=== PATIENT | female | born 1950 | race Caucasian/White ===

== ENCOUNTER 2017-08-23 09:12 | Emergency (ER) | payer BC, OTHER ==
[2017-08-23 10:10] LABS: Absolute Lymphocytes (CBC) 1.8 K/uL (0.7-4.9); Absolute Monocytes 0.9 K/uL (0.1-1.3); Absolute Neutrophil 5.3 K/uL (1.8-8.0); Eosinophils % 3.2 % (0-4.4); Hematocrit 42.6 % (36.0-45.0); Lymphocytes % 21.2 % (15.3-44.8); MCH 29.1 pg (27.0-35.0); MCV 87.5 fL (80-100); MPV 9.4 fL (7.6-11.3); Monocytes % 10.9 % (3.3-12.3); RBC Red Blood Cell Count 4.87 M/uL (3.86-4.86)
[2017-08-23 10:12] LABS: Protime INR 1.02
[2017-08-23 10:21] LABS: Potassium 3.6 mEq/L (3.6-5.0)
[2017-08-23 10:27] LABS: Albumin 3.9 g/dL (3.2-5.5); Bilirubin Direct 0.1 mg/dL (0-0.2); Bilirubin Total 0.6 mg/dL (0.3-1.2); Magnesium 1.7 mg/dL (1.8-2.5); Protein, Total 7.6 g/dL (6.0-8.3)
[2017-08-23 10:30] LABS: CKMB Creatine Kinase MB 1.2 ng/ml (0.3-4.0)
--- NOTE | 2017-08-23 10:32 | RAD REPORT ---
EXAM DESCRIPTION: RAD - Chest Single View - 08/23/2017 10:06 am CLINICAL HISTORY: Shortness of breath, back pain COMPARISON: May 2012 TECHNIQUE: AP portable chest image was obtained 1003 hours . FINDINGS: Lung volumes are very low compared to the prior study. This accentuates the mildly promine nt baseline pattern. In this setting, minimal or early interstitial edema or infiltrative process cou ld be masked. No consolidation or mass. Significant failure or volume overload are not suspected. Trachea is midline. Heart and vasculature are normal. No measurable pleural effusion and no pneumotho rax. No gross bony abnormality seen. No acute aortic findings suspected. IMPRESSION: No acute cardiopulmonary process. Due to the shallow inspiration, early interstitial edema or infiltrate could be masked.
[2017-08-23] MEDS ORDERED: MAGNESIUM OXIDE 400 MG TAB ONE (11:11)
[2017-08-23 11:12] LABS: Urine Blood NEGATIVE (NEG); Urine Glucose NEGATIVE (NEG); Urine Protein NEGATIVE (NEG); Urine Specific Gravity 1.015 (1.005-1.030); Urine pH 7.5 (5.0-7.0)
--- NOTE | 2017-08-23 11:12 | ER ---
Nurse's Notes [facility] Name: Ila Mariee Age: 67 yrs Sex: Female : 1950 Arrival Date: 08/23/2017 Time: 09:16 Bed 19 Private MD: Lida Glover Diagnosis: Strain of muscle and tendon of back wall of thorax Presentation: 08/23 09:40 Presenting complaint: Patient states: She was changing a tire yesterday on her travel aj1 trailer and dragging the valerie across the concrete. Later that night she started to have mid and lower back pain that is worse with movement and deep breathing. Patient states that she is concerned because she knows that back pain can be a sign of a heart attack so she came to the emergency room for evaluation. Denies chest pain, palpitations, incontinence. Reports shortness of breath. Transition of care: patient was not received from another setting of care. Onset of symptoms was August 22, 2017 at 20:00. Risk Assessment: Do you want to hurt yourself or someone else? Patient reports no desire to harm self or others. Initial Sepsis Screen: Does the patient meet any 2 criteria? No. Patient's initial sepsis screen is negative. Does the patient have a suspected source of infection? No. Patient's initial sepsis screen is negative. Care prior to arrival: None. 09:40 Method Of Arrival: Ambulatory aj 09:40 Acuity: IGNACIO 3 aj1 Triage Assessment: 09:50 General: Appears in no apparent distress. uncomfortable, Behavior is calm, cooperative, aj1 appropriate for age. Pain: Complains of pain in low back area and mid back area. Musculoskeletal: Range of motion: intact in all extremities. Historical: - Allergies: 09:50 Prednisone; aj1 09:50 tramadol; aj1 09:50 Zofran; aj1 09:50 Bactrim; aj1 09:50 Codeine; aj1 - Home Meds: 09:50 amlodipine 5 mg tab 1 tab once daily [Active]; citalopram 20 mg tab 1 tab once daily aj1 [Active]; losartan-hydrochlorothiazide 100-12.5 mg Oral tab 1 tab once daily for Hypertension [Active]; losartan-hydrochlorothiazide 100-12.5 mg oral tab 1 tab once daily [Active]; simvastatin 20 mg Oral tab 1 tab once daily [Active]; oxybutynin chloride 5 mg Oral tab 10 mg 3 times per day [Active]; Vitamin D Oral 22604 unit WEEKLY [Active]; omeprazole 20 mg Oral cpDR 1 cap once daily for Gastroesophageal reflux [Active]; - PMHx: 09:50 Anxiety; Depression; GERD; High Cholesterol; Hypertension; urinary problems; aj1 - PSHx: 09:50 wrist surgery; knee surgery; shoulder surgery; hand surgery; aj1 - Immunization history:: Flu vaccine is up to date. - Social history:: Smoking status: Patient/guardian denies using tobacco. - Ebola Screening: : Patient denies travel to an Ebola-affected area in the 21 days before illness onset. Screenin:51 Abuse screen: Denies threats or abuse. Denies injuries from another. Nutritional aj1 screening: No deficits noted. Tuberculosis screening: No symptoms or risk factors identified. 11:35 Fall Risk None identified. aj1 Assessment: 09:51 General: Appears in no apparent distress. uncomfortable, Behavior is calm, cooperative, aj1 appropriate for age. Pain: Complains of pain in mid back area and low back area Pain does not radiate. Pain currently is 10 out of 10 on a pain scale. Quality of pain is described as stabbing, Pain began 1 day ago. Is continuous, Alleviated by medications, Aggravated by repositioning, deep breathing Noted to be resistant to movement. Neuro: Level of Consciousness is awake, alert, obeys commands, Oriented to person, place, time, situation, Moves all extremities. Full function Gait is steady, Speech is normal, Facial symmetry appears normal, Intact. Cardiovascular: Denies chest pain, palpitations, Heart tones S1 S2 present Patient's skin is warm and dry. Rhythm is regular. Respiratory: Reports shortness of breath Airway is patent Respiratory effort is even, unlabored, Respiratory pattern is regular, symmetrical, Breath sounds are clear bilaterally. GI: No signs and/or symptoms were reported involving the gastrointestinal system. : No signs and/or symptoms were reported regarding the genitourinary system. EENT: No signs and/or symptoms were reported regarding the EENT system. Derm: No signs and/or symptoms reported regarding the dermatologic system. Skin is pink, warm \T\ dry. normal. Musculoskeletal: Range of motion: intact in all extremities, Reports back pain. 10:50 Reassessment: Patient appears in no apparent distress at this time. No changes from aj1 previously documented assessment. Patient and/or family updated on plan of care and expected duration. Pain level reassessed. Patient is alert, oriented x 3, equal unlabored respirations, skin warm/dry/pink. Vital Signs: 09:50 BP 155 / 82; Pulse 60; Resp 18; Temp 97.6(O); Pulse Ox 100% on R/A; Weight 71.21 kg; aj1 Height 5 ft. 1 in. (154.94 cm); Pain 10/10; 10:50 BP 144 / 75; Pulse 62; Resp 18; Pulse Ox 99% ; aj1 11:35 BP 155 / 81; Pulse 59; Resp 16; Pulse Ox 98% on R/A; Pain 4/10; ss 09:50 Body Mass Index 29.66 (71.21 kg, 154.94 cm) aj1 ED Course: 09:16 Patient arrived in ED. as 09:16 Lida Glover MD is Private Physician. as 09:23 Fletcher [facility]arsia [facility]. pm1 09:28 Flo Mcdermott MD is Attending Physician. pm1 09:40 Patrizia Mills, BETTY is Primary Nurse. aj1 09:43 Triage completed. aj1 09:50 Arm band placed on. aj1 09:50 Inserted saline lock: 22 gauge in right antecubital area, using aseptic technique. jp3 Blood collected. 09:50 Initial lab(s) drawn, by nv, sent to lab. jp3 09:51 Patient has correct armband on for positive identification. Bed in low position. Call aj light in reach. Side rails up X 1. clinical research monitor on. Pulse ox on. NIBP on. 09:51 No provider procedures requiring assistance completed. aj1 10:06 XRAY Chest (1 view) In Process Unspecified. EDMS 10:06 EKG done, by process controls technician. reviewed by Fletcher Garsia NP. sm3 11:34 IV discontinued, intact, bleeding controlled, No redness/swelling at site. Pressure ss dressing applied. Administered Medications: 11:13 Drug: Magnesium 400 mg Route: PO; aj1 11:36 Follow up: Response: No adverse reaction aj1 Outcome: 11:12 Discharge ordered by . pm1 11:34 Discharged to home ambulatory, with family. ss 11:34 Condition: improved 11:34 Discharge instructions given to patient, family, Instructed on discharge instructions, follow up and referral plans. Demonstrated understanding of instructions, follow-up care. 11:36 Patient left the ED. Signatures: Dispatcher [employer] EDPatrizia Cardona RN RN aj1 Pau Willingham Shelby, RN RN ss Fletcher Garsia, ADDI SATELLITE INSTALLER pm1 Letty Rowe sm3 Fredy Jj 3
--- NOTE | 2017-08-23 11:12 | EDPHYS ---
Physician Documentation [facility] Name: Ila Mariee Age: 67 yrs Sex: Female : 1950 Arrival Date: 08/23/2017 Time: 09:16 Bed 19 Private MD: Lida Glover ED Physician Flo Mcdermott HPI: 08/23 10:30 This 67 yrs old Female presents to ER via Ambulatory with complaints of Back pm1 Pain. 10:30 The patient presents with pain that is acute. pm1 10:30 The symptoms are located in the right subscapular area. Onset: The symptoms/episode pm1 began/occurred yesterday. The pain does not radiate. Associated signs and symptoms: Pertinent negatives: abdominal pain, chest pain, dysuria, fever, nausea, numbness, tingling, vomiting. The problem was sustained when lifting heavy object. Modifying factors: the patient symptoms are aggravated by Deep breathing and movement of right arm. Severity of symptoms: in the emergency department the symptoms are actually worse, shortness of breath is not present in the emergency department. The patient has not experienced similar symptoms in the past. Patient was changing a tire on her trailer. She was dragging the 2 ton valerie across gravel and started noticing some right sided back pain that is worse with moving her back and moving her right arm. No vertebral tenderness or pain. No chest pain. Patient cane to the ER because her told her that AL's may present as back pain. Patient with onset of constant back pain since yesterday. Historical: - Allergies: 09:50 Prednisone; aj1 09:50 tramadol; aj1 09:50 Zofran; aj1 09:50 Bactrim; aj1 09:50 Codeine; aj1 - Home Meds: 09:50 amlodipine 5 mg tab 1 tab once daily [Active]; citalopram 20 mg tab 1 tab once daily aj1 [Active]; losartan-hydrochlorothiazide 100-12.5 mg Oral tab 1 tab once daily for Hypertension [Active]; losartan-hydrochlorothiazide 100-12.5 mg oral tab 1 tab once daily [Active]; simvastatin 20 mg Oral tab 1 tab once daily [Active]; oxybutynin chloride 5 mg Oral tab 10 mg 3 times per day [Active]; Vitamin D Oral 05090 unit WEEKLY [Active]; omeprazole 20 mg Oral cpDR 1 cap once daily for Gastroesophageal reflux [Active]; - PMHx: 09:50 Anxiety; Depression; GERD; High Cholesterol; Hypertension; urinary problems; aj1 - PSHx: 09:50 wrist surgery; knee surgery; shoulder surgery; hand surgery; aj1 - Immunization history:: Flu vaccine is up to date. - Social history:: Smoking status: Patient/guardian denies using tobacco. - Ebola Screening: : Patient denies travel to an Ebola-affected area in the 21 days before illness onset. ROS: 10:30 Constitutional: Negative for fever, chills, and weight loss, Eyes: Negative for injury, pm1 pain, redness, and discharge, ENT: Negative for injury, pain, and discharge, Neck: Negative for injury, pain, and swelling, Cardiovascular: Negative for chest pain, palpitations, and edema, Respiratory: Negative for shortness of breath, cough, wheezing, and pleuritic chest pain, Abdomen/GI: Negative for abdominal pain, nausea, vomiting, diarrhea, and constipation. 10:30 : Negative for injury, bleeding, discharge, and swelling, MS/Extremity: Negative for injury and deformity, Skin: Negative for injury, rash, and discoloration, Neuro: Negative for headache, weakness, numbness, tingling, and seizure. 10:30 Back: Positive for of the right subscapular area, Negative for decreased range of motion. Exam: 10:30 Constitutional: This is a well developed, well nourished patient who is awake, alert, pm1 and in no acute distress. Head/Face: Normocephalic, atraumatic. Eyes: Pupils equal round and reactive to light, extra-ocular motions intact. Lids and lashes normal. Conjunctiva and sclera are non-icteric and not injected. Cornea within normal limits. Periorbital areas with no swelling, redness, or edema. ENT: Nares patent. No nasal discharge, no septal abnormalities noted. Tympanic membranes are normal and external auditory canals are clear. Oropharynx with no redness, swelling, or masses, exudates, or evidence of obstruction, uvula midline. Mucous membranes moist. Neck: Trachea midline, no thyromegaly or masses palpated, and no cervical lymphadenopathy. Supple, full range of motion without nuchal rigidity, or vertebral point tenderness. No Meningismus. Chest/axilla: Normal chest wall appearance and motion. Nontender with no deformity. No lesions are appreciated. Cardiovascular: Regular rate and rhythm with a normal S1 and S2. No gallops, murmurs, or rubs. Normal PMI, no JVD. No pulse deficits. Respiratory: Lungs have equal breath sounds bilaterally, clear to auscultation and percussion. No rales, rhonchi or wheezes noted. No increased work of breathing, no retractions or nasal flaring. Abdomen/GI: Soft, non-tender, with normal bowel sounds. No distension or tympany. No guarding or rebound. No evidence of tenderness throughout. 10:30 Skin: Warm, dry with normal turgor. Normal color with no rashes, no lesions, and no evidence of cellulitis. MS/ Extremity: Pulses equal, no cyanosis. Neurovascular intact. Full, normal range of motion. 10:30 Back: pain, Pain reproduced with movement and rotation of right and left arm, normal spinal alignment noted, muscle spasm, is appreciated in the right subscapular area. 10:30 Neuro: Orientation: is normal, Motor: moves all fours, strength is normal, strength is 5/5 in all extremities, Sensation: is normal, no obvious gross deficits, Gait: is steady, at a normal pace, without difficulty. Vital Signs: 09:50 BP 155 / 82; Pulse 60; Resp 18; Temp 97.6(O); Pulse Ox 100% on R/A; Weight 71.21 kg; aj1 Height 5 ft. 1 in. (154.94 cm); Pain 10/10; 10:50 BP 144 / 75; Pulse 62; Resp 18; Pulse Ox 99% ; aj1 11:35 BP 155 / 81; Pulse 59; Resp 16; Pulse Ox 98% on R/A; Pain 4/10; ss 09:50 Body Mass Index 29.66 (71.21 kg, 154.94 cm) [facility] MDM: 09:29 Patient medically screened. pm1 11:10 ED course: Patient offered pain medications multiple times during ER visit. Patient pm1 refused. She just wants to take ibuprofen or tylenol OTC as needed. 11:10 Data reviewed: vital signs. Data interpreted: Pulse oximetry: on room air is 100 %. pm1 Interpretation: normal. Counseling: I had a detailed discussion with the patient and/or guardian regarding: the historical points, exam findings, and any diagnostic results supporting the discharge/admit diagnosis, lab results, radiology results, the need for outpatient follow up, to return to the emergency department if symptoms worsen or persist or if there are any questions or concerns that arise at home. 08/23 09:37 Order name: Basic Metabolic Panel; Complete Time: 10:41 pm08/23 11:01 Interpretation: Within normal limits. pm08/23 09:37 Order name: BNP; Complete Time: 10:42 pm08/23 09:37 Order name: CBC with Diff; Complete Time: 10:41 pm08/23 09:37 Order name: Ckmb; Complete Time: 10:42 pm08/23 09:37 Order name: CPK; Complete Time: 10:42 pm08/23 09:37 Order name: LFT's; Complete Time: 10:42 pm08/23 09:37 Order name: Magnesium; Complete Time: 10:42 pm08/23 09:37 Order name: PT-INR; Complete Time: 10:42 pm08/23 09:37 Order name: Ptt, Activated; Complete Time: 10:42 pm08/23 09:37 Order name: Troponin (emerg Dept Use Only); Complete Time: 10:42 pm08/23 09:37 Order name: XRAY Chest (1 view); Complete Time: 10:42 pm08/23 09:37 Order name: EKG; Complete Time: 09:38 pm08/23 10:58 Order name: Urine Dipstick--Ancillary (enter results); Complete Time: 11:13 ag 08/23 09:37 Order name: Cardiac monitoring; Complete Time: 11:06 pm08/23 09:37 Order name: EKG - Nurse/Tech; Complete Time: 10:22 pm08/23 09:37 Order name: IV Saline Lock; Complete Time: 10:22 pm08/23 09:37 Order name: Labs collected and sent; Complete Time: 10:22 pm08/23 09:37 Order name: O2 Per Protocol; Complete Time: 11:04 pm08/23 09:37 Order name: O2 Sat Monitoring; Complete Time: 11:04 pm1 06/11 09:37 Order name: Urine Dipstick-Ancillary (obtain specimen); Complete Time: 11:04 pm1 Administered Medications: 11:13 Drug: Magnesium 400 mg Route: PO; aj1 11:36 Follow up: Response: No adverse reaction aj1 Disposition: 08/24 10:48 Co-signature as Attending Physician, Flo Mcdermott MD I agree with the assessment and preston plan of care. Disposition: 08/23/17 11:12 Discharged to Home. Impression: Strain of muscle and tendon of back wall of thorax. - Condition is Stable. - Discharge Instructions: Muscle Strain. - Work release form, Medication Reconciliation Form, Thank You Letter form. - Follow up: Emergency Department; When: As needed; Reason: Worsening of condition. Follow up: Private Physician; When: 2 - 3 days; Reason: Recheck today's complaints, Continuance of care, Re-evaluation by your physician. - Problem is new. - Symptoms have improved. Signatures: Dispatcher [employer] EDPR Patrizia Mills RN RN aj1 Flo Mcdermott MD MD cha Smirch, Shelby, RN RN ss Marinas, Patrick, DESIGN SALES CONSULTANT DESIGN SALES CONSULTANT pm1 Corrections: (The following items were deleted from the chart) 08/23 11:36 11:12 08/23/2017 11:12 Discharged to Home. Impression: Strain of muscle and tendon of ss back wall of thorax. Condition is Stable. Forms are Medication Reconciliation Form, Thank You Letter, Antibiotic Education, Prescription Opioid Use. Follow up: Emergency Department; When: As needed; Reason: Worsening of condition. Follow up: Private Physician; When: 2 - 3 days; Reason: Recheck today's complaints, Continuance of care, Re-evaluation by your physician. Problem is new. Symptoms have improved. pm1
--- NOTE | 2017-08-23 16:11 | EKG ---
Test Date: 2017-08-23 Test Time: 09:57:51 Heel Splitter: [place] MEASUREMENT RESULTS: Intervals: Rate: 55 MI: 146 QRSD: 96 QT: 476 QTc: 455 Pharr: P: 47 MI: 146 QRS: 5 T: 11 INTERPRETIVE STATEMENTS: Sinus bradycardia Possible Inferior infarct, age undetermined Abnormal ECG Compared to ECG 04/17/2009 16:02:29 Myocardial infarct finding now present Sinus rhythm no longer present Electronically Signed On 08-23-17 16:11:07 CDT by Andrez Munoz
== END 2017-08-23 11:36 | disposition home or self-care (01) ==
LOC: ER 09:12
DX: S29.012A Strain of muscle and tendon of back wall of thorax, initial encounter (principal); X50.0XXA Overexertion from strenuous movement or load, initial encounter; Y93.89 Activity, other specified; Y92.9 Unspecified place or not applicable; Z88.1 Allergy status to other antibiotic agents; Z88.5 Allergy status to narcotic agent; Z88.6 Allergy status to analgesic agent; Z88.8 Allergy status to other drugs, medicaments and biological substances; I10 Essential (primary) hypertension; E78.00 Pure hypercholesterolemia, unspecified; F41.9 Anxiety disorder, unspecified; F32.9 Major depressive disorder, single episode, unspecified
CPT/HCPCS: 36415; 71045; 80048; 80076; 81003; 82550; 82553; 83735; 83880; 84484; 85025; 85610; 85730; 93005; 99284

== ENCOUNTER 2018-06-16 08:56 | Emergency (ER) | payer BC, OTHER ==
--- OUTSIDE RECORDS SUMMARY | 2018-06-16 08:58 | XMS REPORT ---
:1950 Author Organization [employer] Care Team Providers Name Role Phone Lida Glover Provider Role Unavailable Allergies No Known Allergies Problems Problem Type Condition Code Onset Dates Condition Status Problem Depression with anxiety F41.8 Active Problem Gastroesophageal reflux disease, K21.9 Active esophagitis presence not specified Problem Hypercholesterolemia E78.00 Active Problem Shortness of breath R06.02 Active Problem Vitamin D deficiency E55.9 Active Problem Hot flashes R23.2 Active Problem Cardiac murmur R01.1 Active Problem Bruises easily R23.8 Active Problem Seasonal allergies J30.2 Active Problem Sinus problem J34.9 Active Problem Allergic rhinitis, unspecified J30.9 Active seasonality, unspecified trigger Problem Hypertension, unspecified type I10 Active Problem Insomnia, unspecified type G47.00 Active Medications No Known Medications Results No Known Results Summary Purpose [employer]Clinical[employer] Submission
--- OUTSIDE RECORDS SUMMARY | 2018-06-16 08:58 | XMS REPORT ---
:1950 Author Organization [employer] Care Team Providers Name Role Phone Lida Glover Provider Role Unavailable Allergies, Adverse Reactions, Alerts Substance Reaction Event Type tramadol Info Not Available Drug Allergy Zofran Info Not Available Drug Allergy PredniSONE Info Not Available Drug Allergy Bactrim Info Not Available Drug Allergy Problems Problem Type Condition Code Onset Dates Condition Status Problem Depression with anxiety F41.8 Active Problem Gastroesophageal reflux disease, K21.9 Active esophagitis presence not specified Problem Hypercholesterolemia E78.00 Active Problem Shortness of breath R06.02 Active Assessment Insomnia, unspecified type G47.00 Active Problem Vitamin D deficiency E55.9 Active Assessment Depression with anxiety F41.8 Active Problem Hot flashes R23.2 Active Problem Cardiac murmur R01.1 Active Problem Bruises easily R23.8 Active Problem Seasonal allergies J30.2 Active Problem Sinus problem J34.9 Active Assessment Gastroesophageal reflux disease, K21.9 Active esophagitis presence not specified Assessment Hypercholesterolemia E78.00 Active Assessment Allergic rhinitis, unspecified J30.9 Active seasonality, unspecified trigger Assessment Vitamin D deficiency E55.9 Active Problem Allergic rhinitis, unspecified J30.9 Active seasonality, unspecified trigger Assessment Hot flashes R23.2 Active Problem Hypertension, unspecified type I10 Active Assessment Hypertension, unspecified type I10 Active Problem Insomnia, unspecified type G47.00 Active Medications Medication Code Code Instructions Start End Status Dosage System Date Date Famotidine ND 19702955220 20 MG Orally Active 1 tablet Once a day at bedtime Pravastatin ND 86200404080 40 MG Orally Active 1 tablet Sodium Once a day Amlodipine ND 01843853101 5 MG Orally Active 1 tablet Besylate Once a day Hyzaar [facility] 91919971033 100-12.5 MG Active 1 tablet Orally Once a day CoQ10 ND 84640829977 100 MG Orally Active 1 capsule Once a day with a meal Amitriptyline HCl ND 78379937490 50 MG Orally Active 1 tablet Once a day at as needed bedtime for sleep Promethazine HCl [facility] 97951838954 25 MG Orally Active 1 tablet every 12 hrs as needed BusPIRone HCl ND 35907795991 7.5 MG Orally Active 1 tablet Twice a day as needed Aspir-Low ND 90452839928 81 MG Orally Active 1 tablet Once a day Vitamin D3 [facility] 47711428676 50,000 PO once Active one tab a week Amoxicillin-Pot ND 20529890563 500-125 MG Active not Clavulanate Orally wice a defined day x10 days Citalopram [facility] 29586746276 20 mg Orally Active 1 tablet Hydrobromide Once a day Aspirin ND 69965232474 81 MG Orally Active 1 tablet QOD Vitamin E ND 90894508633 400 UNIT Orally Active 1 capsule Once a day Cetirizine HCl [facility] 66612423128 10 MG Orally Active 1 tablet Once a day Cranberry [facility] 14204255520 500 MG Orally Active not defined Pepcid [facility] 24296130082 20 MG Orally Active 1 tablet Once a day at bedtime Ditropan XL [facility] 15737957802 5 MG Orally Active 2 tablets Three times a day Oxybutynin [facility] 00190340039 10 Orally Once Active 1 tablet Chloride ER a day Myrbetriq [facility] 20470512440 25 MG Orally Active 1 tablet Once a day Simvastatin [facility] 58734167390 20 mg Orally Active 1 tablet Once a day in the evening ProAir HFA [facility] 75027398062 108 (90 Base) Active 2 puffs as MCG/ACT needed Inhalation every 6 hrs Omeprazole [facility] 64643413485 20 Orally Once Active 1 capsule daily Caltrate 600+D [facility] 91593771977 600-800 MG-UNIT Active 1 tablet Orally Once a with a day meal Results No Known Results Summary Purpose eClinicalWorks Submission
--- OUTSIDE RECORDS SUMMARY | 2018-06-16 08:59 | XMS REPORT ---
:1950 Author Organization [employer] Care Team Providers Name Role Phone Lida Glover Provider Role Unavailable Allergies No Known Allergies Problems Problem Type Condition Code Onset Dates Condition Status Problem Depression with anxiety F41.8 Active Problem Gastroesophageal reflux disease, K21.9 Active esophagitis presence not specified Problem Hypercholesterolemia E78.00 Active Problem Allergic rhinitis, unspecified J30.9 Active seasonality, unspecified trigger Problem Hypertension, unspecified type I10 Active Problem Insomnia, unspecified type G47.00 Active Problem Shortness of breath R06.02 Active Problem Vitamin D deficiency E55.9 Active Problem Hot flashes R23.2 Active Problem Cardiac murmur R01.1 Active Problem Bruises easily R23.8 Active Problem Seasonal allergies J30.2 Active Problem Sinus problem J34.9 Active Medications No Known Medications Results No Known Results Summary Purpose eClinicalWorks Submission
--- OUTSIDE RECORDS SUMMARY | 2018-06-16 08:59 | XMS REPORT ---
[...] Active Problem Sinus problem J34.9 Active Assessment Vitamin D deficiency E55.9 Active Assessment Gastroesophageal reflux disease, K21.9 Active esophagitis presence not specified Assessment Depression with anxiety F41.8 Active Assessment Hot flashes R23.2 Active Problem Allergic rhinitis, unspecified J30.9 Active seasonality, unspecified trigger Assessment Hypercholesterolemia E78.00 Active Problem Hypertension, unspecified type I10 Active Assessment Hypertension, unspecified type I10 Active Problem Insomnia, unspecified type G47.00 Active Medications Medication Code Code Instructions Start End Status Dosage System Date Date Omeprazole [facility] 35743215248 20 Orally Once Active 1 capsule daily Amitriptyline [facility] 41078861585 50 MG Orally Active 1 tablet HCl Once a day at as needed bedtime for sleep Vitamin D3 [facility] 70944802434 50,000 PO once Active one tab a week Simvastatin [facility] 26649782986 20 mg Orally Active 1 tablet Once a day in the evening Citalopram [facility] 61147637431 20 mg Orally Inactive 1 tablet Hydrobromide Once a day Pravastatin ND 56638318575 40 MG Orally Active 1 tablet Sodium Once a day Aspir-Low [facility] 80081057966 81 MG Orally Active 1 tablet Once a day CoQ10 [facility] 66760753950 100 MG Orally Active 1 capsule Once a day with a meal Ditropan XL [facility] 75458159428 5 MG Orally Active 2 tablets Three times a day BusPIRone HCl ND 45272056692 7.5 MG Orally Active 1 tablet Twice a day as needed Vitamin E ND 52153544462 400 UNIT Orally Active 1 capsule Once a day BusPIRone HCl ND 81166353408 7.5 MG Orally May Active 1 tablet Twice a day as 2018 needed for anxiety Amoxicillin-Pot ND 51728437661 500-125 MG Active not Clavulanate Orally wice a defined day x10 days Famotidine ND 47646619303 20 MG Orally Active 1 tablet Once a day at bedtime Cranberry ND 59736529711 500 MG Orally Active not defined Cetirizine HCl ND 87845761180 10 MG Orally Active 1 tablet Once a day ProAir HFA [facility] 84247806987 108 (90 Base) Active 2 puffs MCG/ACT as needed Inhalation every 6 hrs Hyzaar [facility] 43140318701 100-12.5 MG Active 1 tablet Orally Once a day Amlodipine ND 43337657780 5 MG Orally Active 1 tablet Besylate Once a day Caltrate 600+D [facility] 30401887870 600-800 MG-UNIT Active 1 tablet Orally Once a with a day meal Aspirin ND 37493842380 81 MG Orally Active 1 tablet QOD Pepcid ND 24580869785 20 MG Orally Active 1 tablet Once a day at bedtime Trintellix [facility] 67401888974 10 MG Orally May Active 1 tablet Once a day for 2018 depression/anxi ety Oxybutynin [facility] 88149910031 10 Orally Once Active 1 tablet Chloride ER a day Myrbetriq ND 87140082419 25 MG Orally Active 1 tablet Once a day Promethazine HCl ND 06200686170 25 MG Orally Active 1 tablet every 12 hrs as needed Results No Known Results Summary Purpose eClinicalWorks Submission
[2018-06-16] MEDS ORDERED: PROMETHAZINE 25 MG/ML VIAL ONE (09:41)
[2018-06-16] MEDS ORDERED: LIDOCAINE VISCOUS 2% SOLN 15 ML UDC ONE (09:41)
[2018-06-16] MEDS ORDERED: MAGNE/ALUM HYDROXD 30 ML UCUP ONE ×2 (09:41→10:30)
[2018-06-16] MEDS ORDERED: NA CHLORIDE 0.9% 500 ML ONE (09:41)
[2018-06-16 09:44] LABS: Absolute Lymphocytes (CBC) 0.3 K/uL (0.7-4.9); Absolute Neutrophil 15.6 K/uL (1.8-8.0); Basophils % 0.1 % (0-1.3); Eosinophils % 0.2 % (0-4.4); Hematocrit 42.4 % (36.0-45.0); Lymphocytes % 1.8 % (15.3-44.8); MPV 9.1 fL (7.6-11.3); Monocytes % 5.6 % (3.3-12.3); RBC Red Blood Cell Count 4.88 M/uL (3.86-4.86)
[2018-06-16] MEDS ORDERED: DEXAMETHASONE 10 MG/ML VIAL ONE (09:46)
[2018-06-16] MEDS ORDERED: MEPERIDINE HCL 50 MG/ML AMP ONE (09:46)
--- NOTE | 2018-06-16 09:51 | RAD REPORT ---
EXAM DESCRIPTION: US - Abdomen Exam Limited - 06/16/2018 9:46 am CLINICAL HISTORY: Abdominal pain COMPARISON: None. FINDINGS: No gallstones, sludge or other abnormalities within the gallbladder lumen. There is no wal l thickening or pericholecystic fluid. No common duct stone or biliary tree dilatation identified. IMPRESSION: Normal gallbladder and biliary tree ultrasound.
[2018-06-16 09:57] LABS: ALT/SGPT 34 U/L (12-78); AST/SGOT 37 U/L (15-37); Albumin 3.4 g/dL (3.4-5.0); Alkaline Phosphatase 81 U/L (45-117); BUN Blood Urea Nitrogen 18 mg/dL (7-18); Bicarbonate 25 mmol/L (21-32); Bilirubin Direct 0.2 mg/dL (0-0.2); Bilirubin Total 0.7 mg/dL (0.2-1.0); Glucose Level 124 mg/dL (74-106); Lipase 54 U/L (73-393); Potassium 3.7 mmol/L (3.5-5.1); Protein, Total 7.4 g/dL (6.4-8.2); Sodium Level 142 mmol/L (136-145); Troponin (Emerg Dept Use Only) < 0.02 ng/mL (0.0-0.045)
--- NOTE | 2018-06-16 10:45 | RAD REPORT ---
EXAM DESCRIPTION: RAD - Chest Single View - 06/16/2018 10:35 am CLINICAL HISTORY: CHEST PAIN Chest pain. COMPARISON: Chest Single View dated 08/23/2017; CHEST PA AND LAT 2 VIEW dated 05/31/2012; CHEST PA AND LAT 2 VIEW dated 10/02/2009; ABDOMEN ACUTE SERIES dated 04/17/2009 FINDINGS: Portable technique limits examination quality. The lungs are grossly clear. The heart is normal in size. No displaced fractures. IMPRESSION: No acute intrathoracic process suspected.
[2018-06-16 10:57] LABS: Blood Morphology Comment NOT SEEN (NOT SEEN); Platelet Estimate ADEQ
--- NOTE | 2018-06-16 12:37 | RAD REPORT ---
EXAM DESCRIPTION: CTAbdomen Pelvis W Contrast - 06/16/2018 12:24 pm CLINICAL HISTORY: Abdominal pain. Abd pain;Nausea / vomiting COMPARISON: No comparisons TECHNIQUE: Biphasic CT imaging of the abdomen and pelvis was performed with 100 ml non-ionic IV cont rast. All CT scans are performed using dose optimization technique as appropriate and may include automated exposure control or mA/KV adjustment according to patient size. FINDINGS: The lung bases are clear. The liver, spleen, pancreas, adrenal glands and kidneys are within normal limits. No bowel obstruction, free air, free fluid or abscess. Moderate retained stool in the colon. The appe ndix is not identified as a discrete structure, however, no secondary findings of appendicitis are id entified. No evidence of significant lymphadenopathy. Mild lower lumbar degenerative changes. IMPRESSION: No acute intra-abdominal or pelvic finding. Moderate fecal retention in the colon.
--- NOTE | 2018-06-16 13:09 | ER ---
Nurse's Notes [facility] Name: Ila Mariee Age: 68 yrs Sex: Female : 1950 Arrival Date: 06/16/2018 Time: 09:00 Bed 8 Private MD: Lida Glover Diagnosis: Gastritis, unspecified;Constipation, unspecified;Dehydration Presentation: 06/16 09:11 Presenting complaint: Patient states: woke up in the middle of night, feeling very iw shaky, chills, started dry heaving, also c/o chest tightness, epigastric pain radiating to lower abdomen, denies vomiting or diarrhea, also c/o arms and legs tingling, hx of anxiety and GERD. Transition of care: patient was not received from another setting of care. Onset of symptoms was June 16, 2018. Risk Assessment: Do you want to hurt yourself or someone else? Patient reports no desire to harm self or others. Initial Sepsis Screen: Does the patient meet any 2 criteria? No. Patient's initial sepsis screen is negative. Does the patient have a suspected source of infection? No. Patient's initial sepsis screen is negative. Care prior to arrival: None. 09:11 Method Of Arrival: Wheelchair iw 09:11 Acuity: IGNACIO 3 iw Triage Assessment: 12:30 GI: Reports nausea. iw 13:00 General: Appears in no apparent distress. Behavior is calm. iw Historical: - Allergies: 09:33 Bactrim; iw 09:33 Codeine; iw 09:33 Prednisone; iw 09:33 tramadol; iw 09:33 Zofran; iw - Home Meds: 09:33 amlodipine 5 mg tab 1 tab once daily [Active]; losartan-hydrochlorothiazide 100-12.5 mg iw Oral tab 1 tab once daily [Active]; buspirone 7.5 mg Oral tab 2 times per day [Active]; Trintellix 10 mg oral tab 1 tab once daily [Active]; Myrbetriq 25 mg oral Tb24 1 tab once daily [Active]; omeprazole 20 mg Oral cpDR 1 cap once daily for Gastroesophageal reflux [Active]; - PMHx: 09:33 Anxiety; Depression; GERD; High Cholesterol; Hypertension; urinary problems; Anemia; iw - PSHx: 09:33 wrist surgery; Knee surgery; shoulder surgery; hand surgery; iw - Immunization history:: Adult Immunizations up to date. - Ebola Screening: : Patient negative for fever greater than or equal to 101.5 degrees Fahrenheit, and additional compatible Ebola Virus Disease symptoms Patient denies exposure to infectious person Patient denies travel to an Ebola-affected area in the 21 days before illness onset No symptoms or risks identified at this time. - Family history:: not pertinent. - Social history:: Smoking status: Patient/guardian denies using tobacco. - Hospitalizations: : No recent hospitalization is reported. Screenin:22 Abuse screen: Denies threats or abuse. Denies injuries from another. Nutritional iw screening: No deficits noted. Tuberculosis screening: No symptoms or risk factors identified. Fall Risk IV access (20 points). Assessment: 10:22 Reassessment: Patient appears in no apparent distress at this time. Patient and/or iw family updated on plan of care and expected duration. Pain level reassessed. pt medicated for nausea and pain, appears more relaxed, pt encouraged to drink oral contrast. 11:35 Reassessment: Patient appears in no apparent distress at this time. Patient and/or iw family updated on plan of care and expected duration. Pain level reassessed. Patient is alert, oriented x 3, equal unlabored respirations, skin warm/dry/pink. pt has had no more episodes of dry heaving, pt resting comfortably in bed, family at bedside, VSS. Pain: Denies pain. GI: Abdomen is non-distended. 12:40 Reassessment: Patient appears in no apparent distress at this time. Patient and/or iw family updated on plan of care and expected duration. Pain level reassessed. Patient is alert, oriented x 3, equal unlabored respirations, skin warm/dry/pink. Patient states feeling better. Patient states symptoms have improved. Vital Signs: 09:33 BP 148 / 65; Pulse 84; Resp 16; Temp 99.5(TE); Pulse Ox 97% ; iw 11:05 BP 145 / 72; Pulse 96; Resp 14 S; Pulse Ox 95% on R/A; Pain 0/10; iw 12:03 BP 144 / 74; Pulse 96; Resp 16; Pulse Ox 96% on R/A; iw ED Course: 09:00 Patient arrived in ED. mr 09:00 Lida Glover MD is Private Physician. mr 09:01 Theo Ken MD is Attending Physician. rn 09:10 Dinorah Grove RN is Primary Nurse. iw 09:13 Triage completed. iw 09:17 EKG done, by janitorial tech. reviewed by Theo Ken MD. dt2 09:34 Arm band placed on. iw 09:36 Initial lab(s) drawn, by me, sent to lab. Inserted saline lock: 22 gauge in right iw antecubital area, using aseptic technique. Blood collected. 09:46 US Abdomen Limited In Process Unspecified. EDMS 10:36 XRAY Chest (1 view) In Process Unspecified. EDMS 10:36 Patient has correct armband on for positive identification. iw 12:24 CT Abd/Pelvis - W/Contrast In Process Unspecified. EDMS 13:27 No provider procedures requiring assistance completed. IV discontinued, intact, iw bleeding controlled, No redness/swelling at site. Pressure dressing applied. Administered Medications: 09:16 CANCELLED (Duplicate Order): Zofran 4 mg IVP once; over 2 minutes rn 10:15 Drug: Phenergan 12.5 mg Route: IVP; Site: right antecubital; iw 10:25 Drug: NS 0.9% 500 ml Route: IV; Rate: bolus; Site: right antecubital; iw 10:25 Drug: GI Cocktail without - (Maalox Suspension 30 ml, Lidocaine Liquid 2 % 15 iw ml) Route: PO; Outcome: 13:08 Discharge ordered by MD. rn 13:27 Discharged to home ambulatory, via wheelchair, with family. iw 13:27 Condition: good 13:27 Discharge instructions given to patient, family, Instructed on discharge instructions, follow up and referral plans. medication usage, Demonstrated understanding of instructions, follow-up care, medications, Prescriptions given X 1. 13:28 Patient left the ED. pc1 Signatures: Dispatcher [employer] [facility] Melanie Blood mr Dinorah Grove, RN RN iw Theo Ken MD MD rn Teague, Danielle dt2 Fletcher Myrick pc1 Corrections: (The following items were deleted from the chart) 11:36 11:05 BP 145 / 72; Pulse 96bpm; Resp 14bpm; Spontaneous; Pulse Ox 95% RA; iw iw
--- NOTE | 2018-06-16 13:09 | EDPHYS ---
Physician Documentation [facility] Name: Ila Mariee Age: 68 yrs Sex: Female : 1950 Arrival Date: 06/16/2018 Time: 09:00 Bed 8 Private MD: Lida Glover ED Physician Theo Ken HPI: 06/16 09:52 This 68 yrs old Female presents to ER via Wheelchair with complaints of rn Vomiting, Fever, Chest Tightness, Headache. 09:52 The patient presents to the emergency department with nausea, vomiting, abdominal pain. rn Onset: The symptoms/episode began/occurred at 02:00. Possible causes: unknown. The symptoms are aggravated by nothing. The symptoms are alleviated by nothing. Severity of symptoms: At their worst the symptoms were mild in the emergency department the symptoms are unchanged. The patient has not experienced similar symptoms in the past. Reports around 0200 began with upper abd pain, nausea/vomiting, radiates to lower abdomen and up to chest, + chills, no cough, + hx of GERD, constant pain since this morning. Works in [employer] and states "Everybody is getting sick like this". . Historical: - Allergies: 09:33 Bactrim; iw 09:33 Codeine; iw 09:33 Prednisone; iw 09:33 tramadol; iw 09:33 Zofran; iw - Home Meds: 09:33 amlodipine 5 mg tab 1 tab once daily [Active]; losartan-hydrochlorothiazide 100-12.5 mg iw Oral tab 1 tab once daily [Active]; buspirone 7.5 mg Oral tab 2 times per day [Active]; Trintellix 10 mg oral tab 1 tab once daily [Active]; Myrbetriq 25 mg oral Tb24 1 tab once daily [Active]; omeprazole 20 mg Oral cpDR 1 cap once daily for Gastroesophageal reflux [Active]; - PMHx: 09:33 Anxiety; Depression; GERD; High Cholesterol; Hypertension; urinary problems; Anemia; iw - PSHx: 09:33 wrist surgery; Knee surgery; shoulder surgery; hand surgery; iw - Immunization history:: Adult Immunizations up to date. - Ebola Screening: : Patient negative for fever greater than or equal to 101.5 degrees Fahrenheit, and additional compatible Ebola Virus Disease symptoms Patient denies exposure to infectious person Patient denies travel to an Ebola-affected area in the 21 days before illness onset No symptoms or risks identified at this time. - Family history:: not pertinent. - Social history:: Smoking status: Patient/guardian denies using tobacco. - Hospitalizations: : No recent hospitalization is reported. ROS: 09:54 Constitutional: + chills Eyes: Negative for injury, pain, redness, and discharge, Neck: rn Negative for injury, pain, and swelling, Cardiovascular: Negative for palpitations, and edema Respiratory: Negative for shortness of breath, cough, wheezing, and pleuritic chest pain, Abdomen/GI: + abdominal pain/nausea/vomiting, negative for diarrhea MS/Extremity: Negative for injury and deformity, Skin: Negative for injury, rash, and discoloration, Neuro: + headache and generalized weakness Exam: 09:54 Constitutional: This is a well developed, well nourished patient who is awake, alert, rn appears anxious and uncomfortable Head/Face: Normocephalic, atraumatic. Eyes: Pupils equal round and reactive to light, extra-ocular motions intact. Lids and lashes normal. Conjunctiva and sclera are non-icteric and not injected. Cornea within normal limits. Periorbital areas with no swelling, redness, or edema. ENT: MMM Chest/axilla: Normal chest wall appearance and motion. Nontender with no deformity. No lesions are appreciated. Cardiovascular: Regular rate and rhythm, No pulse deficits. Respiratory: Lungs have equal breath sounds bilaterally, clear to auscultation, No increased work of breathing, no retractions or nasal flaring. Abdomen/GI: + epigastric tenderness, no rebound, no masses Back: No spinal tenderness. No costovertebral tenderness. Full range of motion. Skin: Warm, dry, no evidence of cellulitis. MS/ Extremity: Pulses equal, no cyanosis. Neurovascular intact. Full, normal range of motion. Equal circumference. Neuro: Awake and alert, GCS 15, oriented to person, place, time, and situation. Cranial nerves II-XII grossly intact. Motor strength 4/5 in all extremities. Sensory grossly intact. Slow to get into bed but able to ambulate on her own strength. Vital Signs: 09:33 BP 148 / 65; Pulse 84; Resp 16; Temp 99.5(TE); Pulse Ox 97% ; iw 11:05 BP 145 / 72; Pulse 96; Resp 14 S; Pulse Ox 95% on R/A; Pain 0/10; iw 12:03 BP 144 / 74; Pulse 96; Resp 16; Pulse Ox 96% on R/A; iw MDM: 09:01 Patient medically screened. rn 13:06 Differential diagnosis: Nonspecific abd pain, gastritis, cholecystitis, pancreatitis, rn appendicitis, viral gastroenteritis, gastroenteritis. Data reviewed: vital signs, nurses notes, lab test result(s), radiologic studies, CT scan, ultrasound, and as a result, I will discharge patient. Counseling: I had a detailed discussion with the patient and/or guardian regarding: the historical points, exam findings, and any diagnostic results supporting the discharge/admit diagnosis, lab results, radiology results, the need for outpatient follow up, to return to the emergency department if symptoms worsen or persist or if there are any questions or concerns that arise at home. Response to treatment: the patient's symptoms have markedly improved after treatment, and as a result, I will discharge patient. Special discussion: Based on the patient's Hx, exam, and Dx evaluation, there is no indication for emergent surgery or inpatient Tx. It is understood by the patient/guardian that if the Sx's persist or worsen they need to return immediately for re-evaluation. I discussed with the patient/guardian in detail that at this point there is no indication for admission to the hospital. It is understood, however, that if the symptoms persist or worsen the patient needs to return immediately for re-evaluation. Based on the history and exam findings, there is no indication for further emergent testing or inpatient evaluation. I discussed with the patient/guardian the need to see the social service worker for further evaluation of the symptoms. ED course: Pt improved, sleeping comfortably, most likely combination of gastritis and constipation with fecal retention, no acute findings on CT abdomen or u/s. . 06/16 09:13 Order name: Flu; Complete Time: 10:06/16 09:13 Order name: Basic Metabolic Panel; Complete Time: :06/16 09:13 Order name: CBC with Diff; Complete Time: 10:58 rn 06/16 09:13 Order name: Hepatic Function; Complete Time: 10:06/16 09:13 Order name: Lipase; Complete Time: :06/16 09:13 Order name: Troponin (emerg Dept Use Only); Complete Time: 10:23 rn 06/16 09:13 Order name: US Abdomen Limited; Complete Time: 09:54 rn 06/16 09:13 Order name: CT Abd/Pelvis - W/Contrast; Complete Time: 12:50 rn 06/16 09:13 Order name: XRAY Chest (1 view); Complete Time: 10:49 rn 06/16 10:57 Order name: Manual Differential; Complete Time: 10:58 EDMS 06/16 09:02 Order name: EKG - Nurse/Tech; Complete Time: 09:11 hj 06/16 09:13 Order name: IV Saline Lock; Complete Time: 09:34 rn 06/16 09:13 Order name: Labs collected and sent; Complete Time: 09:34 rn 06/16 09:13 Order name: EKG; Complete Time: 09:13 rn 06/16 09:13 Order name: EKG - Nurse/Tech; Complete Time: 09:34 rn Administered Medications: 09:16 CANCELLED (Duplicate Order): Zofran 4 mg IVP once; over 2 minutes rn 10:15 Drug: Phenergan 12.5 mg Route: IVP; Site: right antecubital; iw 10:25 Drug: NS 0.9% 500 ml Route: IV; Rate: bolus; Site: right antecubital; iw 10:25 Drug: GI Cocktail without - (Maalox Suspension 30 ml, Lidocaine Liquid 2 % 15 iw ml) Route: PO; Disposition: 06/16/18 13:08 Discharged to Home. Impression: Gastritis, unspecified, Constipation, unspecified, Dehydration. - Condition is Stable. - Discharge Instructions: Constipation, Adult, Dehydration, Adult, Gastritis, Adult. - Prescriptions for promethazine 25 mg Oral Tablet - take 1 tablet by ORAL route every 6 hours As needed; 20 tablet. - Medication Reconciliation Form, Thank You Letter, Antibiotic Education, Prescription Opioid Use form. - Work release form (06/16/18 13:33). iw - Follow up: Private Physician; When: As needed; Reason: Recheck today's complaints, Re-evaluation by your physician. - Problem is new. - Symptoms have improved. Signatures: Dispatcher [employer] Dinorah Singh RN RN iw Nieto, Roman, MD MD rn Joaquin, Israel, RN RN hj Myrick, Fletcher pc1 Corrections: (The following items were deleted from the chart) 09:16 09:13 Zofran 4 mg IVP once; over 2 minutes ordered. rn rn 13:28 13:08 06/16/2018 13:08 Discharged to Home. Impression: Gastritis, unspecified; pc1 Constipation, unspecified; Dehydration. Condition is Stable. Forms are Medication Reconciliation Form, Thank You Letter, Antibiotic Education, Prescription Opioid Use. Follow up: Private Physician; When: As needed; Reason: Recheck today's complaints, Re-evaluation by your physician. Problem is new. Symptoms have improved. rn
== END 2018-06-16 13:28 | disposition home or self-care (01) ==
LOC: ER 08:56
DX: E86.0 Dehydration (principal); K29.70 Gastritis, unspecified, without bleeding; K59.00 Constipation, unspecified; I10 Essential (primary) hypertension; F32.9 Major depressive disorder, single episode, unspecified; F41.9 Anxiety disorder, unspecified; E78.00 Pure hypercholesterolemia, unspecified; Z88.1 Allergy status to other antibiotic agents; Z88.5 Allergy status to narcotic agent; Z88.8 Allergy status to other drugs, medicaments and biological substances
CPT/HCPCS: 36415; 71045; 74177; 76705; 80048; 80076; 83690; 84484; 85025; 87804; 93005; 96374; 99284; J1100; J2175; J2550; Q9967

== ENCOUNTER 2018-09-22 15:07 | Emergency (ER) | payer BC, OTHER ==
--- OUTSIDE RECORDS SUMMARY | 2018-09-22 15:12 | XMS REPORT ---
[...] End Status Dosage System Date Date Omeprazole [facility] 84352931089 20 Orally Once Active 1 capsule daily Amitriptyline [facility] 16448652297 50 MG Orally Active 1 tablet HCl Once a day at as needed bedtime for sleep Vitamin D3 [facility] 91950606678 50,000 PO once Active one tab a week Simvastatin [facility] 65590322821 20 mg Orally Active 1 tablet Once a day in the evening Citalopram [facility] 89825264885 20 mg Orally Inactive 1 tablet Hydrobromide Once a day Pravastatin ND 01361598594 40 MG Orally Active 1 tablet Sodium Once a day Aspir-Low [facility] 93686060497 81 MG Orally Active 1 tablet Once a day CoQ10 [facility] 25914491389 100 MG Orally Active 1 capsule Once a day with a meal Ditropan XL [facility] 92325329386 5 MG Orally Active 2 tablets Three times a day BusPIRone HCl ND 56908403112 7.5 MG Orally Active 1 tablet Twice a day as needed Vitamin E ND 59276864282 400 UNIT Orally Active 1 capsule Once a day BusPIRone HCl ND 81780737234 7.5 MG Orally May Active 1 tablet Twice a day as 2018 needed for anxiety Amoxicillin-Pot ND 73707106014 500-125 MG Active not Clavulanate Orally wice a defined day x10 days Famotidine ND 01093746716 20 MG Orally Active 1 tablet Once a day at bedtime Cranberry ND 47699935870 500 MG Orally Active not defined Cetirizine HCl ND 50890338824 10 MG Orally Active 1 tablet Once a day ProAir HFA [facility] 07193605122 108 (90 Base) Active 2 puffs MCG/ACT as needed Inhalation every 6 hrs Hyzaar [facility] 76651211151 100-12.5 MG Active 1 tablet Orally Once a day Amlodipine ND 93364567600 5 MG Orally Active 1 tablet Besylate Once a day Caltrate 600+D [facility] 89525933050 600-800 MG-UNIT Active 1 tablet Orally Once a with a day meal Aspirin ND 54298340103 81 MG Orally Active 1 tablet QOD Pepcid ND 44198214501 20 MG Orally Active 1 tablet Once a day at bedtime Trintellix [facility] 99357723477 10 MG Orally May Active 1 tablet Once a day for 2018 depression/anxi ety Oxybutynin [facility] 38736266338 10 Orally Once Active 1 tablet Chloride ER a day Myrbetriq ND 16238781391 25 MG Orally Active 1 tablet Once a day Promethazine HCl ND 64382853384 25 MG Orally Active 1 tablet every 12 hrs as needed Results No Known Results Summary Purpose eClinicalWorks Submission
--- OUTSIDE RECORDS SUMMARY | 2018-09-22 15:12 | XMS REPORT ---
[...] Problem Shortness of breath R06.02 Active Assessment Depression with anxiety F41.8 Active Problem Vitamin D deficiency E55.9 Active Problem Hot flashes R23.2 Active Problem Cardiac murmur R01.1 Active Problem Bruises easily R23.8 Active Problem Seasonal allergies J30.2 Active Problem Sinus problem J34.9 Active Assessment Vitamin D deficiency E55.9 Active Assessment Gastroesophageal reflux disease, K21.9 Active esophagitis presence not specified Assessment Insomnia, unspecified type G47.00 Active Assessment Hot flashes R23.2 Active Problem Allergic rhinitis, unspecified J30.9 Active seasonality, unspecified trigger Assessment Hypercholesterolemia E78.00 Active Problem Hypertension, unspecified type I10 Active Assessment Hypertension, unspecified type I10 Active Problem Insomnia, unspecified type G47.00 Active Medications Medication Code Code Instructions Start End Status Dosage System Date Date Cranberry [facility] 45013324761 500 MG Orally Active not defined Cetirizine HCl [facility] 14907334343 10 MG Orally Active 1 tablet Once a day Amitriptyline HCl [facility] 01065273516 50 MG Orally Active 1 tablet Once a day at as needed bedtime for sleep Omeprazole [facility] 66191249516 20 Orally Once Active 1 capsule daily Pravastatin ND 01274480927 40 MG Orally Active 1 tablet Sodium Once a day Aspir-Low ND 83909333794 81 MG Orally Active 1 tablet Once a day Amlodipine ND 37261555611 5 MG Orally Active 1 tablet Besylate Once a day CoQ10 [facility] 32497568109 100 MG Orally Active 1 capsule Once a day with a meal Trintellix [facility] 14604909072 10 MG Orally May Active 1 tablet Once a day for 2018 depression/anxi ety Caltrate 600+D [facility] 82012320153 600-800 MG-UNIT Active 1 tablet Orally Once a with a day meal Vitamin E [facility] 03531384923 400 UNIT Orally Active 1 capsule Once a day Amoxicillin-Pot [facility] 68611797168 500-125 MG Active not Clavulanate Orally wice a defined day x10 days Ditropan XL [facility] 35429574804 5 MG Orally Active 2 tablets Three times a day Vitamin D3 [facility] 57299071947 50,000 PO once Active one tab a week BusPIRone HCl [facility] 34316974097 7.5 MG Orally Active 1 tablet Twice a day as needed BusPIRone HCl [facility] 24054554896 7.5 MG Orally May Active 1 tablet Twice a day as 2018 needed for anxiety Pepcid [facility] 66988380402 20 MG Orally Active 1 tablet Once a day at bedtime Simvastatin [facility] 37473096300 20 mg Orally Active 1 tablet Once a day in the evening Hyzaar [facility] 75651809493 100-12.5 MG Active 1 tablet Orally Once a day Promethazine HCl [facility] 84687548503 25 MG Orally Active 1 tablet every 12 hrs as needed Oxybutynin [facility] 82400916850 10 Orally Once Active 1 tablet Chloride ER a day Famotidine [facility] 49169949454 20 MG Orally Active 1 tablet Once a day at bedtime Aspirin [facility] 43800693622 81 MG Orally Active 1 tablet QOD Myrbetriq [facility] 24340026909 25 MG Orally Active 1 tablet Once a day ProAir HFA [facility] 77581393894 108 (90 Base) Active 2 puffs as MCG/ACT needed Inhalation every 6 hrs Results No Known Results Summary Purpose eClinicalWorks Submission
--- OUTSIDE RECORDS SUMMARY | 2018-09-22 15:12 | XMS REPORT ---
[...] Status Dosage System Date Date Famotidine ND 82058050994 20 MG Orally Active 1 tablet Once a day at bedtime Pravastatin ND 77949026462 40 MG Orally Active 1 tablet Sodium Once a day Amlodipine ND 09540578000 5 MG Orally Active 1 tablet Besylate Once a day Hyzaar [facility] 18291039487 100-12.5 MG Active 1 tablet Orally Once a day CoQ10 ND 29895769029 100 MG Orally Active 1 capsule Once a day with a meal Amitriptyline HCl ND 11595909977 50 MG Orally Active 1 tablet Once a day at as needed bedtime for sleep Promethazine HCl [facility] 90902024269 25 MG Orally Active 1 tablet every 12 hrs as needed BusPIRone HCl ND 21392911780 7.5 MG Orally Active 1 tablet Twice a day as needed Aspir-Low ND 99442970753 81 MG Orally Active 1 tablet Once a day Vitamin D3 [facility] 53488926187 50,000 PO once Active one tab a week Amoxicillin-Pot ND 09299317321 500-125 MG Active not Clavulanate Orally wice a defined day x10 days Citalopram [facility] 51543788160 20 mg Orally Active 1 tablet Hydrobromide Once a day Aspirin ND 76777710655 81 MG Orally Active 1 tablet QOD Vitamin E ND 19820149510 400 UNIT Orally Active 1 capsule Once a day Cetirizine HCl [facility] 72987915596 10 MG Orally Active 1 tablet Once a day Cranberry [facility] 18157849015 500 MG Orally Active not defined Pepcid [facility] 42340799157 20 MG Orally Active 1 tablet Once a day at bedtime Ditropan XL [facility] 76478756314 5 MG Orally Active 2 tablets Three times a day Oxybutynin [facility] 96972933505 10 Orally Once Active 1 tablet Chloride ER a day Myrbetriq [facility] 13642978828 25 MG Orally Active 1 tablet Once a day Simvastatin [facility] 66357146355 20 mg Orally Active 1 tablet Once a day in the evening ProAir HFA [facility] 51581718747 108 (90 Base) Active 2 puffs as MCG/ACT needed Inhalation every 6 hrs Omeprazole [facility] 63258647362 20 Orally Once Active 1 capsule daily Caltrate 600+D [facility] 16525621115 600-800 MG-UNIT Active 1 tablet Orally Once a with a day meal Results No Known Results Summary Purpose eClinicalWorks Submission
[2018-09-22 16:56] LABS: Absolute Lymphocytes (CBC) 0.9 K/uL (0.7-4.9); Basophils % 0.7 % (0-1.3); Eosinophils % 3.1 % (0-4.4); Hematocrit 41.1 % (36.0-45.0); Lymphocytes % 9.3 % (15.3-44.8); MPV 9.4 fL (7.6-11.3); Monocytes % 9.3 % (3.3-12.3); RBC Red Blood Cell Count 4.73 M/uL (3.86-4.86)
[2018-09-22 17:14] LABS: Magnesium 2.5 mg/dL (1.8-2.4); Potassium 3.7 mmol/L (3.5-5.1)
[2018-09-22 18:00] LABS: Urine Blood NEGATIVE (NEG); Urine Glucose NEGATIVE (NEG); Urine Protein NEGATIVE (NEG)
[2018-09-22 18:08] LABS: Urine Bacteria <20 /HPF (<20); Urine Culture Reflex Order NOT NEEDED; Urine RBC <5 /HPF (NONE SEEN)
[2018-09-22] MEDS ORDERED: NA CHLORIDE 0.9% 500 ML ONE (18:47)
--- NOTE | 2018-09-22 19:06 | ER ---
Nurse's Notes [facility] Name: Ila Mariee Age: 68 yrs Sex: Female : 1950 Arrival Date: 09/22/2018 Time: 15:10 Bed 17 Private MD: Lida Glover Diagnosis: Weakness;Chronic fatigue, unspecified Presentation: 09/22 16:03 Presenting complaint: Patient states: Nausea, dizziness, and generalized weakness since Wednesday, reports that she is currently taking unknown antibiotic for UTI. Transition of care: patient was not received from another setting of care. Onset of symptoms was September 22, 2018. Risk Assessment: Do you want to hurt yourself or someone else? Patient reports no desire to harm self or others. Care prior to arrival: None. 16:03 Method Of Arrival: Ambulatory 16:03 Acuity: IGNACIO 3 ph 19:15 Initial Sepsis Screen: Does the patient meet any 2 criteria? No. Patient's initial cc3 sepsis screen is negative. Does the patient have a suspected source of infection? No. Patient's initial sepsis screen is negative. Triage Assessment: 18:57 General: Appears in no apparent distress. comfortable, Behavior is calm, cooperative. ae4 Pain: Denies pain. EENT: wears glasses.. Neuro: Level of Consciousness is awake, alert, obeys commands, Oriented to person, place, time, situation, Appropriate for age. Neuro: Reports dizziness, weakness. Cardiovascular: Heart tones S1 S2 present Patient's skin is warm and dry. Respiratory: Airway is patent Respiratory effort is even, unlabored, Respiratory pattern is regular, symmetrical, Breath sounds are clear bilaterally. GI: Reports nausea. : No signs and/or symptoms were reported regarding the genitourinary system. Derm: Skin is pale. Musculoskeletal: Reports Generalized weakness and fatigue. Historical: - Allergies: 16:07 Bactrim; ph 16:07 Codeine; ph 16:07 Prednisone; ph 16:07 tramadol; ph 16:07 Zofran; ph - PMHx: 16:07 Anemia; Anxiety; Depression; GERD; High Cholesterol; Hypertension; urinary problems; ph - PSHx: 16:07 wrist surgery; Knee surgery; shoulder surgery; hand surgery; ph - Immunization history:: Adult Immunizations up to date. - Social history:: Smoking status: Patient/guardian denies using tobacco. - Ebola Screening: : Patient denies travel to an Ebola-affected area in the 21 days before illness onset No symptoms or risks identified at this time. Screenin:56 Abuse screen: Denies threats or abuse. Nutritional screening: No deficits noted. ae4 Tuberculosis screening: No symptoms or risk factors identified. Fall Risk No fall in past 12 months (0 pts). No secondary diagnosis (0 pts). IV access (20 points). Ambulatory Aid- None/Bed Rest/Nurse Assist (0 pts). Gait- Normal/Bed Rest/Wheelchair (0 pts) Mental Status- Oriented to own ability (0 pts). Assessment: 18:00 Reassessment: Patient appears in no apparent distress at this time. Patient states ae4 feeling better. Reassessment: Patient states pain is decreased. 19:10 Reassessment: Patient appears in no apparent distress at this time. Patient and/or cc3 family updated on plan of care and expected duration. Pain level reassessed. Patient is alert, oriented x 3, equal unlabored respirations, skin warm/dry/pink. Received this female patient from morning shift BETTY Alberto as a case of fatigability, with IV cannula gauge 24 at the right ACV saline locked. Patient denies pain at this time. Patient states feeling better. General: Appears in no apparent distress. comfortable, Behavior is calm, cooperative, appropriate for age. Pain: Denies pain. Neuro: Level of Consciousness is awake, alert, obeys commands, Oriented to person, place, time, situation, Appropriate for age. Cardiovascular: Denies chest pain, Capillary refill < 3 seconds Patient's skin is warm and dry. Respiratory: Airway is patent Respiratory effort is even, unlabored, Respiratory pattern is regular, symmetrical. GI: Abdomen is round non-distended. : No signs and/or symptoms were reported regarding the genitourinary system. EENT: No signs and/or symptoms were reported regarding the EENT system. Derm: Skin is intact, is healthy with good turgor, Skin is pink, warm \T\ dry. normal. Musculoskeletal: Circulation, motion, and sensation intact. Range of motion: intact in all extremities. 19:25 Reassessment: Patient appears in no apparent distress at this time. Patient and/or cc3 family updated on plan of care and expected duration. Pain level reassessed. Patient is alert, oriented x 3, equal unlabored respirations, skin warm/dry/pink. CATALOGUE ILLUSTRATOR Gricel discharged the patient home, no prescription given. IV cannula removed and patient left ER vitally stable and ambulatory with her . No valuables left in the patient's room. Patient denies pain at this time. Patient states feeling better. Patient states symptoms have improved. Vital Signs: 16:07 BP 132 / 69; Pulse 89; Resp 18; Temp 98.5; Pulse Ox 98% on R/A; Weight 75.75 kg; Height ph 5 ft. 1 in. (154.94 cm); 16:49 BP 119 / 72; Pulse 80; Pulse Ox 99% on R/A; jp3 16:51 BP 130 / 83; Pulse 76; Pulse Ox 100% on R/A; jp3 16:53 BP 138 / 77; Pulse 84; Pulse Ox 100% on R/A; jp3 16:58 BP 138 / 77; Pulse 78; Resp 16; Temp 98.0(O); Pulse Ox 100% on R/A; mh5 18:10 BP 134 / 70; Pulse 78; Resp 18; Pulse Ox 99% on R/A; ae4 19:20 BP 142 / 63; Pulse 72; Resp 18 S; Temp 98.4(O); Pulse Ox 100% on R/A; cc3 16:07 Body Mass Index 31.55 (75.75 kg, 154.94 cm) ph 16:49 Pt states they feel ok jp3 16:51 pat states they feel ok jp3 16:53 pt states they feel ok jp3 ED Course: 15:10 Patient arrived in ED. dp 15:11 Lida Glover MD is Private Physician. dp 16:06 Triage completed. ph 16:07 Arm band placed on Patient placed in waiting room, Patient notified of wait time. ph 16:09 Suzan Wells [facility]C [facility]. kb 16:09 Pradeep Breaux MD is Attending Physician. kb 16:30 Bed in low position. Call light in reach. Side rails up X 1. Side rails up X2. jp3 16:30 Pulse ox on. NIBP on. jp3 16:40 Initial lab(s) drawn, by me, sent to lab. Inserted saline lock: 24 gauge in right jp3 antecubital area, using aseptic technique. Blood collected. Patient maintains SpO2 saturation greater than 95% on room air. 17:11 Diet: Patient given water. Tolerated well. jp3 17:16 Juan J Lang, RN is Primary Nurse. ae4 17:53 Urine collected: clean catch specimen, clear, ej colored. jp3 17:53 Urine Microscopic Only Sent. jp3 19:25 No provider procedures requiring assistance completed. IV discontinued, intact, cc3 bleeding controlled, No redness/swelling at site. Pressure dressing applied. Administered Medications: 18:30 Drug: NS 0.9% 500 ml Route: IV; Rate: bolus; Site: right antecubital; ae4 19:00 Follow up: Response: No adverse reaction; IV Status: Completed infusion; IV Intake: cc3 500ml Intake: 19:00 IV: 500ml; Total: 500ml. cc3 Outcome: 19:05 Discharge ordered by . kb 19:25 Discharged to home ambulatory, with family. cc3 19:25 Condition: stable 19:25 Discharge instructions given to patient, family, Instructed on discharge instructions, follow up and referral plans. Demonstrated understanding of instructions, follow-up care. 19:26 Patient left the ED. cc3 Signatures: Suzan Wells, JARAD ORTA-Tonja Andrews, RN RN Juliette Marte Jacob jp3 aKtie Parkinson cc3 Anival Minaya Andrea, RN RN ae4
--- NOTE | 2018-09-22 19:06 | EDPHYS ---
Physician Documentation [facility] Name: Ila Mariee Age: 68 yrs Sex: Female : 1950 Arrival Date: 09/22/2018 Time: 15:10 Bed 17 Private MD: Lida Glover ED Physician Pradeep Breaux HPI: 09/22 19:01 This 68 yrs old Female presents to ER via Ambulatory with complaints of kb General Weakness, Nausea, Dizziness. 19:01 The patient presents with generalized weakness. Onset: The symptoms/episode kb began/occurred last week. Context: occurred at work. Modifying factors: The symptoms are alleviated by nothing, the symptoms are aggravated by nothing. Associated signs and symptoms: Pertinent positives: fatigue. Severity of symptoms: At their worst the symptoms were moderate in the emergency department the symptoms are unchanged. Patient's baseline: Neuro: alert and fully oriented, Motor: no deficits, Ambulation: walks without assistance, Speech: normal. The patient has experienced similar episodes in the past. The patient has not recently seen a physician. Pt reports she had suprapubic pain and dysuria last Wednesday. Called Dr Cisse and he called in macrobid for a UTI based on symptoms. Reports she has had increased weakness and fatigue since then and today her legs felt like jello while working. 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 Historical: - Allergies: 16:07 Bactrim; ph 16:07 Codeine; ph 16:07 Prednisone; ph 16:07 tramadol; ph 16:07 Zofran; ph - PMHx: 16:07 Anemia; Anxiety; Depression; GERD; High Cholesterol; Hypertension; urinary problems; ph - PSHx: 16:07 wrist surgery; Knee surgery; shoulder surgery; hand surgery; ph - Immunization history:: Adult Immunizations up to date. - Social history:: Smoking status: Patient/guardian denies using tobacco. - Ebola Screening: : Patient denies travel to an Ebola-affected area in the 21 days before illness onset No symptoms or risks identified at this time. ROS: 19:00 Constitutional: Negative for fever, chills, and weight loss, ENT: Negative for injury, kb pain, and discharge, Neck: Negative for injury, pain, and swelling, Cardiovascular: Negative for chest pain, palpitations, and edema, Respiratory: Negative for shortness of breath, cough, wheezing, and pleuritic chest pain, Abdomen/GI: Negative for abdominal pain, nausea, vomiting, diarrhea, and constipation, Back: Negative for injury and pain, : Negative for injury, bleeding, discharge, and swelling, MS/Extremity: Negative for injury and deformity, Skin: Negative for injury, rash, and discoloration. 19:00 Neuro: Positive for weakness, fatigue. Exam: 19:00 Constitutional: This is a well developed, well nourished patient who is awake, alert, kb and in no acute distress. Head/Face: Normocephalic, atraumatic. ENT: Nares patent. No nasal discharge, no septal abnormalities noted. Tympanic membranes are normal and external auditory canals are clear. Oropharynx with no redness, swelling, or masses, exudates, or evidence of obstruction, uvula midline. Mucous membranes moist. Neck: Trachea midline, no thyromegaly or masses palpated, and no cervical lymphadenopathy. Supple, full range of motion without nuchal rigidity, or vertebral point tenderness. No Meningismus. Chest/axilla: Normal chest wall appearance and motion. Nontender with no deformity. No lesions are appreciated. Cardiovascular: Regular rate and rhythm with a normal S1 and S2. No gallops, murmurs, or rubs. Normal PMI, no JVD. No pulse deficits. Respiratory: Lungs have equal breath sounds bilaterally, clear to auscultation and percussion. No rales, rhonchi or wheezes noted. No increased work of breathing, no retractions or nasal flaring. Abdomen/GI: Soft, non-tender, with normal bowel sounds. No distension or tympany. No guarding or rebound. No evidence of tenderness throughout. Back: No spinal tenderness. No costovertebral tenderness. Full range of motion. Skin: Warm, dry with normal turgor. Normal color with no rashes, no lesions, and no evidence of cellulitis. MS/ Extremity: Pulses equal, no cyanosis. Neurovascular intact. Full, normal range of motion. Neuro: Awake and alert, GCS 15, oriented to person, place, time, and situation. Cranial nerves II-XII grossly intact. Motor strength 5/5 in all extremities. Sensory grossly intact. Cerebellar exam normal. Normal gait. Vital Signs: 16:07 BP 132 / 69; Pulse 89; Resp 18; Temp 98.5; Pulse Ox 98% on R/A; Weight 75.75 kg; Height ph 5 ft. 1 in. (154.94 cm); 16:49 BP 119 / 72; Pulse 80; Pulse Ox 99% on R/A; jp3 16:51 BP 130 / 83; Pulse 76; Pulse Ox 100% on R/A; jp3 16:53 BP 138 / 77; Pulse 84; Pulse Ox 100% on R/A; jp3 16:58 BP 138 / 77; Pulse 78; Resp 16; Temp 98.0(O); Pulse Ox 100% on R/A; mh5 18:10 BP 134 / 70; Pulse 78; Resp 18; Pulse Ox 99% on R/A; ae4 19:20 BP 142 / 63; Pulse 72; Resp 18 S; Temp 98.4(O); Pulse Ox 100% on R/A; cc3 16:07 Body Mass Index 31.55 (75.75 kg, 154.94 cm) ph 16:49 Pt states they feel ok jp3 16:51 pat states they feel ok jp3 16:53 pt states they feel ok jp3 MDM: 16:09 Patient medically screened. kb 18:59 Data reviewed: vital signs, nurses notes. Data interpreted: Pulse oximetry: on room air kb is 99 %. Interpretation: normal. Counseling: I had a detailed discussion with the patient and/or guardian regarding: the historical points, exam findings, and any diagnostic results supporting the discharge/admit diagnosis, lab results, the need for outpatient follow up, a family practitioner, to return to the emergency department if symptoms worsen or persist or if there are any questions or concerns that arise at home. 19:04 ED course: After initial labs discussed with pt, she reported that the weakness and kb fatigue are chronic, but have been getting worse. Reports she has discussed these symptoms with her PCP and Dr Cisse, but they can never find a cause. 09/22 16:22 Order name: CBC with Diff; Complete Time: 17:03 kb 09/22 16:22 Order name: Basic Metabolic Panel; Complete Time: 17:22 kb 09/22 16:22 Order name: Magnesium; Complete Time: 17:22 kb 09/22 17:49 Order name: Urine Microscopic Only; Complete Time: 18:26 iw 09/22 17:58 Order name: Urine Dipstick--Ancillary (enter results); Complete Time: 18:01 ag 09/22 18:33 Order name: TSH; Complete Time: 18:59 aj 09/22 16:22 Order name: Urine Dipstick-Ancillary (obtain specimen); Complete Time: 17:49 kb 09/22 16:22 Order name: Orthostatics; Complete Time: 17:00 kb 09/22 16:22 Order name: IV Start; Complete Time: 17:00 kb Administered Medications: 18:30 Drug: NS 0.9% 500 ml Route: IV; Rate: bolus; Site: right antecubital; ae4 19:00 Follow up: Response: No adverse reaction; IV Status: Completed infusion; IV Intake: cc3 500ml Disposition: 09/23 07:51 Co-signature as Attending Physician, Pradeep Breaux MD I agree with the assessment and kdr plan of care. Disposition: 09/22/18 19:05 Discharged to Home. Impression: Weakness, Chronic fatigue, unspecified. - Condition is Stable. - Discharge Instructions: Fatigue, Weakness, [id number]. - Work release form, Medication Reconciliation Form, Thank You Letter, Antibiotic Education, Prescription Opioid Use form. - Follow up: Private Physician; When: 2 - 3 days; Reason: Recheck today's complaints, Continuance of care, Re-evaluation by your physician. Follow up: Emergency Department; When: As needed; Reason: Worsening of condition. Signatures: Dispatcher [employer] EDAL Suzan Wells, GRAVITY PROSPECTOR-C GRAVITY PROSPECTOR-CkPradeep Leonard MD MD [facility] Tonja Siu RN RN Katie Parkinson cc3 Juan J Lang, RN RN ae4 Corrections: (The following items were deleted from the chart) 09/22 19:26 19:05 09/22/2018 19:05 Discharged to Home. Impression: Weakness; Chronic fatigue, cc3 unspecified. Condition is Stable. Forms are Medication Reconciliation Form, Thank You Letter, Antibiotic Education, Prescription Opioid Use. Follow up: Private Physician; When: 2 - 3 days; Reason: Recheck today's complaints, Continuance of care, Re-evaluation by your physician. Follow up: Emergency Department; When: As needed; Reason: Worsening of condition. kb
== END 2018-09-22 19:26 | disposition home or self-care (01) ==
LOC: ER 15:07
DX: R53.82 Chronic fatigue, unspecified (principal); I10 Essential (primary) hypertension; Z88.1 Allergy status to other antibiotic agents; Z88.5 Allergy status to narcotic agent; Z88.8 Allergy status to other drugs, medicaments and biological substances
CPT/HCPCS: 36415; 80048; 81003; 81015; 83735; 84443; 85025; 99284

== ENCOUNTER 2022-08-26 09:38 | Emergency (ER) | payer OTHER ==
--- OUTSIDE RECORDS SUMMARY | 2022-08-26 09:46 | XMS REPORT | Continuity of Care Document ---
:1950 Author Organization [facility] t Address [address] [facility] [address] [place] [address] Care Team Providers Name Role Phone Salvador Scott Primary Care Physician Deb Penn Attending Clinician Unavailable Silva Barnett Attending Clinician Unavailable Lida Glover Attending Clinician Unavailable KIET PUCKETT Attending Clinician Unavailable Kiet Puckett MD Attending Clinician Doctor Unassigned, [place] Attending Clinician Unavailable CECILIA TOLEDO Attending Clinician Unavailable [place] Attending Clinician Unavailable KIET PUCKETT Admitting Clinician Unavailable [place] Admitting Clinician Unavailable Payers Payer Name Policy Type Policy Number Effective Date Expiration Date S ource [facility] HealthSelect 1 [id number] Common TRS/ERS MCR [facility] [id number] 2016 00:00:00 Blue Cross Blue 6 [id number] 2016 Common [employer] of [place] 00:00:00 [facility] Problems Condition Condition Condition Status Onset Resolution Last Treating Co mments Source Name Details Category Date Date Treatment Clinician Date Hyperglyce Hyperglyce Disease Active 2020-03 U rohith shasha due to shasha due to it y of type 2 type 2 00:00: [place] diabetes diabetes 00 Medica l mellitus mellitus Branch Postmenopa Postmenopa Disease Active 2020-03 U rohith [facility] state 2- it y of 00:00: [place] 00 Medical Branch Disorder Bumps on Problem Commo n of skin skin Spirit AND/OR - [facility] subcutaneo [facility] [id number] Insomnia, Problem Com mon unspecifie Spirit d type [facility] [id number] Gastroesop Problem Co mmon hageal [facility] reflux - [facility], [facility] Medica l not Center specified [id number] Depression Problem Co mmon with [facility] anxiety [facility] Seasonal Seasonal Problem Commo n allergy allergies [facility] [id number] Hyperchole Problem Com mon sterolemia [facility] [id number] Hot Problem Common flashes [facility] Hypertensi Hypertensi Problem C ommon on on [facility] Bladder Bladder Problem Common incontinen incontinen Sp prachi ce [facility] [id number] Encounter Problem Com mon for [facility] wellness [facility] examinatio St n in [facility] Heart Cardiac Problem Common murmur murmur [facility] Incontinen Incontinen Problem C ommon ce ce in [facility] female [facility] Vitamin D Vitamin D Problem Com mon deficiency deficiency Sp prachi - [facility] Prediabete Prediabete Problem C ommon s s [facility] [id number] Asymptomat Problem Co mmon ic [facility] menopausal [facility] [id number] Type 2 Problem Common diabetes [facility] mellitus [facility] with [facility] long-term current use of insulin Allergies, Adverse Reactions, Alerts Allergy Allergy Status Severity Reaction(s) Onset Inactive Treating Comm ents Source Name Type Date Date Clinician Predniso Drug Active Unknown - 2020-03 Melissa rs ne Allergy See comments 0-25 ity of 00:00: [place] 00 Medical Branch Ondanset Drug Active Unknown - 2020-03 Melissa rs ericka Allergy See comments 0-25 ity of 00:00: [place] 00 [facility] Branch CODEINE DRUG Active Unknown-Cmnt 2020-03 Uni vers INGREDI 0-25 ity of 00:00: [place] 00 Medical Branch PREDNISO DRUG Active Unknown-Cmnt 2020-03 Un chance NE INGREDI 0-25 ity of 00:00: [place] 00 Medical Branch SULFAMET DRUG Active Hives 2020-03 Univers HOXAZOLE 0-25 ity of -TRIMETH 00:00: [place] OPRIM 00 Medical Branch TRAMADOL DRUG Active Unknown-Cmnt 2020-03 Un chance INGREDI 0-25 ity of 00:00: [place] 00 Medical Branch ONDANSET DRUG Active Unknown-Cmnt 2020-03 Un chance ERICKA INGREDI 0-25 ity of 00:00: [address] Branch 30 Drug Active Unknown Common allergy [facility] 7309 Drug Active Unknown Common allergy [facility] tramadol tramadol Active Unknown Commo n [facility] sulfamet sulfamet Active rash/hives; C ommon hoxazole hoxazole itching Spiri t / / - [facility] trimetho trimetho [facility] Codeine Codeine Active extreme Common drowsiness [facility] Social History Social Habit Start Date Stop Date Quantity Comments Source History of Passive smoker [place] of tobacco use [facility] Sex Assigned At Common Sp prachi - [facility] Alcohol intake 2022-04-22 2022-04-22 [facility] of 00:00:00 00:00:00 non-drinker [facility] (finding) [place] Exposure to 2022-03-16 2022-03-26 Not sure [facility] SARS-CoV-2 00:00:00 11:22:00 [facility] (event) [place] Tobacco use and 2022-03-20 2022-03-20 Smokeless tobacco Un iversity of exposure 00:00:00 00:00:00 non-user [facility] Smoking Status Start Date Stop Date Source Never smoked tobacco [facility] Former smoker 2021-03-14 00:00:00 2021-03-14 00:00:00 [facility] Medications Ordered Filled Start Stop Current Ordering Indication Dosage Frequency Signature Comments Components Source Medication Medication Date Date Medication? Clinician (SIG) Name Name Ca-D3-mag-z Yes 1 tablet Un chance inc-endoscopy rn-man 03-20 with a ity of g-boron 08:26: meal [place] (CALTRATE 25 Medical 600-D PLUS Branch MINERALS) 600 mg calcium- 800 unit-40 mg Chew multivitami Yes Univer s n/iron/foli 03-20 ity of c acid 08:26: [place] ([facility] 25 Medical COMPLETE Branch ORAL) coQ10, Yes 1 capsule Univer s ubiquinol, 03-20 with a ity of 100 mg Cap 08:26: meal [place] [address] Medical Branch OXYBUTYNIN Yes 1 tablet Uni vers CHLORIDE 03-20 ity of ORAL 08:26: [address] Branch azelastine Yes U 2 SPRAYS U nivers 137 mcg 03-20 IEN BID. ity of (0.1 %) 08:26: [place] nasal spray 25 ANTIHISTAM Me dical INE NASAL Branch SPRAY cetirizine Yes 1 tablet Uni vers 10 mg 03-20 ity of tablet 08:26: [place] [address] Medical Branch fluticasone Yes Univer s propionate 03-20 ity of 50 08:26: [place] mcg/actuati 25 Medical on nasal Branch spray montelukast Yes 1 tablet Un chance 10 mg 03-20 ity of tablet 08:26: [address] Ca-D3-mag-z Yes 1 tablet Un chance inc-endoscopy rn-man 03-20 with a ity of g-boron 08:26: meal [place] (CALTRATE 25 Medical 600-D PLUS Branch MINERALS) 600 mg calcium- 800 unit-40 mg Chew multivitami Yes Univer s n/iron/foli 03-20 ity of c acid 08:26: [place] ([facility] 25 Medical COMPLETE Branch ORAL) coQ10, Yes 1 capsule Univer s ubiquinol, 03-20 with a ity of 100 mg Cap 08:26: meal [place] [address] Medical Branch OXYBUTYNIN Yes 1 tablet Uni vers CHLORIDE 03-20 ity of ORAL 08:26: [address] Branch azelastine Yes U 2 SPRAYS U nivers 137 mcg 1-06 IEN BID. ity of (0.1 %) 08:26: [place] nasal spray 25 ANTIHISTAM Me dical INE NASAL Branch SPRAY cetirizine Yes 1 tablet Uni vers 10 mg - ity of tablet 08:26: [place] 25 Medical Branch fluticasone Yes Univer s propionate - ity of 50 08:26: [place] mcg/actuati 25 Medical on nasal Branch spray montelukast Yes 1 tablet Un chance 10 mg - ity of tablet 08:26: [place] 25 Medical Branch Ca-D3-mag-z Yes 1 tablet Un chance inc-endoscopy rn-man 03-20 with a ity of g-boron 08:26: meal [place] (CALTRATE 25 Medical 600-D PLUS Branch MINERALS) 600 mg calcium- 800 unit-40 mg Chew multivitami Yes Univer s n/iron/foli 03-20 ity of c acid 08:26: [place] ([facility] 25 Medical COMPLETE Branch ORAL) coQ10, Yes 1 capsule Univer s ubiquinol, 03-20 with a ity of 100 mg Cap 08:26: meal [place] 25 Medical Branch OXYBUTYNIN Yes 1 tablet Uni vers CHLORIDE 03-20 ity of ORAL 08:26: [place] 25 Medical Branch azelastine Yes U 2 SPRAYS U nivers 137 mcg 03-20 IEN BID. ity of (0.1 %) 08:26: [place] nasal spray 25 ANTIHISTAM Me dical INE NASAL Branch SPRAY cetirizine Yes 1 tablet Uni vers 10 mg - ity of tablet 08:26: [place] 25 Medical Branch fluticasone Yes Univer s propionate 03-20 ity of 50 08:26: [place] mcg/actuati 25 Medical on nasal Branch spray montelukast Yes 1 tablet Un chance 10 mg - ity of tablet 08:26: [place] 25 Medical Branch Ca-D3-mag-z Yes 1 tablet Un chance inc-endoscopy rn-man 03-20 with a ity of g-boron 08:26: meal [place] (CALTRATE 25 Medical 600-D PLUS Branch MINERALS) 600 mg calcium- 800 unit-40 mg Chew multivitami Yes Univer s n/iron/foli 03-20 ity of c acid 08:26: [place] ([facility] 25 Medical COMPLETE Branch ORAL) coQ10, Yes 1 capsule Univer s ubiquinol, 03-20 with a ity of 100 mg Cap 08:26: meal [place] [address] Medical Branch OXYBUTYNIN Yes 1 tablet Uni vers CHLORIDE 03-20 ity of ORAL 08:26: [place] [address] Medical Branch azelastine Yes U 2 SPRAYS U nivers 137 mcg 03-20 IEN BID. ity of (0.1 %) 08:26: [place] nasal spray 25 ANTIHISTAM Me dical INE NASAL Branch SPRAY cetirizine Yes 1 tablet Uni vers 10 mg 03-20 ity of tablet 08:26: [place] [address] Medical Branch fluticasone Yes Univer s propionate 03-20 ity of 50 08:26: [facility]/actuati 25 Medical on nasal Branch spray montelukast Yes 1 tablet Un chance 10 mg 03-20 ity of tablet 08:26: [address] Branch Myrbetriq Myrbetriq 2021- No 1{table QD Myrbetriq 50 MG 50 MG 10-20 t} 50 MG 00:00: 00:00 00 :00 VESIcare 5 VESIcare 5 202- No 1{table QD VESIcare 5 MG MG 6-20 12-16 t} MG 00:00: 00:00 00 :00 VESIcare 5 VESIcare 5 202- No 1{table QD VESIcare 5 MG MG 6-20 12-16 t} MG 00:00: 00:00 00 :00 VESIcare 5 VESIcare 5 202- No 1{table QD VESIcare 5 MG MG 6-20 12-16 t} MG 00:00: 00:00 00 :00 VESIcare 5 VESIcare 5 2022- No 1{table QD VESIcare 5 MG MG 6-20 12-16 t} MG 00:00: 00:00 00 :00 VESIcare 5 VESIcare 5 2- No 1{table QD VESIcare 5 MG MG 6-20 12-16 t} MG 00:00: 00:00 00 :00 mirabegron 2022- No 1 tablet Un chance (MYRBETRIQ) 5-19 05-19 ity of 25 mg 16:28: 00:00 [place] tablet 42 :00 [facility] mirabegron Yes 1 tablet Uni vers (MYRBETRIQ) 5-19 by mouth ity of 25 mg 00:00: daily [place] tablet 00 [facility] mirabegron Yes 1 tablet Uni vers (MYRBETRIQ) 5-19 by mouth ity of 25 mg 00:00: daily [place] tablet 00 [facility] mirabegron Yes 1 tablet Uni vers (MYRBETRIQ) 5-19 by mouth ity of 25 mg 00:00: daily [place] tablet 00 [facility] mirabegron Yes 1 tablet Uni vers (MYRBETRIQ) 5-19 by mouth ity of 25 mg 00:00: daily [place] tablet 00 [facility] mirabegron Yes 1 tablet Uni vers (MYRBETRIQ) 5-19 by mouth ity of 25 mg 00:00: daily [place] tablet 00 [facility] Myrbetriq Myrbetriq 2021- No 1{table QD Myrbetriq 50 MG 50 MG 07-23 t} 50 MG 00:00: 00:00 00 :00 Myrbetriq Myrbetriq 2021-0 2022- No 1{table QD Myrbetriq 50 MG 50 MG 07-23 t} 50 MG 00:00: 00:00 00 :00 Myrbetriq Myrbetriq 2- No 1{table QD Myrbetriq 50 MG 50 MG 07-23 t} 50 MG 00:00: 00:00 00 :00 Myrbetriq Myrbetriq 2021- 2022- No 1{table QD Myrbetriq 50 MG 50 MG 07-23 t} 50 MG 00:00: 00:00 00 :00 Myrbetriq Myrbetriq 2021- 2022- No 1{table QD Myrbetriq 50 MG 50 MG 07-23 t} 50 MG 00:00: 00:00 00 :00 Myrbetriq Myrbetriq 2021-0 2022- No 1{table QD Myrbetriq 50 MG 50 MG 06-25 t} 50 MG 00:00: 00:00 00 :00 Myrbetriq Myrbetriq 2021-0 2022- No 1{table QD Myrbetriq 50 MG 50 MG 06-25 t} 50 MG 00:00: 00:00 00 :00 Myrbetriq Myrbetriq 2021-0 2022- No 1{table QD Myrbetriq 50 MG 50 MG 06-25 t} 50 MG 00:00: 00:00 00 :00 Myrbetriq Myrbetriq 2021-0 2- No 1{table QD Myrbetriq 50 MG 50 MG 06-25 t} 50 MG 00:00: 00:00 00 :00 Solifenacin Solifenacin 2021-0 2022- No 1{table QD Solifenaci Succinate 5 Succinate 5 06-23-10 t} n MG MG 00:00: 00:00 Succinate 00 :00 5 MG Solifenacin Solifenacin 2021-0 2- No 1{table QD Solifenaci Succinate 5 Succinate 5 06-23-10 t} n MG MG 00:00: 00:00 Succinate 00 :00 5 MG Solifenacin Solifenacin 2021-0 2022- No 1{table QD Solifenaci Succinate 5 Succinate 5 -01 18-10 t} n MG MG 00:00: 00:00 Succinate 00 :00 5 MG Solifenacin Solifenacin 2021-0 2022- No 1{table QD Solifenaci Succinate 5 Succinate 5 -01 18-10 t} n MG MG 00:00: 00:00 Succinate 00 :00 5 MG Solifenacin Solifenacin 2021-0 2- No 1{table QD Solifenaci Succinate 5 Succinate 5 4- 06-10 t} n MG MG 00:00: 00:00 Succinate 00 :00 5 MG Promethazin Promethazin 2021-0 2022- No 1{table BID Promethazi e HCl 12.5 e HCl 12.5 06-05 t_as_ne ne HCl MG MG 00:00: 00:00 eded} 12.5 MG 00 :00 Promethazin Promethazin 2021-0 2- No 1{table BID Promethazi e HCl 12.5 e HCl 12.5 06-05 t_as_ne ne HCl MG MG 00:00: 00:00 eded} 12.5 MG 00 :00 Oseltamivir Oseltamivir 2021-0 No 1{capsu BID Oseltamivi Phosphate Phosphate 3-18 le} r 75 MG 75 MG 00:00: Phosphate 00 75 MG Oseltamivir Oseltamivir 2-0 No 1{capsu BID Oseltamivi Phosphate Phosphate 3-18 le} r 75 MG 75 MG 00:00: Phosphate 00 75 MG Oseltamivir Oseltamivir 2022-0 No 1{capsu BID Oseltamivi Phosphate Phosphate 3-18 le} r 75 MG 75 MG 00:00: Phosphate 00 75 MG Oseltamivir Oseltamivir 2-0 No 1{capsu BID Oseltamivi Phosphate Phosphate 3-18 le} r 75 MG 75 MG 00:00: Phosphate 00 75 MG Oseltamivir Oseltamivir 2022-0 No 1{capsu BID Oseltamivi Phosphate Phosphate 3-18 le} r 75 MG 75 MG 00:00: Phosphate 00 75 MG Oseltamivir Oseltamivir 2022-0 No 1{capsu BID Oseltamivi Phosphate Phosphate 3-18 le} r 75 MG 75 MG 00:00: Phosphate 00 75 MG Oseltamivir Oseltamivir 2022-0 No 1{capsu BID Oseltamivi Phosphate Phosphate 3-18 le} r 75 MG 75 MG 00:00: Phosphate 00 75 MG Oseltamivir Oseltamivir 2022-0 No 1{capsu BID Oseltamivi Phosphate Phosphate 3-18 le} r 75 MG 75 MG 00:00: Phosphate 00 75 MG Oseltamivir Oseltamivir 2022-0 No 1{capsu BID Oseltamivi Phosphate Phosphate 3-18 le} r 75 MG 75 MG 00:00: Phosphate 00 75 MG Oseltamivir Oseltamivir 2022-0 No 1{capsu BID Oseltamivi Phosphate Phosphate 3-18 le} r 75 MG 75 MG 00:00: Phosphate 00 75 MG Oseltamivir Oseltamivir 2021-0 No 1{capsu BID Oseltamivi Phosphate Phosphate 3-18 le} r 75 MG 75 MG 00:00: Phosphate 00 75 MG Oseltamivir Oseltamivir 2021-0 No 1{capsu BID Oseltamivi Phosphate Phosphate 3-18 le} r 75 MG 75 MG 00:00: Phosphate 00 75 MG Oseltamivir Oseltamivir 2021-0 No 1{capsu BID Oseltamivi Phosphate Phosphate 3-18 le} r 75 MG 75 MG 00:00: Phosphate 00 75 MG Oseltamivir Oseltamivir 2021-0 No 1{capsu BID Oseltamivi Phosphate Phosphate 3-18 le} r 75 MG 75 MG 00:00: Phosphate 00 75 MG Oseltamivir Oseltamivir 2021-0 No 1{capsu BID Oseltamivi Phosphate Phosphate 3-18 le} r 75 MG 75 MG 00:00: Phosphate 00 75 MG Benzonatate Benzonatate 0 2021- No 1{capsu Benzonatat 200 MG 200 MG 3-18 - le_as_n e 200 MG 00:00: 00:00 eeded} 00 :00 Benzonatate Benzonatate 0 2021- No 1{capsu Benzonatat 200 MG 200 MG 3-18 06-13 le_as_n e 200 MG 00:00: 00:00 eeded} 00 :00 Benzonatate Benzonatate 2021-0 2- No 1{capsu Benzonatat 200 MG 200 MG 3-18 06-13 le_as_n e 200 MG 00:00: 00:00 eeded} 00 :00 Benzonatate Benzonatate 0 2022- No 1{capsu Benzonatat 200 MG 200 MG 3-18 06-13 le_as_n e 200 MG 00:00: 00:00 eeded} 00 :00 coQ10, 2020-03 Yes 1 capsule Univer s ubiquinol, 2-31 with a ity of 100 mg Cap 09:00: meal [address] [place] 2020-03 Yes Univers 500 mg Cap 2-31 ity of 09:00: [address] OXYBUTYNIN 2020-03 Yes 1 tablet Uni vers CHLORIDE 2-31 ity of ORAL 09:00: [address] aspirin 81 2020-03 Yes 1 tablet Uni vers mg EC 2-31 ity of tablet 09:00: [address] azelastine 2020-03 Yes U 2 SPRAYS U nivers 137 mcg 2-31 IEN BID. ity of (0.1 %) 09:00: [place] nasal spray 14 ANTIHISTAM Me dical INE NASAL Branch SPRAY cetirizine 2020-03 Yes 1 tablet Uni vers 10 mg 2-31 ity of tablet 09:00: [address] fluticasone 2020-03 Yes Univer s propionate 2-31 ity of 50 09:00: [place] mcg/actuati 14 Medical on nasal Branch spray montelukast 2020-03 Yes 1 tablet Un chance (SINGULAIR) 2-31 ity of 10 mg 09:00: [address] calcium 2020-03 Yes Take by Univers carbonate/v 2-31 mouth. ity of itamin D3 09:00: [place] (VITAMIN 14 Medical D-3 ORAL) [place] 2020-03 Yes Univers 500 mg Cap 2-31 ity of 09:00: [address] aspirin 81 2020-03 Yes 1 tablet Uni vers mg EC 2-31 ity of tablet 09:00: [address] calcium 2020-03 Yes Take by Univers carbonate/v 2-31 mouth. ity of itamin D3 09:00: [place] (VITAMIN 14 Medical D-3 ORAL) [place] 2020-03 Yes Univers 500 mg Cap 2-31 ity of 09:00: [address] aspirin 81 2020-03 Yes 1 tablet Uni vers mg EC 2-31 ity of tablet 09:00: [address] calcium 2020-03 Yes Take by Univers carbonate/v 2-31 mouth. ity of itamin D3 09:00: [place] (VITAMIN 14 Medical D-3 ORAL) [place] 2020-03 Yes Univers 500 mg Cap 2-31 ity of 09:00: [address] aspirin 81 2020-03 Yes 1 tablet Uni vers mg EC 2-31 ity of tablet 09:00: [address] calcium 2020-03 Yes Take by Univers carbonate/v 2-31 mouth. ity of itamin D3 09:00: [place] (VITAMIN 14 Medical D-3 ORAL) Branch [place] 2020-03 Yes Univers 500 mg Cap 2-31 ity of 09:00: [place] [address] Medical Branch aspirin 81 2020-03 Yes 1 tablet Uni vers mg EC 2-31 ity of tablet 09:00: [place] 14 Medical Branch calcium 2020-03 Yes Take by Univers carbonate/v 2-31 mouth. ity of itamin D3 09:00: [place] (VITAMIN 14 Medical D-3 ORAL) Branch Ca-D3-mag-z 2020-03 Yes 1 tablet Un chance inc-endoscopy rn-man 2-31 with a ity of g-boron 09:00: meal [place] (CALTRATE 14 Medical 600-D PLUS Branch MINERALS) 600 mg calcium- 800 unit-40 mg Chew multivitami 2020-03 Yes Univer s n/iron/foli 2-31 ity of c acid 09:00: [place] ([facility] 14 Medical COMPLETE Branch ORAL) simvastatin 2020-03 Yes 1 tablet Un chance 20 mg 2-31 in the ity of tablet 08:34: evening [place] [address] Medical Branch cyanocobala 2020-03 Yes 1 tablet Un chance min, 2-31 ity of vitamin 08:34: [place] B-, 57 Medical (VITAMIN Branch B-12 ORAL) losartan-hy 2020-03 Yes 1{tbl} Take 1 Un chance drochloroth 2-31 tablet by ity of iazide 08:34: mouth [place] 100-12.5 mg 57 daily. Medica l per tablet Branch metformin 2020-03 Yes TAKE 1 Univer s ER 500 mg 2-31 TABLET BY ity o f 24 hr 08:34: MOUTH [place] tablet 57 EVERY DAY Medical WITH THE Branch EVENING MEAL traZODone 2020-03 Yes 1/2 tablet Un chance 50 mg 2-31 as needed ity of tablet 08:34: for sleep [place] [address] Medical Branch vortioxetin 2020-03 Yes 1 tablet Un chance e 2-31 ity of (TRINTELLIX 08:34: [place] ) 10 mg [facility] Medical Branch simvastatin 2020-03 Yes 1 tablet Un chance 20 mg 2-31 in the ity of tablet 08:34: evening [place] [address] Medical Branch cyanocobala 2020-03 Yes 1 tablet Un chance min, 2-31 ity of vitamin 08:34: [place] B-12, 57 Medical (VITAMIN Branch B-12 ORAL) losartan-hy 2020-03 Yes 1{tbl} Take 1 Un chance drochloroth 2-31 tablet by ity of iazide 08:34: mouth [place] 100-12.5 mg 57 daily. Medica l per tablet Branch metformin 2020-03 Yes TAKE 1 Univer s ER 500 mg 2-31 TABLET BY ity o f 24 hr 08:34: MOUTH [place] tablet 57 EVERY DAY Medical WITH THE Branch EVENING MEAL traZODone 2020-03 Yes 1/2 tablet Un chance 50 mg 2-31 as needed ity of tablet 08:34: for sleep [place] [address] Medical Branch vortioxetin 2020-03 Yes 1 tablet Un chance e 2-31 ity of (TRINTELLIX 08:34: [place] ) 10 mg Tab 57 Medical Branch simvastatin 2020-03 Yes 1 tablet Un chance 20 mg 2-31 in the ity of tablet 08:34: evening [place] [address] Medical Branch cyanocobala 2020-03 Yes 1 tablet Un chance min, 2-31 ity of vitamin 08:34: B- 57 Medical (VITAMIN Branch B-12 ORAL) losartan-hy 2020-03 Yes 1{tbl} Take 1 Un chance drochloroth 2-31 tablet by ity of iazide 08:34: mouth [place] 100-12.5 mg 57 daily. Medica l per tablet Branch metformin 2020-03 Yes TAKE 1 Univer s ER 500 mg 2-31 TABLET BY ity o f 24 hr 08:34: MOUTH [place] tablet 57 EVERY DAY Medical WITH THE Branch EVENING MEAL traZODone 2020-03 Yes 1/2 tablet Un chance 50 mg 2-31 as needed ity of tablet 08:34: for sleep [place] [address] Medical Branch vortioxetin 2020-03 Yes 1 tablet Un chance e 2-31 ity of (TRINTELLIX 08:34: [place] ) 10 mg Tab 57 Medical Branch simvastatin 2020-03 Yes 1 tablet Un chance 20 mg 2-31 in the ity of tablet 08:34: evening [place] [address] Medical Branch cyanocobala 2020-03 Yes 1 tablet Un chance min, 2-31 ity of vitamin 08:34: B-12, 57 Medical (VITAMIN Branch B-12 ORAL) losartan-hy 2020-03 Yes 1{tbl} Take 1 Un chance drochloroth 2-31 tablet by ity of iazide 08:34: mouth [place] 100-12.5 mg 57 daily. Medica l per tablet Branch metformin 2020-03 Yes TAKE 1 Univer s ER 500 mg 2-31 TABLET BY ity o f 24 hr 08:34: MOUTH [place] tablet 57 EVERY DAY Medical WITH THE Branch EVENING MEAL traZODone 2020-03 Yes 1/2 tablet Un chance 50 mg 2-31 as needed ity of tablet 08:34: for sleep [place] [address] Medical Branch vortioxetin 2020-03 Yes 1 tablet Un chance e 2-31 ity of (TRINTELLIX 08:34: [place] ) 10 mg Tab 57 Medical Branch simvastatin 2020-03 Yes 1 tablet Un chance 20 mg 2-31 in the ity of tablet 08:34: evening [address] cyanocobala 2020-03 Yes 1 tablet Un chance min, 2-31 ity of vitamin 08:34: [place] B-12, 57 Medical (VITAMIN Branch B-12 ORAL) losartan-hy 2020-03 Yes 1{tbl} Take 1 Un chance drochloroth 2-31 tablet by ity of iazide 08:34: mouth [place] 100-12.5 mg 57 daily. Medica l per tablet Branch metformin 2020-03 Yes TAKE 1 Univer s ER 500 mg 2-31 TABLET BY ity o f 24 hr 08:34: MOUTH [place] tablet 57 EVERY DAY Medical WITH THE Branch EVENING MEAL traZODone 2020-03 Yes 1/2 tablet Un chance 50 mg 2-31 as needed ity of tablet 08:34: for sleep [address] Branch vortioxetin 2020-03 Yes 1 tablet Un chance e 2-31 ity of (TRINTELLIX 08:34: [place] ) 10 mg Tab 57 Medical Branch omeprazole 2020-03 Yes Univers 20 mg 1-12 ity of capsule 00:00: [place] 00 [facility] Branch omeprazole 2020-03 Yes Univers 20 mg 1-12 ity of capsule 00:00: [place] 00 [facility] Branch omeprazole 2020-03 Yes Univers 20 mg 1-12 ity of capsule 00:00: [place] [facility] Branch omeprazole 2020-03 Yes Univers 20 mg 1-12 ity of capsule 00:00: Medical Branch omeprazole 2020-03 Yes Univers 20 mg 1-12 ity of capsule 00:00: Medical Branch amLODIPine 2020-03 Yes Univers 5 mg tablet 1-03 ity of 00:00: Medical Branch amLODIPine 2020-03 Yes Univers 5 mg tablet 1-03 ity of 00:00: Medical Branch amLODIPine 2020-03 Yes Univers 5 mg tablet 1-03 ity of 00:00: Medical Branch amLODIPine 2020-03 Yes Univers 5 mg tablet 1-03 ity of 00:00: Medical Branch amLODIPine 2020-03 Yes Univers 5 mg tablet 1-03 ity of 00:00: Medical Branch busPIRone 2020-03 Yes 7.5mg Take 7.5 Uni vers 7.5 mg 0-17 mg by ity of tablet 00:00: mouth 2 [place] (two) Medical times Branch daily as needed. busPIRone 2020-03 Yes 7.5mg Take 7.5 Uni vers 7.5 mg 0-17 mg by ity of tablet 00:00: mouth 2 (two) Medical times Branch daily as needed. busPIRone 2020-03 Yes 7.5mg Take 7.5 Uni vers 7.5 mg 0-17 mg by ity of tablet 00:00: mouth 2 () Medical times Branch daily as needed. busPIRone 2020-03 Yes 7.5mg Take 7.5 Uni vers 7.5 mg 0-17 mg by ity of tablet 00:00: mouth 2 [place] (two) Medical times Branch daily as needed. busPIRone 2020-03 Yes 7.5mg Take 7.5 Uni vers 7.5 mg 0-17 mg by ity of tablet 00:00: mouth 2 (two) Medical times Branch daily as needed. solifenacin 2020-03 Yes 5mg Take 5 mg U nivers 5 mg tablet 0-03 by mouth ity of 00:00: daily. [facility] Branch solifenacin 2020-03 Yes 5mg Take 5 mg U nivers 5 mg tablet 0-03 by mouth ity of 00:00: daily. [facility] Branch solifenacin 2020-03 Yes 5mg Take 5 mg U nivers 5 mg tablet 0-03 by mouth ity of 00:00: daily. [address] solifenacin 2020-03 Yes 5mg Take 5 mg U nivers 5 mg tablet 0-03 by mouth ity of 00:00: daily. [address] solifenacin 2020-03 Yes 5mg Take 5 mg U nivers 5 mg tablet 0-03 by mouth ity of 00:00: daily. [address] Myrbetriq Myrbetriq 2020-0 2022- No 1{table QD Myrbetriq 50 MG 50 MG 12-10 t} 50 MG 00:00: 00:00 00 :00 Myrbetriq Myrbetriq 2020-0 2022- No 1{table QD Myrbetriq 50 MG 50 MG 12-10 t} 50 MG 00:00: 00:00 00 :00 Myrbetriq Myrbetriq 2020-0 2022- No 1{table QD Myrbetriq 50 MG 50 MG 12-10 t} 50 MG 00:00: 00:00 00 :00 Myrbetriq Myrbetriq 1-0 2022- No 1{table QD Myrbetriq 50 MG 50 MG 12-10 t} 50 MG 00:00: 00:00 00 :00 Myrbetriq Myrbetriq 2020-0 2022- No 1{table QD Myrbetriq 50 MG 50 MG 12-10 t} 50 MG 00:00: 00:00 00 :00 Myrbetriq Myrbetriq 2020-0 2022- No 1{table QD Myrbetriq 50 MG 50 MG 12-10 t} 50 MG 00:00: 00:00 00 :00 Myrbetriq Myrbetriq 2020-0 2022- No 1{table QD Myrbetriq 50 MG 50 MG 12-10 t} 50 MG 00:00: 00:00 00 :00 Trazodone Trazodone 2019-0 Yes Connie 1-2 Co mmon HCl HCl 6-23 [place] tablets as [facility] 00:00: needed for - [facility] 00 sleep [facility] ProAir HFA ProAir HFA 2019-0 Yes Connie 2 puffs as Common 2-04 [place] needed Spirit 00:00: - [facility] 00 [facility] ProAir HFA ProAir HFA 2020-0 No 2{puffs ProAir HFA 108 (90 108 (90 2-04 _as_nee 108 (90 Base) Base) 00:00: ded} Base) MCG/ACT MCG/ACT 00 MCG/ACT ProAir HFA ProAir HFA 2020-0 No 2{puffs ProAir HFA 108 (90 108 (90 2-04 _as_nee 108 (90 Base) Base) 00:00: ded} Base) MCG/ACT MCG/ACT 00 MCG/ACT ProAir HFA ProAir HFA 2020-0 No 2{puffs ProAir HFA 108 (90 108 (90 2-04 _as_nee 108 (90 Base) Base) 00:00: ded} Base) MCG/ACT MCG/ACT 00 MCG/ACT ProAir HFA ProAir HFA 2020-0 No 2{puffs ProAir HFA 108 (90 108 (90 2-04 _as_nee 108 (90 Base) Base) 00:00: ded} Base) MCG/ACT MCG/ACT 00 MCG/ACT ProAir HFA ProAir HFA 2020-0 No 2{puffs ProAir HFA 108 (90 108 (90 2-04 _as_nee 108 (90 Base) Base) 00:00: ded} Base) MCG/ACT MCG/ACT 00 MCG/ACT ProAir HFA ProAir HFA 2020-0 No 2{puffs ProAir HFA 108 (90 108 (90 2-04 _as_nee 108 (90 Base) Base) 00:00: ded} Base) MCG/ACT MCG/ACT 00 MCG/ACT ProAir HFA ProAir HFA 2020-0 No 2{puffs ProAir HFA 108 (90 108 (90 2-04 _as_nee 108 (90 Base) Base) 00:00: ded} Base) MCG/ACT MCG/ACT 00 MCG/ACT ProAir HFA ProAir HFA 2020-0 No 2{puffs ProAir HFA 108 (90 108 (90 2-04 _as_nee 108 (90 Base) Base) 00:00: ded} Base) MCG/ACT MCG/ACT 00 MCG/ACT ProAir HFA ProAir HFA 2020-0 No 2{puffs ProAir HFA 108 (90 108 (90 2-04 _as_nee 108 (90 Base) Base) 00:00: ded} Base) MCG/ACT MCG/ACT 00 MCG/ACT ProAir HFA ProAir HFA 2020-0 No 2{puffs ProAir HFA 108 (90 108 (90 2-04 _as_nee 108 (90 Base) Base) 00:00: ded} Base) MCG/ACT MCG/ACT 00 MCG/ACT ProAir HFA ProAir HFA 2020-0 No 2{puffs ProAir HFA 108 (90 108 (90 2-04 _as_nee 108 (90 Base) Base) 00:00: ded} Base) MCG/ACT MCG/ACT 00 MCG/ACT ProAir HFA ProAir HFA 2020-0 No 2{puffs ProAir HFA 108 (90 108 (90 2-04 _as_nee 108 (90 Base) Base) 00:00: ded} Base) MCG/ACT MCG/ACT 00 MCG/ACT ProAir HFA ProAir HFA 2020-0 No 2{puffs ProAir HFA 108 (90 108 (90 2-04 _as_nee 108 (90 Base) Base) 00:00: ded} Base) MCG/ACT MCG/ACT 00 MCG/ACT ProAir HFA ProAir HFA 2020-0 No 2{puffs ProAir HFA 108 (90 108 (90 2-04 _as_nee 108 (90 Base) Base) 00:00: ded} Base) MCG/ACT MCG/ACT 00 MCG/ACT ProAir HFA ProAir HFA 2020-0 No 2{puffs ProAir HFA 108 (90 108 (90 2-04 _as_nee 108 (90 Base) Base) 00:00: ded} Base) MCG/ACT MCG/ACT 00 MCG/ACT ProAir HFA ProAir HFA 2020-0 No 2{puffs ProAir HFA 108 (90 108 (90 2-04 _as_nee 108 (90 Base) Base) 00:00: ded} Base) MCG/ACT MCG/ACT 00 MCG/ACT ProAir HFA ProAir HFA 2020-0 No 2{puffs ProAir HFA 108 (90 108 (90 2-04 _as_nee 108 (90 Base) Base) 00:00: ded} Base) MCG/ACT MCG/ACT 00 MCG/ACT ProAir HFA ProAir HFA 0 No 2{puffs ProAir HFA 108 (90 108 (90 2-04 _as_nee 108 (90 Base) Base) 00:00: ded} Base) MCG/ACT MCG/ACT 00 MCG/ACT ProAir HFA ProAir HFA 2020-0 No 2{puffs ProAir HFA 108 (90 108 (90 2-04 _as_nee 108 (90 Base) Base) 00:00: ded} Base) MCG/ACT MCG/ACT 00 MCG/ACT Omeprazole Omeprazole Yes Connie 1 capsule Common [facility] Amlodipine Amlodipine Yes Connie 1 tablet Common Besylate Besylate [facility] Trintellix Trintellix Yes Connie 1 tablet Common [facility] Aspirin Aspirin Yes Connie 1 tablet Comm on [facility] Myrbetriq Myrbetriq Yes Connie 1 tablet Common [facility] Hyzaar Hyzaar Yes Connie 1 tablet Common [facility] BusPIRone BusPIRone Yes Connie 1 tablet Common HCl HCl [facility] Cranberry Cranberry Yes Connie not Comm [facility] CoQ10 CoQ10 Yes Connie 1 capsule Common [place] with a [facility] meal [facility] Fluticasone Fluticasone Yes Connie not Common Propionate Propionate [facility] Azelastine Azelastine Yes Connie U 2 SPRAYS Common HCl HCl [place] IEN BID. Spirit THIS IS AN - CHI ANTIHISTAM [facility] Oxybutynin Oxybutynin Yes Connie 1 tablet Common Chloride ER Chloride ER [facility] Simvastatin Simvastatin Yes Connie 1 tablet Common [place] in the [facility] evening [facility] Caltrate Caltrate Yes Connie 1 tablet Co mmon 600+D 600+D [place] with a Spirit meal [facility] Cetirizine Cetirizine Yes Connie 1 tablet Common HCl HCl [facility] Solifenacin Solifenacin No 1{table QD Solifenaci Succinate 5 Succinate 5 t} n MG MG Succinate 5 MG amLODIPine amLODIPine No 1{table QD amLODIPine Besylate 5 Besylate 5 t} Besylate 5 MG MG MG metFORMIN metFORMIN No metFORMIN HCl ER 500 HCl ER 500 HCl ER 500 MG MG MG Fluticasone Fluticasone No Fluticason Propionate Propionate e 50 MCG/ACT 50 MCG/ACT Propionate 50 MCG/ACT traZODone traZODone No traZODone HCl 50 MG HCl 50 MG HCl 50 MG Centrum Centrum No Centrum Cetirizine Cetirizine No 1{table QD Cetirizine HCl 10 MG HCl 10 MG t} HCl 10 MG Singulair Singulair No 1{table QD Singulair 10 MG 10 MG t} 10 MG Vitamin Vitamin No 1{table QD Vitamin B-12 ER B-12 ER t} B-12 ER 1000 MCG 1000 MCG 1000 MCG busPIRone busPIRone No 1{table busPIRone HCl 7.5 MG HCl 7.5 MG t} HCl 7.5 MG Omeprazole Omeprazole No 1{capsu QD Omeprazole 20 20 le} 20 Myrbetriq Myrbetriq No 1{table QD Myrbetriq 25 MG 25 MG t} 25 MG Caltrate Caltrate No 1{table QD Caltrate 600+D 600+D t_with_ 600+D 600-800 600-800 a_meal} 600-800 MG-UNIT MG-UNIT MG-UNIT CoQ10 100 CoQ10 100 No 1{capsu QD CoQ10 100 MG MG le_with MG _a_meal } Azelastine Azelastine No Azelastine HCl 0.1 % HCl 0.1 % HCl 0.1 % Omeprazole Omeprazole No 1{capsu QD Omeprazole 20 20 le} 20 Cranberry Cranberry No Cranberry 500 MG 500 MG 500 MG Solifenacin Solifenacin No 1{table QD Solifenaci Succinate 5 Succinate 5 t} n MG MG Succinate 5 MG CoQ10 100 CoQ10 100 No 1{capsu QD CoQ10 100 MG MG le_with MG _a_meal } Trintellix Trintellix No 1{table Trintellix 10 MG 10 MG t} 10 MG Oxybutynin Oxybutynin No 1{table QD Oxybutynin Chloride ER Chloride ER t} Chloride 10 10 ER 10 Aspirin 81 Aspirin 81 No 1{table Aspirin 81 MG MG t} MG Simvastatin Simvastatin No 1{table QD Simvastati 20 mg 20 mg t_in_th n 20 mg e_eveni ng} Singulair Singulair No 1{table QD Singulair 10 MG 10 MG t} 10 MG Myrbetriq Myrbetriq No 1{table QD Myrbetriq 25 MG 25 MG t} 25 MG Centrum Centrum No Centrum Trintellix Trintellix No 1{table Trintellix 10 MG 10 MG t} 10 MG busPIRone busPIRone No busPIRone HCl 7.5 MG HCl 7.5 MG HCl 7.5 MG traZODone traZODone No traZODone HCl 50 MG HCl 50 MG HCl 50 MG Cetirizine Cetirizine No 1{table QD Cetirizine HCl 10 MG HCl 10 MG t} HCl 10 MG busPIRone busPIRone No 1{table busPIRone HCl 7.5 MG HCl 7.5 MG t} HCl 7.5 MG Losartan Losartan No 1{table QD Losartan Potassium-H Potassium-H t} Potassium- CTZ CTZ HCTZ 100-12.5 MG 100-12.5 MG 100-12.5 MG metFORMIN metFORMIN No metFORMIN HCl ER 500 HCl ER 500 HCl ER 500 MG MG MG Simvastatin Simvastatin No 1{table QD Simvastati 20 mg 20 mg t_in_th n 20 mg e_eveni ng} Vitamin Vitamin No 1{table QD Vitamin B-12 ER B-12 ER t} B-12 ER 1000 MCG 1000 MCG 1000 MCG amLODIPine amLODIPine No 1{table QD amLODIPine Besylate 5 Besylate 5 t} Besylate 5 MG MG MG Caltrate Caltrate No 1{table QD Caltrate 600+D 600+D t_with_ 600+D 600-800 600-800 a_meal} 600-800 MG-UNIT MG-UNIT MG-UNIT Azelastine Azelastine No Azelastine HCl 0.1 % HCl 0.1 % HCl 0.1 % Fluticasone Fluticasone No Fluticason Propionate Propionate e 50 MCG/ACT 50 MCG/ACT Propionate 50 MCG/ACT Omeprazole Omeprazole No 1{capsu QD Omeprazole 20 20 le} 20 Cranberry Cranberry No Cranberry 500 MG 500 MG 500 MG Solifenacin Solifenacin No 1{table QD Solifenaci Succinate 5 Succinate 5 t} n MG MG Succinate 5 MG CoQ10 100 CoQ10 100 No 1{capsu QD CoQ10 100 MG MG le_with MG _a_meal } Trintellix Trintellix No 1{table Trintellix 10 MG 10 MG t} 10 MG Oxybutynin Oxybutynin No 1{table QD Oxybutynin Chloride ER Chloride ER t} Chloride 10 10 ER 10 Aspirin 81 Aspirin 81 No 1{table Aspirin 81 MG MG t} MG Simvastatin Simvastatin No 1{table QD Simvastati 20 mg 20 mg t_in_th n 20 mg e_eveni ng} Singulair Singulair No 1{table QD Singulair 10 MG 10 MG t} 10 MG amLODIPine amLODIPine No amLODIPine Besylate 5 Besylate 5 Besylate 5 MG MG MG Losartan Losartan No 1{table QD Losartan Potassium-H Potassium-H t} Potassium- CTZ CTZ HCTZ 100-12.5 MG 100-12.5 MG 100-12.5 MG Trintellix Trintellix No 1{table Trintellix 10 MG 10 MG t} 10 MG busPIRone busPIRone No busPIRone HCl 7.5 MG HCl 7.5 MG HCl 7.5 MG Simvastatin Simvastatin No 1{table QD Simvastati 20 mg 20 mg t_in_th n 20 mg e_eveni ng} Cetirizine Cetirizine No 1{table QD Cetirizine HCl 10 MG HCl 10 MG t} HCl 10 MG busPIRone busPIRone No 1{table busPIRone HCl 7.5 MG HCl 7.5 MG t} HCl 7.5 MG traZODone traZODone No traZODone HCl 50 MG HCl 50 MG HCl 50 MG metFORMIN metFORMIN No metFORMIN HCl ER 500 HCl ER 500 HCl ER 500 MG MG MG Myrbetriq Myrbetriq No 1{table QD Myrbetriq 25 MG 25 MG t} 25 MG Centrum Centrum No Centrum Caltrate Caltrate No 1{table QD Caltrate 600+D 600+D t_with_ 600+D 600-800 600-800 a_meal} 600-800 MG-UNIT MG-UNIT MG-UNIT Vitamin Vitamin No 1{table QD Vitamin B-12 ER B-12 ER t} B-12 ER 1000 MCG 1000 MCG 1000 MCG Azelastine Azelastine No Azelastine HCl 0.1 % HCl 0.1 % HCl 0.1 % Fluticasone Fluticasone No Fluticason Propionate Propionate e 50 MCG/ACT 50 MCG/ACT Propionate 50 MCG/ACT Oxybutynin Oxybutynin No 1{table QD Oxybutynin Chloride ER Chloride ER t} Chloride 10 10 ER 10 Omeprazole Omeprazole No 1{capsu QD Omeprazole 20 20 le} 20 Aspirin 81 Aspirin 81 No 1{table Aspirin 81 MG MG t} MG busPIRone busPIRone No busPIRone HCl 7.5 MG HCl 7.5 MG HCl 7.5 MG busPIRone busPIRone No 1{table busPIRone HCl 7.5 MG HCl 7.5 MG t} HCl 7.5 MG Simvastatin Simvastatin No 1{table QD Simvastati 20 mg 20 mg t_in_th n 20 mg e_eveni ng} Trintellix Trintellix No 1{table Trintellix 10 MG 10 MG t} 10 MG Cetirizine Cetirizine No 1{table QD Cetirizine HCl 10 MG HCl 10 MG t} HCl 10 MG Myrbetriq Myrbetriq No 1{table QD Myrbetriq 25 MG 25 MG t} 25 MG traZODone traZODone No traZODone HCl 50 MG HCl 50 MG HCl 50 MG CoQ10 100 CoQ10 100 No 1{capsu QD CoQ10 100 MG MG le_with MG _a_meal } Trintellix Trintellix No 1{table QD Trintellix 10 MG 10 MG t} 10 MG metFORMIN metFORMIN No metFORMIN HCl ER 500 HCl ER 500 HCl ER 500 MG MG MG Losartan Losartan No Losartan Potassium-H Potassium-H Potassium- CTZ CTZ HCTZ 100-12.5 MG 100-12.5 MG 100-12.5 MG Cranberry Cranberry No Cranberry 500 MG 500 MG 500 MG amLODIPine amLODIPine No amLODIPine Besylate 5 Besylate 5 Besylate 5 MG MG MG Solifenacin Solifenacin No 1{table QD Solifenaci Succinate 5 Succinate 5 t} n MG MG Succinate 5 MG Singulair Singulair No 1{table QD Singulair 10 MG 10 MG t} 10 MG Centrum Centrum No Centrum Caltrate Caltrate No 1{table QD Caltrate 600+D 600+D t_with_ 600+D 600-800 600-800 a_meal} 600-800 MG-UNIT MG-UNIT MG-UNIT Vitamin Vitamin No 1{table QD Vitamin B-12 ER B-12 ER t} B-12 ER 1000 MCG 1000 MCG 1000 MCG Azelastine Azelastine No Azelastine HCl 0.1 % HCl 0.1 % HCl 0.1 % Fluticasone Fluticasone No Fluticason Propionate Propionate e 50 MCG/ACT 50 MCG/ACT Propionate 50 MCG/ACT CoQ10 100 CoQ10 100 No 1{capsu QD CoQ10 100 MG MG le_with MG _a_meal } metFORMIN metFORMIN No metFORMIN HCl ER 500 HCl ER 500 HCl ER 500 MG MG MG Azelastine Azelastine No Azelastine HCl 0.1 % HCl 0.1 % HCl 0.1 % Trintellix Trintellix No 1{table Trintellix 10 MG 10 MG t} 10 MG Aspirin 81 Aspirin 81 No 1{table Aspirin 81 MG MG t} MG busPIRone busPIRone No busPIRone HCl 7.5 MG HCl 7.5 MG HCl 7.5 MG Cranberry Cranberry No Cranberry 500 MG 500 MG 500 MG Oxybutynin Oxybutynin No 1{table QD Oxybutynin Chloride ER Chloride ER t} Chloride 10 10 ER 10 busPIRone busPIRone No 1{table busPIRone HCl 7.5 MG HCl 7.5 MG t} HCl 7.5 MG Simvastatin Simvastatin No 1{table QD Simvastati 20 mg 20 mg t_in_th n 20 mg e_eveni ng} Solifenacin Solifenacin No 1{table QD Solifenaci Succinate 5 Succinate 5 t} n MG MG Succinate 5 MG Fluticasone Fluticasone No Fluticason Propionate Propionate e 50 MCG/ACT 50 MCG/ACT Propionate 50 MCG/ACT Cetirizine Cetirizine No 1{table QD Cetirizine HCl 10 MG HCl 10 MG t} HCl 10 MG Losartan Losartan No Losartan Potassium-H Potassium-H Potassium- CTZ CTZ HCTZ 100-12.5 MG 100-12.5 MG 100-12.5 MG traZODone traZODone No traZODone HCl 50 MG HCl 50 MG HCl 50 MG amLODIPine amLODIPine No amLODIPine Besylate 5 Besylate 5 Besylate 5 MG MG MG Trintellix Trintellix No 1{table QD Trintellix 10 MG 10 MG t} 10 MG Omeprazole Omeprazole No 1{capsu QD Omeprazole 20 20 le} 20 Singulair Singulair No 1{table QD Singulair 10 MG 10 MG t} 10 MG Centrum Centrum No Centrum Myrbetriq Myrbetriq No 1{table QD Myrbetriq 25 MG 25 MG t} 25 MG Vitamin Vitamin No 1{table QD Vitamin B-12 ER B-12 ER t} B-12 ER 1000 MCG 1000 MCG 1000 MCG Caltrate Caltrate No 1{table QD Caltrate 600+D 600+D t_with_ 600+D 600-800 600-800 a_meal} 600-800 MG-UNIT MG-UNIT MG-UNIT CoQ10 100 CoQ10 100 No 1{capsu QD CoQ10 100 MG MG le_with MG _a_meal } metFORMIN metFORMIN No metFORMIN HCl ER 500 HCl ER 500 HCl ER 500 MG MG MG Azelastine Azelastine No Azelastine HCl 0.1 % HCl 0.1 % HCl 0.1 % Trintellix Trintellix No 1{table Trintellix 10 MG 10 MG t} 10 MG Aspirin 81 Aspirin 81 No 1{table Aspirin 81 MG MG t} MG busPIRone busPIRone No busPIRone HCl 7.5 MG HCl 7.5 MG HCl 7.5 MG Cranberry Cranberry No Cranberry 500 MG 500 MG 500 MG Oxybutynin Oxybutynin No 1{table QD Oxybutynin Chloride ER Chloride ER t} Chloride 10 10 ER 10 busPIRone busPIRone No 1{table busPIRone HCl 7.5 MG HCl 7.5 MG t} HCl 7.5 MG Simvastatin Simvastatin No 1{table QD Simvastati 20 mg 20 mg t_in_th n 20 mg e_eveni ng} Solifenacin Solifenacin No 1{table QD Solifenaci Succinate 5 Succinate 5 t} n MG MG Succinate 5 MG Fluticasone Fluticasone No Fluticason Propionate Propionate e 50 MCG/ACT 50 MCG/ACT Propionate 50 MCG/ACT Cetirizine Cetirizine No 1{table QD Cetirizine HCl 10 MG HCl 10 MG t} HCl 10 MG Losartan Losartan No Losartan Potassium-H Potassium-H Potassium- CTZ CTZ HCTZ 100-12.5 MG 100-12.5 MG 100-12.5 MG traZODone traZODone No traZODone HCl 50 MG HCl 50 MG HCl 50 MG amLODIPine amLODIPine No amLODIPine Besylate 5 Besylate 5 Besylate 5 MG MG MG Trintellix Trintellix No 1{table QD Trintellix 10 MG 10 MG t} 10 MG Omeprazole Omeprazole No 1{capsu QD Omeprazole 20 20 le} 20 Singulair Singulair No 1{table QD Singulair 10 MG 10 MG t} 10 MG Centrum Centrum No Centrum Myrbetriq Myrbetriq No 1{table QD Myrbetriq 25 MG 25 MG t} 25 MG Vitamin Vitamin No 1{table QD Vitamin B-12 ER B-12 ER t} B-12 ER 1000 MCG 1000 MCG 1000 MCG Caltrate Caltrate No 1{table QD Caltrate 600+D 600+D t_with_ 600+D 600-800 600-800 a_meal} 600-800 MG-UNIT MG-UNIT MG-UNIT Simvastatin Simvastatin No 1{table QD Simvastati 20 mg 20 mg t_in_th n 20 mg e_eveni ng} Caltrate Caltrate No 1{table QD Caltrate 600+D 600+D t_with_ 600+D 600-800 600-800 a_meal} 600-800 MG-UNIT MG-UNIT MG-UNIT Omeprazole Omeprazole No 1{capsu QD Omeprazole 20 20 le} 20 Azelastine Azelastine No Azelastine HCl 0.1 % HCl 0.1 % HCl 0.1 % traZODone traZODone No traZODone HCl 50 MG HCl 50 MG HCl 50 MG Fluticasone Fluticasone No Fluticason Propionate Propionate e 50 MCG/ACT 50 MCG/ACT Propionate 50 MCG/ACT busPIRone busPIRone No 1{table busPIRone HCl 7.5 MG HCl 7.5 MG t} HCl 7.5 MG Losartan Losartan No Losartan Potassium-H Potassium-H Potassium- CTZ CTZ HCTZ 100-12.5 MG 100-12.5 MG 100-12.5 MG Oxybutynin Oxybutynin No 1{table QD Oxybutynin Chloride ER Chloride ER t} Chloride 10 10 ER 10 amLODIPine amLODIPine No amLODIPine Besylate 5 Besylate 5 Besylate 5 MG MG MG metFORMIN metFORMIN No metFORMIN HCl ER 500 HCl ER 500 HCl ER 500 MG MG MG Centrum Centrum No Centrum Cetirizine Cetirizine No 1{table QD Cetirizine HCl 10 MG HCl 10 MG t} HCl 10 MG Cranberry Cranberry No Cranberry 500 MG 500 MG 500 MG Singulair Singulair No 1{table QD Singulair 10 MG 10 MG t} 10 MG Solifenacin Solifenacin No 1{table QD Solifenaci Succinate 5 Succinate 5 t} n MG MG Succinate 5 MG Aspirin 81 Aspirin 81 No 1{table Aspirin 81 MG MG t} MG Myrbetriq Myrbetriq No 1{table QD Myrbetriq 25 MG 25 MG t} 25 MG Trintellix Trintellix No 1{table Trintellix 10 MG 10 MG t} 10 MG Vitamin Vitamin No 1{table QD Vitamin B-12 ER B-12 ER t} B-12 ER 1000 MCG 1000 MCG 1000 MCG Trintellix Trintellix No 1{table QD Trintellix 10 MG 10 MG t} 10 MG busPIRone busPIRone No busPIRone HCl 7.5 MG HCl 7.5 MG HCl 7.5 MG CoQ10 100 CoQ10 100 No 1{capsu QD CoQ10 100 MG MG le_with MG _a_meal } Fluticasone Fluticasone No Fluticason Propionate Propionate e 50 MCG/ACT 50 MCG/ACT Propionate 50 MCG/ACT busPIRone busPIRone No 1{table busPIRone HCl 7.5 MG HCl 7.5 MG t} HCl 7.5 MG Simvastatin Simvastatin No 1{table QD Simvastati 20 mg 20 mg t_in_th n 20 mg e_eveni ng} Oxybutynin Oxybutynin No 1{table QD Oxybutynin Chloride ER Chloride ER t} Chloride 10 10 ER 10 amLODIPine amLODIPine No amLODIPine Besylate 5 Besylate 5 Besylate 5 MG MG MG Azelastine Azelastine No Azelastine HCl 0.1 % HCl 0.1 % HCl 0.1 % traZODone traZODone No traZODone HCl 50 MG HCl 50 MG HCl 50 MG Solifenacin Solifenacin No 1{table QD Solifenaci Succinate 5 Succinate 5 t} n MG MG Succinate 5 MG Losartan Losartan No Losartan Potassium-H Potassium-H Potassium- CTZ CTZ HCTZ 100-12.5 MG 100-12.5 MG 100-12.5 MG metFORMIN metFORMIN No metFORMIN HCl ER 500 HCl ER 500 HCl ER 500 MG MG MG Centrum Centrum No Centrum Trintellix Trintellix No 1{table Trintellix 10 MG 10 MG t} 10 MG Aspirin 81 Aspirin 81 No 1{table Aspirin 81 MG MG t} MG Singulair Singulair No 1{table QD Singulair 10 MG 10 MG t} 10 MG Cetirizine Cetirizine No 1{table QD Cetirizine HCl 10 MG HCl 10 MG t} HCl 10 MG Cranberry Cranberry No Cranberry 500 MG 500 MG 500 MG Omeprazole Omeprazole No 1{capsu QD Omeprazole 20 20 le} 20 Myrbetriq Myrbetriq No 1{table QD Myrbetriq 25 MG 25 MG t} 25 MG Caltrate Caltrate No 1{table QD Caltrate 600+D 600+D t_with_ 600+D 600-800 600-800 a_meal} 600-800 MG-UNIT MG-UNIT MG-UNIT Vitamin Vitamin No 1{table QD Vitamin B-12 ER B-12 ER t} B-12 ER 1000 MCG 1000 MCG 1000 MCG Trintellix Trintellix No 1{table QD Trintellix 10 MG 10 MG t} 10 MG busPIRone busPIRone No busPIRone HCl 7.5 MG HCl 7.5 MG HCl 7.5 MG CoQ10 100 CoQ10 100 No 1{capsu QD CoQ10 100 MG MG le_with MG _a_meal } Azelastine Azelastine No Azelastine HCl 0.1 % HCl 0.1 % HCl 0.1 % traZODone traZODone No traZODone HCl 50 MG HCl 50 MG HCl 50 MG Fluticasone Fluticasone No Fluticason Propionate Propionate e 50 MCG/ACT 50 MCG/ACT Propionate 50 MCG/ACT busPIRone busPIRone No 1{table busPIRone HCl 7.5 MG HCl 7.5 MG t} HCl 7.5 MG Solifenacin Solifenacin No 1{table QD Solifenaci Succinate 5 Succinate 5 t} n MG MG Succinate 5 MG Losartan Losartan No Losartan Potassium-H Potassium-H Potassium- CTZ CTZ HCTZ 100-12.5 MG 100-12.5 MG 100-12.5 MG Oxybutynin Oxybutynin No 1{table QD Oxybutynin Chloride ER Chloride ER t} Chloride 10 10 ER 10 amLODIPine amLODIPine No amLODIPine Besylate 5 Besylate 5 Besylate 5 MG MG MG Cranberry Cranberry No Cranberry 500 MG 500 MG 500 MG Cetirizine Cetirizine No 1{table QD Cetirizine HCl 10 MG HCl 10 MG t} HCl 10 MG metFORMIN metFORMIN No metFORMIN HCl ER 500 HCl ER 500 HCl ER 500 MG MG MG Myrbetriq Myrbetriq No 1{table QD Myrbetriq 25 MG 25 MG t} 25 MG Caltrate Caltrate No 1{table QD Caltrate 600+D 600+D t_with_ 600+D 600-800 600-800 a_meal} 600-800 MG-UNIT MG-UNIT MG-UNIT Omeprazole Omeprazole No 1{capsu QD Omeprazole 20 20 le} 20 Vitamin Vitamin No 1{table QD Vitamin B-12 ER B-12 ER t} B-12 ER 1000 MCG 1000 MCG 1000 MCG Trintellix Trintellix No 1{table Trintellix 10 MG 10 MG t} 10 MG Aspirin 81 Aspirin 81 No 1{table Aspirin 81 MG MG t} MG Simvastatin Simvastatin No 1{table QD Simvastati 20 mg 20 mg t_in_ n 20 mg e_eveni ng} Singulair Singulair No 1{table QD Singulair 10 MG 10 MG t} 10 MG Centrum Centrum No Centrum busPIRone busPIRone No busPIRone HCl 7.5 MG HCl 7.5 MG HCl 7.5 MG Trintellix Trintellix No 1{table QD Trintellix 10 MG 10 MG t} 10 MG CoQ10 100 CoQ10 100 No 1{capsu QD CoQ10 100 MG MG le_with MG _a_meal } Azelastine Azelastine No Azelastine HCl 0.1 % HCl 0.1 % HCl 0.1 % busPIRone busPIRone No 1{table busPIRone HCl 7.5 MG HCl 7.5 MG t} HCl 7.5 MG Fluticasone Fluticasone No Fluticason Propionate Propionate e 50 MCG/ACT 50 MCG/ACT Propionate 50 MCG/ACT Simvastatin Simvastatin No 1{table QD Simvastati 20 mg 20 mg t_in_th n 20 mg e_eveni ng} Solifenacin Solifenacin No 1{table QD Solifenaci Succinate 5 Succinate 5 t} n MG MG Succinate 5 MG amLODIPine amLODIPine No amLODIPine Besylate 5 Besylate 5 Besylate 5 MG MG MG Oxybutynin Oxybutynin No 1{table QD Oxybutynin Chloride ER Chloride ER t} Chloride 10 10 ER 10 traZODone traZODone No traZODone HCl 50 MG HCl 50 MG HCl 50 MG Cranberry Cranberry No Cranberry 500 MG 500 MG 500 MG Losartan Losartan No Losartan Potassium-H Potassium-H Potassium- CTZ CTZ HCTZ 100-12.5 MG 100-12.5 MG 100-12.5 MG Cetirizine Cetirizine No 1{table QD Cetirizine HCl 10 MG HCl 10 MG t} HCl 10 MG metFORMIN metFORMIN No metFORMIN HCl ER 500 HCl ER 500 HCl ER 500 MG MG MG Myrbetriq Myrbetriq No 1{table QD Myrbetriq 25 MG 25 MG t} 25 MG Caltrate Caltrate No 1{table QD Caltrate 600+D 600+D t_with_ 600+D 600-800 600-800 a_meal} 600-800 MG-UNIT MG-UNIT MG-UNIT Aspirin 81 Aspirin 81 No 1{table Aspirin 81 MG MG t} MG Vitamin Vitamin No 1{table QD Vitamin B-12 ER B-12 ER t} B-12 ER 1000 MCG 1000 MCG 1000 MCG Trintellix Trintellix No 1{table Trintellix 10 MG 10 MG t} 10 MG Omeprazole Omeprazole No 1{capsu QD Omeprazole 20 20 le} 20 Singulair Singulair No 1{table QD Singulair 10 MG 10 MG t} 10 MG Centrum Centrum No Centrum busPIRone busPIRone No busPIRone HCl 7.5 MG HCl 7.5 MG HCl 7.5 MG Trintellix Trintellix No 1{table QD Trintellix 10 MG 10 MG t} 10 MG CoQ10 100 CoQ10 100 No 1{capsu QD CoQ10 100 MG MG le_with MG _a_meal } busPIRone busPIRone No 1{table busPIRone HCl 7.5 MG HCl 7.5 MG t} HCl 7.5 MG Simvastatin Simvastatin No 1{table QD Simvastati 20 mg 20 mg t_in_ n 20 mg e_eveni ng} Omeprazole Omeprazole No 1{capsu QD Omeprazole 20 20 le} 20 Azelastine Azelastine No Azelastine HCl 0.1 % HCl 0.1 % HCl 0.1 % metFORMIN metFORMIN No QD metFORMIN HCl ER 500 HCl ER 500 HCl ER 500 MG MG MG amLODIPine amLODIPine No amLODIPine Besylate 5 Besylate 5 Besylate 5 MG MG MG Trintellix Trintellix No 1{table Trintellix 10 MG 10 MG t} 10 MG Vitamin Vitamin No 1{table QD Vitamin B-12 ER B-12 ER t} B-12 ER 1000 MCG 1000 MCG 1000 MCG Losartan Losartan No 1{table QD Losartan Potassium-H Potassium-H t} Potassium- CTZ CTZ HCTZ 100-12.5 MG 100-12.5 MG 100-12.5 MG Fluticasone Fluticasone No Fluticason Propionate Propionate e 50 MCG/ACT 50 MCG/ACT Propionate 50 MCG/ACT Caltrate Caltrate No 1{table QD Caltrate 600+D 600+D t_with_ 600+D 600-800 600-800 a_meal} 600-800 MG-UNIT MG-UNIT MG-UNIT Oxybutynin Oxybutynin No 1{table QD Oxybutynin Chloride ER Chloride ER t} Chloride 10 10 ER 10 Singulair Singulair No 1{table QD Singulair 10 MG 10 MG t} 10 MG Cetirizine Cetirizine No 1{table QD Cetirizine HCl 10 MG HCl 10 MG t} HCl 10 MG amLODIPine amLODIPine No 1{table QD amLODIPine Besylate 5 Besylate 5 t} Besylate 5 MG MG MG Solifenacin Solifenacin No 1{table QD Solifenaci Succinate 5 Succinate 5 t} n MG MG Succinate 5 MG Trintellix Trintellix No 1{table Trintellix 10 MG 10 MG t} 10 MG Losartan Losartan No Losartan Potassium-H Potassium-H Potassium- CTZ CTZ HCTZ 100-12.5 MG 100-12.5 MG 100-12.5 MG traZODone traZODone No traZODone HCl 50 MG HCl 50 MG HCl 50 MG Centrum Centrum No Centrum Aspirin 81 Aspirin 81 No 1{table Aspirin 81 MG MG t} MG busPIRone busPIRone No busPIRone HCl 7.5 MG HCl 7.5 MG HCl 7.5 MG Cranberry Cranberry No Cranberry 500 MG 500 MG 500 MG CoQ10 100 CoQ10 100 No 1{capsu QD CoQ10 100 MG MG le_with MG _a_meal } Myrbetriq Myrbetriq No 1{table QD Myrbetriq 25 MG 25 MG t} 25 MG Omeprazole Omeprazole No Omeprazole 20 MG 20 MG 20 MG traZODone traZODone No 1{table traZODone HCl 50 MG HCl 50 MG t_at_be HCl 50 MG dtime} Simvastatin Simvastatin No 1{table QD Simvastati 20 MG 20 MG t_in_th n 20 MG e_eveni ng} Omeprazole Omeprazole No 1{capsu QD Omeprazole 20 20 le} 20 Simvastatin Simvastatin No 1{table QD Simvastati 20 mg 20 mg t_in_th n 20 mg e_eveni ng} busPIRone busPIRone No busPIRone HCl 7.5 MG HCl 7.5 MG HCl 7.5 MG Azelastine Azelastine No Azelastine HCl 0.1 % HCl 0.1 % HCl 0.1 % metFORMIN metFORMIN No QD metFORMIN HCl ER 500 HCl ER 500 HCl ER 500 MG MG MG Trintellix Trintellix No 1{table Trintellix 10 MG 10 MG t} 10 MG busPIRone busPIRone No 1{table busPIRone HCl 7.5 MG HCl 7.5 MG t} HCl 7.5 MG Vitamin Vitamin No 1{table QD Vitamin B-12 ER B-12 ER t} B-12 ER 1000 MCG 1000 MCG 1000 MCG Losartan Losartan No 1{table QD Losartan Potassium-H Potassium-H t} Potassium- CTZ CTZ HCTZ 100-12.5 MG 100-12.5 MG 100-12.5 MG Fluticasone Fluticasone No Fluticason Propionate Propionate e 50 MCG/ACT 50 MCG/ACT Propionate 50 MCG/ACT Caltrate Caltrate No 1{table QD Caltrate 600+D 600+D t_with_ 600+D 600-800 600-800 a_meal} 600-800 MG-UNIT MG-UNIT MG-UNIT Singulair Singulair No 1{table QD Singulair 10 MG 10 MG t} 10 MG Cranberry Cranberry No Cranberry 500 MG 500 MG 500 MG CoQ10 100 CoQ10 100 No 1{capsu QD CoQ10 100 MG MG le_with MG _a_meal } Trintellix Trintellix No 1{table Trintellix 10 MG 10 MG t} 10 MG Aspirin 81 Aspirin 81 No 1{table Aspirin 81 MG MG t} MG Oxybutynin Oxybutynin No 1{table QD Oxybutynin Chloride ER Chloride ER t} Chloride 10 10 ER 10 Losartan Losartan No Losartan Potassium-H Potassium-H Potassium- CTZ CTZ HCTZ 100-12.5 MG 100-12.5 MG 100-12.5 MG traZODone traZODone No traZODone HCl 50 MG HCl 50 MG HCl 50 MG Centrum Centrum No Centrum Cetirizine Cetirizine No 1{table QD Cetirizine HCl 10 MG HCl 10 MG t} HCl 10 MG Solifenacin Solifenacin No 1{table QD Solifenaci Succinate 5 Succinate 5 t} n MG MG Succinate 5 MG Omeprazole Omeprazole No Omeprazole 20 MG 20 MG 20 MG Myrbetriq Myrbetriq No 1{table QD Myrbetriq 25 MG 25 MG t} 25 MG amLODIPine amLODIPine No amLODIPine Besylate 5 Besylate 5 Besylate 5 MG MG MG traZODone traZODone No 1{table traZODone HCl 50 MG HCl 50 MG t_at_be HCl 50 MG dtime} Simvastatin Simvastatin No 1{table QD Simvastati 20 MG 20 MG t_in_th n 20 MG e_eveni ng} Omeprazole Omeprazole No 1{capsu QD Omeprazole 20 20 le} 20 Simvastatin Simvastatin No 1{table QD Simvastati 20 mg 20 mg t_in_th n 20 mg e_eveni ng} busPIRone busPIRone No busPIRone HCl 7.5 MG HCl 7.5 MG HCl 7.5 MG Azelastine Azelastine No Azelastine HCl 0.1 % HCl 0.1 % HCl 0.1 % metFORMIN metFORMIN No QD metFORMIN HCl ER 500 HCl ER 500 HCl ER 500 MG MG MG Trintellix Trintellix No 1{table Trintellix 10 MG 10 MG t} 10 MG busPIRone busPIRone No 1{table busPIRone HCl 7.5 MG HCl 7.5 MG t} HCl 7.5 MG Vitamin Vitamin No 1{table QD Vitamin B-12 ER B-12 ER t} B-12 ER 1000 MCG 1000 MCG 1000 MCG Losartan Losartan No 1{table QD Losartan Potassium-H Potassium-H t} Potassium- CTZ CTZ HCTZ 100-12.5 MG 100-12.5 MG 100-12.5 MG Fluticasone Fluticasone No Fluticason Propionate Propionate e 50 MCG/ACT 50 MCG/ACT Propionate 50 MCG/ACT Caltrate Caltrate No 1{table QD Caltrate 600+D 600+D t_with_ 600+D 600-800 600-800 a_meal} 600-800 MG-UNIT MG-UNIT MG-UNIT Singulair Singulair No 1{table QD Singulair 10 MG 10 MG t} 10 MG Cranberry Cranberry No Cranberry 500 MG 500 MG 500 MG CoQ10 100 CoQ10 100 No 1{capsu QD CoQ10 100 MG MG le_with MG _a_meal } Trintellix Trintellix No 1{table Trintellix 10 MG 10 MG t} 10 MG Aspirin 81 Aspirin 81 No 1{table Aspirin 81 MG MG t} MG Oxybutynin Oxybutynin No 1{table QD Oxybutynin Chloride ER Chloride ER t} Chloride 10 10 ER 10 Losartan Losartan No Losartan Potassium-H Potassium-H Potassium- CTZ CTZ HCTZ 100-12.5 MG 100-12.5 MG 100-12.5 MG traZODone traZODone No traZODone HCl 50 MG HCl 50 MG HCl 50 MG Centrum Centrum No Centrum Cetirizine Cetirizine No 1{table QD Cetirizine HCl 10 MG HCl 10 MG t} HCl 10 MG Solifenacin Solifenacin No 1{table QD Solifenaci Succinate 5 Succinate 5 t} n MG MG Succinate 5 MG Omeprazole Omeprazole No Omeprazole 20 MG 20 MG 20 MG Myrbetriq Myrbetriq No 1{table QD Myrbetriq 25 MG 25 MG t} 25 MG amLODIPine amLODIPine No amLODIPine Besylate 5 Besylate 5 Besylate 5 MG MG MG traZODone traZODone No 1{table traZODone HCl 50 MG HCl 50 MG t_at_be HCl 50 MG dtime} Simvastatin Simvastatin No 1{table QD Simvastati 20 MG 20 MG t_in_th n 20 MG e_eveni ng} busPIRone busPIRone No busPIRone HCl 7.5 MG HCl 7.5 MG HCl 7.5 MG Simvastatin Simvastatin No 1{table QD Simvastati 20 mg 20 mg t_in_th n 20 mg e_eveni ng} Trintellix Trintellix No 1{table QD Trintellix 10 MG 10 MG t} 10 MG Azelastine Azelastine No Azelastine HCl 0.1 % HCl 0.1 % HCl 0.1 % busPIRone busPIRone No 1{table busPIRone HCl 7.5 MG HCl 7.5 MG t} HCl 7.5 MG Omeprazole Omeprazole No 1{capsu QD Omeprazole 20 20 le} 20 Vitamin Vitamin No 1{table QD Vitamin B-12 ER B-12 ER t} B-12 ER 1000 MCG 1000 MCG 1000 MCG Centrum Centrum No Centrum Caltrate Caltrate No 1{table QD Caltrate 600+D 600+D t_with_ 600+D 600-800 600-800 a_meal} 600-800 MG-UNIT MG-UNIT MG-UNIT metFORMIN metFORMIN No QD metFORMIN HCl ER 500 HCl ER 500 HCl ER 500 MG MG MG Cranberry Cranberry No Cranberry 500 MG 500 MG 500 MG Solifenacin Solifenacin No 1{table QD Solifenaci Succinate 5 Succinate 5 t} n MG MG Succinate 5 MG Omeprazole Omeprazole No Omeprazole 20 MG 20 MG 20 MG Oxybutynin Oxybutynin No 1{table QD Oxybutynin Chloride ER Chloride ER t} Chloride 10 10 ER 10 Singulair Singulair No 1{table QD Singulair 10 MG 10 MG t} 10 MG Fluticasone Fluticasone No Fluticason Propionate Propionate e 50 MCG/ACT 50 MCG/ACT Propionate 50 MCG/ACT traZODone traZODone No traZODone HCl 50 MG HCl 50 MG HCl 50 MG CoQ10 100 CoQ10 100 No 1{capsu QD CoQ10 100 MG MG le_with MG _a_meal } Cetirizine Cetirizine No 1{table QD Cetirizine HCl 10 MG HCl 10 MG t} HCl 10 MG Aspirin 81 Aspirin 81 No 1{table Aspirin 81 MG MG t} MG amLODIPine amLODIPine No amLODIPine Besylate 5 Besylate 5 Besylate 5 MG MG MG Myrbetriq Myrbetriq No 1{table QD Myrbetriq 25 MG 25 MG t} 25 MG Losartan Losartan No Losartan Potassium-H Potassium-H Potassium- CTZ CTZ HCTZ 100-12.5 MG 100-12.5 MG 100-12.5 MG traZODone traZODone No 1{table traZODone HCl 50 MG HCl 50 MG t_at_be HCl 50 MG dtime} Simvastatin Simvastatin No 1{table QD Simvastati 20 MG 20 MG t_in_th n 20 MG e_eveni ng} Trintellix Trintellix No 1{table QD Trintellix 10 MG 10 MG t} 10 MG Vitamin Vitamin No 1{table QD Vitamin B-12 ER B-12 ER t} B-12 ER 1000 MCG 1000 MCG 1000 MCG Cetirizine Cetirizine No 1{table QD Cetirizine HCl 10 MG HCl 10 MG t} HCl 10 MG Simvastatin Simvastatin No 1{table QD Simvastati 20 mg 20 mg t_in_th n 20 mg e_eveni ng} busPIRone busPIRone No 1{table busPIRone HCl 7.5 MG HCl 7.5 MG t} HCl 7.5 MG Caltrate Caltrate No 1{table QD Caltrate 600+D 600+D t_with_ 600+D 600-800 600-800 a_meal} 600-800 MG-UNIT MG-UNIT MG-UNIT busPIRone busPIRone No busPIRone HCl 7.5 MG HCl 7.5 MG HCl 7.5 MG metFORMIN metFORMIN No QD metFORMIN HCl ER 500 HCl ER 500 HCl ER 500 MG MG MG Centrum Centrum No Centrum Solifenacin Solifenacin No 1{table QD Solifenaci Succinate 5 Succinate 5 t} n MG MG Succinate 5 MG Aspirin 81 Aspirin 81 No 1{table Aspirin 81 MG MG t} MG Omeprazole Omeprazole No 1{capsu QD Omeprazole 20 MG 20 MG le} 20 MG Singulair Singulair No 1{table QD Singulair 10 MG 10 MG t} 10 MG CoQ10 100 CoQ10 100 No 1{capsu QD CoQ10 100 MG MG le_with MG _a_meal } Cranberry Cranberry No Cranberry 500 MG 500 MG 500 MG Fluticasone Fluticasone No Fluticason Propionate Propionate e 50 MCG/ACT 50 MCG/ACT Propionate 50 MCG/ACT Azelastine Azelastine No Azelastine HCl 0.1 % HCl 0.1 % HCl 0.1 % Omeprazole Omeprazole No Omeprazole 20 MG 20 MG 20 MG Oxybutynin Oxybutynin No 1{table QD Oxybutynin Chloride ER Chloride ER t} Chloride 10 10 ER 10 traZODone traZODone No traZODone HCl 50 MG HCl 50 MG HCl 50 MG Losartan Losartan No Losartan Potassium-H Potassium-H Potassium- CTZ CTZ HCTZ 100-12.5 MG 100-12.5 MG 100-12.5 MG amLODIPine amLODIPine No amLODIPine Besylate 5 Besylate 5 Besylate 5 MG MG MG Myrbetriq Myrbetriq No 1{table QD Myrbetriq 25 MG 25 MG t} 25 MG Simvastatin Simvastatin No 1{table QD Simvastati 20 MG 20 MG t_in_th n 20 MG e_eveni ng} Trintellix Trintellix No 1{table QD Trintellix 10 MG 10 MG t} 10 MG Vitamin Vitamin No 1{table QD Vitamin B-12 ER B-12 ER t} B-12 ER 1000 MCG 1000 MCG 1000 MCG Cetirizine Cetirizine No 1{table QD Cetirizine HCl 10 MG HCl 10 MG t} HCl 10 MG Simvastatin Simvastatin No 1{table QD Simvastati 20 mg 20 mg t_in_th n 20 mg e_eveni ng} busPIRone busPIRone No 1{table busPIRone HCl 7.5 MG HCl 7.5 MG t} HCl 7.5 MG Caltrate Caltrate No 1{table QD Caltrate 600+D 600+D t_with_ 600+D 600-800 600-800 a_meal} 600-800 MG-UNIT MG-UNIT MG-UNIT busPIRone busPIRone No busPIRone HCl 7.5 MG HCl 7.5 MG HCl 7.5 MG metFORMIN metFORMIN No QD metFORMIN HCl ER 500 HCl ER 500 HCl ER 500 MG MG MG Centrum Centrum No Centrum Solifenacin Solifenacin No 1{table QD Solifenaci Succinate 5 Succinate 5 t} n MG MG Succinate 5 MG Aspirin 81 Aspirin 81 No 1{table Aspirin 81 MG MG t} MG traZODone traZODone No traZODone HCl 50 MG HCl 50 MG HCl 50 MG Singulair Singulair No 1{table QD Singulair 10 MG 10 MG t} 10 MG CoQ10 100 CoQ10 100 No 1{capsu QD CoQ10 100 MG MG le_with MG _a_meal } Cranberry Cranberry No Cranberry 500 MG 500 MG 500 MG Fluticasone Fluticasone No Fluticason Propionate Propionate e 50 MCG/ACT 50 MCG/ACT Propionate 50 MCG/ACT Azelastine Azelastine No Azelastine HCl 0.1 % HCl 0.1 % HCl 0.1 % Oxybutynin Oxybutynin No 1{table QD Oxybutynin Chloride ER Chloride ER t} Chloride 10 10 ER 10 amLODIPine amLODIPine No amLODIPine Besylate 5 Besylate 5 Besylate 5 MG MG MG Myrbetriq Myrbetriq No 1{table QD Myrbetriq 25 MG 25 MG t} 25 MG Losartan Losartan No Losartan Potassium-H Potassium-H Potassium- CTZ CTZ HCTZ 100-12.5 MG 100-12.5 MG 100-12.5 MG Omeprazole Omeprazole No Omeprazole 20 MG 20 MG 20 MG Simvastatin Simvastatin No 1{table QD Simvastati 20 MG 20 MG t_in_th n 20 MG e_eveni ng} Oxybutynin Oxybutynin No 1{table QD Oxybutynin Chloride ER Chloride ER t} Chloride 10 10 ER 10 busPIRone busPIRone No 1{table busPIRone HCl 7.5 MG HCl 7.5 MG t} HCl 7.5 MG Vitamin Vitamin No 1{table QD Vitamin B-12 ER B-12 ER t} B-12 ER 1000 MCG 1000 MCG 1000 MCG Trintellix Trintellix No 1{table QD Trintellix 10 MG 10 MG t} 10 MG Omeprazole Omeprazole No Omeprazole 20 MG 20 MG 20 MG Losartan Losartan No Losartan Potassium-H Potassium-H Potassium- CTZ CTZ HCTZ 100-12.5 MG 100-12.5 MG 100-12.5 MG Fluticasone Fluticasone No Fluticason Propionate Propionate e 50 MCG/ACT 50 MCG/ACT Propionate 50 MCG/ACT Centrum Centrum No Centrum Simvastatin Simvastatin No 1{table QD Simvastati 20 mg 20 mg t_in_th n 20 mg e_eveni ng} Caltrate Caltrate No 1{table QD Caltrate 600+D 600+D t_with_ 600+D 600-800 600-800 a_meal} 600-800 MG-UNIT MG-UNIT MG-UNIT Azelastine Azelastine No Azelastine HCl 0.1 % HCl 0.1 % HCl 0.1 % Cetirizine Cetirizine No 1{table QD Cetirizine HCl 10 MG HCl 10 MG t} HCl 10 MG Simvastatin Simvastatin No 1{table QD Simvastati 20 MG 20 MG t_in_th n 20 MG e_eveni ng} CoQ10 100 CoQ10 100 No 1{capsu QD CoQ10 100 MG MG le_with MG _a_meal } Cranberry Cranberry No Cranberry 500 MG 500 MG 500 MG Aspirin 81 Aspirin 81 No 1{table Aspirin 81 MG MG t} MG busPIRone busPIRone No busPIRone HCl 7.5 MG HCl 7.5 MG HCl 7.5 MG Singulair Singulair No 1{table QD Singulair 10 MG 10 MG t} 10 MG metFORMIN metFORMIN No QD metFORMIN HCl ER 500 HCl ER 500 HCl ER 500 MG MG MG amLODIPine amLODIPine No amLODIPine Besylate 5 Besylate 5 Besylate 5 MG MG MG traZODone traZODone No traZODone HCl 50 MG HCl 50 MG HCl 50 MG Aspirin 81 Aspirin 81 No 1{table Aspirin 81 MG MG t} MG busPIRone busPIRone No 1{table busPIRone HCl 7.5 MG HCl 7.5 MG t} HCl 7.5 MG Caltrate Caltrate No 1{table QD Caltrate 600+D 600+D t_with_ 600+D 600-800 600-800 a_meal} 600-800 MG-UNIT MG-UNIT MG-UNIT Cranberry Cranberry No Cranberry 500 MG 500 MG 500 MG Oxybutynin Oxybutynin No 1{table QD Oxybutynin Chloride ER Chloride ER t} Chloride 10 10 ER 10 Vitamin Vitamin No 1{table QD Vitamin B-12 ER B-12 ER t} B-12 ER 1000 MCG 1000 MCG 1000 MCG Trintellix Trintellix No 1{table QD Trintellix 10 MG 10 MG t} 10 MG Centrum Centrum No Centrum Omeprazole Omeprazole No Omeprazole 20 MG 20 MG 20 MG Simvastatin Simvastatin No 1{table QD Simvastati 20 mg 20 mg t_in_th n 20 mg e_eveni ng} Losartan Losartan No Losartan Potassium-H Potassium-H Potassium- CTZ CTZ HCTZ 100-12.5 MG 100-12.5 MG 100-12.5 MG CoQ10 100 CoQ10 100 No 1{capsu QD CoQ10 100 MG MG le_with MG _a_meal } Cetirizine Cetirizine No 1{table QD Cetirizine HCl 10 MG HCl 10 MG t} HCl 10 MG Fluticasone Fluticasone No Fluticason Propionate Propionate e 50 MCG/ACT 50 MCG/ACT Propionate 50 MCG/ACT Azelastine Azelastine No Azelastine HCl 0.1 % HCl 0.1 % HCl 0.1 % Simvastatin Simvastatin No 1{table QD Simvastati 20 MG 20 MG t_in_th n 20 MG e_eveni ng} busPIRone busPIRone No busPIRone HCl 7.5 MG HCl 7.5 MG HCl 7.5 MG Singulair Singulair No 1{table QD Singulair 10 MG 10 MG t} 10 MG metFORMIN metFORMIN No QD metFORMIN HCl ER 500 HCl ER 500 HCl ER 500 MG MG MG amLODIPine amLODIPine No amLODIPine Besylate 5 Besylate 5 Besylate 5 MG MG MG traZODone traZODone No traZODone HCl 50 MG HCl 50 MG HCl 50 MG Cranberry Cranberry No Cranberry 500 MG 500 MG 500 MG Trintellix Trintellix No 1{table QD Trintellix 10 MG 10 MG t} 10 MG busPIRone busPIRone No 1{table busPIRone HCl 7.5 MG HCl 7.5 MG t} HCl 7.5 MG Vitamin Vitamin No 1{table QD Vitamin B-12 ER B-12 ER t} B-12 ER 1000 MCG 1000 MCG 1000 MCG Cetirizine Cetirizine No 1{table QD Cetirizine HCl 10 MG HCl 10 MG t} HCl 10 MG amLODIPine amLODIPine No amLODIPine Besylate 5 Besylate 5 Besylate 5 MG MG MG busPIRone busPIRone No busPIRone HCl 7.5 MG HCl 7.5 MG HCl 7.5 MG traZODone traZODone No traZODone HCl 50 MG HCl 50 MG HCl 50 MG Centrum Centrum No Centrum Singulair Singulair No 1{table QD Singulair 10 MG 10 MG t} 10 MG Oxybutynin Oxybutynin No 1{table QD Oxybutynin Chloride ER Chloride ER t} Chloride 10 10 ER 10 Caltrate Caltrate No 1{table QD Caltrate 600+D 600+D t_with_ 600+D 600-800 600-800 a_meal} 600-800 MG-UNIT MG-UNIT MG-UNIT CoQ10 100 CoQ10 100 No 1{capsu QD CoQ10 100 MG MG le_with MG _a_meal } Losartan Losartan No Losartan Potassium-H Potassium-H Potassium- CTZ CTZ HCTZ 100-12.5 MG 100-12.5 MG 100-12.5 MG Aspirin 81 Aspirin 81 No 1{table Aspirin 81 MG MG t} MG Fluticasone Fluticasone No Fluticason Propionate Propionate e 50 MCG/ACT 50 MCG/ACT Propionate 50 MCG/ACT Simvastatin Simvastatin No Simvastati 20 MG 20 MG n 20 MG Omeprazole Omeprazole No Omeprazole 20 MG 20 MG 20 MG metFORMIN metFORMIN No QD metFORMIN HCl ER 500 HCl ER 500 HCl ER 500 MG MG MG Azelastine Azelastine No Azelastine HCl 0.1 % HCl 0.1 % HCl 0.1 % Aspirin 81 Aspirin 81 No 1{table Aspirin 81 MG MG t} MG Simvastatin Simvastatin No 1{table QD Simvastati 20 mg 20 mg t_in_th n 20 mg e_eveni ng} Oxybutynin Oxybutynin No 1{table QD Oxybutynin Chloride ER Chloride ER t} Chloride 10 10 ER 10 Cranberry Cranberry No Cranberry 500 MG 500 MG 500 MG Losartan Losartan No 1{table QD Losartan Potassium-H Potassium-H t} Potassium- CTZ CTZ HCTZ 100-12.5 MG 100-12.5 MG 100-12.5 MG Trintellix Trintellix No 1{table Trintellix 10 MG 10 MG t} 10 MG Solifenacin Solifenacin 2022- No 1{table QD Solifenaci Succinate Succinate 07-16 t} n 10 MG 10 MG 00:00 Succinate :00 10 MG Solifenacin Solifenacin 3- No 1{table QD Solifenaci Succinate Succinate 07-16 t} n 10 MG 10 MG 00:00 Succinate :00 10 MG Solifenacin Solifenacin 3- No 1{table QD Solifenaci Succinate Succinate 07-16 t} n 10 MG 10 MG 00:00 Succinate :00 10 MG Immunizations Ordered Filled Immunization Date Status Comments [facility] e Immunization Name Name SARS-COV-2 COVID-19 2021-01-24 Completed [facility] 0.25ML 00:00:00 [facility] eliud BOOSTER VACCINE Branch SARS-COV-2 COVID-19 2021-01-24 Completed [facility] 0.25ML 00:00:00 [facility] eliud BOOSTER VACCINE Branch SARS-COV-2 COVID-19 2021-01-24 Completed [facility] MODERNA 0.25ML 00:00:00 [facility] eliud BOOSTER VACCINE Branch SARS-COV-2 COVID-19 2021-01-24 Completed [facility] MODERNA 0.25ML 00:00:00 [facility] eliud BOOSTER VACCINE Branch SARS-COV-2 COVID-19 2021-01-24 Completed [facility]ER[facility] 0.25ML 00:00:00 [facility] eliud BOOSTER VACCINE Branch FLUZONE HIGH DOSE FLUZONE HIGH DOSE 2021-01-06 Completed [facility] - OVER 65 OVER 65 08:34:00 [facility] FLUZONE HIGH DOSE FLUZONE HIGH DOSE 2021-01-06 Completed [facility] - OVER 65 OVER 65 08:34:00 [facility] FLUZONE HIGH DOSE FLUZONE HIGH DOSE 2021-01-06 Completed [facility] - OVER 65 OVER 65 08:34:00 [facility] FLUZONE HIGH DOSE FLUZONE HIGH DOSE 2021-01-06 Completed [facility] - OVER 65 OVER 65 08:34:00 [facility] FLUZONE HIGH DOSE FLUZONE HIGH DOSE 2021-01-06 Completed [facility] - OVER 65 OVER 65 08:34:00 [facility] FLUZONE HIGH DOSE FLUZONE HIGH DOSE 2021-01-06 Completed [facility] - OVER 65 OVER 65 08:34:00 [facility] FLUZONE HIGH DOSE FLUZONE HIGH DOSE 2021-01-06 Completed [facility] - OVER 65 OVER 65 08:34:00 [facility] FLUZONE HIGH DOSE FLUZONE HIGH DOSE 2021-01-06 Completed [facility] - OVER 65 OVER 65 08:34:00 [facility] FLUZONE HIGH DOSE FLUZONE HIGH DOSE 2021-01-06 Completed [facility] - OVER 65 OVER 65 08:34:00 [facility] FLUZONE HIGH DOSE FLUZONE HIGH DOSE 2021-01-06 Completed [facility] - OVER 65 OVER 65 08:34:00 [facility] FLUZONE HIGH DOSE FLUZONE HIGH DOSE 2021-01-06 Completed [facility] - OVER 65 OVER 65 08:34:00 [facility] FLUZONE HIGH DOSE FLUZONE HIGH DOSE 2021-01-06 Completed [facility] - OVER 65 OVER 65 08:34:00 [facility] FLUZONE HIGH DOSE FLUZONE HIGH DOSE 2021-01-06 Completed [facility] - OVER 65 OVER 65 08:34:00 [facility] FLUZONE HIGH DOSE FLUZONE HIGH DOSE 2021-01-06 Completed [facility] - OVER 65 OVER 65 08:34:00 [facility] FLUZONE HIGH DOSE FLUZONE HIGH DOSE 2021-01-06 Completed [facility] - OVER 65 OVER 65 08:34:00 [facility] FLUZONE HIGH DOSE FLUZONE HIGH DOSE 2021-01-06 Completed [facility] - OVER 65 OVER 65 08:34:00 [facility] FLUZONE HIGH DOSE FLUZONE HIGH DOSE 2021-01-06 Completed [facility] - OVER 65 OVER 65 08:34:00 [facility] FLUZONE HIGH DOSE FLUZONE HIGH DOSE 2021-01-06 Completed [facility] - OVER 65 OVER 65 08:34:00 [facility] Influenza High Dose 2021-01-06 Completed [facility] 00:00:00 [facility] Influenza High Dose 2021-01-06 Completed [facility] of 00:00:00 [facility] Influenza High Dose 2021-01-06 Completed [facility] of 00:00:00 [facility] Influenza High Dose 2021-01-06 Completed [facility] 00:00:00 [facility] Influenza High Dose 2021-01-06 Completed [facility] 00:00:00 [facility] Moderna COVID-19 Moderna COVID-19 2020-04-25 Completed [facility] Vacc[facility] Vaccine 08:34:00 [facility] Moderna COVID-19 Moderna COVID-19 2020-04-25 Completed [facility] - Vaccine Vaccine 08:34:00 [facility] Moderna COVID-19 Moderna COVID-19 2020-04-25 Completed [facility] - Vaccine Vaccine 08:34:00 [facility] Moderna COVID-19 Moderna COVID-19 2020-04-25 Completed [facility] - Vaccine Vaccine 08:34:00 [facility] Moderna COVID-19 Moderna COVID-19 2020-04-25 Completed [facility] - Vaccine Vaccine 08:34:00 [facility] Moderna COVID-19 Moderna COVID-19 2020-04-25 Completed [facility] Vaccine Vaccine 08:34:00 [facility] Moderna COVID-19 Moderna COVID-19 2020-04-25 Completed [facility] - Vaccine Vaccine 08:34:00 [facility] Moderna COVID-19 Moderna COVID-19 2020-04-25 Completed [facility] Vaccine Vaccine 08:34:00 [facility] Moderna COVID-19 Moderna COVID-19 2020-04-25 Completed [facility] - Vaccine Vaccine 08:34:00 [facility] Moderna COVID-19 Moderna COVID-19 2020-04-25 Completed [facility] - Vaccine Vaccine 08:34:00 [facility] Moderna COVID-19 Moderna COVID-19 2020-04-25 Completed [facility] - Vaccine Vaccine 08:34:00 [facility] Moderna COVID-19 Moderna COVID-19 2020-04-25 Completed [facility] - Vaccine Vaccine 08:34:00 [facility] Moderna COVID-19 Moderna COVID-19 2020-04-25 Completed [facility] - Vaccine Vaccine 08:34:00 [facility] Moderna COVID-19 Moderna COVID-19 2020-04-25 Completed [facility] - Vaccine Vaccine 08:34:00 [facility] Moderna COVID-19 Moderna COVID-19 2020-04-25 Completed [facility] - Vaccine Vaccine 08:34:00 [facility] Moderna COVID-19 Moderna COVID-19 2020-04-25 Completed [facility] - Vaccine Vaccine 08:34:00 [facility] Moderna COVID-19 Moderna COVID-19 2020-04-25 Completed [facility] - Vaccine Vaccine 08:34:00 [facility] Moderna COVID-19 Moderna COVID-19 2020-04-25 Completed [facility] Vaccine Vaccine 08:34:00 [facility] SARS-COV-2 COVID-19 2020-04-25 Completed [facility] VACCINE 00:00:00 [facility] SARS-COV-2 COVID-19 2020-04-25 Completed [facility] of MODERNA 12+ YRS 00:00:00 [facility] VACCINE Branch SARS-COV-2 COVID-19 2020-04-25 Completed [facility] MODER[facility] 12+ YRS 00:00:00 [facility] SARS-COV-2 COVID-19 2020-04-25 Completed [facility] of MODERNA 12+ YRS 00:00:00 [facility] VACC[facility] SARS-COV-2 COVID-19 2020-04-25 Completed [facility] of MODERNA 12+ YRS 00:00:00 [facility] VACCINE Branch Moderna COVID-19 Moderna COVID-19 2020-03-26 Completed [facility] - Vaccine Vaccine 08:33:00 [facility] Moderna COVID-19 Moderna COVID-19 2020-03-26 Completed [facility] - Vaccine Vaccine 08:33:00 [facility] Moderna COVID-19 Moderna COVID-19 2020-03-26 Completed [facility] - Vaccine Vaccine 08:33:00 [facility] Moderna COVID-19 Moderna COVID-19 2020-03-26 Completed [facility] - Vaccine Vaccine 08:33:00 [facility] Moderna COVID-19 Moderna COVID-19 2020-03-26 Completed [facility] - Vaccine Vaccine 08:33:00 [facility] Moderna COVID-19 Moderna COVID-19 2020-03-26 Completed [facility] - Vaccine Vaccine 08:33:00 [facility] Moderna COVID-19 Moderna COVID-19 2020-03-26 Completed [facility] - Vaccine Vaccine 08:33:00 [facility] Moderna COVID-19 Moderna COVID-19 2020-03-26 Completed [facility] - Vaccine Vaccine 08:33:00 [facility] Moderna COVID-19 Moderna COVID-19 2020-03-26 Completed [facility] - Vaccine Vaccine 08:33:00 [facility] Moderna COVID-19 Moderna COVID-19 2020-03-26 Completed [facility] - Vaccine Vaccine 08:33:00 [facility] Moderna COVID-19 Moderna COVID-19 2020-03-26 Completed [facility] - Vaccine Vaccine 08:33:00 [facility] Moderna COVID-19 Moderna COVID-19 2020-03-26 Completed [facility] - Vaccine Vaccine 08:33:00 [facility] Moderna COVID-19 Moderna COVID-19 2020-03-26 Completed [facility] - Vaccine Vaccine 08:33:00 [facility] Moderna COVID-19 Moderna COVID-19 2020-03-26 Completed [facility] - Vaccine Vaccine 08:33:00 [facility] Moderna COVID-19 Moderna COVID-19 2020-03-26 Completed [facility] Vaccine Vaccine 08:33:00 [facility] Moderna COVID-19 Moderna COVID-19 2020-03-26 Completed [facility] - Vaccine Vaccine 08:33:00 [facility] Moderna COVID-19 Moderna COVID-19 2020-03-26 Completed [facility] - Vaccine Vaccine 08:33:00 [facility] Moderna COVID-19 Moderna COVID-19 2020-03-26 Completed [facility] - Vaccine Vaccine 08:33:00 [facility] SARS-COV-2 COVID-19 2020-03-26 Completed Unive rsity of MODERNA VACCINE 00:00:00 [facility] ical Branch SARS-COV-2 COVID-19 2020-03-26 Completed Unive rsity of MODERNA 12+ YRS 00:00:00 [facility] ical VACCINE Branch SARS-COV-2 COVID-19 2020-03-26 Completed Unive rsity of MODERNA 12+ YRS 00:00:00 [facility] ical VACCINE Branch SARS-COV-2 COVID-19 2020-03-26 Completed Unive rsity of MODERNA 12+ YRS 00:00:00 [facility] ical VACCINE Branch SARS-COV-2 COVID-19 2020-03-26 Completed Unive rsity of MODERNA 12+ YRS 00:00:00 [facility] ical VACCINE Branch Shingrix Shingrix 2020 Completed [facility] - 09:37:00 [facility] Shingrix Shingrix 2020 Completed [facility] - 09:37:00 [facility] Shingrix Shingrix 2020 Completed [facility] - 09:37:00 [facility] Shingrix Shingrix 2020 Completed [facility] - 09:37:00 [facility] Shingrix Shingrix 2020 Completed [facility] - 09:37:00 [facility] Shingrix Shingrix 2020 Completed [facility] - 09:37:00 [facility] Shingrix Shingrix 2020 Completed [facility] - 09:37:00 [facility] Shingrix Shingrix 2020 Completed [facility] - 09:37:00 [facility] Shingrix Shingrix 2020 Completed [facility] - 09:37:00 [facility] Shingrix Shingrix 2020 Completed [facility] - 09:37:00 [facility] Shingrix Shingrix 2020 Completed [facility] - 09:37:00 [facility] Shingrix Shingrix 2020 Completed [facility] - 09:37:00 [facility] Shingrix Shingrix 2020 Completed [facility] - 09:37:00 [facility] Shingrix Shingrix 2020 Completed [facility] - 09:37:00 [facility] Shingrix Shingrix 2020 Completed [facility] - 09:37:00 [facility] Shingrix Shingrix 2020 Completed [facility] - 09:37:00 [facility] Shingrix Shingrix 2020 Completed [facility] - 09:37:00 [facility] Shingrix Shingrix 2020 Completed [facility] - 09:37:00 [facility] Shingrix Shingrix 2020 Completed [facility] - 09:37:00 [facility] Zoster Vaccine 2020 Completed University of Recombinant 00:00:00 [facility] Zoster Vaccine 2020 Completed University of Recombinant 00:00:00 [facility] Zoster Vaccine 2020 Completed University of Recombinant 00:00:00 [facility] Zoster Vaccine 2020 Completed University of Recombinant 00:00:00 [facility] Zoster Vaccine 2020 Completed University of Recombinant 00:00:00 [facility] FluAD FluAD 2019-12-14 Completed [facility] - 09:38:00 [facility] FluAD FluAD 2019-12-14 Completed [facility] - 09:38:00 [facility] FluAD FluAD 2019-12-14 Completed [facility] - 09:38:00 [facility] FluAD FluAD 2019-12-14 Completed [facility] - 09:38:00 [facility] FluAD FluAD 2019-12-14 Completed [facility] - 09:38:00 [facility] FluAD FluAD 2019-12-14 Completed [facility] - 09:38:00 [facility] FluAD FluAD 2019-12-14 Completed [facility] - 09:38:00 [facility] FluAD FluAD 2019-12-14 Completed [facility] - 09:38:00 [facility] FluAD FluAD 2019-12-14 Completed [facility] - 09:38:00 [facility] FluAD FluAD 2019-12-14 Completed [facility] - 09:38:00 [facility] FluAD FluAD 2019-12-14 Completed [facility] - 09:38:00 [facility] FluAD FluAD 2019-12-14 Completed [facility] - 09:38:00 [facility] FluAD FluAD 2019-12-14 Completed [facility] - 09:38:00 [facility] FluAD FluAD 2019-12-14 Completed [facility] - 09:38:00 [facility] FluAD FluAD 2019-12-14 Completed [facility] - 09:38:00 [facility] FluAD FluAD 2019-12-14 Completed [facility] - 09:38:00 [facility] FluAD FluAD 2019-12-14 Completed [facility] - 09:38:00 [facility] FluAD FluAD 2019-12-14 Completed [facility] - 09:38:00 [facility] FluAD FluAD 2019-12-14 Completed [facility] - 09:38:00 [facility] Shingrix Shingrix 2019-12-14 Completed [facility] - 09:36:00 [facility] Shingrix Shingrix 2019-12-14 Completed [facility] - 09:36:00 [facility] Shingrix Shingrix 2019-12-14 Completed [facility] - 09:36:00 [facility] Shingrix Shingrix 2019-12-14 Completed [facility] - 09:36:00 [facility] Shingrix Shingrix 2019-12-14 Completed [facility] - 09:36:00 [facility] Shingrix Shingrix 2019-12-14 Completed [facility] - 09:36:00 [facility] Shingrix Shingrix 2019-12-14 Completed [facility] - 09:36:00 [facility] Shingrix Shingrix 2019-12-14 Completed [facility] - 09:36:00 [facility] Shingrix Shingrix 2019-12-14 Completed [facility] - 09:36:00 [facility] Shingrix Shingrix 2019-12-14 Completed [facility] - 09:36:00 [facility] Shingrix Shingrix 2019-12-14 Completed [facility] - 09:36:00 [facility] Shingrix Shingrix 2019-12-14 Completed [facility] - 09:36:00 [facility] Shingrix Shingrix 2019-12-14 Completed [facility] - 09:36:00 [facility] Shingrix Shingrix 2019-12-14 Completed [facility] - 09:36:00 [facility] Shingrix Shingrix 2019-12-14 Completed [facility] - 09:36:00 [facility] Shingrix Shingrix 2019-12-14 Completed [facility] - 09:36:00 [facility] Shingrix Shingrix 2019-12-14 Completed [facility] - 09:36:00 [facility] Shingrix Shingrix 2019-12-14 Completed [facility] - 09:36:00 [facility] Shingrix Shingrix 2019-12-14 Completed [facility] - 09:36:00 [facility] Influenza Virus 2019-12-14 Completed Universit y of Vaccine,quad 00:00:00 [facility] 65+ Zoster Vaccine 2019-12-14 Completed [facility] Recombinant 00:00:00 [facility] Influenza Virus 2019-12-14 Completed Universit y of Vaccine,quad 00:00:00 [place] [facility] 65+ Zoster Vaccine 2019-12-14 Completed [facility] Recombinant 00:00:00 [facility] Influenza, 2019-12-14 Completed University of Trivalent, 00:00:00 [facility] Adjuvanted [place] Influenza Virus 2019-12-14 Completed Universit y of Vaccine,quad 00:00:00 [place] [facility] 65+ Zoster Vaccine 2019-12-14 Completed [facility] Recombinant 00:00:00 [facility] Influenza, 2019-12-14 Completed University of Trivalent, 00:00:00 [facility] Adjuvanted [place] Influenza Virus 2019-12-14 Completed Universit y of Vaccine,quad 00:00:00 [place] [facility] 65+ Zoster Vaccine 2019-12-14 Completed [facility] Recombinant 00:00:00 [facility] Influenza, 2019-12-14 Completed University of Trivalent, 00:00:00 [facility] Adjuvanted [place] Influenza Virus 2019-12-14 Completed Universit y of Vaccine,quad 00:00:00 [place] [facility] 65+ Zoster Vaccine 2019-12-14 Completed [facility] Recombinant 00:00:00 [facility] Influenza, 2019-12-14 Completed University of Trivalent, 00:00:00 [facility] Influenza High Dose 2019-02-10 Completed Unive rsity of 00:00:00 [facility] Influenza High Dose 2019-02-10 Completed Unive rsity of 00:00:00 [facility] Influenza High Dose 2019-02-10 Completed Unive rsity of 00:00:00 [facility] Influenza High Dose 2019-02-10 Completed Unive rsity of 00:00:00 [facility] Influenza High Dose 2019-02-10 Completed Unive rsity of 00:00:00 [facility] Vital Signs Vital Name Observation Time Observation Value Comments Source Systolic blood 2022-03-20 14:26:00 145 mm[Hg] Univer sity of pressure [facility] Diastolic blood 2022-03-20 14:26:00 72 mm[Hg] Unive rsity of pressure [facility] Heart rate 2022-03-20 14:25:00 64 /min [facility] Body temperature 2022-03-20 14:25:00 36.67 [place] [facility] Body height 2022-03-20 14:25:00 154.9 cm [facility] Body weight 2022-03-20 14:25:00 70.897 kg [facility] BMI 2022-03-20 14:25:00 29.53 kg/m2 [facility] height 2021-12-31 17:00:00 62.00 [in_i] Common [facility] weight 2021-12-31 17:00:00 156 [lb_av] [facility] temperature 2021-12-31 17:00:00 97.3 [degF] [facility] bmi 2021-12-31 17:00:00 28.53 kg/m2 [facility] oximetry 2021-12-31 17:00:00 98 % [facility] respiratory rate 2021-12-31 17:00:00 16 /min Comm on [facility] blood pressure 2021-12-31 17:00:00 147 mm[Hg] Common [facility] systolic [facility] blood pressure 2021-12-31 17:00:00 76 mm[Hg] Common [facility] diastolic [facility] height 2021-07-07 08:00:00 62.00 [in_i] Common [facility] weight 2021-07-07 08:00:00 155.2 [lb_av] [facility] temperature 2021-07-07 08:00:00 97.8 [degF] [facility] bmi 2021-07-07 08:00:00 28.38 kg/m2 [facility] oximetry 2021-07-07 08:00:00 96 % [facility] respiratory rate 2021-07-07 08:00:00 16 /min Comm on [facility] blood pressure 2021-07-07 08:00:00 134 mm[Hg] Common [facility] - systolic [facility] blood pressure 2021-07-07 08:00:00 71 mm[Hg] Common [facility] - diastolic [facility] height 2021-05-30 08:40:00 62.00 [in_i] Common [facility] weight 2021-05-30 08:40:00 150.6 [lb_av] Common [facility] bmi 2021-05-30 08:40:00 27.54 kg/m2 Common [facility] height 2021-01-06 08:00:00 62.00 [in_i] Common [facility] weight 2021-01-06 08:00:00 150.6 [lb_av] [facility] temperature 2021-01-06 08:00:00 96.8 [degF] [facility] bmi 2021-01-06 08:00:00 27.54 kg/m2 [facility] oximetry 2021-01-06 08:00:00 99 % [facility] respiratory rate 2021-01-06 08:00:00 18 /min Comm on [facility] blood pressure 2021-01-06 08:00:00 122 mm[Hg] Common [facility] - systolic [facility] blood pressure 2021-01-06 08:00:00 82 mm[Hg] Common [facility] - diastolic [facility] height 2020-12-10 08:00:00 62.00 [in_i] Common [facility] weight 2020-12-10 08:00:00 151.8 [lb_av] [facility] temperature 2020-12-10 08:00:00 98.7 [degF] [facility] bmi 2020-12-10 08:00:00 27.76 kg/m2 [facility] oximetry 2020-12-10 08:00:00 97 % [facility] - [facility] blood pressure 2020-12-10 08:00:00 177 mm[Hg] [facility] - systolic [facility] blood pressure 2020-12-10 08:00:00 76 mm[Hg] Common [facility] - diastolic [facility] Procedures Procedure Date / Time Performed Performing Clinician [facility] e CONSENT/REFUSAL FOR 2022-04-22 16:00:04 Doctor Unassigned, No [facility] DIAGNOSIS AND Name Medical Branch TREATMENT ASSIGNMENT OF BENEFITS 2022-04-22 15:59:41 Doctor Unassigned, No [facility] Name Medical Branch Encounters Start End Encounter Admission Attending Care Care Encounter Source Date/Time Date/Time Type Type Clinicians Facility Department ID 2022-04-22 Outpatient [facility], STLMLC STLMLC [id number] Common 14:05:01 Avnee 88580 [facility] 2021-12-22 Outpatient [facility], STLMLC STLC [id number] Common 08:49:00 Avnee 69938 [facility] 2021-12-02 Outpatient [facility], STLMLC STLMLC [id number] Common 14:04:01 Avnee 26268 [facility] 2021-08-19 Outpatient [facility], STLMLC STLMLC [id number] Common 14:39:00 Avnee 86602 [facility] 2021-04-09 Outpatient [facility], STLMLC STLMLC [id number] Common 14:12:38 Avnee 38897 [facility] 2021-04-09 Outpatient [facility], STLMLC STLMLC [id number] Common 14:09:29 Avnee 18745 [facility] 2021-04-09 Outpatient [facility], STLMLC STLMLC [id number] Common 14:02:41 Avnee 32767 [facility] 2021-04-09 Outpatient [facility], STLMLC STLMLC [id number] Common 13:14:46 Avnee 44891 [facility] 2021-04-09 Outpatient [facility], STLMLC STLMLC [id number] Common 13:03:45 Avnee 64183 [facility] 2021-04-09 Outpatient STLMLC STLMLC [id number] Common 13:02:59 32661 [facility] 2021-04-09 Outpatient [facility], STLMLC STLMLC [id number] Common 13:02:38 Avnee 31831 [facility] 2021-04-09 Outpatient STLMLC STLMLC [id number] Common 13:01:02 59088 [facility] 2021-04-09 Outpatient STLMLC STLMLC [id number] Common 12:56:56 [id number] [facility] 2021-04-09 Outpatient Ericka, STLMLC STLMLC [id number] Common 12:38:17 Silva 55519 [facility] 2021-04-09 Outpatient Ericka, STLMLC STLMLC [id number] Common 12:37:12 Silva 94535 [facility] 2021-04-09 Outpatient Ericka, STLMLC STLMLC [id number] Common 12:14:39 Silva 86393 [facility] 2021-04-09 Outpatient Millender, STLMLC STLMLC [id number] 12:14:07 Lida 10214 [facility] 2021-04-09 Outpatient Millender, STLMLC STLMLC [id number] Common 11:54:55 Lida 75556 [facility] 2021-04-09 Outpatient Millender, STLMLC STLMLC [id number] Common 11:53:17 Lida 94845 [facility] 2021-04-09 Outpatient Millender, STLMLC STLMLC [id number] 11:46:21 Lida 47688 [facility] 2021-04-09 Outpatient Millender, STLMLC STLMLC [id number] 11:40:17 Lida 45238 [facility] 2021-04-09 Outpatient Millender, STLMLC [facility] [id number] Common 11:28:05 Lida 41004 [facility] 2021-04-[address] [facility] [id number] Common 11:05:19 Lida 39202 [facility] 2022-04-27 2022-04-27 [facility] [id number] Univers 00:00:00 00:00:00 Jim HEADLEY [id number] i ty of [id number] [place] [phone] Id dical [facility] [address] [facility] [address] 2022-04-22 2022-04-22 [facility] Kiet Puckett [facility] [id number] Univers 09:59:18 23:59:00 Encounter Jim HEADLEY [id number] ity of [place] [id number] [facility] [id number] [facility] [address] 2022-04-22 2022-04-22 Outpatient R [facility] [id number] Univers 09:59:18 23:59:00 ity of [facility] 2022-04-22 2022-04-22 (TEL) [facility] [id number] Co mmon 00:00:00 00:00:00 [facility] 2022-03-20 2022-03-20 Outpatient R LAVERN KIET [facility] [id number] Univers 08:00:00 08:48:28 ity of [facility] 2022-03-20 2022-03-20 Office Lavern [facility] [id number] [id number] Univers 08:00:00 08:48:28 Visit Jim WATT [id number] it y of [facility] [id number] [facility] [phone] [facility] [address] Branch 2022-03-20 2022-03-20 Outpatient R [facility]ERN [facility] [id number] Univers 08:00:00 08:00:00 ity of [facility] 2022-02-17 2022-02-17 (TEL) STLMLC STLMLC [id number] Co mmon 00:00:00 00:00:00 [facility] 2021-12-31 2021-12-31 OFFICE STLMLC STLMLC [id number] Co mmon 00:00:00 00:00:00 VISIT Spirit ESTAB PT - CHI LEVEL 4 [facility] 2021-10-20 2021-10-20 (TEL) STLMLC STLMLC [id number] Co mmon 00:00:00 00:00:00 [facility] 2021-09-17 2021-09-17 (TEL) STLMLC STLMLC [id number] Co mmon 00:00:00 00:00:00 [facility] 2021-09-01 2021-09-01 (TEL) STLMLC STLMLC [id number] Co mmon 00:00:00 00:00:00 [facility] 2021-07-29 2021-07-29 Telephone Kiet Puckett [facility] [id number] Univers 00:00:00 00:00:00 Cam KAYODE [id number] i ty [facility] [id number] Emily WEBB [id number] [address] 2021-07-29 2021-07-29 (TEL) STLMLC STLMLC [id number] Co mmon 00:00:00 00:00:00 [facility] 2021-07-23 2021-07-23 (TEL) STLMLC STLMLC [id number] Co mmon 00:00:00 00:00:00 [facility] 2021-07-07 2021-07-07 OFFICE STLMLC STLMLC [id number] Co mmon 00:00:00 00:00:00 [facility]IT [facility] ESTAB PT - CHI LEVEL 4 [facility] 2021-06-25 2021-06-25 (TEL) STLMLC STLMLC [id number] Co mmon 00:00:00 00:00:00 [facility] 2021-06-23 2021-06-23 (TEL) STLMLC STLMLC [id number] Co mmon 00:00:00 00:00:00 [facility] 2021-06-11 2021-06-11 (TEL) STLMLC STLMLC [id number] Co mmon 00:00:00 00:00:00 [facility] 2021-06-05 2021-06-05 (TEL) STLMLC STLMLC [id number] Co mmon 00:00:00 00:00:00 [facility] 2021-05-30 2021-05-30 OL DIG E/M STLMLC STLMLC [id number] Common 00:00:00 00:00:00 [facility] 11-20 Spir it [facility] 2021-05-29 2021-05-29 (TEL) STLMLC STLMLC [id number] Co mmon 00:00:00 00:00:00 [facility] 2021-05-21 2021-05-21 (TEL) STLMLC STLMLC [id number] Co mmon 00:00:00 00:00:00 [facility] 2021-04-16 2021-04-16 Meherrin Kiet Puckett MAHUNG [id number] [id number] Univers 00:00:00 00:00:00 Cam KAYODE [id number] i ty [facility] [id number] [facility] [id number] Id dical [place] [address] Branch [facility] 2021-04-09 2021-04-09 Outpatient R KIET PUCKETT MAHUNG [facility] [id number] Univers 08:37:23 23:59:00 ity [facility] 2021-04-09 2021-04-09 [facility] Kiet Puckett [facility] [id number] Univers 08:37:23 23:59:00 Encounter Jim HEADLEY [id number] ity [facility] [id number] [id number] [place] [address] Branch 2021-03-14 2021-03-14 Outpatient R KIET PUCKETT [facility] [id number] Univers 08:30:00 09:27:56 ity of [facility] 2021-03-14 2021-03-14 Office Kiet Puckett [facility] [id number] [id number] Univers 08:30:00 09:27:56 Visit Jim WATT [id number] it y of [place] [id number] [facility] [phone] [place] [address] Branch 2021-03-14 2021-03-14 Outpatient R KIET PUCKETT [facility] [id number] Univers 08:30:00 08:30:00 ity of [facility] 2021-03-14 2021-03-14 Orders Doctor CRISTHIAN [id number] [id number] Univers 00:00:00 00:00:00 Only Unassigned, ASHOK [id number] ity of [place] [facility] [id number] [facility] [id number] [place] [address] Branch 2021-01-24 2021-01-24 Outpatient Juana TOLEDO [facility] [id number] Univers 13:20:00 12:47:14 CECILIA ity of [facility] 2021-01-16 2021-01-16 (TEL) STLMLC STLMLC [id number] Co mmon 00:00:00 00:00:00 [facility] 2021-01-06 2021-01-06 OFFICE STLMLC STLMLC [id number] Co mmon 00:00:00 00:00:00 VISIT Spirit ESTAB PT - CHI LEVEL 4 [facility] 2020-12-10 2020-12-10 OFFICE STLMLC STLMLC [id number] Co mmon 00:00:00 00:00:00 VISIT EST Spir it PT LEVEL 3 - CHI [facility] 2020-09-24 2020-09-24 Outpatient STLMLC STLMLC [id number] Common 00:00:00 00:00:00 [facility] 2020-08-28 2020-08-28 Outpatient STLMLC STLMLC [id number] Common 00:00:00 00:00:00 [facility] 2020-08-05 2020-08-05 Outpatient STLMLC STLMLC [id number] Common 00:00:00 00:00:00 [facility] 2020-07-24 2020-07-24 Outpatient STLMLC STLMLC [id number] Common 00:00:00 00:00:00 [facility] 2020-07-22 2020-07-22 Outpatient STLMLC STLMLC [id number] Common 00:00:00 00:00:00 [facility] 2020-05-29 2020-05-29 Outpatient STLMLC STLMLC [id number] Common 00:00:00 00:00:00 [facility] 2020-05-22 2020-05-22 Outpatient STLMLC STLMLC [id number] Common 00:00:00 00:00:00 [facility] 2020-04-22 2020-04-22 Outpatient Raju_P MMG MMG [id number] [place] 12:56:00 12:56:00 [facility] 2020-03-13 2020-03-13 Outpatient STLMLC STLMLC [id number] Common 00:00:00 00:00:00 [facility] 2020-03-04 2020-03-04 Outpatient STLMLC STLMLC [id number] Common 00:00:00 00:00:00 [facility] 2020-03-01 2020-03-01 Outpatient STLMLC STLMLC [id number] Common 00:00:00 00:00:00 [facility] 2019-12-27 2019-12-27 Outpatient STLMLC STLMLC [id number] Common 00:00:00 00:00:00 [facility] 2019-11-06 2019-11-06 [facility] [id number] Common 13:00:00 13:00:00 [facility] 2019-11-06 2019-11-06 Outpatient [facility] [id number] Common 11:43:00 11:43:00 [facility] 2019-09-05 2019-09-05 Out[facility] [id number] Common 16:20:00 16:20:[address] [facility] 2019-08-25 2019-08-25 Outpatient [facility] [id number] Common 09:23:00 09:23:[address] [facility] 2019-06-06 2019-06-06 Outpatient [facility] [id number] Common 10:17:00 10:17:[address] [facility] 2019-06-05 2019-06-05 Outpatient [facility] [id number] Common 09:40:00 09:40:[address] [facility] 2019-06-05 2019-06-05 Outpatient [facility] [id number] Common 08:20:00 08:20:[address] [facility] 2019-04-18 2019-04-18 Outpatient [facility] [id number] Common 13:45:00 13:45:[address] [facility] 2019-03-01 2019-03-01 Outpatient [facility] [id number] Common 20:16:00 20:16:[address] [facility] 2019-03-01 2019-03-01 Outpatient [facility] [id number] Common 08:15:00 08:15:[address] [facility] 2019-02-23 2019-02-23 Outpatient [facility] [id number] Common 15:54:00 15:54:[address] [facility] 2018-09-18 2018-09-18 Outpatient [facility] [id number] Common 17:23:00 17:23:[address] [facility] 2018-09-13 2018-09-13 Outpatient [facility] [id number] Common 08:20:00 08:20:[address] [facility] 2018-05-20 2018-05-20 Outpatient [facility] [id number] Common 10:30:00 10:30:[address] [facility] 2018-05-06 2018-05-06 Outpatient [facility] [id number] Common 09:12:00 09:12:[address] [facility] 2017-12-22 2017-12-22 [facility] [id number] Common 11:06:00 11:06:[address] [facility] 2017-12-06 2017-12-06 [facility] [id number] Common 09:50:00 09:50:[address] [facility] 2017-12-02 2017-12-02 [facility] [id number] Common 08:30:00 08:30:[address] [facility] Results This patient has no known results.
[2022-08-26] MEDS ORDERED: PROMETHAZINE INJ 25 MG/ML AMP ONE (10:27)
[2022-08-26] MEDS ORDERED: NA CHLORIDE 0.9% 500 ML ONE (10:28)
--- NOTE | 2022-08-26 10:36 | RAD REPORT ---
EXAM DESCRIPTION: [place] Single View08/26/2022 10:14 am CLINICAL HISTORY: Vomiting/malaise COMPARISON: none FINDINGS: The lungs appear clear of acute infiltrate. The heart is normal size IMPRESSION: No acute abnormalities displayed
[2022-08-26 10:41] LABS: Absolute Lymphocytes (CBC) 0.9 K/uL (0.7-4.9); Hematocrit 42.4 % (36.0-45.0); Lymphocytes % 17.5 % (15.3-44.8); MCV 87.4 fL (80-100); MPV 8.6 fL (7.6-11.3); RBC Red Blood Cell Count 4.85 M/uL (3.86-4.86)
[2022-08-26 10:43] LABS: SARS-CoV-2 Antigen Rapid Res Negative (Negative)
[2022-08-26 11:00] LABS: ALT/SGPT 31 U/L (13-56); AST/SGOT 28 U/L (15-37); Albumin 3.1 g/dL (3.4-5.0); Alkaline Phosphatase 72 U/L (45-117); BUN Blood Urea Nitrogen 17 mg/dL (7-18); Bicarbonate 26 mEq/L (21-32); Bilirubin Direct < 0.1 mg/dL (0-0.2); Bilirubin Indirect, Calculated ND mg/dL (0.2-0.8); Bilirubin Total 0.3 mg/dL (0.2-1.0); Glomerular Filtration Rate 67 ml/min (=/>90); Glucose Level 104 mg/dL (74-106); Potassium 3.6 mEq/L (3.5-5.1); Protein, Total 7.1 g/dL (6.4-8.2); Sodium Level 137 mEq/L (136-145); Troponin High Sensitivity 4.9 pg/mL (<58.9)
[2022-08-26 11:01] LABS: Magnesium 1.9 mg/dL (1.6-2.4)
[2022-08-26 11:28] LABS: Specific Gravity 1.015 (1.005-1.030); Urine Bacteria None Seen /HPF (<20); Urine Bilirubin NEGATIVE (Negative); Urine Blood Negative (Negative); Urine Clarity Clear (Clear); Urine Color Light-Yellow (Yellow); Urine Glucose NEGATIVE (Negative); Urine Mucus Slight /HPF (None Seen); Urine Protein NEGATIVE (Negative); Urine RBC <5 /HPF (None Seen); Urine Urobilinogen Normal (Normal)
--- NOTE | 2022-08-26 11:39 | RAD REPORT ---
EXAM DESCRIPTION: CT - Abdomen Pelvis W Contrast - 08/26/2022 11:18 am CLINICAL HISTORY: Abdominal pain COMPARISON: 2019 TECHNIQUE: Computed axial tomography of the abdomen pelvis was obtained. 100 cc Isovue-300 was admin istered intravenously. Oral contrast was not requested which limits evaluation of bowel and appendix All CT scans are performed using dose optimization technique as appropriate and may include automated exposure control or mA/KV adjustment according to patient size. FINDINGS: The liver, spleen, pancreas, adrenal and kidneys appear unremarkable. There is no evidence of diverticulitis. No adnexal mass. Moderate amount stool within the colon. Small to moderate umbilical hernia IMPRESSION: Moderate amount of stool within the colon
--- NOTE | 2022-08-26 11:50 | ER ---
Nurse's Notes [facility] Name: Ila Mariee Age: 72 yrs Sex: Female : 1950 Arrival Date: 08/26/2022 Time: 09:38 Bed 20 Private MD: Diagnosis: Constipation, abdominal pain, nausea Presentation: 08/26 09:50 Chief complaint: Patient states: N/V, generalized malaise, weakness since Wednesday. ll1 Coronavirus screen: Vaccine status: Patient reports receiving the 2nd dose of the covid vaccine. Client denies travel out of the [place] in the last 14 days. fatigue, nausea, vomiting. Client presents with at least one sign or symptom that may indicate coronavirus-19. Standard/surgical mask placed on the client. Ebola Screen: Patient denies travel to an Ebola-affected area in the 21 days before illness onset. Initial Sepsis Screen: Does the patient meet any 2 criteria? No. Patient's initial sepsis screen is negative. Does the patient have a suspected source of infection? No. Patient's initial sepsis screen is negative. Risk Assessment: Do you want to hurt yourself or someone else? Patient reports no desire to harm self or others. Onset of symptoms was August 24, 2022. 09:50 Method Of Arrival: Ambulatory ll1 09:50 Acuity: IGNACIO 3 ll1 Triage Assessment: 09:53 General: Appears uncomfortable, Behavior is calm, cooperative, appropriate for age. ll1 Pain: Complains of pain in abdomen Quality of pain is described as aching. Neuro: No deficits noted. Cardiovascular: No deficits noted. GI: Reports lower abdominal pain, upper abdominal pain, nausea, vomiting. Historical: - Allergies: 09:50 Bactrim; ll1 09:50 Prednisone; ll1 09:50 Zofran; ll1 09:50 tramadol; ll1 09:50 Codeine; ll1 09:50 Sulfa (Sulfonamide Antibiotics); ll1 - PMHx: 09:50 Anxiety; High Cholesterol; GERD; Hypertension; urinary problems; Anemia; Depression; ll1 - PSHx: 09:50 wrist SX; ll1 - Immunization history:: Client reports receiving the 2nd dose of the Covid vaccine. - Social history:: Smoking status: Patient denies any tobacco usage or history of. Screenin:55 [facility] ED Fall Risk Assessment (Adult) Score/Fall Risk Level 0 - 2 = Low Risk. Abuse eh3 screen: Denies threats or abuse. Denies injuries from another. Nutritional screening: No deficits noted. Tuberculosis screening: No symptoms or risk factors identified. Assessment: 09:55 General: Appears in no apparent distress. uncomfortable, Behavior is calm, cooperative, eh3 appropriate for age. Pain: Complains of pain in abdomen. Neuro: Level of Consciousness is awake, alert, obeys commands, Oriented to person, place, time, situation. Neuro: Reports weakness. Cardiovascular: Capillary refill < 3 seconds Patient's skin is warm and dry. Respiratory: Airway is patent Respiratory effort is even, unlabored, Respiratory pattern is regular, symmetrical. GI: Abdomen is round non-distended, Reports nausea, vomiting. : No signs and/or symptoms were reported regarding the genitourinary system. Derm: Skin is pink, warm \T\ dry. Musculoskeletal: Circulation, motion, and sensation intact. 10:45 Reassessment: Patient appears in no apparent distress at this time. Patient and/or eh3 family updated on plan of care and expected duration. Pain level reassessed. Patient is alert, oriented x 3, equal unlabored respirations, skin warm/dry/pink. 11:45 Reassessment: Patient appears in no apparent distress at this time. Patient and/or eh3 family updated on plan of care and expected duration. Pain level reassessed. Patient is alert, oriented x 3, equal unlabored respirations, skin warm/dry/pink. Vital Signs: 09:50 BP 153 / 104; Pulse 66; Resp 17; Temp 98.1; Pulse Ox 100% on R/A; Weight 70.31 kg; Pain ll1 6/10; 10:45 BP 143 / 74; Pulse 63; Resp 18; Pulse Ox 96% on R/A; eh3 11:45 BP 140 / 67; Pulse 71; Resp 19; Pulse Ox 100% on R/A; eh3 09:50 Pain Scale: Adult ll1 ED Course: 09:40 Patient arrived in ED. im 09:41 Tima Scott MD is Attending Physician. sp3 09:46 Marie Siu RN is Primary Nurse. eh3 09:49 Arm band placed on Patient placed in an exam room, on a stretcher. ll1 09:52 Triage completed. ll1 09:55 Patient has correct armband on for positive identification. Bed in low position. Call eh3 light in reach. Side rails up X2. Client placed on continuous cardiac and pulse oximetry monitoring. NIBP monitoring applied. Door closed. Noise minimized. Warm blanket given. 10:16 XRAY Chest (1 view) In Process Unspecified. EDMS 10:30 Inserted saline lock: 20 gauge in right wrist, using aseptic technique. Blood eh3 collected. Completed by [facility] staff. 11:20 CT Abd/Pelvis - IV Contrast Only In Process Unspecified. EDMS 12:15 No provider procedures requiring assistance completed. IV discontinued, intact, eh3 bleeding controlled, No redness/swelling at site. Pressure dressing applied. Administered Medications: 10:36 Drug: NS 0.9% IV 500 ml Route: IV; Rate: bolus; Site: right wrist; eh3 11:15 Follow up: IV Status: Completed infusion; IV Intake: 500ml eh3 10:39 Drug: Promethazine IVP 12.5 mg Route: IVP; Site: right wrist; eh3 12:02 Follow up: Response: No adverse reaction; Nausea is decreased eh3 Medication: 12:16 VIS not applicable for this client. eh3 Intake: 11:15 IV: 500ml; Total: 500ml. eh3 Outcome: 11:49 Discharge ordered by . sp3 12:15 Discharged to home ambulatory, with family. eh3 12:15 Condition: stable 12:15 Discharge instructions given to patient, family, Instructed on discharge instructions, follow up and referral plans. medication usage, Demonstrated understanding of instructions, follow-up care, medications, Prescriptions given X 1. 12:16 Patient left the ED. eh3 Signatures: Dispatcher [employer] EDMS Cielo High RN RN ll1 Tima Scott MD MD sp3 Marie Siu RN RN eh3 Nataliya Cheek Corrections: (The following items were deleted from the chart) 12:18 12:15 Discharge instructions given to patient, family, Instructed on discharge eh3 instructions, follow up and referral plans. medication usage, Demonstrated understanding of instructions, follow-up care, medications, Prescriptions given X 5 eh3
--- NOTE | 2022-08-26 11:50 | EDPHYS ---
Physician Documentation [facility] Name: Ila Mariee Age: 72 yrs Sex: Female : 1950 Arrival Date: 08/26/2022 Time: 09:38 Bed 20 Private MD: ED Physician Tima Scott HPI: 08/26 09:57 This 72 yrs old Female presents to ER via Ambulatory with complaints of Nausea, General sp3 Weakness. 09:57 72-year-old female with history of hyperlipidemia, hypertension, GERD presents to the 3 ED with chief complaint 3 days of nausea, generalized weakness, and diffuse abdominal pain. She denies any constipation or diarrhea. Also endorses subjective fever without any objective measurement. She also reports upper respiratory symptoms mild in nature. Review of systems otherwise negative for headache, neck pain, chest pain, shortness of breath, back pain, urinary symptoms including dysuria and frequency, rash, known sick contacts, travel history, or any other signs or symptoms on ROS at this time.. Historical: - Allergies: 09:50 Bactrim; ll1 09:50 Prednisone; ll1 09:50 Zofran; ll1 09:50 tramadol; ll1 09:50 Codeine; ll1 09:50 Sulfa (Sulfonamide Antibiotics); ll1 - PMHx: 09:50 Anxiety; High Cholesterol; GERD; Hypertension; urinary problems; Anemia; Depression; ll1 - PSHx: 09:50 wrist SX; ll1 - Immunization history:: Client reports receiving the 2nd dose of the Covid vaccine. - Social history:: Smoking status: Patient denies any tobacco usage or history of. ROS: 09:59 Eyes: Negative for injury, pain, redness, and discharge, ENT: Negative for injury, sp3 pain, and discharge, Neck: Negative for injury, pain, and swelling, Cardiovascular: Negative for chest pain, palpitations, and edema, Respiratory: Negative for shortness of breath, cough, wheezing, and pleuritic chest pain, Back: Negative for injury and pain, MS/Extremity: Negative for injury and deformity, Skin: Negative for injury, rash, and discoloration, Neuro: Negative for headache, weakness, numbness, tingling, and seizure, Psych: Negative for depression, anxiety, suicide ideation, homicidal ideation, and hallucinations, Allergy/Immunology: Negative for hives, rash, and allergies, Endocrine: Negative for neck swelling, polydipsia, polyuria, polyphagia, and marked weight changes, Hematologic/Lymphatic: Negative for swollen nodes, abnormal bleeding, and unusual bruising. 09:59 All other systems are negative. Exam: 09:59 Constitutional: This is a well developed, well nourished patient who is awake, alert, sp3 and in no acute distress. Head/Face: Normocephalic, atraumatic. Eyes: Pupils equal round and reactive to light, extra-ocular motions intact. Lids and lashes normal. Conjunctiva and sclera are non-icteric and not injected. Cornea within normal limits. Periorbital areas with no swelling, redness, or edema. ENT: Nares patent. No nasal discharge, no septal abnormalities noted. External auditory canals are clear. Oropharynx with no redness, swelling, or masses, exudates, or evidence of obstruction, uvula midline. Mucous membranes moist. Neck: Trachea midline, no thyromegaly or masses palpated, and no cervical lymphadenopathy. Supple, full range of motion without nuchal rigidity, or vertebral point tenderness. No Meningismus. Chest/axilla: Normal chest wall appearance and motion. Nontender with no deformity. No lesions are appreciated. Cardiovascular: Regular rate and rhythm with a normal S1 and S2. No gallops, murmurs, or rubs. Normal PMI, no JVD. No pulse deficits. Respiratory: Lungs have equal breath sounds bilaterally, clear to auscultation and percussion. No rales, rhonchi or wheezes noted. No increased work of breathing, no retractions or nasal flaring. Back: No spinal tenderness. No costovertebral tenderness. Full range of motion. Skin: Warm, dry with normal turgor. Normal color with no rashes, no lesions, and no evidence of cellulitis. MS/ Extremity: Pulses equal, no cyanosis. Neurovascular intact. Full, normal range of motion. Neuro: Awake and alert, GCS 15, oriented to person, place, time, and situation. Cranial nerves II-XII grossly intact. Motor strength 5/5 in all extremities. Sensory grossly intact. Cerebellar exam normal. Normal gait. Psych: Awake, alert, with orientation to person, place and time. Behavior, mood, and affect are within normal limits. 09:59 Abdomen/GI: Mild diffuse pain to palpation without peritoneal signs including rebound or guarding.. 10:06 ECG was reviewed by the Attending Physician. EKG demonstrates normal sinus rhythm at 64 sp3 bpm with normal intervals, normal QRS, normal axis, nonspecific diffuse ST/T changes without evidence of acute ischemia. Vital Signs: 09:50 BP 153 / 104; Pulse 66; Resp 17; Temp 98.1; Pulse Ox 100% on R/A; Weight 70.31 kg; Pain ll1 6/10; 10:45 BP 143 / 74; Pulse 63; Resp 18; Pulse Ox 96% on R/A; eh3 11:45 BP 140 / 67; Pulse 71; Resp 19; Pulse Ox 100% on R/A; eh3 09:50 Pain Scale: Adult ll1 MDM: 09:44 Patient medically screened. sp3 10:00 Data reviewed: vital signs, nurses notes, lab test result(s), EKG, radiologic studies. sp3 ED course: 72-year-old female with PMH above now presents with generalized weakness and diffuse abdominal pain. Differential diagnosis includes viral syndrome, biliary pathology including cholelithiasis and cholecystitis, pancreatitis, colitis, functional abdominal pain, UTI, ACS, dehydration, among others. Will obtain laboratory values, EKG, chest x-ray, flu and COVID swabs, and CT scan of the abdomen pelvis with IV contrast. We will treat with Phenergan and IV fluids. Disposition TBD patient course with possible discharge if work-up is negative.. 11:48 ED course: All work-up is negative including swabs, laboratory values, CT abdomen and sp3 pelvis, chest x-ray, EKG. We will safely discharge patient home with instructions for constipation and generalized abdominal pain. Patient instructed to take a laxative to assist and follow-up with her PCP. I do not believe patient is having any cardiac event, sepsis, significant surgical or intra-abdominal pathology, or any other critical findings at this time.. 08/26 09:51 Order name: Basic Metabolic Panel; Complete Time: 11:47 sp3 08/26 09:51 Order name: CBC with Diff; Complete Time: 11:47 sp3 08/26 09:51 Order name: LFT's; Complete Time: 11:47 sp3 08/26 09:51 Order name: Magnesium; Complete Time: 11:47 sp3 08/26 09:51 Order name: Troponin HS; Complete Time: 11:47 08/26 09:51 Order name: UAM; Complete Time: 11:47 08/26 09:56 Order name: Lipase; Complete Time: 11:47 08/26 09:58 Order name: Flu; Complete Time: 11:47 08/26 09:58 Order name: SARS RAPID; Complete Time: 11:47 08/26 09:51 Order name: XRAY Chest (1 view); Complete Time: 11:47 08/26 09:56 Order name: CT Abd/Pelvis - IV Contrast Only; Complete Time: 11:47 08/26 09:51 Order name: EKG; Complete Time: 09:52 08/26 09:51 Order name: Cardiac monitoring; Complete Time: 09:52 08/26 09:51 Order name: EKG - Nurse/Tech; Complete Time: 10:00 08/26 09:51 Order name: IV Saline Lock; Complete Time: 10:13 08/26 09:51 Order name: Labs collected and sent; Complete Time: 10:13 08/26 09:51 Order name: O2 Per Protocol; Complete Time: 09:52 08/26 09:51 Order name: O2 Sat Monitoring; Complete Time: 09:52 sp3 Administered Medications: 10:36 Drug: NS 0.9% IV 500 ml Route: IV; Rate: bolus; Site: right wrist; eh3 11:15 Follow up: IV Status: Completed infusion; IV Intake: 500ml 3 10:39 Drug: Promethazine IVP 12.5 mg Route: IVP; Site: right wrist; eh3 12:02 Follow up: Response: No adverse reaction; Nausea is decreased eh3 Disposition Summary: 08/26/22 11:49 Discharge Ordered Location: Home sp3 Condition: Stable sp3 Diagnosis - Constipation, abdominal pain, nausea sp3 Followup: sp3 - With: Private Physician - When: Upon discharge from the Emergency Department - Reason: Continuance of care Discharge Instructions: - Discharge Summary Sheet sp3 - Abdominal Pain, Adult sp3 - Constipation, Adult sp3 Forms: - Medication Reconciliation Form sp3 - Thank You Letter sp3 - Antibiotic Education sp3 - Prescription Opioid Use sp3 Prescriptions: - ondansetron 8 mg Oral tablet,disintegrating - take 0.5 tablet by ORAL route every 12 hours As needed nausea; 10 tablet; 3 Refills: 0, Product Selection Permitted Signatures: Dispatcher [employer] EDMS Cielo High, RN RN ll1 Tima Scott MD MD sp3 Marie Siu RN RN eh3 Corrections: (The following items were deleted from the chart) 09:59 09:57 72-year-old female with history of hyperlipidemia, hypertension, GERD presents to sp3 the ED with chief complaint 3 days of nausea, generalized weakness, and diffuse abdominal pain. She denies any constipation or diarrhea. Also endorses subjective fever without any objective measurement. She also reports upper respiratory symptoms mild in nature.. 3
[2022-08-26 12:39] VITALS: TEMP 98.1; O2SAT 100
[2022-08-26 12:41] VITALS: BP 140/67
--- NOTE | 2022-08-27 07:22 | EKG ---
Test Date: 2022-08-26 Test Time: 10:02:26 [employer] Supplier: PATRICIO MEASUREMENT RESULTS: Intervals: Rate: 64 MT: 142 QRSD: 90 QT: 416 QTc: 429 [place]: P: 43 MT: 142 QRS: 2 T: 40 INTERPRETIVE STATEMENTS: Normal sinus rhythm Nonspecific ST abnormality Abnormal ECG Compared to ECG 06/16/2018 09:12:36 No significant changes Electronically Signed On 08-27-22 07:20:00 CDT by Ha Hood
== END 2022-08-26 12:16 | disposition home or self-care (01) ==
LOC: ER 09:38
DX: K59.00 Constipation, unspecified (principal); R11.0 Nausea; I10 Essential (primary) hypertension; Z20.822 Contact with and (suspected) exposure to COVID-19; Z88.1 Allergy status to other antibiotic agents; Z88.2 Allergy status to sulfonamides; Z88.5 Allergy status to narcotic agent; Z88.8 Allergy status to other drugs, medicaments and biological substances
CPT/HCPCS: 85025; 81001; 80048; 36415; 83735; 80076; 84484; 83690; 87804 ×2; 74177; 71045; 87811; Q9967; J2550; J7040; 93005; 96361; 96374; 99284

== ENCOUNTER 2023-10-30 15:14 | Emergency (ER) | payer OTHER ==
[2023-10-30] MEDS ORDERED: FENTANYL CITR 100 MCG/2 ML ONE (16:17)
[2023-10-30] MEDS ORDERED: PANTOPRAZOLE 40 MG INJ ONE (16:17)
[2023-10-30] MEDS ORDERED: NA CHLORIDE 0.9% 2,000 ML ONE (16:17)
[2023-10-30] MEDS ORDERED: PROMETHAZINE INJ 25 MG/ML AMP ONE (16:17)
[2023-10-30 16:39] LABS: Absolute Basophils 0.1 K/uL (0-0.5); Absolute Lymphocytes (CBC) 2.3 K/uL (0.7-4.9); Absolute Monocytes 1.4 K/uL (0.1-1.3); Absolute Neutrophil 8.7 K/uL (1.8-8.0); Basophils % 0.7 % (0-1.3); Eosinophils % 0.2 % (0-4.4); Hematocrit 42.6 % (36.0-45.0); Hemoglobin 14.4 g/dL (12.0-15.0); Lymphocytes % 18.4 % (15.3-44.8); MCH 29.1 pg (27.0-35.0); MCHC 33.7 g/dL (32.0-36.0); MCV 86.3 fL (80-100); MPV 8.1 fL (7.6-11.3); Monocytes % 11.2 % (3.3-12.3); Neutrophils % 69.5 % (41.7-73.7); Nucleated Red Blood Cells % 0.1 % (0-0); Platelets 404 thou/uL (152-406); RBC Red Blood Cell Count 4.93 M/uL (3.86-4.86); Red Cell Distribution Width 13.2 % (12.1-15.2)
[2023-10-30 16:46] LABS: Protime INR 1.17
--- NOTE | 2023-10-30 16:58 | RAD REPORT ---
EXAM DESCRIPTION: RAD - Chest Single View - 10/30/2023 4:42 pm CLINICAL HISTORY: ABDOMINAL DISTENTION COMPARISON: Chest Single View dated 08/26/2022; Chest Pa And Lat (2 Views) dated 01/02/2022; Chest Si ngle View dated 06/16/2018; Chest Single View dated 08/23/2017 FINDINGS: Lines: None. Lungs: No evidence of edema or pneumonia. Pleural: No significant pleural effusions or pneumothorax. Cardiac: The heart size is within normal limits. Mediastinum: Within normal limits. Bones: No acute fractures. Other: None IMPRESSION: No acute cardiopulmonary disease.
[2023-10-30 17:01] LABS: Albumin 3.8 g/dL (3.4-5.0); Anion Gap 11.9 mEq/L (5.0-15.0); Bilirubin Direct 0.2 mg/dL (0-0.2); Bilirubin Indirect, Calculated 0.5 mg/dL (0.2-0.8); Bilirubin Total 0.7 mg/dL (0.2-1.0); Potassium 2.9 mEq/L (3.5-5.1); Protein, Total 7.8 g/dL (6.4-8.2); Troponin High Sensitivity 9.2 pg/mL (<58.9)
--- NOTE | 2023-10-30 17:43 | RAD REPORT ---
EXAM DESCRIPTION: CT - Chest For Pe Angio - 10/30/2023 5:24 pm CLINICAL HISTORY: Abdominal distention;Chest pain COMPARISON: No comparisons TECHNIQUE: Dynamically enhanced axial 3 mm thick images of the chest were obtained during administra tion of <100> mL Isovue 370 IV contrast. Coronal and oblique reconstruction images were generated and reviewed. Exam utilizes a protocol for optimal evaluation of pulmonary arterial tree. Maximum intensity projections 3D imaging was utilized All CT scans are performed using dose optimization technique as appropriate and may include automated exposure control or mA/KV adjustment according to patient size. FINDINGS: Chest Wall: No suspicious thyroid nodules or pathologic lymphadenopathy. Lungs: No acute abnormality. Pleura: No significant effusions or pneumothorax. Mediastinum/emeterio: No pathologic lymphadenopathy. Pulmonary arteries/Aorta: No filling defect identified. No aortic aneurysm. Heart: No significant pericardial effusion. Normal heart size. Upper abdomen: No acute abnormality. Bones: No acute abnormality. IMPRESSION: Negative for pulmonary embolism. No acute findings in the chest.
--- NOTE | 2023-10-30 17:51 | RAD REPORT ---
EXAM DESCRIPTION: CTAbdomen Pelvis W Contrast - 10/30/2023 5:24 pm CLINICAL HISTORY: ABD PAIN COMPARISON: Abdomen Pelvis W Contrast dated 08/26/2022; Abdomen Pelvis W Contrast dated 06/16/2018 TECHNIQUE: CT of the abdomen and pelvis was performed. All CT scans are performed using dose optimization technique as appropriate and may include automated exposure control or mA/KV adjustment according to patient size. FINDINGS: Lower chest: No acute abnormality. Liver: No acute abnormality or suspicious lesions. Biliary: No biliary ductal dilatation. Stomach: No significant focal abnormality. Duodenum: No significant focal abnormality. Pancreas: No significant abnormality. Spleen: No significant abnormality. Adrenal: No suspicious lesions. Kidney/ureter: No hydronephrosis. No renal calculi. Retroperitoneum: No retroperitoneal adenopathy. Vascular: No aneurysm. Mild atherosclerosis . Bowel: Diverticulosis without evidence of acute diverticulitis.. Peritoneum: No ascites or free air. Small fat containing umbilical hernia . Bladder: Grossly unremarkable. Reproductive: No adnexal masses. Bones: No acute fracture. Mild diffuse disc height loss. Multilevel degenerative changes are present in the spine. Other: n/a IMPRESSION: No acute intra-abdominal or pelvic finding.
--- NOTE | 2023-10-30 18:46 | EDPHYS ---
Physician Documentation [facility] Name: Ila Mariee Age: 73 yrs Sex: Female : 1950 Arrival Date: 10/30/2023 Time: 15:14 Bed 8 Private MD: ED Physician Flo Mcdermott HPI: 10/29 18:35 This 73 yrs old Female presents to ER via Wheelchair with complaints of preston Dizziness, General Weakness, colonoscopy and endoscopy done 10/29/23, Abdominal Burn. 18:35 The patient presents with dizziness. preston Historical: - Allergies: 15:33 Bactrim; ld1 15:33 Codeine; ld1 15:33 Prednisone; ld1 15:33 Sulfa (Sulfonamide Antibiotics); ld1 15:33 tramadol; ld1 15:33 Zofran; ld1 - PMHx: 15:33 Anemia; High Cholesterol; urinary problems; Hypertension; Depression; Anxiety; GERD; ld1 - PSHx: 15:33 wrist SX; ld1 - Immunization history:: Adult Immunizations up to date. - Infectious Disease History:: Denies. - Social history:: Smoking status: Patient denies any tobacco usage or history of. ROS: 18:37 Constitutional: Negative for fever, chills, and weight loss, Eyes: Negative for injury, preston pain, redness, and discharge, ENT: Negative for injury, pain, and discharge, Neck: Negative for injury, pain, and swelling, Cardiovascular: Negative for chest pain, palpitations, and edema, Respiratory: Negative for shortness of breath, cough, wheezing, and pleuritic chest pain, Back: Negative for injury and pain, : Negative for injury, bleeding, discharge, and swelling, MS/Extremity: Negative for injury and deformity, Skin: Negative for injury, rash, and discoloration, Neuro: Negative for headache, weakness, numbness, tingling, and seizure, Psych: Negative for depression, anxiety, suicide ideation, homicidal ideation, and hallucinations, Allergy/Immunology: Negative for hives, rash, and allergies, Endocrine: Negative for neck swelling, polydipsia, polyuria, polyphagia, and marked weight changes, Hematologic/Lymphatic: Negative for swollen nodes, abnormal bleeding, and unusual bruising, 18:37 Abdomen/GI: Positive for abdominal pain, nausea and vomiting, Exam: 18:37 Constitutional: This is a well developed, well nourished patient who is awake, alert, preston and in no acute distress. Head/Face: Normocephalic, atraumatic. Eyes: Pupils equal round and reactive to light, extra-ocular motions intact. Lids and lashes normal. Conjunctiva and sclera are non-icteric and not injected. Cornea within normal limits. Periorbital areas with no swelling, redness, or edema. ENT: Nares patent. No nasal discharge, no septal abnormalities noted. Tympanic membranes are normal and external auditory canals are clear. Oropharynx with no redness, swelling, or masses, exudates, or evidence of obstruction, uvula midline. Mucous membranes moist. Neck: Trachea midline, no thyromegaly or masses palpated, and no cervical lymphadenopathy. Supple, full range of motion without nuchal rigidity, or vertebral point tenderness. No Meningismus. Chest/axilla: Normal chest wall appearance and motion. Nontender with no deformity. No lesions are appreciated. Cardiovascular: Regular rate and rhythm with a normal S1 and S2. No gallops, murmurs, or rubs. Normal PMI, no JVD. No pulse deficits. Respiratory: Lungs have equal breath sounds bilaterally, clear to auscultation and percussion. No rales, rhonchi or wheezes noted. No increased work of breathing, no retractions or nasal flaring. Abdomen/GI: Soft, non-tender, with normal bowel sounds. No distension or tympany. No guarding or rebound. No evidence of tenderness throughout. Back: No spinal tenderness. No costovertebral tenderness. Full range of motion. Female : Normal external genitalia. Skin: Warm, dry with normal turgor. Normal color with no rashes, no lesions, and no evidence of cellulitis. MS/ Extremity: Pulses equal, no cyanosis. Neurovascular intact. Full, normal range of motion. Neuro: Awake and alert, GCS 15, oriented to person, place, time, and situation. Cranial nerves II-XII grossly intact. Motor strength 5/5 in all extremities. Sensory grossly intact. Cerebellar exam normal. Normal gait. Psych: Awake, alert, with orientation to person, place and time. Behavior, mood, and affect are within normal limits. 18:37 ECG was reviewed by the Attending Physician. Vital Signs: 15:33 BP 161 / 78; Pulse 82; Resp 16 S; Temp 99.7(O); Pulse Ox 100% on R/A; Weight 66.22 kg aa5 (R); Height 5 ft. 1 in. (R); 16:36 BP 163 / 73; Pulse 73; Resp 18; Pulse Ox 100% on R/A; ld1 17:36 Pulse 84; Resp 18; Pulse Ox 99% on R/A; ld1 18:18 BP 170 / 71; Pulse 79; Resp 18; Pulse Ox 100% on R/A; ld1 18:36 BP 166 / 70; Pulse 73; Resp 18; Pulse Ox 100% on R/A; ld1 15:33 Body Mass Index 27.59 (66.22 kg, 154.94 cm) aa5 MDM: 15:20 Patient medically screened. preston 18:38 Differential diagnosis: cardiac arrhythmia, generalized weakness, GI bleed, preston hypovolemia, idiopathic dizziness, near-syncope, syncope, TIA, vertigo. Differential diagnosis: cholecystitis, viral gastroenteritis, gastroenteritis, bowel obstruction, Cholelithiasis, diverticulitis, gastritis, gastroesophageal reflux disease, GI Bleed, Mesenteric ischemia or infarction, myocardia ischemia or infarction, non-specific abd pain, pancreatitis, Peptic Ulcer Disease, urinary tract infection. Data reviewed: vital signs, nurses notes, lab test result(s), EKG, radiologic studies, CT scan, plain films. Consideration of Admission/Observation Escalation of care including admission/observation considered. I considered the following discharge prescriptions or medication management in the emergency department Medications were administered in the Emergency Department. See MAR. Independent interpretation of the following test(s) in the Emergency Department EKG: See my EKG interpretation above. Test considered but Not performed: MRI: no mrcp. Historians other than the Patient: Family Member: family well informed. Care significantly affected by the following chronic conditions: Hypertension, Obesity, gerd, high chlesterol. Counseling: I had a detailed discussion with the patient and/or guardian regarding the historical points, exam findings, and any diagnostic results supporting the discharge/admit diagnosis, lab results, radiology results, the need for outpatient follow up, for definitive care, a family practitioner, a motor pool driver. 10/29 16:09 Order name: Basic Metabolic Panel; Complete Time: 18:30 preston 10/29 16:09 Order name: CBC with Diff; Complete Time: 16:57 [facility] 10/29 16:09 Order name: LFT's; Complete Time: 18:30 [facility] 10/29 16:09 Order name: Magnesium; Complete Time: 18:30 [facility] 10/29 16:09 Order name: NT PRO-BNP; Complete Time: 18:30 [facility] 10/29 16:09 Order name: PT-INR; Complete Time: 16:57 [facility] 10/29 16:09 Order name: Troponin HS; Complete Time: 18:30 [facility] 10/29 16:09 Order name: Lipase; Complete Time: 18:30 [facility] 10/29 16:09 Order name: XRAY Chest (1 view); Complete Time: 18:30 [facility] 10/29 16:09 Order name: CT Chest For PE Angio; Complete Time: 18:30 [facility] 10/29 16:09 Order name: CT Abd/Pelvis - IV Contrast Only; Complete Time: 18:30 [facility] 10/29 16:09 Order name: Cardiac monitoring; Complete Time: 16:46 [facility] 10/29 16:09 Order name: EKG - Nurse/Tech; Complete Time: 16:46 [facility] 10/29 16:09 Order name: IV Saline Lock; Complete Time: 16:36 10/29 16:09 Order name: Labs collected and sent; Complete Time: 16:36 [facility] 10/29 16:09 Order name: O2 Per Protocol; Complete Time: 16:13 10/29 16:09 Order name: O2 Sat Monitoring; Complete Time: 16:13 [facility] 10/29 18:35 Order name: Vital Signs; Complete Time: 18:36 [facility] 10/29 18:35 Order name: PO challenge: juice; Complete Time: 18:49 [facility] EC:37 Rate is 67 beats/min. Rhythm is regular. QRS Harvey is Normal. RI interval is normal. QRS preston interval is normal. QT interval is prolonged at 475 msec. No Q waves. T waves are Normal. No ST changes noted. Clinical impression: NSR w/ Non-specific ST/T Changes and No evidence of ischemia. Interpreted by me. Reviewed by me. Administered Medications: 16:34 Drug: Pantoprazole IVP 40 mg IVP once Route: IVP; Site: right wrist; ld1 19:10 Follow up: Response: No adverse reaction ar6 16:34 Drug: Promethazine IVP 12.5 mg IVP once Route: IVP; Site: right wrist; ld1 19:10 Follow up: Response: No adverse reaction ar6 16:35 Drug: NS 0.9% IV 1000 ml IV at 1 bolus Per protocol; 1000 mL bolus Route: IV; Rate: 1 ld1 bolus; Site: right wrist; 19:10 Follow up: Response: No adverse reaction; IV Status: Completed infusion; IV Intake: ar6 1000ml 16:35 Drug: NS 0.9% IV 1000 ml IV at 1 bolus Per protocol; 1000 mL bolus Route: IV; Rate: 1 ld1 bolus; Site: right wrist; 19:10 Follow up: Response: No adverse reaction; IV Status: Completed infusion; IV Intake: ar6 1000ml 16:46 Not Given (Patient Refused): fentanyl (pf)25 mcg IVP once ld1 16:46 Not Given (Patient Refused): fentanyl (pf)25 mcg IVP once ld1 18:48 Drug: Potassium PO Effervescent Tablet 50 mEq PO once; dissolve in 4 ounces of water or ar6 juice Route: PO; 19:10 Follow up: Response: No adverse reaction ar6 Disposition Summary: 10/30/23 18:45 Discharge Ordered Notes: Location: Home pre[place] Problem: new preston Symptoms: have improved preston Condition: Stable preston Diagnosis - Epigastric abdominal tenderness - sp EGD/COLONOSCOPE preston - Dizziness and giddiness preston - Weakness preston - Hypokalemia preston Followup: preston - With: Private Physician - When: 2 - 3 days - Reason: Recheck today's complaints, Continuance of care, Re-evaluation by your physician Followup: preston - With: Jovanni Sears MD - When: 2 - 3 days - Reason: Recheck today's complaints, Re-evaluation by your physician Discharge Instructions: - Discharge Summary Sheet preston - Potassium Content of Foods preston - Dizziness preston - Weakness preston - Abdominal Pain, Adult, Hlaq-ae-Mnge preston - Abdominal Pain During , Nzoi-xx-Mlog preston - Weakness, Oest-pk-Hqlh preston - Hypokalemia preston - Dizziness, Vfud-hv-Gosl preston Forms: - Medication Reconciliation Form preston - Antibiotic Education preston - Prescription Opioid Use preston - Patient Portal Instructions preston - Leadership Thank You Letter pretson Prescriptions: - promethazine 25 mg Rectal suppository - insert 1 suppository RECTAL route every 6 hours FOR INTRACTABLE NAUSEA AND preston VOMITING; 15 suppository; Refills: 0, Product Selection Permitted - Protonix 40 mg Oral Tablet - take 1 tablet ORAL route once daily; 30 tablet; Refills: 0, Product Selection preston Permitted - Potassium Chloride 20 meq Oral Packet - take 1 packet ORAL route every 12 hours 1 packet in 6 (six) ounces of water or preston juice; Take after meal; 14 packet; Refills: 0, Product Selection Permitted - promethazine 25 mg Oral tablet - take 1 tablet ORAL route every 6 hours As needed; 15 tablet; Refills: 0, preston Product Selection Permitted - dicyclomine 10 mg/5 mL Oral solution - take 10 milliliters ORAL route 4 times per day; 160 milliliter; Refills: 0, preston Product Selection Permitted Signatures: Dispatcher [employer] EDMS Flo Mcdermott MD MD cha Sims, Lauren, RN RN ld1 Anni Arita RN RN ar6 Corrections: (The following items were deleted from the chart) 16:10 16:10 Chest Single View+RAD.RAD.BRZ ordered. EDMS EDMS 16:10 16:10 Chest For PE Angio+CT.RAD.BRZ ordered. EDMS EDMS 16:10 16:10 Abdomen Pelvis W Con+CT.RAD.BRZ ordered. EDMS EDMS
--- NOTE | 2023-10-30 18:46 | ER ---
Nurse's Notes [facility] Name: Ila Mariee Age: 73 yrs Sex: Female : 1950 Arrival Date: 10/30/2023 Time: 15:14 Bed 8 Private MD: Diagnosis: Epigastric abdominal tenderness-sp EGD/COLONOSCOPE;Dizziness and giddiness;Weakness;Hypokalemia Presentation: 10/29 15:33 Chief complaint: Patient states: Had endoscopy and colonoscopy yesterday by Dr. Sears, aa5 today has burning upper abd pain, nausea, and dizziness. Denies vomiting. 15:33 Acuity: IGNACIO 3 aa5 15:33 Method Of Arrival: Wheelchair aa5 15:33 Coronavirus screen: At this time, the client does not indicate any symptoms associated aa5 with coronavirus-19. Ebola Screen: Patient denies travel to an Ebola-affected area in the 21 days before illness onset. Initial Sepsis Screen: Does the patient meet any 2 criteria? No. Patient's initial sepsis screen is negative. Does the patient have a suspected source of infection? No. Patient's initial sepsis screen is negative. Risk Assessment: Do you want to hurt yourself or someone else? Patient reports no desire to harm self or others. Onset of symptoms was October 2023. Triage Assessment: 19:00 General: Appears in no apparent distress. Behavior is calm, cooperative, appropriate ar6 for age. 19:17 Injury Description: ar6 Historical: - Allergies: 15:33 Bactrim; ld1 15:33 Codeine; ld1 15:33 Prednisone; ld1 15:33 Sulfa (Sulfonamide Antibiotics); ld1 15:33 tramadol; ld1 15:33 Zofran; ld1 - PMHx: 15:33 Anemia; High Cholesterol; urinary problems; Hypertension; Depression; Anxiety; GERD; ld1 - PSHx: 15:33 wrist SX; ld1 - Immunization history:: Adult Immunizations up to date. - Infectious Disease History:: Denies. - Social history:: Smoking status: Patient denies any tobacco usage or history of. Screenin:36 [facility] ED Fall Risk Assessment (Adult) History of falling in the last 3 months, ld1 including since admission No falls in past 3 months (0 pts) Confusion or Disorientation No (0 pts) Intoxicated or Sedated No (0 pts) Impaired Gait No (0 pts) Mobility Assist Device Used No (0 pt) Altered Elimination No (0 pt) Score/Fall Risk Level 0 - 2 = Low Risk Oriented to surroundings, Maintained a safe environment, Educated pt \T\ family on fall prevention, incl call for assistance when getting out of bed, Assessed \T\ reinforced patient's understanding of fall precautions, Provided non-skid footwear, Hourly rounding (assess needs \T\ fall precautionary measures) done, Used ambulatory aids as needed (educated on \T\ assisted with), Used gait belt as appropriate. Abuse screen: Denies threats or abuse. Denies injuries from another. Abuse screen: Denies threats or abuse. Nutritional screening: No deficits noted. Tuberculosis screening: No symptoms or risk factors identified. Assessment: 16:36 General: Appears in no apparent distress. comfortable, Behavior is calm, cooperative, ld1 appropriate for age. Pain: Denies pain. Neuro: Level of Consciousness is awake, alert, obeys commands, Oriented to person, place, time, situation, Appropriate for age. Neuro: Reports dizziness. Cardiovascular: Capillary refill < 3 seconds Patient's skin is warm and dry. Respiratory: Airway is patent Respiratory effort is even, unlabored. GI: Abdomen is round non-distended. : No signs and/or symptoms were reported regarding the genitourinary system. EENT: No signs and/or symptoms were reported regarding the EENT system. Derm: No signs and/or symptoms reported regarding the dermatologic system. Musculoskeletal: No signs and/or symptoms reported regarding the musculoskeletal system. 16:45 Reassessment: Pt refused pain medication. Notified Charge nurse - witnessed waste of ld1 medication by Dinorah Grove RN. 16:46 Reassessment: witnessed waste of fentanyl 50 mcg with BETTY Orellana. iw Vital Signs: 15:33 BP 161 / 78; Pulse 82; Resp 16 S; Temp 99.7(O); Pulse Ox 100% on R/A; Weight 66.22 kg aa5 (R); Height 5 ft. 1 in. (R); 16:36 BP 163 / 73; Pulse 73; Resp 18; Pulse Ox 100% on R/A; ld1 17:36 Pulse 84; Resp 18; Pulse Ox 99% on R/A; ld1 18:18 BP 170 / 71; Pulse 79; Resp 18; Pulse Ox 100% on R/A; ld1 18:36 BP 166 / 70; Pulse 73; Resp 18; Pulse Ox 100% on R/A; ld1 15:33 Body Mass Index 27.59 (66.22 kg, 154.94 cm) [facility] ED Course: 15:17 Patient arrived in ED. im 15:20 Flo Mcdermott MD is Attending Physician. [facility] 15:33 Arm band placed on Patient placed in an exam room, on a stretcher. aa5 15:36 Triage completed. aa5 16:34 Reyna Barboza, BETTY is Primary Nurse. ld1 16:36 Patient has correct armband on for positive identification. Placed in gown. Bed in low ld1 position. Call light in reach. Side rails up X2. cardiac monitor on. Pulse ox on. NIBP on. Door closed. Noise minimized. Warm blanket given. 16:36 No provider procedures requiring assistance completed. Inserted saline lock: 22 gauge ld1 in right wrist, using aseptic technique. Blood collected. Flushed with 10 mL NS. 16:44 XRAY Chest (1 view) In Process Unspecified. EDMS 17:26 CT Chest For PE Angio In Process Unspecified. EDMS 17:26 CT Abd/Pelvis - IV Contrast Only In Process Unspecified. EDMS 18:43 Jovanni Sears MD is Referral Physician. [facility] 19:10 Provided Education on: medications and f/u care. ar6 19:10 IV discontinued, intact, bleeding controlled, No redness/swelling at site. Pressure ar6 dressing applied. Administered Medications: 16:34 Drug: Pantoprazole IVP 40 mg IVP once Route: IVP; Site: right wrist; ld1 19:10 Follow up: Response: No adverse reaction ar6 16:34 Drug: Promethazine IVP 12.5 mg IVP once Route: IVP; Site: right wrist; ld1 19:10 Follow up: Response: No adverse reaction ar6 16:35 Drug: NS 0.9% IV 1000 ml IV at 1 bolus Per protocol; 1000 mL bolus Route: IV; Rate: 1 ld1 bolus; Site: right wrist; 19:10 Follow up: Response: No adverse reaction; IV Status: Completed infusion; IV Intake: ar6 1000ml 16:35 Drug: NS 0.9% IV 1000 ml IV at 1 bolus Per protocol; 1000 mL bolus Route: IV; Rate: 1 ld1 bolus; Site: right wrist; 19:10 Follow up: Response: No adverse reaction; IV Status: Completed infusion; IV Intake: ar6 1000ml 16:46 Not Given (Patient Refused): fentanyl (pf)25 mcg IVP once ld1 16:46 Not Given (Patient Refused): fentanyl (pf)25 mcg IVP once ld1 18:48 Drug: Potassium PO Effervescent Tablet 50 mEq PO once; dissolve in 4 ounces of water or ar6 juice Route: PO; 19:10 Follow up: Response: No adverse reaction ar6 Medication: 16:36 VIS not applicable for this client. ld1 Intake: 19:10 IV: 1000ml; Total: 1000ml. ar6 19:10 IV: 1000ml; Total: 2000ml. ar6 Outcome: 18:45 Discharge ordered by . preston 19:10 Discharged to home via wheelchair, ar6 19:10 Condition: good 19:10 Discharge instructions given to patient, family, Instructed on discharge instructions, follow up and referral plans. medication usage, Demonstrated understanding of instructions, follow-up care, medications, Prescriptions given X x5 19:18 Patient left the ED. ar6 Signatures: Dispatcher [employer] EDFlo Sherman MD MD cha Williams, Irene, RN RN iw Calderon, Audri, RN RN aa5 Reyna Barboza RN RN ld1 Nataliya Cheek Amber, RN RN ar6
[2023-10-30] MEDS ORDERED: POTASSIUM 25 MEQ EFFERV TAB ONE (18:47)
[2023-10-30 19:26] VITALS: TEMP 99.7
[2023-10-30 19:30] VITALS: O2SAT 100
[2023-10-30 19:31] VITALS: BP 166/70
== END 2023-10-30 19:18 | disposition home or self-care (01) ==
LOC: ER 15:14
DX: R10.816 Epigastric abdominal tenderness (principal); Z98.890 Other specified postprocedural states; E87.6 Hypokalemia; R42 Dizziness and giddiness; R53.1 Weakness; R11.2 Nausea with vomiting, unspecified
CPT/HCPCS: 96361; 85025; 80048; 36415; 83735; 85610; 80076; 84484; 83690; 83880; 71275; 74177; 71045; 96375; 96374; 99285; Q9967; J2550; J2470; J3010; J7030; 93005

== ENCOUNTER 2024-05-31 10:09 | Emergency (ER) | payer OTHER ==
--- OUTSIDE RECORDS SUMMARY | 2024-05-31 10:15 | XMS REPORT | Continuity of Care Document ---
Author Name Unknown Address [address] [place] [address] [facility] Address [address] [place] [address] Care Team Providers Care Input Output Clerk Name Role Phone BRIDGET ACRL Primary Care Physician Unavailab Deb Alvarez Attending Clinician Unavailable Silva Barnett Attending Clinician Unavailable Lida Glover Attending Clinician Unavailable PUCKETT, KIET CAM Attending Clinician Unavailable PUCKETT, KIET CAM Attending Clinician Unavailable Doctor Unassigned, [place] Attending Clinician U CECILIA Wilson Attending Clinician Unavail able Raju_P Attending Clinician Unavailable PUCKETT, KIET CAM Admitting Clinician Unavailable Raju_P Admitting Clinician Unavailable Payers Payer Name Policy Type Policy Number Effective Date Expirati on Date Source [facility] [employer] TRS/ERS MCR PPO 1 [id number] [facility] SELECT DC PPO [id number] 2021 00:00:00 [facility] SELECT [id number] 00:00:00 [place] [address] [id number] 2016 00:00:00 [facility] Problems Condition Name Condition Details Condition Category Status Onset Date Resolution Date Last Treatment Date Treating Clinician Comments Source Hyperglyce shasha due to type 2 diabetes mellitus Hyperglyce shasha due to type 2 diabetes mellitus Disease Active 2020-03 00:00: 00 [facility] Postmenopa usal state Postmenopa usal state Disease Active 2020-03 00:00: 00 [facility] [id number] OAB (overactiv e bladder) Problem [facility] [id number] Urge incontinen ce Problem [facility] [id number] Primary osteoarthr itis of left knee Problem [facility] Disorder of skin AND/OR subcutaneo us tissue Bumps on skin Problem [facility] [id number] Insomnia, unspecifie d type Problem [facility] [id number] Gastroesop hageal reflux disease, esophagiti s presence not specified Problem [facility] [id number] Depression with anxiety Problem [facility] Seasonal allergy Seasonal allergies Problem [facility] [id number] Chronic fatigue Problem [facility] [id number] Hyperchole sterolemia Problem [facility] [id number] Hot flashes Problem [facility] Hypertensi on Hypertensi on Problem [facility] Bladder incontinen ce Bladder incontinen ce Problem [facility] [id number] Encounter for hepatitis C screening test for low risk patient Problem [facility] Heart murmur Cardiac murmur Problem [facility] Incontinen ce Incontinen ce in female Problem [facility] Vitamin D deficiency Vitamin D deficiency Problem [facility] Prediabete s Prediabete s Problem [facility] [id number] Asymptomat ic menopausal state Problem [facility] [id number] Type 2 diabetes mellitus with hyperglyce shasha, without long-term current use of insulin Problem [facility] Allergies, Adverse Reactions, Alerts Allergy Name Allergy Type Status Severity Reaction(s) Onset Date Inactive Date Treating Clinician Comments Source Predniso ne Drug Allergy Active Unknown - See comments 2020-03 0-25 00:00: 00 [facility] Sulfamet hoxazole -Trimeth oprim Drug Allergy Active Hives 2020-03 0-25 00:00: 00 [facility] Ondaet ericka Drug Allergy Active Unknown - See comments 2020-03 0- 00:00: 00 [facility] CODEINE DRUG INGREDI Active Unknown-Cmnt 2020-03 0-25 00:00: 00 [facility] PREDNISO NE DRUG INGREDI Active Unknown-Cmnt 2020-03 0-25 00:00: 00 [facility] SULFAMET HOXAZOLE -TRIMETH OPRIM DRUG Active Hives 2020-03 0-25 00:00: 00 [facility] TRAMADOL DRUG INGREDI Active Unknown-Cmnt 2020-03 0-25 00:00: 00 [facility] ERICKA DRUG INGREDI Active Unknown-Cmnt 2020-03 0-25 00:00: 00 [facility] 6572 Drug allergy Active rash/hives; itching [facility] 30 Drug allergy Active Unknown [facility] 7309 Drug allergy Active Unknown [facility] tramadol tramadol Active Unknown Commo n [facility] Codeine Codeine Active extreme drowsiness [facility] Social History Social Habit Start Date Stop Date Quantity Comments Source Sexual orientation [facility] History of tobacco use Passive smoker [facility] Sex Assigned At [facility] Alcohol intake 2023-07-09 00:00:00 2023-07-09 00:00:00 Lifetime non-drinker (finding) [facility] Exposure to SARS-CoV-2 (event) 2022-03-16 00:00:00 2022-03-26 11:22:00 Not sure [facility] Tobacco use and exposure 2022-03-20 00:00:00 2022-03-20 00:00:00 Smokeless tobacco non-user [facility] History of Social function 2021-03-14 00:00:00 2021-03-14 00:00:00 [facility] Smoking Status Start Date Stop Date Source Former Smoker 2023-08-31 00:00:00 2023-08-31 00:00:00 [facility] Never smoked tobacco [facility] Medications Ordered Medication Name Filled Medication Name Start Date Stop Date Current Medication? Ordering Clinician Indication Dosage Frequency Signature (SIG) Comments Components Source Meloxicam 7.5 MG Meloxicam 7.5 MG 2023-03 00:00: 00 No 1{table t} QD Meloxicam 7.5 MG BUPivacaine HCl BUPivacaine HCl 08-29 00:00: 00 No 4mL [facility] Kenalog (Triamcinol one) Kenalog (Triamcinol one) 08-29 00:00: 00 No 1mL [facility] Cranberry 500 mg Cap 07-08 13:04: 06 07-08 00:00 :00 No [facility] Ca-D3-mag-z inc-type copyist-man g-boron (CALTRATE 600-D PLUS MINERALS) 600 mg calcium- 800 unit-40 mg Chew 07-08 13:03: 38 07-08 00:00 :00 No 1 tablet with a meal [facility] phenazopyri dine 200 mg tablet 06-23 00:00: 00 Yes TAKE ONE (1) TABLET(S) BY MOUTH THREE TIMES A DAY AFTER MEALS. [facility] busPIRone 10 mg tablet 2-28 00:00: 00 07-08 00:00 :00 No 10mg Take 1 tablet by mouth 2 (two) times daily as needed. [facility] MYRBETRIQ 50 mg tablet 04-23 00:00: 00 Yes 50mg Take 1 tablet by mouth in the morning. [facility] Ca-D3-mag-z inc-type copyist-man g-boron (CALTRATE 600-D PLUS MINERALS) 600 mg calcium- 800 unit-40 mg Chew 03-20 08:26: 25 Yes 1 tablet with a meal [facility] mult[facility]/iron/foli c acid (CENTRUM COMPLETE ORAL) 03-20 08:26: 25 Yes [facility] coQ10, ubiquinol, 100 mg Cap 03-20 08:26: 25 Yes 1 capsule with a meal [facility] cetirizine 10 mg tablet 03-20 08:26: 25 Yes 1 tablet [facility] fluticasone propionate 50 mcg/actuati on nasal spray 03-20 08:26: 25 Yes [facility] montelukast 10 mg tablet 03-20 08:26: 25 Yes 1 tablet [facility] mirabegron (MYRBETRIQ) 25 mg tablet 07-31 16:28: 42 07-31 00:00 :00 No 1 tablet [facility] mirabegron (MYRBETRIQ) 25 mg tablet 07-31 00:00: 00 Yes 1 tablet by mouth daily [facility] Ca-D3-mag-z inc-type copyist-man g-boron (CALTRATE 600-D PLUS MINERALS) 600 mg calcium- 800 unit-40 mg Chew 2020-03 09:00: 14 Yes 1 tablet with a meal [facility] cholecalcif johnie, vitamin D3, (VITAMIN D3 ORAL) 2020-03 09:00: 14 Yes Take by mouth. [facility] Cranberry 500 mg Cap 2020-03 09:00: 14 Yes [facility] azelastine 137 mcg (0.1 %) nasal spray 2020-03 09:00: 14 Yes U 2 SPRAYS IEN BID. THIS IS AN ANTIHISTAM INE NASAL SPRAY [facility] cetirizine 10 mg tablet 2020-03 09:00: 14 Yes 1 tablet [facility] fluticasone propionate 50 mcg/actuati on nasal spray 2020-03 09:00: 14 Yes [facility] montelukast 10 mg tablet 2020-03 09:00: 14 07-08 00:00 :00 No 1 tablet [facility] coQ10, ubiquinol, 100 mg Cap 2020-03 09:00: 14 07-08 00:00 :00 No 1 capsule with a meal [facility] aspirin 81 mg EC tablet 2020-03 09:00: 14 07-08 00:00 :00 No 1 tablet [facility] cyanocobala min, vitamin B-12, (VITAMIN B-12 ORAL) 2020-03 08:34: 57 Yes 1 tablet [facility] losartan-hy drochloroth iazide 100-12.5 mg per tablet 2020-03 08:34: 57 Yes 1{tbl} Take 1 tablet by mouth in the morning. [facility] metformin ER 500 mg 24 hr tablet 2020-03 08:34: 57 Yes TAKE 1 TABLET BY MOUTH EVERY DAY WITH THE EVENING MEAL [facility] omeprazole 20 mg capsule 2020-03 00:00: 00 Yes [facility] amLODIPine 5 mg tablet 2020-03 00:00: 00 Yes [facility] busPIRone 7.5 mg tablet 2020-03 017 00:00: 00 Yes 7.5mg Take 7.5 mg by mouth 2 (two) times daily as needed. [facility] solifenacin 5 mg tablet 2020-03 00:00: 00 Yes 5mg Take 5 mg by mouth daily. [facility] Centrum Centrum No 1{capsu le} QD Centrum Azelastine HCl 0.1 % Azelastine HCl 0.1 % No Azelastine HCl 0.1 % Simvastatin 20 MG Simvastatin 20 MG No 1{table t_in_th e_eveni ng} QD Simvastati n 20 MG Solifenacin Succinate 10 MG Solifenacin Succinate 10 MG No 1{table t} QD Solifenaci n Succinate 10 MG Trintellix 10 MG Trintellix 10 MG No 1{table t} Trintellix 10 MG Myrbetriq 50 MG Myrbetriq 50 MG No 1{table t} QD Myrbetriq 50 MG traZODone HCl 50 MG traZODone HCl 50 MG No 1{table t_at_be dtime} traZODone HCl 50 MG busPIRone HCl 10 MG busPIRone HCl 10 MG No 1{table t} BID busPIRone HCl 10 MG Vitamin C 500 MG Vitamin C 500 MG No Vitamin C 500 MG Zinc 50 MG Zinc 50 MG No 1{ table t} QD Zinc 50 MG Magnesium Oxide 400 MG Magnesium Oxide 400 MG No 1{table t_as_ne eded} QD Magnesium Oxide 400 MG ZyrTEC Allergy 10 MG ZyrTEC Allergy 10 MG No 1{table t} QD ZyrTEC Allergy 10 MG Vitamin D3 [id number] UNIT/GM Vitamin D3 [id number] UNIT/GM No Vitamin D3 [id number] UNIT/GM Vitamin B-12 ER 1000 MCG Vitamin B-12 ER 1000 MCG No 1{table t} QD Vitamin B-12 ER 1000 MCG Immunizations Ordered Immunization Name Filled Immunization Name Date Status Comments Source SARS-COV-2 COVID-19 MODERNA 0.25ML BOOSTER VACCINE 2021-01-24 00:00:00 Completed [facility] SARS-COV-2 COVID-19 MODERNA 0.25ML BOOSTER VACCINE 2021-01-24 00:00:00 Completed [facility] SARS-COV-2 COVID-19 MODERNA 0.25ML BOOSTER VACCINE 2021-01-24 00:00:00 Completed [facility] SARS-COV-2 COVID-19 MODERNA 0.25ML BOOSTER VACCINE 2021-01-24 00:00:00 Completed [facility] FLUZONE HIGH DOSE OVER 65 FLUZONE HIGH DOSE OVER 65 2021-01-06 08:34:00 Completed [facility] FLUZONE HIGH DOSE OVER 65 FLUZONE HIGH DOSE OVER 65 2021-01-06 08:34:00 Completed [facility] FLUZONE HIGH DOSE OVER 65 FLUZONE HIGH DOSE OVER 65 2021-01-06 08:34:00 Completed [facility] FLUZONE HIGH DOSE OVER 65 FLUZONE HIGH DOSE OVER 65 2021-01-06 08:34:00 Completed [facility] FLUZONE HIGH DOSE OVER 65 FLUZONE HIGH DOSE OVER 65 2021-01-06 08:34:00 Completed [facility] FLUZONE HIGH DOSE OVER 65 FLUZONE HIGH DOSE OVER 65 2021-01-06 08:34:00 Completed [facility] FLUZONE HIGH DOSE OVER 65 FLUZONE HIGH DOSE OVER 65 2021-01-06 08:34:00 Completed [facility] FLUZONE HIGH DOSE OVER 65 FLUZONE HIGH DOSE OVER 65 2021-01-06 08:34:00 Completed [facility] FLUZONE HIGH DOSE OVER 65 FLUZONE HIGH DOSE OVER 65 2021-01-06 08:34:00 Completed [facility] Influenza High Dose 2021-01-06 00:00:00 Completed [facility] Influenza High Dose 2021-01-06 00:00:00 Completed [facility] Influenza High Dose 2021-01-06 00:00:00 Completed [facility] Influenza High Dose 2021-01-06 00:00:00 Completed [facility] Moderna COVID-19 Vaccine Moderna COVID-19 Vaccine 2020-04-25 08:34:00 Completed [facility] Moderna COVID-19 Vaccine Moderna COVID-19 Vaccine 2020-04-25 08:34:00 Completed [facility] Moderna COVID-19 Vaccine Moderna COVID-19 Vaccine 2020-04-25 08:34:00 Completed [facility] Moderna COVID-19 Vaccine Moderna COVID-19 Vaccine 2020-04-25 08:34:00 Completed [facility] Moderna COVID-19 Vaccine Moderna COVID-19 Vaccine 2020-04-25 08:34:00 Completed [facility] Moderna COVID-19 Vaccine Moderna COVID-19 Vaccine 2020-04-25 08:34:00 Completed [facility] Moderna COVID-19 Vaccine Moderna COVID-19 Vaccine 2020-04-25 08:34:00 Completed [facility] Moderna COVID-19 Vaccine Moderna COVID-19 Vaccine 2020-04-25 08:34:00 Completed [facility] Moderna COVID-19 Vaccine Moderna COVID-19 Vaccine 2020-04-25 08:34:00 Completed [facility] SARS-COV-2 COVID-19 MODERNA VACCINE 2020-04-25 00:00:00 Completed [facility] SARS-COV-2 COVID-19 MODERNA 12+ YRS VACCINE 2020-04-25 00:00:00 Completed [facility] SARS-COV-2 COVID-19 MODERNA 12+ YRS VACCINE 2020-04-25 00:00:00 Completed [facility] SARS-COV-2 COVID-19 MODERNA 12+ YRS VACCINE 2020-04-25 00:00:00 Completed [facility] Moderna COVID-19 Vaccine Moderna COVID-19 Vaccine 2020-03-26 08:33:00 Completed [facility] Moderna COVID-19 Vaccine Moderna COVID-19 Vaccine 2020-03-26 08:33:00 Completed [facility] Moderna COVID-19 Vaccine Moderna COVID-19 Vaccine 2020-03-26 08:33:00 Completed [facility] Moderna COVID-19 Vaccine Moderna COVID-19 Vaccine 2020-03-26 08:33:00 Completed [facility] Moderna COVID-19 Vaccine Moderna COVID-19 Vaccine 2020-03-26 08:33:00 Completed [facility] Moderna COVID-19 Vaccine Moderna COVID-19 Vaccine 2020-03-26 08:33:00 Completed [facility] Moderna COVID-19 Vaccine Moderna COVID-19 Vaccine 2020-03-26 08:33:00 Completed [facility] Moderna COVID-19 Vaccine Moderna COVID-19 Vaccine 2020-03-26 08:33:00 Completed [facility] Moderna COVID-19 Vaccine Moderna COVID-19 Vaccine 2020-03-26 08:33:00 Completed [facility] SARS-COV-2 COVID-19 MODERNA VACCINE 2020-03-26 00:00:00 Completed [facility] SARS-COV-2 COVID-19 MODERNA 12+ YRS VACCINE 2020-03-26 00:00:00 Completed [facility] SARS-COV-2 COVID-19 MODERNA 12+ YRS VACCINE 2020-03-26 00:00:00 Completed [facility] SARS-COV-2 COVID-19 MODERNA 12+ YRS VACCINE 2020-03-26 00:00:00 Completed [facility] Shingrix Shingrix 2020 09:37:00 Completed [facility] Shingrix Shingrix 2020 09:37:00 Completed [facility] Shingrix Shingrix 2020 09:37:00 Completed [facility] Shingrix Shingrix 2020 09:37:00 Completed [facility] Shingrix Shingrix 2020 09:37:00 Completed [facility] Shingrix Shingrix 2020 09:37:00 Completed [facility] Shingrix Shingrix 2020 09:37:00 Completed [facility] Shingrix Shingrix 2020 09:37:00 Completed [facility] Shingrix Shingrix 2020 09:37:00 Completed [facility] Zoster Vaccine Recombinant 2020 00:00:00 Completed [facility] Zoster Vaccine Recombinant 2020 00:00:00 Completed [facility] Zoster Vaccine Recombinant 2020 00:00:00 Completed [facility] Zoster Vaccine Recombinant 2020 00:00:00 Completed [facility] FluAD FluAD 2019-12-14 09:38:00 Completed [facility] FluAD FluAD 2019-12-14 09:38:00 Completed [facility] FluAD FluAD 2019-12-14 09:38:00 Completed [facility] FluAD FluAD 2019-12-14 09:38:00 Completed [facility] FluAD FluAD 2019-12-14 09:38:00 Completed [facility] FluAD FluAD 2019-12-14 09:38:00 Completed [facility] FluAD FluAD 2019-12-14 09:38:00 Completed [facility] FluAD FluAD 2019-12-14 09:38:00 Completed [facility] FluAD FluAD 2019-12-14 09:38:00 Completed [facility] Shingrix Shingrix 2019-12-14 09:36:00 Completed [facility] Shingrix Shingrix 2019-12-14 09:36:00 Completed [facility] Shingrix Shingrix 2019-12-14 09:36:00 Completed [facility] Shingrix Shingrix 2019-12-14 09:36:00 Completed [facility] Shingrix Shingrix 2019-12-14 09:36:00 Completed [facility] Shingrix Shingrix 2019-12-14 09:36:00 Completed [facility] Shingrix Shingrix 2019-12-14 09:36:00 Completed [facility] Shingrix Shingrix 2019-12-14 09:36:00 Completed [facility] Shingrix Shingrix 2019-12-14 09:36:00 Completed [facility] Influenza Virus Vaccine,quad Im,preserve Free 65+ 2019-12-14 00:00:00 Completed [facility] Zoster Vaccine Recombinant 2019-12-14 00:00:00 Completed [facility] Influenza Virus Vaccine,quad Im,preserve Free 65+ 2019-12-14 00:00:00 Completed [facility] Zoster Vaccine Recombinant 2019-12-14 00:00:00 Completed [facility] Influenza, Trivalent, Adjuvanted 2019-12-14 00:00:00 Completed [facility] Influenza Virus Vaccine,quad Im,preserve Free 65+ 2019-12-14 00:00:00 Completed [facility] Zoster Vaccine Recombinant 2019-12-14 00:00:00 Completed [facility] Influenza, Trivalent, Adjuvanted 2019-12-14 00:00:00 Completed [facility] Influenza Virus Vaccine,quad Im,preserve Free 65+ 2019-12-14 00:00:00 Completed [facility] Zoster Vaccine Recombinant 2019-12-14 00:00:00 Completed [facility] Influenza, Trivalent, Adjuvanted 2019-12-14 00:00:00 Completed [facility] Influenza High Dose 2019-02-10 00:00:00 Completed [facility] Influenza High Dose 2019-02-10 00:00:00 Completed [facility] Influenza High Dose 2019-02-10 00:00:00 Completed [facility] Influenza High Dose 2019-02-10 00:00:00 Completed [facility] SARS-COV-2 COVID-19 MODERNA 0.25ML BOOSTER VACCINE Unknown Completed [facility] Influenza Virus Vaccine,quad Im,preserve Free 65+ (FLUAD) Unknown Completed [facility] Influenza, Trivalent, Adjuvanted Unknown Completed [facility] Influenza High Dose Unknown Completed [facility] SARS-COV-2 COVID-19 MODERNA 12+ YRS VACCINE Unknown Completed [facility] Zoster Vaccine Recombinant Unknown Completed [facility] SARS-COV-2 COVID-19 MODERNA 0.25ML BOOSTER VACCINE Unknown Completed [facility] Influenza Virus Vaccine,quad Im,preserve Free 65+ (FLUAD) Unknown Completed [facility] Influenza High Dose Unknown Completed [facility] SARS-COV-2 COVID-19 MODERNA 12+ YRS VACCINE Unknown Completed [facility] Zoster Vaccine Recombinant Unknown Completed [facility] Influenza, Trivalent, Adjuvanted Unknown Completed [facility] Moderna COVID-19 Vaccine Moderna COVID-19 Vaccine Unknown Completed [facility] FluAD FluAD Unknown Completed [facility] Shingrix Shingrix Unknown Completed [facility] FLUZONE HIGH DOSE OVER 65 FLUZONE HIGH DOSE OVER 65 Unknown Completed [facility] Moderna COVID-19 Vaccine Moderna COVID-19 Vaccine Unknown Completed [facility] FluAD FluAD Unknown Completed [facility] Shingrix Shingrix Unknown Completed [facility] FLUZONE HIGH DOSE OVER 65 FLUZONE HIGH DOSE OVER 65 Unknown Completed [facility] Moderna COVID-19 Vaccine Moderna COVID-19 Vaccine Unknown Completed [facility] FluAD FluAD Unknown Completed [facility] Shingrix Shingrix Unknown Completed [facility] FLUZONE HIGH DOSE OVER 65 FLUZONE HIGH DOSE OVER 65 Unknown Completed [facility] Moderna COVID-19 Vaccine Moderna COVID-19 Vaccine Unknown Completed [facility] FluAD FluAD Unknown Completed [facility] Shingrix Shingrix Unknown Completed [facility] Shingrix Shingrix Unknown Completed [facility] FLUZONE HIGH DOSE OVER 65 FLUZONE HIGH DOSE OVER 65 Unknown Completed [facility] Moderna COVID-19 Vaccine Moderna COVID-19 Vaccine Unknown Completed [facility] FluAD FluAD Unknown Completed [facility] Shingrix Unknown Completed [facility] FLUZONE HIGH DOSE OVER 65 FLUZONE HIGH DOSE OVER 65 Unknown Completed [facility] Moderna COVID-19 Vaccine Moderna COVID-19 Vaccine Unknown Completed [facility] FluAD FluAD Unknown Completed [facility] Shingrix Unknown Completed [facility] FLUZONE HIGH DOSE OVER 65 FLUZONE HIGH DOSE OVER 65 Unknown Completed [facility] Moderna COVID-19 Vaccine Moderna COVID-19 Vaccine Unknown Completed [facility] FluAD FluAD Unknown Completed [facility] Shing[facility] Shingrix Unknown Completed [facility] FLUZONE HIGH DOSE OVER 65 FLUZONE HIGH DOSE OVER 65 Unknown Completed [facility] Moderna COVID-19 Vaccine Moderna COVID-19 Vaccine Unknown Completed [facility] FluAD FluAD Unknown Completed [facility] Shingrix Shingrix Unknown Completed [facility] FLUZONE HIGH DOSE OVER 65 FLUZONE HIGH DOSE OVER 65 Unknown Completed [facility] Moderna COVID-19 Vaccine Moderna COVID-19 Vaccine Unknown Completed [facility] FluAD FluAD Unknown Completed [facility] Shingrix Unknown Completed [facility] FLUZONE HIGH DOSE OVER 65 FLUZONE HIGH DOSE OVER 65 Unknown Completed [facility] Moderna COVID-19 Vaccine Moderna COVID-19 Vaccine Unknown Completed [facility] FluAD FluAD Unknown Completed [facility] Shingrix Unknown Completed [facility] FLUZONE HIGH DOSE OVER 65 FLUZONE HIGH DOSE OVER 65 Unknown Completed [facility] Moderna COVID-19 Vaccine Moderna COVID-19 Vaccine Unknown Completed [facility] FluAD FluAD Unknown Completed [facility] Sh[facility] Shingrix Unknown Completed [facility] FLUZONE HIGH DOSE OVER 65 FLUZONE HIGH DOSE OVER 65 Unknown Completed [facility] Moderna COVID-19 Vaccine Moderna COVID-19 Vaccine Unknown Completed [facility] FluAD FluAD Unknown Completed [facility] Shingrix Unknown Completed [facility] FLUZONE HIGH DOSE OVER 65 FLUZONE HIGH DOSE OVER 65 Unknown Completed [facility] Moderna COVID-19 Vaccine Moderna COVID-19 Vaccine Unknown Completed [facility] FluAD FluAD Unknown Completed [facility] Shingrix Unknown Completed [facility] FLUZONE HIGH DOSE OVER 65 FLUZONE HIGH DOSE OVER 65 Unknown Completed [facility] Moderna COVID-19 Vaccine Moderna COVID-19 Vaccine Unknown Completed [facility] FluAD FluAD Unknown Completed [facility] Shingrix Unknown Completed [facility] FLUZONE HIGH DOSE OVER 65 FLUZONE HIGH DOSE OVER 65 Unknown Completed [facility] Moderna COVID-19 Vaccine Moderna COVID-19 Vaccine Unknown Completed [facility] FluAD FluAD Unknown Completed [facility] Shingrix Unknown Completed [facility] FLUZONE HIGH DOSE OVER 65 FLUZONE HIGH DOSE OVER 65 Unknown Completed [facility] Moderna COVID-19 Vaccine Moderna COVID-19 Vaccine Unknown Completed [facility] FluAD FluAD Unknown Completed [facility] Sh[facility] Shingrix Unknown Completed [facility] FLUZONE HIGH DOSE OVER 65 FLUZONE HIGH DOSE OVER 65 Unknown Completed [facility] Moderna COVID-19 Vaccine Moderna COVID-19 Vaccine Unknown Completed [facility] FluAD FluAD Unknown Completed [facility] Sh[facility]rix Shingrix Unknown Completed [facility] FLUZONE HIGH DOSE OVER 65 FLUZONE HIGH DOSE OVER 65 Unknown Completed [facility] Moderna COVID-19 Vaccine Moderna COVID-19 Vaccine Unknown Completed [facility] FluAD FluAD Unknown Completed [facility] Shingrix Shingrix Unknown Completed [facility] FLUZONE HIGH DOSE OVER 65 FLUZONE HIGH DOSE OVER 65 Unknown Completed [facility] Vital Signs Vital Name Observation Time Observation Value Comments S breezy height 2024-02-24 14:15:00 62.00 [in_i] Com [facility] weight 2024-02-24 14:15:00 142 [lb_av] Comm on [facility] temperature 2024-02-24 14:15:00 98.0 [degF] Com [facility] bmi 2024-02-24 14:15:00 25.97 kg/m2 Comm on [facility] blood pressure systolic 2024-02-24 14:15:00 136 mm[Hg] [facility] blood pressure diastolic 2024-02-24 14:15:00 74 mm[Hg] [facility] height 2024-02-03 10:40:00 62.00 [in_i] Com [facility] weight 2024-02-03 10:40:00 142.0 [lb_av] Co mmon [facility] temperature 2024-02-03 10:40:00 97.3 [degF] Com [facility] bmi 2024-02-03 10:40:00 25.97 kg/m2 Comm on [facility] oximetry 2024-02-03 10:40:00 99 % Commo n [facility] respiratory rate 2024-02-03 10:40:00 18 /min [facility] blood pressure systolic 2024-02-03 10:40:00 138 mm[Hg] [facility] blood pressure diastolic 2024-02-03 10:40:00 67 mm[Hg] [facility] height 2024-02-03 10:40:00 62.00 [in_i] Com [facility] weight 2024-02-03 10:40:00 142.0 [lb_av] Co [facility] temperature 2024-02-03 10:40:00 97.3 [degF] Com [facility] bmi 2024-02-03 10:40:00 25.97 kg/m2 Comm on [facility] oximetry 2024-02-03 10:40:00 99 % Commo n [facility] respiratory rate 2024-02-03 10:40:00 18 /min [facility] blood pressure systolic 2024-02-03 10:40:00 138 mm[Hg] [facility] blood pressure diastolic 2024-02-03 10:40:00 67 mm[Hg] [facility] height 2024-01-25 10:00:00 62.00 [in_i] Com [facility] weight 2024-01-25 10:00:00 140.0 [lb_av] Co [facility] temperature 2024-01-25 10:00:00 98.1 [degF] Com [facility] bmi 2024-01-25 10:00:00 25.6 kg/m2 Commo n [facility] blood pressure systolic 2024-01-25 10:00:00 119 mm[Hg] [facility] blood pressure diastolic 2024-01-25 10:00:00 67 mm[Hg] [facility] height 2024-01-05 09:40:00 62.00 [in_i] Com [facility] weight 2024-01-05 09:40:00 142.4 [lb_av] Co [facility] temperature 2024-01-05 09:40:00 97.5 [degF] Com [facility] bmi 2024-01-05 09:40:00 26.04 kg/m2 Comm on [facility] oximetry 2024-01-05 09:40:00 98 % Commo n [facility] respiratory rate 2024-01-05 09:40:00 17 /min [facility] blood pressure systolic 2024-01-05 09:40:00 124 mm[Hg] [facility] blood pressure diastolic 2024-01-05 09:40:00 63 mm[Hg] [facility] height 2023-12-13 11:00:00 62.00 [in_i] Com [facility] weight 2023-12-13 11:00:00 142.8 [lb_av] Co [facility] temperature 2023-12-13 11:00:00 97.5 [degF] Com [facility] bmi 2023-12-13 11:00:00 26.12 kg/m2 Comm on [facility] oximetry 2023-12-13 11:00:00 97 % Commo n [facility] respiratory rate 2023-12-13 11:00:00 16 /min [facility] blood pressure systolic 2023-12-13 11:00:00 138 mm[Hg] [facility] blood pressure diastolic 2023-12-13 11:00:00 70 mm[Hg] [facility] height 2023-09-10 08:20:00 62.00 [in_i] Com [facility] weight 2023-09-10 08:20:00 146.6 [lb_av] Co [facility] temperature 2023-09-10 08:20:00 98.1 [degF] Com [facility] bmi 2023-09-10 08:20:00 26.81 kg/m2 Comm on [facility] oximetry 2023-09-10 08:20:00 98 % Commo n [facility] respiratory rate 2023-09-10 08:20:00 18 /min Common [facility] blood pressure systolic 2023-09-10 08:20:00 139 mm[Hg] [facility] blood pressure diastolic 2023-09-10 08:20:00 77 mm[Hg] [facility] height 2023-09-10 08:20:00 62.00 [in_i] Com [facility] weight 2023-09-10 08:20:00 146.6 [lb_av] Co [facility] temperature 2023-09-10 08:20:00 98.1 [degF] Com [facility] bmi 2023-09-10 08:20:00 26.81 kg/m2 Comm on [facility] oximetry 2023-09-10 08:20:00 98 % Commo n [facility] respiratory rate 2023-09-10 08:20:00 18 /min [facility] blood pressure systolic 2023-09-10 08:20:00 139 mm[Hg] [facility] blood pressure diastolic 2023-09-10 08:20:00 77 mm[Hg] [facility] height 2023-09-10 08:20:00 62.00 [in_i] Com [facility] weight 2023-09-10 08:20:00 146.6 [lb_av] Co [facility] temperature 2023-09-10 08:20:00 98.1 [degF] Com [facility] bmi 2023-09-10 08:20:00 26.81 kg/m2 Comm on [facility] oximetry 2023-09-10 08:20:00 98 % Commo n [facility] respiratory rate 2023-09-10 08:20:00 18 /min [facility] blood pressure systolic 2023-09-10 08:20:00 139 mm[Hg] [facility] blood pressure diastolic 2023-09-10 08:20:00 77 mm[Hg] [facility] height 2023-08-30 13:00:00 62.00 [in_i] Com [facility] weight 2023-08-30 13:00:00 146.6 [lb_av] Co on [facility] temperature 2023-08-30 13:00:00 98.2 [degF] Com [facility] bmi 2023-08-30 13:00:00 26.81 kg/m2 Comm on [facility] blood pressure systolic 2023-08-30 13:00:00 136 mm[Hg] [facility] blood pressure diastolic 2023-08-30 13:00:00 84 mm[Hg] [facility] height 2023-08-16 11:40:00 62.00 [in_i] Com [facility] weight 2023-08-16 11:40:00 146.4 [lb_av] Co [facility] temperature 2023-08-16 11:40:00 97.4 [degF] Com [facility] bmi 2023-08-16 11:40:00 26.77 kg/m2 Comm on [facility] oximetry 2023-08-16 11:40:00 97 % Commo n [facility] respiratory rate 2023-08-16 11:40:00 17 /min [facility] blood pressure systolic 2023-08-16 11:40:00 130 mm[Hg] [facility] blood pressure diastolic 2023-08-16 11:40:00 65 mm[Hg] [facility] Systolic blood pressure 2023-07-09 17:53:00 125 mm[Hg] [facility] Diastolic blood pressure 2023-07-09 17:53:00 73 mm[Hg] [facility] Heart rate 2023-07-09 17:53:00 64 /min [facility] Body temperature 2023-07-09 17:53:00 36.78 Olive [facility] Respiratory rate 2023-07-09 17:53:00 16 /min [facility] Body height 2023-07-09 17:53:00 157.5 cm [facility] Body weight 2023-07-09 17:53:00 67.903 kg [facility] BMI 2023-07-09 17:53:00 27.38 kg/m2 [facility] Oxygen saturation in Arterial blood by Pulse oximetry 2023-07-09 17:53:00 98 /min [facility] height 2023-05-12 09:40:00 62.00 [in_i] Com [facility] weight 2023-05-12 09:40:00 149.4 [lb_av] Co mmon [facility] temperature 2023-05-12 09:40:00 97.8 [degF] Com [facility] bmi 2023-05-12 09:40:00 27.32 kg/m2 Comm on [facility] oximetry 2023-05-12 09:40:00 99 % Commo n [facility] respiratory rate 2023-05-12 09:40:00 18 /min [facility] blood pressure systolic 2023-05-12 09:40:00 137 mm[Hg] [facility] blood pressure diastolic 2023-05-12 09:40:00 72 mm[Hg] [facility] height 2023-05-12 09:40:00 62.00 [in_i] Com [facility] weight 2023-05-12 09:40:00 149.4 [lb_av] Co mmon [facility] temperature 2023-05-12 09:40:00 97.8 [degF] Com [facility] bmi 2023-05-12 09:40:00 27.32 kg/m2 Comm on [facility] oximetry 2023-05-12 09:40:00 99 % Commo n [facility] respiratory rate 2023-05-12 09:40:00 18 /min [facility] blood pressure systolic 2023-05-12 09:40:00 137 mm[Hg] [facility] blood pressure diastolic 2023-05-12 09:40:00 72 mm[Hg] [facility] height 2023-02-02 08:40:00 62.00 [in_i] Com [facility] weight 2023-02-02 08:40:00 151.8 [lb_av] Co [facility] temperature 2023-02-02 08:40:00 97.2 [degF] Com [facility] bmi 2023-02-02 08:40:00 27.76 kg/m2 Comm on [facility] oximetry 2023-02-02 08:40:00 97 % Commo n [facility] respiratory rate 2023-02-02 08:40:00 17 /min [facility] blood pressure systolic 2023-02-02 08:40:00 130 mm[Hg] [facility] blood pressure diastolic 2023-02-02 08:40:00 80 mm[Hg] [facility] height 2023-01-11 13:00:00 62.00 [in_i] Com [facility] weight 2023-01-11 13:00:00 150.8 [lb_av] Co [facility] temperature 2023-01-11 13:00:00 98.2 [degF] Com [facility] bmi 2023-01-11 13:00:00 27.58 kg/m2 Comm on [facility] oximetry 2023-01-11 13:00:00 98 % Commo n [facility] respiratory rate 2023-01-11 13:00:00 18 /min [facility] blood pressure systolic 2023-01-11 13:00:00 136 mm[Hg] [facility] blood pressure diastolic 2023-01-11 13:00:00 78 mm[Hg] [facility] height 2022-09-04 14:00:00 62.00 [in_i] Com [facility] weight 2022-09-04 14:00:00 153.0 [lb_av] Co [facility] temperature 2022-09-04 14:00:00 97.4 [degF] Com [facility] bmi 2022-09-04 14:00:00 27.98 kg/m2 Comm on [facility] oximetry 2022-09-04 14:00:00 99 % Commo n [facility] respiratory rate 2022-09-04 14:00:00 17 /min [facility] blood pressure systolic 2022-09-04 14:00:00 125 mm[Hg] [facility] blood pressure diastolic 2022-09-04 14:00:00 65 mm[Hg] [facility] height 2022-07-14 15:00:00 62.00 [in_i] Com [facility] weight 2022-07-14 15:00:00 153.0 [lb_av] Co [facility] temperature 2022-07-14 15:00:00 97.9 [degF] Com [facility] bmi 2022-07-14 15:00:00 27.98 kg/m2 Comm on [facility] oximetry 2022-07-14 15:00:00 99 % Commo n [facility] respiratory rate 2022-07-14 15:00:00 17 /min [facility] blood pressure systolic 2022-07-14 15:00:00 139 mm[Hg] [facility] blood pressure diastolic 2022-07-14 15:00:00 63 mm[Hg] [facility] height 2022-05-04 09:20:00 62.00 [in_i] Com [facility] weight 2022-05-04 09:20:00 154.2 [lb_av] Co [facility] bmi 2022-05-04 09:20:00 28.2 kg/m2 Commo n [facility] oximetry 2022-05-04 09:20:00 98 % Commo n [facility] respiratory rate 2022-05-04 09:20:00 16 /min [facility] blood pressure systolic 2022-05-04 09:20:00 138 mm[Hg] [facility] blood pressure diastolic 2022-05-04 09:20:00 67 mm[Hg] [facility] height 2022-05-04 09:40:00 62.00 [in_i] Com [facility] weight 2022-05-04 09:40:00 154.2 [lb_av] Co [facility] temperature 2022-05-04 09:40:00 97.5 [degF] Com [facility] bmi 2022-05-04 09:40:00 28.2 kg/m2 Commo n [facility] oximetry 2022-05-04 09:40:00 98 % Commo n [facility] respiratory rate 2022-05-04 09:40:00 16 /min Common [facility] blood pressure systolic 2022-05-04 09:40:00 138 mm[Hg] [facility] blood pressure diastolic 2022-05-04 09:40:00 67 mm[Hg] [facility] Systolic blood pressure 2022-03-20 14:26:00 145 mm[Hg] [facility] Diastolic blood pressure 2022-03-20 14:26:00 72 mm[Hg] Nancy o [facility] Heart rate 2022-03-20 14:25:00 64 /min [facility] Body temperature 2022-03-20 14:25:00 36.67 Olive [facility] Body height 2022-03-20 14:25:00 154.9 cm [facility] Body weight 2022-03-20 14:25:00 70.897 kg [facility] BMI 2022-03-20 14:25:00 29.53 kg/m2 [facility] height 2021-12-31 17:00:00 62.00 [in_i] Com [facility] weight 2021-12-31 17:00:00 156 [lb_av] Comm on [facility] temperature 2021-12-31 17:00:00 97.3 [degF] Com [facility] bmi 2021-12-31 17:00:00 28.53 kg/m2 Comm on [facility] oximetry 2021-12-31 17:00:00 98 % Commo n [facility] respiratory rate 2021-12-31 17:00:00 16 /min [facility] blood pressure systolic 2021-12-31 17:00:00 147 mm[Hg] [facility] blood pressure diastolic 2021-12-31 17:00:00 76 mm[Hg] [facility] height 2021-07-07 08:00:00 62.00 [in_i] Com [facility] weight 2021-07-07 08:00:00 155.2 [lb_av] Co mmon [facility] temperature 2021-07-07 08:00:00 97.8 [degF] Com [facility] bmi 2021-07-07 08:00:00 28.38 kg/m2 Comm on [facility] oximetry 2021-07-07 08:00:00 96 % Commo n [facility] respiratory rate 2021-07-07 08:00:00 16 /min Common [facility] blood pressure systolic 2021-07-07 08:00:00 134 mm[Hg] Common [facility] blood pressure diastolic 2021-07-07 08:00:00 71 mm[Hg] [facility] height 2021-05-30 08:40:00 62.00 [in_i] Com [facility] weight 2021-05-30 08:40:00 150.6 [lb_av] Co [facility] bmi 2021-05-30 08:40:00 27.54 kg/m2 Comm on [facility] height 2021-01-06 08:00:00 62.00 [in_i] Com [facility] weight 2021-01-06 08:00:00 150.6 [lb_av] Co [facility] temperature 2021-01-06 08:00:00 96.8 [degF] Com [facility] bmi 2021-01-06 08:00:00 27.54 kg/m2 Comm on [facility] oximetry 2021-01-06 08:00:00 99 % Commo n [facility] respiratory rate 2021-01-06 08:00:00 18 /min [facility] blood pressure systolic 2021-01-06 08:00:00 122 mm[Hg] [facility] blood pressure diastolic 2021-01-06 08:00:00 82 mm[Hg] [facility] height 2020-12-10 08:00:00 62.00 [in_i] Com [facility] weight 2020-12-10 08:00:00 151.8 [lb_av] Co [facility] temperature 2020-12-10 08:00:00 98.7 [degF] Com [facility] bmi 2020-12-10 08:00:00 27.76 kg/m2 Comm on [facility] oximetry 2020-12-10 08:00:00 97 % Commo n [facility] blood pressure systolic 2020-12-10 08:00:00 177 mm[Hg] [facility] blood pressure diastolic 2020-12-10 08:00:00 76 mm[Hg] [facility] Procedures Procedure Date / Time Performed Performing Clinician Source BI SCREENING TOMOSYNTHESIS BILATERAL 2023-07-15 17:25:00 Kiet Puckett [facility] PVR 2023-04-21 00:00:00 [facility] CONSENT/REFUSAL FOR DIAGNOSIS AND TREATMENT 2022-04-22 16:00:04 Doctor Unassigned, [place] [facility] ASSIGNMENT OF BENEFITS 2022-04-22 15:59:41 Docto r Unassigned, [place] [facility] Encounters Start Date/Time End Date/Time Encounter Type Admission Type Attending [facility] Care Facility Care Department Encounter ID Source 2024-01-25 14:18:00 Outpatient Isamar Avterae [facility] [id number] [facility] 2024-01-21 11:51:00 Outpatient Isamar Avterae [facility] [id number] [facility] 2024-01-11 14:40:00 Outpatient Penn Avterae [facility] [id number] [facility] 2023-12-13 10:51:00 Outpatient Penn, Avnee [facility] [id number] [facility] 2023-08-30 16:10:00 Outpatient Penn Avnee [facility] [id number] [facility] 2023-08-24 10:06:00 Outpatient Penn Avnee [facility] [id number] [facility] 2022-09-02 08:48:00 Outpatient Penn, Avnee [facility] [id number] [facility] 2022-04-22 14:05:01 Outpatient Penn, Avnee [facility] [id number] [facility] 2021-12-22 08:49:00 Outpatient Penn, Avnee [facility] [id number] [facility] 2021-12-02 14:04:01 Outpatient Penn, Avnee [facility] [id number] [facility] 2021-08-19 14:39:00 Outpatient Penn, Avnee [facility] [id number] [facility] 2021-04-09 14:12:38 Outpatient Penn, Avnee [facility] [id number] [facility] 2021-04-09 14:09:29 Outpatient Penn, Avnee [facility] [id number] [facility] 2021-04-09 14:02:41 Outpatient Penn, Avnee [facility] [id number] [facility] 2021-04-09 13:14:46 Outpatient Penn, Avnee [facility] [id number] [facility] 2021-04-09 13:03:45 Outpatient Penn, Avnee [facility] [id number] [facility] 2021-04-09 13:02:59 Outpatient [facility] [id number] [facility] 2021-04-09 13:02:38 Outpatient Penn, Avnee [facility] [id number] [facility] 2021-04-09 13:01:02 Outpatient [facility] [id number] [facility] 2021-04-09 12:56:56 Outpatient [facility] [id number] [facility] 2021-04-09 12:38:17 Outpatient Silva Barnett [facility] [id number] [facility] 2021-04-09 12:37:12 Outpatient Silva Barnett [facility] [id number] [facility] 2021-04-09 12:14:39 Outpatient Silva Barnett [facility] [id number] [facility] 2021-04-09 12:14:07 Outpatient Lida Glover [facility] [id number] [facility] 2021-04-09 11:54:55 Outpatient Lida Glover [facility] [id number] [facility] 2021-04-09 11:53:17 Outpatient Lida Glover [facility] [id number] [facility] 2021-04-09 11:46:21 Outpatient Lida Glover [facility] [id number] [facility] 2021-04-09 11:40:17 Outpatient Lida Glover [facility] [id number] [facility] 2021-04-09 11:28:05 Outpatient Lida Glover [facility] [id number] [facility] 2021-04-09 11:05:19 Outpatient Lida Glover [facility] [id number] [facility] 2024-05-22 00:00:00 2024-05-22 00:00:00 (TEL) [facility] [id number] [facility] 2024-02-24 00:00:00 2024-02-24 00:00:00 OFFICE VISIT ESTAB PT LEVEL 3 [facility] [id number] [facility] 2024-02-03 00:00:00 2024-02-03 00:00:00 OFFICE VISIT ESTAB PT LEVEL 4 [facility] [id number] [facility] 2024-01-25 00:00:00 2024-01-25 00:00:00 OFFICE VISIT ESTAB PT LEVEL 4 [facility] [id number] [facility] 2024-01-10 00:00:00 2024-01-10 00:00:00 (TEL) [facility] [id number] [facility] 2024-01-05 00:00:00 2024-01-05 00:00:00 OFFICE VISIT ESTAB PT LEVEL 4 [facility] [id number] [facility] 2023-12-15 00:00:00 2023-12-15 00:00:00 (TEL) [facility] [id number] [facility] 2023-12-13 00:00:00 2023-12-13 00:00:00 (TEL) [facility] [id number] [facility] 2023-12-13 00:00:00 2023-12-13 00:00:00 OFFICE VISIT ESTAB PT LEVEL 3 [facility] [id number] [facility] 2023-11-19 00:00:00 2023-11-19 00:00:00 (TEL) [facility] [id number] [facility] 2023-09-10 00:00:00 2023-09-10 00:00:00 OFFICE VISIT ESTAB PT LEVEL 4 [facility] [id number] [facility] 2023-09-10 00:00:00 2023-09-10 00:00:00 SUB ANNUAL MCR WELLNESS VISIT [facility] [id number] [facility] 2023-08-30 00:00:00 2023-08-30 00:00:00 (HOT REPAIRMAN) New Patient [facility] [id number] [facility] 2023-08-16 00:00:00 2023-08-16 00:00:00 OFFICE VISIT ESTAB PT LEVEL 3 [facility] [id number] [facility] 2023-08-16 00:00:00 2023-08-16 00:00:00 (TEL) [facility] [id number] [facility] 2023-07-15 11:52:08 2023-07-15 23:59:00 Outpatient R KIET PUCKETT [facility] [id number] [facility] 2023-07-15 11:52:08 2023-07-15 23:59:00 Hospital Encounter Kiet Puckett [facility] [id number] [facility] 2023-07-09 13:00:00 2023-07-09 13:30:00 Office Visit Kiet Puckett [facility] [id number] [facility] 2023-07-09 13:00:00 2023-07-09 13:16:48 Outpatient R KIET PUCKETT [facility] [id number] [facility] 2023-05-12 00:00:00 2023-05-12 00:00:00 OFFICE VISIT ESTAB PT LEVEL 4 [facility] [id number] [facility] 2023-04-21 00:00:00 2023-04-21 00:00:00 OFFICE VISIT ESTAB PT LEVEL 3 [facility] [id number] [facility] 2023-03-26 10:00:00 2023-03-26 10:00:00 Outpatient KIET PATEL [facility] [id number] [facility] 2023-03-05 00:00:00 2023-03-05 00:00:00 (TEL) [facility] [id number] [facility] 2023-02-02 00:00:00 2023-02-02 00:00:00 OFFICE VISIT ESTAB PT LEVEL 3 [facility] [id number] [facility] 2023-01-11 00:00:00 2023-01-11 00:00:00 OFFICE VISIT ESTAB PT LEVEL 4 [facility] [id number] [facility] 2022-11-23 00:00:00 2022-11-23 00:00:00 (TEL) [facility] [id number] [facility] 2022-10-26 00:00:00 2022-10-26 00:00:00 (TEL) [facility] [id number] [facility] 2022-10-26 00:00:00 2022-10-26 00:00:00 (TEL) [facility] [id number] [facility] 2022-09-09 00:00:00 2022-09-09 00:00:00 (TEL) [facility] [id number] [facility] 2022-09-04 00:00:00 2022-09-04 00:00:00 (TEL) [facility] [id number] [facility] 2022-09-04 00:00:00 2022-09-04 00:00:00 OFFICE VISIT ESTAB PT LEVEL 4 [facility] [id number] [facility] 2022-07-16 00:00:00 2022-07-16 00:00:00 (TEL) [facility] [id number] [facility] 2022-07-14 00:00:00 2022-07-14 00:00:00 (TEL) [facility] [id number] [facility] 2022-07-14 00:00:00 2022-07-14 00:00:00 OFFICE VISIT ESTAB PT LEVEL 3 [facility] [id number] [facility] 2022-07-02 00:00:00 2022-07-02 00:00:00 (TEL) [facility] [id number] [facility] 2022-05-04 00:00:00 2022-05-04 00:00:00 OFFICE VISIT ESTAB PT LEVEL 4 [facility] [id number] [facility] 2022-05-04 00:00:00 2022-05-04 00:00:00 SUB ANNUAL [facility] WELLNESS VISIT [facility] [id number] [facility] 2022-04-27 00:00:00 2022-04-27 00:00:00 Telephone Kiet Puckett [facility] [id number] [facility] [facility] 2022-04-22 09:59:18 2022-04-22 23:59:00 Outpatient R KIET PUCKETT [facility] [id number] [facility] 2022-04-22 09:59:18 2022-04-22 23:59:00 Hospital Encounter Kiet Puckett [facility] 1..840.114 350.1.13.10 [id number] [id number] [facility] 2022-04-22 00:00:00 2022-04-22 00:00:00 (TEL) STLC STLC [id number] [facility] 2022-03-20 08:00:00 2022-03-20 08:48:28 Outpatient R KIET PUCKETT [facility] [id number] [facility] 2022-03-20 08:00:00 2022-03-20 08:48:28 Office Visit Kiet Puckett [facility] [id number] 350.1.13.10 [id number] [id number] 134 [id number] [facility] 2022-03-20 08:00:00 2022-03-20 08:00:00 Outpatient R KIET PUCKETT [facility] [id number] [facility] 2022-02-17 00:00:00 2022-02-17 00:00:00 (TEL) STLMLC STLMLC [id number] [facility] 2021-12-31 00:00:00 2021-12-31 00:00:00 OFFICE VISIT ESTAB PT LEVEL 4 STLMLC STLMLC [id number] [facility] 2021-10-20 00:00:00 2021-10-20 00:00:00 (TEL) STLMLC STLMLC [id number] [facility] 2021-09-17 00:00:00 2021-09-17 00:00:00 (TEL) STLMLC STLMLC [id number] [facility] 2021-09-01 00:00:00 2021-09-01 00:00:00 (TEL) STLMLC STLMLC [id number] [facility] 2021-08-18 00:00:00 2021-08-18 00:00:00 (TEL) STLMLC STLMLC [id number] [facility] 2021-07-29 00:00:00 2021-07-29 00:00:00 [facility] [id number] 350.1.13.10 4.2.7.2.686 [id number] [facility] 2021-07-29 00:00:00 2021-07-29 00:00:00 (TEL) STLMLC STLMLC [id number] [facility] 2021-07-23 00:00:00 2021-07-23 00:00:00 (TEL) STLMLC STLMLC [id number] [facility] 2021-07-07 00:00:00 2021-07-07 00:00:00 OFFICE VISIT ESTAB PT LEVEL 4 STLMLC STLMLC [id number] [facility] 2021-06-25 00:00:00 2021-06-25 00:00:00 (TEL) STLMLC STLMLC [id number] [facility] 2021-06-23 00:00:00 2021-06-23 00:00:00 (TEL) STLMLC STLMLC [id number] [facility] 2021-06-11 00:00:00 2021-06-11 00:00:00 (TEL) STLMLC STLMLC [id number] [facility] 2021-06-05 00:00:00 2021-06-05 00:00:00 (TEL) STLMLC STLMLC [id number] [facility] 2021-05-30 00:00:00 2021-05-30 00:00:00 OL DIG E/M SVC 11-20 MIN STLMLC STLMLC [id number] [facility] 2021-05-29 00:00:00 2021-05-29 00:00:00 (TEL) STLMLC STLMLC [id number] [facility] 2021-05-21 00:00:00 2021-05-21 00:00:00 (TEL) STLMLC STLMLC [id number] [facility] 2021-04-16 00:00:00 2021-04-16 00:00:00 Telephone Kiet Puckett [facility] [id number] 350.1.13.10 4.2.7.2.686 [id number] 134 [id number] [facility] 2021-04-09 08:37:23 2021-04-09 23:59:00 Outpatient R KIET PUCKETT [facility] [id number] [facility] 2021-04-09 08:37:23 2021-04-09 23:59:00 Hospital Encounter Kiet Puckett [facility] 1.2.840.114 350.1.13.10 4.2.7.2.686 [id number] [facility] 2021-03-14 08:30:00 2021-03-14 09:27:56 Outpatient R LAVERN KIET [facility] [id number] [facility] 2021-03-14 08:30:00 2021-03-14 09:27:56 Office Visit Kiet Puckett [facility] 1.2.840.114 350.1.13.10 4.2.7.2.686 [id number] 134 [id number] [facility] 2021-03-14 08:30:00 2021-03-14 08:30:00 Outpatient R LAVERN KIET [facility] [id number] [facility] 2021-03-14 00:00:00 2021-03-14 00:00:00 Orders Only Doctor Unassigned, [place] [facility] [id number] 350.1.13.10 [id number] [id number] [facility] 2021-01-24 13:20:00 2021-01-24 12:47:14 Outpatient CECILIA PINEDO [facility] [id number] [facility] 2021-01-16 00:00:00 2021-01-16 00:00:00 (TEL) STLMLC STLMLC [id number] [facility] 2021-01-06 00:00:00 2021-01-06 00:00:00 OFFICE VISIT ESTAB PT LEVEL 4 STLMLC STLMLC [id number] [facility] 2020-12-10 00:00:00 2020-12-10 00:00:00 OFFICE VISIT EST PT LEVEL 3 STLMLC STLMLC [id number] [facility] 2020-09-24 00:00:00 2020-09-24 00:00:00 Outpatient STLMLC STLMLC [id number] [facility] 2020-08-28 00:00:00 2020-08-28 00:00:00 Outpatient STLMLC STLMLC [id number] [facility] 2020-08-05 00:00:00 2020-08-05 00:00:00 Outpatient STLMLC STLMLC [id number] [facility] 2020-07-24 00:00:00 2020-07-24 00:00:00 Outpatient STLMLC STLMLC [id number] [facility] 2020-07-22 00:00:00 2020-07-22 00:00:00 Outpatient STLMLC STLMLC [id number] [facility] 2020-05-29 00:00:00 2020-05-29 00:00:00 Outpatient STLMLC STLMLC [id number] [facility] 2020-05-22 00:00:00 2020-05-22 00:00:00 Outpatient STLMLC STLMLC [id number] [facility] 2020-04-22 12:56:00 2020-04-22 12:56:00 Outpatient Raju_P MMG MMG [id number] [facility] 2020-03-13 00:00:00 2020-03-13 00:00:00 Outpatient STLMLC STLMLC [id number] [facility] 2020-03-04 00:00:00 2020-03-04 00:00:00 Outpatient STLMLC STLMLC [id number] [facility] 2020-03-01 00:00:00 2020-03-01 00:00:00 Outpatient STLMLC STLMLC [id number] [facility] 2019-12-27 00:00:00 2019-12-27 00:00:00 Outpatient STLMLC STLMLC [id number] [facility] 2019-11-06 13:00:00 2019-11-06 13:00:[address] [facility] [id number] [facility] 2019-11-06 11:43:00 2019-11-06 11:43:00 [address] [facility] [id number] [facility] 2019-09-05 16:20:00 2019-09-05 16:20:[address] [facility] [id number] [facility] 2019-08-25 09:23:00 2019-08-25 09:23:[address] [facility] [id number] [facility] 2019-06-06 10:17:00 2019-06-06 10:17:00 [facility] [id number] [facility] 2019-06-05 09:40:00 2019-06-05 09:40:00 [facility] [id number] [facility] 2019-06-05 08:20:00 2019-06-05 08:20:[address] [facility] [facility] [id number] [facility] 2019-04-18 13:45:00 2019-04-18 13:45:[address] [facility] [id number] [facility] 2019-03-01 20:16:00 2019-03-01 20:16:[address] [facility] [id number] [facility] 2019-03-01 08:15:00 2019-03-01 08:15:[address] [facility] [id number] [facility] 2019-02-23 15:54:00 2019-02-23 15:54:[address] [facility] [id number] [facility] 2018-09-18 17:23:00 2018-09-18 17:23:00 [facility] [id number] [facility] 2018-09-13 08:20:00 2018-09-13 08:20:00 [facility] Medicine [id number] [facility] 2018-05-20 10:30:00 2018-05-20 10:30:00 [facility] [facility] [address] [facility] Medicine [id number] [facility] 2018-05-06 09:12:00 2018-05-06 09:12:00 [facility] Medicine [id number] [facility] 2017-12-22 11:06:00 2017-12-22 11:06:00 [facility] [id number] [facility] 2017-12-06 09:50:00 2017-12-06 09:50:00 [facility] Medicine [id number] [facility] 2017-12-02 08:30:00 2017-12-02 08:30:00 [facility] Medicine [id number] [facility] Results Test Description Test Time Test Comments Results Result Co mments Source COMPREHENSIVE METABOLIC [id number] 00:00:00* Test Item Value Reference Range Interpretation Comme nts NUCLEATED RBCS (test code = 89887-4) 0.0 /100 WBC'S See_Comment [Automated message] The system which generated this result transmitted reference range: 0.0 /100 WBC'S. The reference range was not used to interpret this result as normal/abnormal. ABSOLUTE EOSINOPHILS (test code = 16838-9) 0.37 K/UL See_Comment [Automated message] The system which generated this result transmitted reference range: 0.00-0.50 K/UL. The reference range was not used to interpret this result as normal/abnormal. ABSOLUTE LYMPHOCYTES (test code = 36092-4) 1.58 K/UL See_Comment [Automated message] The system which generated this result transmitted reference range: 1.00-4.00 K/UL. The reference range was not used to interpret this result as normal/abnormal. ABSOLUTE MONOCYTES (test code = 69264-8) 0.73 K/UL See_Comment [Automated message] The system which generated this result transmitted reference range: 0.20-1.00 K/UL. The reference range was not used to interpret this result as normal/abnormal. ABSOLUTE NEUTROPHILS (test code = 39722-5) 5.85 K/UL See_Comment [Automated message] The system which generated this result transmitted reference range: 1.50-7.50 K/UL. The reference range was not used to interpret this result as normal/abnormal. BASOPHILS (test code = 53774-1) 0.7 % EOSINOPHILS (test code = 00489-1) 4.3 % HEMATOCRIT (test code = 76649-5) 40.3 % See_Comment [Automated messa ge] The system which generated this result transmitted reference range: 34.0-45.0 %. The reference range was not used to interpret this result as normal/abnormal. HEMOGLOBIN (test code = 718-7) 13.3 G/DL See_Comment [Automated messa ge] The system which generated this result transmitted reference range: 11.5-15.5 G/DL. The reference range was not used to interpret this result as normal/abnormal. LYMPHOCYTES (test code = 39287-7) 18.3 % MCH (test code = 77509-1) 28.5 PG See_Comment [Automated messa ge] The system which generated this result transmitted reference range: 25.0-33.0 PG. The reference range was not used to interpret this result as normal/abnormal. MCHC (test code = 49920-3) 33.0 G/DL See_Comment [Automated messa ge] The system which generated this result transmitted reference range: 31.0-36.0 G/DL. The reference range was not used to interpret this result as normal/abnormal. MCV (test code = 35306-1) 86.5 fL See_Comment [Automated messa ge] The system which generated this result transmitted reference range: 80.0-99.0 fL. The reference range was not used to interpret this result as normal/abnormal. MONOCYTES (test code = 73096-5) 8.5 % NEUTROPHILS (test code = 11525-8) 67.7 % PLATELET COUNT (test code = 38333-5) 413 K/UL See_Comment H [Automated messa ge] The system which generated this result transmitted reference range: 130-400 K/UL. The reference range was not used to interpret this result as normal/abnormal. RBC (test code = 75282-5) 4.66 M/UL See_Comment [Automated [employer]] The system which generated this result transmitted reference range: 3.80-5.40 M/UL. The reference range was not used to interpret this result as normal/abnormal. RDW (test code = 25114-9) 12.2 % See_Comment [Automated [employer]] The system which generated this result transmitted reference range: 11.5-15.0 %. The reference range was not used to interpret this result as normal/abnormal. WBC (test code = 30142-2) 8.6 K/UL See_Comment [Automated [employer]] The system which generated this result transmitted reference range: 3.5-11.0 K/UL. The reference range was not used to interpret this result as normal/abnormal. HEMOGLOBIN A1c (test code = 4548-4) 6.2 % See_Comment H [Automated [employer]] The system which generated this result transmitted reference range: 4.2-5.6 %. The reference range was not used to interpret this result as normal/abnormal. VITAMIN D,1,25-DIHYDROXY (test code = 1649-3) 38.3 PG/ML See_Comment [Automated [employer]] The system which generated this result transmitted reference range: 20.0-82.0 PG/ML. The reference range was not used to interpret this result as normal/abnormal. CALC LDL CHOL (test code = 24184-7) 99 MG/DL See_Comment [Automated [employer]] The system which generated this result transmitted reference range: <100 MG/DL. The reference range was not used to interpret this result as normal/abnormal. CHOLESTEROL (test code = 2093-3) 161 MG/DL See_Comment [Automated [employer]] The system which generated this result transmitted reference range: <200 MG/DL. The reference range was not used to interpret this result as normal/abnormal. HDL CHOLESTEROL (test code = 2085-9) 43 MG/DL See_Comment [Automated messa ge] The system which generated this result transmitted reference range: >39 MG/DL. The reference range was not used to interpret this result as normal/abnormal. RISK RATIO LDL/HDL (test code = 50532-7) 2.30 RATIO See_Comment [Automated message] The system which generated this result transmitted reference range: <3.22 RATIO. The reference range was not used to interpret this result as normal/abnormal. TRIGLYCERIDES (test code = 2571-8) 99 MG/DL See_Comment [Automated messa ge] The system which generated this result transmitted reference range: <150 MG/DL. The reference range was not used to interpret this result as normal/abnormal. ALBUMIN, URINE, RANDOM (test code = 67605-1) <0.2 MG/DL NOT ESTAB MG/DL CALC ALBUMIN/CREAT, RND (test code = 38470-8) <2 MG/G See_Comment [Automated messa ge] The system which generated this result transmitted reference range: <30 MG/G. The reference range was not used to interpret this result as normal/abnormal. CREATININE, URINE, CONC. (test code = 2161-8) 86.6 MG/DL NOT ESTAB MG/DL ALBUMIN (test code = 1751-7) 3.8 G/DL See_Comment [Automated messa ge] The system which generated this result transmitted reference range: 3.5-5.2 G/DL. The reference range was not used to interpret this result as normal/abnormal. ALKALINE PHOSPHATASE (test code = 6768-6) 69 U/L See_Comment [Automated message] The system which generated this result transmitted reference range: 40-142 U/L. The reference range was not used to interpret this result as normal/abnormal. BILIRUBIN, TOTAL (test code = 1975-2) 0.5 MG/DL See_Comment [Automated messa ge] The system which generated this result transmitted reference range: <=1.2 MG/DL. The reference range was not used to interpret this result as normal/abnormal. BUN (test code = 3094-0) 19 MG/DL See_Comment [Automated messa ge] The system which generated this result transmitted reference range: 8-23 MG/DL. The reference range was not used to interpret this result as normal/abnormal. CALCIUM (test code = 04404-8) 9.5 MG/DL See_Comment [Automated messa ge] The system which generated this result transmitted reference range: 8.5-10.5 MG/DL. The reference range was not used to interpret this result as normal/abnormal. CALC A/G RATIO (test code = 1759-0) 1.2 RATIO See_Comment [Automated messa ge] The system which generated this result transmitted reference range: 1.0-2.6 RATIO. The reference range was not used to interpret this result as normal/abnormal. CALC BUN/CREAT (test code = 3097-3) 17 RATIO See_Comment [Automated messa ge] The system which generated this result transmitted reference range: 6-28 RATIO. The reference range was not used to interpret this result as normal/abnormal. CALC GLOBULIN (test code = 48600-2) 3.1 G/DL See_Comment [Automated messa ge] The system which generated this result transmitted reference range: 1.9-3.7 G/DL. The reference range was not used to interpret this result as normal/abnormal. CARBON DIOXIDE (test code = 1963-8) 25 MEQ/L See_Comment [Automated messa ge] The system which generated this result transmitted reference range: 19-31 MEQ/L. The reference range was not used to interpret this result as normal/abnormal. CHLORIDE (test code = 2075-0) 101 MEQ/L See_Comment [Automated messa ge] The system which generated this result transmitted reference range: 95-107 MEQ/L. The reference range was not used to interpret this result as normal/abnormal. CREATININE (test code = 2160-0) 1.09 MG/DL See_Comment [Automated messa ge] The system which generated this result transmitted reference range: 0.60-1.30 MG/DL. The reference range was not used to interpret this result as normal/abnormal. eGFR (2020 CKD-EPI) (test code = 83744-1) 54 ML/MIN/1.73 See_Comment L [Automated message] The system which generated this result transmitted reference range: >60 ML/MIN/1.73. The reference range was not used to interpret this result as normal/abnormal. GLUCOSE (test code = 1558-6) 98 MG/DL See_Comment [Automated messa ge] The system which generated this result transmitted reference range: 70-99 MG/DL. The reference range was not used to interpret this result as normal/abnormal. POTASSIUM (test code = 2823-3) 4.2 MEQ/L See_Comment [Automated messa ge] The system which generated this result transmitted reference range: 3.5-5.4 MEQ/L. The reference range was not used to interpret this result as normal/abnormal. PROTEIN, TOTAL (test code = 2885-2) 6.9 G/DL See_Comment [Automated messa ge] The system which generated this result transmitted reference range: 6.1-8.3 G/DL. The reference range was not used to interpret this result as normal/abnormal. AST (test code = 1920-8) 17 U/L See_Comment [Automated messa ge] The system which generated this result transmitted reference range: 9-40 U/L. The reference range was not used to interpret this result as normal/abnormal. ALT (test code = 1742-6) 11 U/L See_Comment [Automated messa ge] The system which generated this result transmitted reference range: 5-40 U/L. The reference range was not used to interpret this result as normal/abnormal. SODIUM (test code = 2951-2) 139 MEQ/L See_Comment [Automated messa ge] The system which generated this result transmitted reference range: 133-146 MEQ/L. The reference range was not used to interpret this result as normal/abnormal. CBC W/AUTO [id number] 00:00:00* Test Item Value Reference Range Interpretation Comme nts NUCLEATED RBCS (test code = 85062-5) 0.0 /100 WBC'S See_Comment [Automated messa ge] The system which generated this result transmitted reference range: 0.0 /100 WBC'S. The reference range was not used to interpret this result as normal/abnormal. ABSOLUTE EOSINOPHILS (test code = 94527-2) 0.07 K/UL See_Comment [Automated messa ge] The system which generated this result transmitted reference range: 0.00-0.50 K/UL. The reference range was not used to interpret this result as normal/abnormal. ABSOLUTE LYMPHOCYTES (test code = 32755-6) 2.97 K/UL See_Comment [Automated messa ge] The system which generated this result transmitted reference range: 1.00-4.00 K/UL. The reference range was not used to interpret this result as normal/abnormal. ABSOLUTE MONOCYTES (test code = 77142-3) 1.14 K/UL See_Comment H [Automated messa ge] The system which generated this result transmitted reference range: 0.20-1.00 K/UL. The reference range was not used to interpret this result as normal/abnormal. ABSOLUTE NEUTROPHILS (test code = 63102-0) 6.93 K/UL See_Comment [Automated messa ge] The system which generated this result transmitted reference range: 1.50-7.50 K/UL. The reference range was not used to interpret this result as normal/abnormal. BASOPHILS (test code = 52888-5) 0.2 % EOSINOPHILS (test code = 59434-1) 0.6 % HEMATOCRIT (test code = 12385-1) 42.0 % See_Comment [Automated messa ge] The system which generated this result transmitted reference range: 34.0-45.0 %. The reference range was not used to interpret this result as normal/abnormal. HEMOGLOBIN (test code = 718-7) 14.2 G/DL See_Comment [Automated messa ge] The system which generated this result transmitted reference range: 11.5-15.5 G/DL. The reference range was not used to interpret this result as normal/abnormal. LYMPHOCYTES (test code = 09273-5) 26.6 % MCH (test code = 28873-7) 29.3 PG See_Comment [Automated messa ge] The system which generated this result transmitted reference range: 25.0-33.0 PG. The reference range was not used to interpret this result as normal/abnormal. MCHC (test code = 49557-7) 33.8 G/DL See_Comment [Automated messa ge] The system which generated this result transmitted reference range: 31.0-36.0 G/DL. The reference range was not used to interpret this result as normal/abnormal. MCV (test code = 52984-6) 86.8 fL See_Comment [Automated messa ge] The system which generated this result transmitted reference range: 80.0-99.0 fL. The reference range was not used to interpret this result as normal/abnormal. MONOCYTES (test code = 55221-1) 10.2 % NEUTROPHILS (test code = 22904-6) 62.0 % PLATELET COUNT (test code = 19809-9) 383 K/UL See_Comment [Automated messa ge] The system which generated this result transmitted reference range: 130-400 K/UL. The reference range was not used to interpret this result as normal/abnormal. RBC (test code = 83875-1) 4.84 M/UL See_Comment [Automated messa ge] The system which generated this result transmitted reference range: 3.80-5.40 M/UL. The reference range was not used to interpret this result as normal/abnormal. RDW (test code = 82771-9) 12.5 % See_Comment [Automated messa ge] The system which generated this result transmitted reference range: 11.5-15.0 %. The reference range was not used to interpret this result as normal/abnormal. WBC (test code = 58539-0) 11.2 K/UL See_Comment H [Automated messa ge] The system which generated this result transmitted reference range: 3.5-11.0 K/UL. The reference range was not used to interpret this result as normal/abnormal. BI SCREENING TOMOSYNTHESIS [id number] 18:14:31Examination:BI SCREENING TOMOSYNTHESIS BILATERAL History:Patient is 73 year old and is seen for: ?Teofilo campuzano. Computer-aided detection (CAD) utilized. Comparisons: 04/22/2022 BI SCREENING TOMOSYNTHESIS BILATERAL, 04/09/2021 BI SCREENING TOMOSYNTHESIS BILATERAL, and 03/23/2019 EXTERNAL MAMMOGRAM Findings:The breasts are heterogeneously dense, which may obscure small masses. There is no evidence of s uspicious masses, calcifications, or other abnormal findings. Impression:No mammographic evidence of malignancy. Recommendation:Annual mammographic follow- up BI-RADS Category: [id number] 00:00:00* Test Item Value Reference Range Interpretation Comme nts NUCLEATED RBCS (test code = 62473-4) 0.0 /100 WBC'S See_Comment [Automated messa ge] The system which generated this result transmitted reference range: 0.0 /100 WBC'S. The reference range was not used to interpret this result as normal/abnormal. ABSOLUTE EOSINOPHILS (test code = 90737-1) 0.59 K/UL See_Comment H [Automated messa ge] The system which generated this result transmitted reference range: 0.00-0.50 K/UL. The reference range was not used to interpret this result as normal/abnormal. ABSOLUTE LYMPHOCYTES (test code = 26785-5) 1.79 K/UL See_Comment [Automated messa ge] The system which generated this result transmitted reference range: 1.00-4.00 K/UL. The reference range was not used to interpret this result as normal/abnormal. ABSOLUTE MONOCYTES (test code = 44066-2) 0.61 K/UL See_Comment [Automated messa ge] The system which generated this result transmitted reference range: 0.20-1.00 K/UL. The reference range was not used to interpret this result as normal/abnormal. ABSOLUTE NEUTROPHILS (test code = 49929-8) 3.78 K/UL See_Comment [Automated [employer] ge] The system which generated this result transmitted reference range: 1.50-7.50 K/UL. The reference range was not used to interpret this result as normal/abnormal. BASOPHILS (test code = 20826-5) 1.3 % EOSINOPHILS (test code = 76608-5) 8.6 % HEMATOCRIT (test code = 30991-3) 43.3 % See_Comment [Automated [employer]] The system which generated this result transmitted reference range: 34.0-45.0 %. The reference range was not used to interpret this result as normal/abnormal. HEMOGLOBIN (test code = 718-7) 14.5 G/DL See_Comment [Automated messa ge] The system which generated this result transmitted reference range: 11.5-15.5 G/DL. The reference range was not used to interpret this result as normal/abnormal. LYMPHOCYTES (test code = 14255-4) 26.1 % MCH (test code = 53049-8) 30.3 PG See_Comment [Automated [employer]] The system which generated this result transmitted reference range: 25.0-33.0 PG. The reference range was not used to interpret this result as normal/abnormal. MCHC (test code = 25767-7) 33.5 G/DL See_Comment [Automated messa ge] The system which generated this result transmitted reference range: 31.0-36.0 G/DL. The reference range was not used to interpret this result as normal/abnormal. MCV (test code = 52657-4) 90.4 fL See_Comment [Automated messa ge] The system which generated this result transmitted reference range: 80.0-99.0 fL. The reference range was not used to interpret this result as normal/abnormal. MONOCYTES (test code = 70355-1) 8.9 % NEUTROPHILS (test code = 56101-7) 55.0 % PLATELET COUNT (test code = 75344-0) 350 K/UL See_Comment [Automated messa ge] The system which generated this result transmitted reference range: 130-400 K/UL. The reference range was not used to interpret this result as normal/abnormal. RBC (test code = 48304-5) 4.79 M/UL See_Comment [Automated messa ge] The system which generated this result transmitted reference range: 3.80-5.40 M/UL. The reference range was not used to interpret this result as normal/abnormal. RDW (test code = 90275-8) 12.5 % See_Comment [Automated messa ge] The system which generated this result transmitted reference range: 11.5-15.0 %. The reference range was not used to interpret this result as normal/abnormal. WBC (test code = 57376-7) 6.9 K/UL See_Comment [Automated messa ge] The system which generated this result transmitted reference range: 3.5-11.0 K/UL. The reference range was not used to interpret this result as normal/abnormal. [id number] 00:00:00* Test Item Value Reference Range Interpretation Comme nts FERRITIN (test code = 69226-3) 86 NG/ML See_Comment [Automated messa ge] The system which generated this result transmitted reference range: 13-200 NG/ML. The reference range was not used to interpret this result as normal/abnormal.
--- NOTE | 2024-05-31 10:45 | RAD REPORT ---
EXAM: CT brain without contrast HISTORY: right temp/parietal trauma COMPARISON: 11/07/2015 TECHNIQUE: Multiple contiguous axial images were obtained and a CT of the brain without contrast. Sag ittal and coronal reformats were performed. One or more of the following dose reduction techniques were used: Automated exposure control, adjust ment of the mA and/or kV according to patient size, and/or iterative reconstruction. FINDINGS: No evidence of hydrocephalus, intracranial hemorrhage, or extra-axial fluid collection. Mild brain atrophy with mild periventricular and deep white matter chronic microvascular ischemic ch anges present. No evidence of midline shift or areas of brain edema. The calvarium is intact. The visualized paranasal sinuses and mastoid air cells are essentially clear . IMPRESSION: No evidence of acute intracranial abnormality.
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
--- NOTE | 2024-05-31 10:48 | ER ---
Nurse's Notes [facility] Name: Ila Mariee Age: 74 yrs Sex: Female : 1950 Arrival Date: 05/31/2024 Time: 10:09 Bed 14 Private MD: Diagnosis: Closed head injury, headache Presentation: 05/31 10:21 Chief complaint: Patient states: she bumped her head on an engine hoist a couple days iw ago, she has had sharp intermittent pains to right side of her head since then, denies LOC, not on blood thinners. Coronavirus screen: At this time, the client does not indicate any symptoms associated with coronavirus-19. Ebola Screen: No symptoms or risks identified at this time. Mechanism of Injury: resulted from. Initial Sepsis Screen: Does the patient meet any 2 criteria? No. Patient's initial sepsis screen is negative. Does the patient have a suspected source of infection? No. Patient's initial sepsis screen is negative. Risk Assessment: Do you want to hurt yourself or someone else? Patient reports no desire to harm self or others. 10:21 Method Of Arrival: Ambulatory iw 10:21 Acuity: IGNACIO 4 iw 11:04 Onset of symptoms was May 30, 2024. iw Historical: - Allergies: 10:22 Bactrim; iw 10:22 Codeine; iw 10:22 Prednisone; iw 10:22 Sulfa (Sulfonamide Antibiotics); iw 10:22 tramadol; iw 10:22 Zofran; iw - PMHx: 10:22 Depression; Anxiety; Anemia; GERD; Hypertension; High Cholesterol; urinary problems; iw - PSHx: 10:22 wrist SX; iw - Immunization history:: Adult Immunizations up to date. - Infectious Disease History:: Denies. - Social history:: Smoking status: Patient denies any tobacco usage or history of. Screenin:04 [facility] ED Fall Risk Assessment (Adult) History of falling in the last 3 months, iw including since admission No falls in past 3 months (0 pts) Confusion or Disorientation No (0 pts) Intoxicated or Sedated No (0 pts) Impaired Gait No (0 pts) Mobility Assist Device Used No (0 pt) Altered Elimination No (0 pt) Score/Fall Risk Level 0 - 2 = Low Risk Oriented to surroundings, Maintained a safe environment. Abuse screen: Denies threats or abuse. Denies injuries from another. Nutritional screening: No deficits noted. Tuberculosis screening: No symptoms or risk factors identified. Assessment: 10:50 General: Appears in no apparent distress. comfortable, Behavior is calm, cooperative. iw Pain: Complains of pain in right catholic. Neuro: Level of Consciousness is awake, alert, obeys commands, Oriented to person, place, time, situation. Vital Signs: 10:22 BP 139 / 66; Pulse 63; Resp 16; Temp 98; Pulse Ox 99% on R/A; Weight 60.33 kg; Height 5 iw ft. 1 in. ; Pain 0/10; 11:04 BP 146 / 97; Pulse 64; Resp 16; Pulse Ox 98% on R/A; iw 10:22 Body Mass Index 25.13 (60.33 kg, 154.94 cm) iw 10:22 Pain Scale: Adult iw Roslyn Coma Score: 10:22 Eye Response: spontaneous(4). Motor Response: obeys commands(6). Verbal Response: iw oriented(5). Total: 15. ED Course: 10:12 Patient arrived in ED. al6 10:13 Tima Scott MD is Attending Physician. sp3 10:21 Tonja Siu RN is Primary Nurse. ph 10:22 Triage completed. iw 10:23 Arm band placed on. iw 10:40 CT Head Brain wo Cont In Process Unspecified. EDMS 10:50 Patient has correct armband on for positive identification. Provided Education on: . iw 11:04 No provider procedures requiring assistance completed. Patient did not have IV access iw during this emergency room visit. Administered Medications: No medications were administered Medication: 11:04 VIS not applicable for this client. iw Outcome: 10:48 Discharge ordered by . sp3 11:04 Discharged to home ambulatory, iw 11:04 Condition: good 11:04 Discharge instructions given to patient, Instructed on discharge instructions, follow up and referral plans. Demonstrated understanding of instructions, follow-up care, 11:05 Patient left the ED. iw Signatures: Dispatcher [employer] EDMS Dinorah Grove RN RN iw Tonja Siu RN RN Tima Scott MD MD sp3 Caprice Beck al6 Corrections: (The following items were deleted from the chart) 10:30 10:22 Resp 16bpm; Pulse Ox 99% RA; Temp 98F; 60.33 kg; Height 5 ft. 1 in.; BMI: 25.1; iw Pain 0/10, Adult; iw
[2024-05-31 17:11] VITALS: TEMP 98
[2024-05-31 17:12] VITALS: BP 146/97; O2SAT 98
== END 2024-05-31 11:05 | disposition home or self-care (01) ==
LOC: ER 10:09
DX: S00.83XA Contusion of other part of head, initial encounter (principal); R51.9 Headache, unspecified; W22.8XXA Striking against or struck by other objects, initial encounter
CPT/HCPCS: 70450; 99282

== ENCOUNTER 2024-10-28 14:49 | Emergency (ER) | payer OTHER ==
--- OUTSIDE RECORDS SUMMARY | 2024-10-28 14:56 | XMS REPORT | Continuity of Care Document ---
Author Name Unknown Address [address] [facility] [address] [place] [address] [facility] Address [address] [facility] [address] [place] [address] Care Team Providers Care Sprayer Hand Name Role Phone BRIDGET CARL Primary Care Physician Unavailab Deb Alvarez Attending Clinician Unavailable Silva Barnett Attending Clinician Unavailable Lida Glover Attending Clinician Unavailable LAVERN KIET LISHA Attending Clinician Unavailable LAVERN KIET LISHA Attending Clinician Unavailable Kiet Puckett MD Attending Clinician [phone] Doctor Unassigned, Netos Attending Clinician U CECILIA Wilson Attending Clinician Unavail able Raju_P Attending Clinician Unavailable LAVERN, KIET CAM Admitting Clinician Unavailable LAVREN KIET CAM Admitting Clinician Unavailable Raju_P Admitting Clinician Unavailable Payers Payer Name Policy Type Policy Number Effective Date Expirati on Date Source [facility] HealthSelect TRS/ERS [facility] PPO 1 [id number] [facility] GROUP [place] PPO [id number] 2021 00:00:00 [facility] HEALTH SELECT [id number] 1 00:00:00 [employer] of [place] 6 [id number] 2016 00:00:00 [facility] Problems Condition Name Condition Details Condition Category Status Onset Date Resolution Date Last Treatment Date Treating Clinician Comments Source Hyperglyce shasha due to type 2 diabetes mellitus Hyperglyce shasha due to type 2 diabetes mellitus Disease Active 2020-03 00:00: 00 [facility] Postmenopa usal state Postmenopa usal state Disease Active 2020-03 00:00: 00 [facility] [id number] OAB (overactiv e bladder) Problem [facility] [id number] Urge incontinen ce Problem [facility] [id number] Primary osteoarthr itis of left knee Problem [facility] [id number] Other chronic pain Problem [facility] [id number] 107 Cervicalgi a Problem [facility] [id number] Dyspareuni a, female Problem [facility] Disorder of skin AND/OR subcutaneo us tissue Bumps on skin Problem [facility] [id number] Insomnia, unspecifie d type Problem [facility] [id number] Gastroesop hageal reflux disease, esophagiti s presence not specified Problem [facility] [id number] Depression with anxiety Problem [facility] Seasonal allergy Seasonal allergies Problem [facility] [id number] Chronic fatigue Problem [facility] [id number] Hyperchole sterolemia Problem [facility] [id number] Hot flashes Problem [facility] Hypertensi on Hypertensi on Problem [facility] Bladder incontinen ce Bladder incontinen ce Problem [facility] [id number] Encounter for wellness examinatio n in adult Problem [facility] Heart murmur Cardiac murmur Problem [facility] Incontinen ce Incontinen ce in female Problem [facility] Vitamin D deficiency Vitamin D deficiency Problem [facility] Prediabete s Prediabete s Problem [facility] [id number] Asymptomat ic menopausal state Problem [facility] [id number] Type 2 diabetes mellitus with hyperglyce shasha, without long-term current use of insulin Problem [facility] Allergies, Adverse Reactions, Alerts Allergy Name Allergy Type Status Severity Reaction(s) Onset Date Inactive Date Treating Clinician Comments Source Predniso ne Drug Allergy Active Unknown - See comments 2020-03 0-25 00:00: [address] [facility] ericka Drug Allergy Active Unknown - See comments 2020-03 0-25 00:00: [facility] CODEINE DRUG INGREDI Active Unknown-Cmnt 2020-03 0-25 00:00: 00 [facility] PREDNISO NE DRUG INGREDI Active Unknown-Cmnt 2020-03 0-25 00:00: 00 [facility] SULFAMET HOXAZOLE -TRIMETH OPRIM DRUG Active Hives 2020-03 0-25 00:00: 00 [facility] TRAMADOL DRUG INGREDI Active Unknown-Cmnt 2020-03 0-25 00:00: 00 [facility] Active Unknown-Cmnt 2020-03 0-25 00:00: 00 [facility] sulfamet hoxazole / trimetho prim sulfamet hoxazole / trimetho prim Active rash/hives; itching [facility] 30 Drug allergy Active Unknown [facility] 7309 Drug allergy Active Unknown [facility] tramadol tramadol Active Unknown Commo n [facility] Codeine Codeine Active extreme drowsiness [facility] Social History Social Habit Start Date Stop Date Quantity Comments Source [facility] of tobacco use Passive smoker [facility] ASSERTION Not [facility] Sex Assigned At [facility] Alcoholic beverage intake 2024-07-14 00:00:00 2024-07-14 00:00:00 Lifetime non-drinker (finding) [facility] Alcohol intake 2023-07-09 00:00:00 2023-07-09 00:00:00 Lifetime non-drinker (finding) [facility] Exposure to SARS-CoV-2 (event) 2022-03-16 00:00:00 2022-03-26 11:22:00 Not sure [facility] Tobacco use and exposure 2022-03-20 00:00:00 2022-03-20 00:00:00 Smokeless tobacco non-user [facility] History of Social function 2021-03-14 00:00:00 2021-03-14 00:00:00 [facility] Smoking Status Start Date Stop Date Source Former Smoker 2023-08-31 00:00:00 2023-08-31 00:00:00 [facility] Never smoked tobacco [facility] Medications Ordered Medication Name Filled Medication Name Start Date Stop Date Current Medication? Ordering Clinician Indication Dosage Frequency Signature (SIG) Comments Components Source Cephalexin 500 MG Cephalexin 500 MG 08-23 00:00: 00 No 1{capsu le} BID Cephalexin 500 MG Estradiol 0.1 MG/GM Estradiol 0.1 MG/GM 06-09 00:00: 00 No Estradiol 0.1 MG/GM BUPivacaine HCl BUPivacaine HCl 08-29 00:00: 00 No 4mL [facility] Kenalog (Triamcinol one) Kenalog (Triamcinol one) 08-29 00:00: 00 No 1mL [facility] azelastine 137 mcg (0.1 %) nasal spray 07-08 13:04: 33 Yes U 2 SPRAYS IEN BID. THIS IS AN ANTIHISTAM INE NASAL SPRAY [facility] cetirizine 10 mg tablet 07-08 13:04: 33 Yes 1 tablet [facility] fluticasone propionate 50 mcg/actuati on nasal spray 07-08 13:04: 33 Yes [facility] losartan-hy drochloroth iazide 100-12.5 mg per tablet 07-08 13:04: 33 Yes 1{tbl} Take 1 tablet by mouth in the morning. [facility] metformin ER 500 mg 24 hr tablet 07-08 13:04: 33 Yes TAKE 1 TABLET BY MOUTH EVERY DAY WITH THE EVENING MEAL [facility] cholecalcif johnie, vitamin D3, (VITAMIN D3 ORAL) 07-08 13:04: 33 Yes Take by mouth. 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 [facility] busPIRone 10 mg tablet 2- 00:00: 00 07-08 00:00 :00 No 10mg Take 1 tablet by mouth 2 (two) times daily as needed. [facility] MYRBETRIQ 50 mg tablet 2-09 00:00: 00 Yes 50mg Take 1 tablet by mouth in the morning. 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 [facility] Cranberry 500 mg Cap 2020-03 09:00: 14 Yes [facility] azelastine 137 mcg (0.1 %) nasal spray 2020-03 09:00: 14 Yes U 2 SPRAYS IEN BID. THIS IS AN ANTIHISTAM INE NASAL SPRAY [facility] cetirizine 10 mg tablet 2020-03 09:00: 14 Yes 1 tablet [facility] fluticasone propionate 50 mcg/actuati on nasal spray 2020-03 09:00: 14 Yes [facility] coQ10, ubiquinol, 100 mg Cap 2020-03 09:00: 14 07-08 00:00 :00 No 1 capsule with a meal [facility] aspirin 81 mg EC tablet 2020-03 09:00: 14 07-08 00:00 :00 No 1 tablet [facility] montelukast 10 mg tablet 2020-03 09:00: 14 07-08 00:00 :00 No 1 tablet [facility] cyanocobala min, vitamin B-12, (VITAMIN B-12 ORAL) 2020-03 08:34: 57 Yes 1 tablet [facility] losartan-hy drochloroth iazide 100-12.5 mg per tablet 2020-03 08:34: 57 Yes 1{tbl} Take 1 tablet by mouth in the morning. [facility] metformin ER 500 mg 24 hr tablet 2020-03 08:34: 57 Yes TAKE 1 TABLET BY MOUTH EVERY DAY WITH THE EVENING MEAL [facility] simvastatin 20 mg tablet 2020-03 08:34: 57 Yes 1 tablet in the evening [facility] traZODone 50 mg tablet 2020-03 08:34: 57 Yes 1/2 tablet as needed for sleep [facility] vortioxetin e (TRINTELLIX ) 10 mg Tab 2020-03 08:34: 57 Yes 1 tablet [facility] omeprazole 20 mg capsule 2020-03 00:00: 00 Yes [facility] amLODIPine 5 mg tablet 2020-03 00:00: 00 Yes [facility] busPIRone 7.5 mg tablet 2020-03 00:00: 00 Yes 7.5mg Take 1 tablet by mouth 2 (two) times daily as needed. [facility] solifenacin 5 mg tablet 2020-03 0 00:00: 00 Yes 5mg Take 1 tablet by mouth in the morning. [facility] Omeprazole 20 Omeprazole 20 No 1{capsu le} QD Omeprazole 20 Solifenacin Succinate 10 MG Solifenacin Succinate 10 MG No 1{table t} QD Solifenaci n Succinate 10 MG Myrbetriq 50 MG Myrbetriq 50 MG No 1{table t} QD Myrbetriq 50 MG busPIRone HCl 10 MG busPIRone HCl 10 MG No 1{table t} BID busPIRone HCl 10 MG Vitamin C 500 MG Vitamin C 500 MG No Vitamin C 500 MG Zinc 50 MG Zinc 50 MG No 1{ table t} QD Zinc 50 MG ZyrTEC Allergy 10 MG ZyrTEC Allergy 10 MG No 1{table t} QD ZyrTEC Allergy 10 MG Vitamin D3 4471208 UNIT/GM Vitamin D3 5823590 UNIT/GM No Vitamin D3 [id number] UNIT/GM Immunizations Ordered Immunization Name Filled Immunization Name Date Status Comments Source SARS-COV-2 COVID-19 MODERNA 0.25ML BOOSTER VACCINE 2021-01-24 00:00:00 Completed [facility] SARS-COV-2 COVID-19 MODERNA 0.25ML BOOSTER VACCINE 2021-01-24 00:00:00 Completed [facility] SARS-COV-2 COVID-19 MODERNA 0.25ML BOOSTER VACCINE 2021-01-24 00:00:00 Completed [facility] SARS-COV-2 COVID-19 MODERNA 0.25ML BOOSTER VACCINE 2021-01-24 00:00:00 Completed [facility] SARS-COV-2 COVID-19 MODERNA 0.25ML BOOSTER VACCINE 2021-01-24 00:00:00 Completed [facility] FLUZONE HIGH DOSE OVER 65 FLUZONE HIGH DOSE OVER 65 2021-01-06 08:34:00 Completed [facility] FLUZONE HIGH DOSE OVER 65 FLUZONE HIGH DOSE OVER 65 2021-01-06 08:34:00 Completed [facility] FLUZONE HIGH DOSE OVER 65 FLUZONE HIGH DOSE OVER 65 2021-01-06 08:34:00 Completed [facility] FLUZONE HIGH DOSE OVER 65 FLUZONE HIGH DOSE OVER 65 2021-01-06 08:34:00 Completed [facility] FLUZONE HIGH DOSE OVER 65 FLUZONE HIGH DOSE OVER 65 2021-01-06 08:34:00 Completed [facility] FLUZONE HIGH DOSE OVER 65 FLUZONE HIGH DOSE OVER 65 2021-01-06 08:34:00 Completed [facility] FLUZONE HIGH DOSE OVER 65 FLUZONE HIGH DOSE OVER 65 2021-01-06 08:34:00 Completed [facility] FLUZONE HIGH DOSE OVER 65 FLUZONE HIGH DOSE OVER 65 2021-01-06 08:34:00 Completed [facility] FLUZONE HIGH DOSE OVER 65 FLUZONE HIGH DOSE OVER 65 2021-01-06 08:34:00 Completed [facility] Influenza High Dose 2021-01-06 00:00:00 Completed [facility] Influenza High Dose 2021-01-06 00:00:00 Completed [facility] Influenza High Dose 2021-01-06 00:00:00 Completed [facility] Influenza High Dose 2021-01-06 00:00:00 Completed [facility] Influenza, High-Dose, Trivalent, PF (FLUZONE) 2021-01-06 00:00:00 Completed Moderna COVID-19 Vaccine Moderna COVID-19 Vaccine 2020-04-25 08:34:00 Completed [facility] Moderna COVID-19 Vaccine Moderna COVID-19 Vaccine 2020-04-25 08:34:00 Completed [facility] Moderna COVID-19 Vaccine Moderna COVID-19 Vaccine 2020-04-25 08:34:00 Completed [facility] Moderna COVID-19 Vaccine Moderna COVID-19 Vaccine 2020-04-25 08:34:00 Completed [facility] Moderna COVID-19 Vaccine Moderna COVID-19 Vaccine 2020-04-25 08:34:00 Completed [facility] Moderna COVID-19 Vaccine Moderna COVID-19 Vaccine 2020-04-25 08:34:00 Completed [facility] Moderna COVID-19 Vaccine Moderna COVID-19 Vaccine 2020-04-25 08:34:00 Completed [facility] Moderna COVID-19 Vaccine Moderna COVID-19 Vaccine 2020-04-25 08:34:00 Completed [facility] Moderna COVID-19 Vaccine Moderna COVID-19 Vaccine 2020-04-25 08:34:00 Completed [facility] SARS-COV-2 COVID-19 MODERNA VACCINE 2020-04-25 00:00:00 Completed [facility] SARS-COV-2 COVID-19 MODERNA 12+ YRS VACCINE 2020-04-25 00:00:00 Completed [facility] SARS-COV-2 COVID-19 MODERNA 12+ YRS VACCINE 2020-04-25 00:00:00 Completed [facility] SARS-COV-2 COVID-19 MODERNA 12+ YRS VACCINE 2020-04-25 00:00:00 Completed [facility] SARS-COV-2 COVID-19 MODERNA 12+ YRS VACCINE 2020-04-25 00:00:00 Completed Moderna COVID-19 Vaccine Moderna COVID-19 Vaccine 2020-03-26 08:33:00 Completed [facility] Moderna COVID-19 Vaccine Moderna COVID-19 Vaccine 2020-03-26 08:33:00 Completed [facility] Moderna COVID-19 Vaccine Moderna COVID-19 Vaccine 2020-03-26 08:33:00 Completed [facility] Moderna COVID-19 Vaccine Moderna COVID-19 Vaccine 2020-03-26 08:33:00 Completed [facility] Moderna COVID-19 Vaccine Moderna COVID-19 Vaccine 2020-03-26 08:33:00 Completed [facility] Moderna COVID-19 Vaccine Moderna COVID-19 Vaccine 2020-03-26 08:33:00 Completed [facility] Moderna COVID-19 Vaccine Moderna COVID-19 Vaccine 2020-03-26 08:33:00 Completed [facility] Moderna COVID-19 Vaccine Moderna COVID-19 Vaccine 2020-03-26 08:33:00 Completed [facility] Moderna COVID-19 Vaccine Moderna COVID-19 Vaccine 2020-03-26 08:33:00 Completed [facility] SARS-COV-2 COVID-19 MODERNA VACCINE 2020-03-26 00:00:00 Completed [facility] SARS-COV-2 COVID-19 MODERNA 12+ YRS VACCINE 2020-03-26 00:00:00 Completed [facility] SARS-COV-2 COVID-19 MODERNA 12+ YRS VACCINE 2020-03-26 00:00:00 Completed [facility] SARS-COV-2 COVID-19 MODERNA 12+ YRS VACCINE 2020-03-26 00:00:00 Completed [facility] SARS-COV-2 COVID-19 MODERNA 12+ YRS VACCINE 2020-03-26 00:00:00 Completed Shingrix Shingrix 2020 09:37:00 Completed [facility] Shingrix Shingrix 2020 09:37:00 Completed [facility] Shingrix Shingrix 2020 09:37:00 Completed [facility] Shingrix Shingrix 2020 09:37:00 Completed [facility] Shingrix Shingrix 2020 09:37:00 Completed [facility] Shingrix Shingrix 2020 09:37:00 Completed [facility] Shingrix Shingrix 2020 09:37:00 Completed [facility] Shingrix Shingrix 2020 09:37:00 Completed [facility] Shingrix Shingrix 2020 09:37:00 Completed [facility] Zoster Vaccine Recombinant 2020 00:00:00 Completed [facility] Zoster Vaccine Recombinant 2020 00:00:00 Completed [facility] Zoster Vaccine Recombinant 2020 00:00:00 Completed [facility] Zoster Vaccine Recombinant 2020 00:00:00 Completed [facility] Zoster Vaccine Recombinant 2020 00:00:00 Completed FluAD FluAD 2019-12-14 09:38:00 Completed [facility] FluAD FluAD 2019-12-14 09:38:00 Completed [facility] FluAD FluAD 2019-12-14 09:38:00 Completed [facility] FluAD FluAD 2019-12-14 09:38:00 Completed [facility] FluAD FluAD 2019-12-14 09:38:00 Completed [facility] FluAD FluAD 2019-12-14 09:38:00 Completed [facility] FluAD FluAD 2019-12-14 09:38:00 Completed [facility] FluAD FluAD 2019-12-14 09:38:00 Completed [facility] FluAD FluAD 2019-12-14 09:38:00 Completed [facility] Shingrix Shingrix 2019-12-14 09:36:00 Completed [facility] Shingrix Shingrix 2019-12-14 09:36:00 Completed [facility] Shingrix Shingrix 2019-12-14 09:36:00 Completed [facility] Shingrix Shingrix 2019-12-14 09:36:00 Completed [facility] Shingrix Shingrix 2019-12-14 09:36:00 Completed [facility] Shingrix Shingrix 2019-12-14 09:36:00 Completed [facility] Shingrix Shingrix 2019-12-14 09:36:00 Completed [facility] Shingrix Shingrix 2019-12-14 09:36:00 Completed [facility] Shingrix Shingrix 2019-12-14 09:36:00 Completed [facility] Influenza Virus Vaccine,quad Im,preserve Free 65+ 2019-12-14 00:00:00 Completed [facility] Zoster Vaccine Recombinant 2019-12-14 00:00:00 Completed [facility] Influenza Virus Vaccine,quad Im,preserve Free 65+ 2019-12-14 00:00:00 Completed [facility] Zoster Vaccine Recombinant 2019-12-14 00:00:00 Completed [facility] Influenza, Trivalent, Adjuvanted 2019-12-14 00:00:00 Completed [facility] Influenza Virus Vaccine,quad Im,preserve Free 65+ 2019-12-14 00:00:00 Completed [facility] Zoster Vaccine Recombinant 2019-12-14 00:00:00 Completed [facility] Influenza, Trivalent, Adjuvanted 2019-12-14 00:00:00 Completed [facility] Influenza Virus Vaccine,quad Im,preserve Free 65+ 2019-12-14 00:00:00 Completed [facility] Zoster Vaccine Recombinant 2019-12-14 00:00:00 Completed [facility] Influenza, Trivalent, Adjuvanted 2019-12-14 00:00:00 Completed [facility] Influenza Virus Vaccine,quad Im,preserve Free 65+ (FLUAD) 2019-12-14 00:00:00 Completed Zoster Vaccine Recombinant 2019-12-14 00:00:00 Completed Influenza, adjuvanted, trivalent, PF (FLUAD) 2019-12-14 00:00:00 Completed Influenza High Dose 2019-02-10 00:00:00 Completed [facility] Influenza High Dose 2019-02-10 00:00:00 Completed [facility] Influenza High Dose 2019-02-10 00:00:00 Completed [facility] Influenza High Dose 2019-02-10 00:00:00 Completed [facility] Influenza, High-Dose, Trivalent, PF (FLUZONE) 2019-02-10 00:00:00 Completed FLUZONE HIGH DOSE OVER 65 FLUZONE HIGH DOSE OVER 65 Unknown Completed [facility] Moderna COVID-19 Vaccine Moderna COVID-19 Vaccine Unknown Completed [facility] FluAD FluAD Unknown Completed [facility] Shingrix Shingrix Unknown Completed [facility] FLUZONE HIGH DOSE OVER 65 FLUZONE HIGH DOSE OVER 65 Unknown Completed [facility] Moderna COVID-19 Vaccine Moderna COVID-19 Vaccine Unknown Completed [facility] FluAD FluAD Unknown Completed [facility] Shingrix Shingrix Unknown Completed [facility] FLUZONE HIGH DOSE OVER 65 FLUZONE HIGH DOSE OVER 65 Unknown Completed [facility] Moderna COVID-19 Vaccine Moderna COVID-19 Vaccine Unknown Completed [facility] FluAD FluAD Unknown Completed [facility] Shingrix Shingrix Unknown Completed [facility] FLUZONE HIGH DOSE OVER 65 FLUZONE HIGH DOSE OVER 65 Unknown Completed [facility] Moderna COVID-19 Vaccine Moderna COVID-19 Vaccine Unknown Completed [facility] FluAD FluAD Unknown Completed [facility] Shingrix Shingrix Unknown Completed [facility] FLUZONE HIGH DOSE OVER 65 FLUZONE HIGH DOSE OVER 65 Unknown Completed [facility] Moderna COVID-19 Vaccine Moderna COVID-19 Vaccine Unknown Completed [facility] FluAD FluAD Unknown Completed [facility] Shingrix Shingrix Unknown Completed [facility] FLUZONE HIGH DOSE OVER 65 FLUZONE HIGH DOSE OVER 65 Unknown Completed [facility] Moderna COVID-19 Vaccine Moderna COVID-19 Vaccine Unknown Completed [facility] FluAD FluAD Unknown Completed [facility] Shingrix Shingrix Unknown Completed [facility] FLUZONE HIGH DOSE OVER 65 FLUZONE HIGH DOSE OVER 65 Unknown Completed [facility] Moderna COVID-19 Vaccine Moderna COVID-19 Vaccine Unknown Completed [facility] FluAD FluAD Unknown Completed [facility] Shingrix Shingrix Unknown Completed [facility] FLUZONE HIGH DOSE OVER 65 FLUZONE HIGH DOSE OVER 65 Unknown Completed [facility] Moderna COVID-19 Vaccine Moderna COVID-19 Vaccine Unknown Completed [facility] FluAD FluAD Unknown Completed [facility] Shingrix Shingrix Unknown Completed [facility] FLUZONE HIGH DOSE OVER 65 FLUZONE HIGH DOSE OVER 65 Unknown Completed [facility] SARS-COV-2 COVID-19 MODERNA 0.25ML BOOSTER VACCINE Unknown Completed [facility] Influenza Virus Vaccine,quad Im,preserve Free 65+ (FLUAD) Unknown Completed [facility] Influenza, Trivalent, Adjuvanted Unknown Completed [facility] Influenza High Dose Unknown Completed [facility] SARS-COV-2 COVID-19 MODERNA 12+ YRS VACCINE Unknown Completed [facility] Zoster Vaccine Recombinant Unknown Completed [facility] SARS-COV-2 COVID-19 MODERNA 0.25ML BOOSTER VACCINE Unknown Completed [facility] Influenza Virus Vaccine,quad Im,preserve Free 65+ (FLUAD) Unknown Completed [facility] Influenza High Dose Unknown Completed [facility] SARS-COV-2 COVID-19 MODERNA 12+ YRS VACCINE Unknown Completed [facility] Zoster Vaccine Recombinant Unknown Completed [facility] Influenza, Trivalent, Adjuvanted Unknown Completed [facility] Moderna COVID-19 Vaccine Moderna COVID-19 Vaccine Unknown Completed [facility] FluAD FluAD Unknown Completed [facility] Shingrix Shingrix Unknown Completed [facility] FLUZONE HIGH DOSE OVER 65 FLUZONE HIGH DOSE OVER 65 Unknown Completed [facility] Moderna COVID-19 Vaccine Moderna COVID-19 Vaccine Unknown Completed [facility] FluAD FluAD Unknown Completed [facility] Shingrix Shingrix Unknown Completed [facility] FLUZONE HIGH DOSE OVER 65 FLUZONE HIGH DOSE OVER 65 Unknown Completed [facility] Moderna COVID-19 Vaccine Moderna COVID-19 Vaccine Unknown Completed [facility] FluAD FluAD Unknown [facility] [facility] Sh[facility] Unknown Completed [facility] FLUZONE HIGH DOSE OVER 65 FLUZONE HIGH DOSE OVER 65 Unknown Completed [facility] Moderna COVID-19 Vaccine Moderna COVID-19 Vaccine Unknown Completed [facility] FluAD FluAD Unknown Completed Common [facility] Shingrix Unknown Completed Common [facility] Unknown Completed Common [facility] FLUZONE HIGH DOSE OVER 65 FLUZONE HIGH DOSE OVER 65 Unknown Completed [facility] Moderna COVID-19 Vaccine Moderna COVID-19 Vaccine Unknown Completed [facility] FluAD FluAD Unknown Completed [facility] Shingrix Unknown Completed Common [facility] FLUZONE HIGH DOSE OVER 65 FLUZONE HIGH DOSE OVER 65 Unknown Completed [facility] Moderna COVID-19 Vaccine Moderna COVID-19 Vaccine Unknown Completed [facility] FluAD FluAD Unknown Completed Common [facility] Shingrix Unknown Completed Common [facility] FLUZONE HIGH DOSE OVER 65 FLUZONE HIGH DOSE OVER 65 Unknown Completed [facility] Moderna COVID-19 Vaccine Moderna COVID-19 Vaccine Unknown Completed [facility] FluAD FluAD Unknown Completed Common [facility] Shingrix Unknown Completed Common [facility] FLUZONE HIGH DOSE OVER 65 FLUZONE HIGH DOSE OVER 65 Unknown Completed [facility] Moderna COVID-19 Vaccine Moderna COVID-19 Vaccine Unknown Completed [facility] FluAD FluAD Unknown Completed Common [facility] Shingrix Unknown Completed Common [facility] FLUZONE HIGH DOSE OVER 65 FLUZONE HIGH DOSE OVER 65 Unknown Completed [facility] Moderna COVID-19 Vaccine Moderna COVID-19 Vaccine Unknown Completed [facility] FluAD FluAD Unknown Completed [facility] Shingrix Unknown Completed [facility] FLUZONE HIGH DOSE OVER 65 FLUZONE HIGH DOSE OVER 65 Unknown Completed [facility] Moderna COVID-19 Vaccine Moderna COVID-19 Vaccine Unknown Completed [facility] FluAD FluAD Unknown Completed [facility] Shingrix Unknown Completed [facility] Vital Signs Vital Name Observation Time Observation Value Comments S breezy height 2024-08-23 13:40:00 62.00 [in_i] Com [facility] weight 2024-08-23 13:40:00 133.2 [lb_av] Co mmon [facility] temperature 2024-08-23 13:40:00 97.2 [degF] Com [facility] bmi 2024-08-23 13:40:00 24.36 kg/m2 Comm on [facility] oximetry 2024-08-23 13:40:00 98 % Commo n [facility] respiratory rate 2024-08-23 13:40:00 16 /min [facility] blood pressure systolic 2024-08-23 13:40:00 134 mm[Hg] [facility] blood pressure diastolic 2024-08-23 13:40:00 68 mm[Hg] [facility] Systolic blood pressure 2024-07-14 18:41:00 111 mm[Hg] [facility] Diastolic blood pressure 2024-07-14 18:41:00 67 mm[Hg] [facility] Heart rate 2024-07-14 18:41:00 63 /min [facility] Body temperature 2024-07-14 18:41:00 36.72 [place] [facility] Respiratory rate 2024-07-14 18:41:00 18 /min [facility] Body height 2024-07-14 18:41:00 154.9 cm [facility] Body weight 2024-07-14 18:41:00 60.374 kg [facility] BMI 2024-07-14 18:41:00 25.15 kg/m2 [facility] Oxygen saturation in Arterial blood by Pulse oximetry 2024-07-14 18:41:00 95 /min [facility] height 2024-07-07 11:20:00 62.00 [in_i] Com [facility] weight 2024-07-07 11:20:00 132.6 [lb_av] Co [facility] temperature 2024-07-07 11:20:00 97.1 [degF] Com [facility] bmi 2024-07-07 11:20:00 24.25 kg/m2 Comm on [facility] oximetry 2024-07-07 11:20:00 99 % Commo n [facility] respiratory rate 2024-07-07 11:20:00 16 /min [facility] blood pressure systolic 2024-07-07 11:20:00 134 mm[Hg] [facility] blood pressure diastolic 2024-07-07 11:20:00 65 mm[Hg] [facility] height 2024-06-09 11:00:00 62.00 [in_i] Com [facility] weight 2024-06-09 11:00:00 133.8 [lb_av] Co [facility] temperature 2024-06-09 11:00:00 98.0 [degF] Com [facility] bmi 2024-06-09 11:00:00 24.47 kg/m2 Comm on [facility] oximetry 2024-06-09 11:00:00 97 % Commo n [facility] respiratory rate 2024-06-09 11:00:00 18 /min Common [facility] blood pressure systolic 2024-06-09 11:00:00 148 mm[Hg] [facility] blood pressure diastolic 2024-06-09 11:00:00 67 mm[Hg] Common [facility] height 2024-06-05 10:00:00 62.00 [in_i] Com [facility] weight 2024-06-05 10:00:00 135.0 [lb_av] Co mmon [facility] temperature 2024-06-05 10:00:00 98.2 [degF] Com [facility] bmi 2024-06-05 10:00:00 24.69 kg/m2 Comm on [facility] oximetry 2024-06-05 10:00:00 98 % Commo n [facility] respiratory rate 2024-06-05 10:00:00 17 /min [facility] blood pressure systolic 2024-06-05 10:00:00 127 mm[Hg] Common [facility] blood pressure diastolic 2024-06-05 10:00:00 72 mm[Hg] [facility] height 2024-02-24 14:15:00 62.00 [in_i] Com [facility] weight 2024-02-24 14:15:00 142 [lb_av] Comm on [facility] temperature 2024-02-24 14:15:00 98.0 [degF] Com [facility] bmi 2024-02-24 14:15:00 25.97 kg/m2 Comm on [facility] blood pressure systolic 2024-02-24 14:15:00 136 mm[Hg] [facility] blood pressure diastolic 2024-02-24 14:15:00 74 mm[Hg] [facility] height 2024-02-03 10:40:00 62.00 [in_i] Com [facility] weight 2024-02-03 10:40:00 142.0 [facility]av[facility]-03 10:40:00 97.3 [degF] Com [facility] bmi 2024-02-03 10:40:00 25.97 kg/m2 Comm on [facility] oximetry 2024-02-03 10:40:00 99 % Commo n [facility] respiratory rate 2024-02-03 10:40:00 18 /min Common [facility] blood pressure systolic 2024-02-03 10:40:00 138 mm[Hg] [facility] blood pressure diastolic 2024-02-03 10:40:00 67 mm[Hg] [facility] height 2024-02-03 10:40:00 62.00 [in_i] Com [facility] weight 2024-02-03 10:40:00 142.0 [lb_av] [facility] 2024-02-03 10:40:00 97.3 [degF] Com [facility] bmi 2024-02-03 10:40:00 25.97 kg/m2 Comm on [facility] oximetry 2024-02-03 10:40:00 99 % Commo n [facility] respiratory rate 2024-02-03 10:40:00 18 /min Common [facility] blood pressure systolic 2024-02-03 10:40:00 138 mm[Hg] Common [facility] blood pressure diastolic 2024-02-03 10:40:00 67 mm[Hg] Common [facility] height 2024-01-25 10:00:00 62.00 [in_i] Com [facility] weight 2024-01-25 10:00:00 140.0 [lb_av] [facility] 2024-01-25 10:00:00 98.1 [degF] Com [facility] bmi 2024-01-25 10:00:00 25.6 kg/m2 Commo n [facility] blood pressure systolic 2024-01-25 10:00:00 119 mm[Hg] Common [facility] blood pressure diastolic 2024-01-25 10:00:00 67 mm[Hg] [facility] height 2024-01-05 09:40:00 62.00 [in_i] Com [facility] weight 2024-01-05 09:40:00 142.4 [lb_av] Co [facility] temperature 2024-01-05 09:40:00 97.5 [degF] Com [facility] bmi 2024-01-05 09:40:00 26.04 kg/m2 Comm on [facility] oximetry 2024-01-05 09:40:00 98 % Commo n [facility] respiratory rate 2024-01-05 09:40:00 17 /min [facility] blood pressure systolic 2024-01-05 09:40:00 124 mm[Hg] [facility] blood pressure diastolic 2024-01-05 09:40:00 63 mm[Hg] [facility] height 2023-12-13 11:00:00 62.00 [in_i] Com [facility] weight 2023-12-13 11:00:00 142.8 [lb_av] Co [facility] temperature 2023-12-13 11:00:00 97.5 [degF] Com [facility] bmi 2023-12-13 11:00:00 26.12 kg/m2 Comm on [facility] oximetry 2023-12-13 11:00:00 97 % Commo n [facility] respiratory rate 2023-12-13 11:00:00 16 /min Common [facility] blood pressure systolic 2023-12-13 11:00:00 138 mm[Hg] [facility] blood pressure diastolic 2023-12-13 11:00:00 70 mm[Hg] [facility] height 2023-09-10 08:20:00 62.00 [in_i] Com [facility] weight 2023-09-10 08:20:00 146.6 [lb_av] Co mmon [facility] temperature 2023-09-10 08:20:00 98.1 [degF] Com [facility] bmi 2023-09-10 08:20:00 26.81 kg/m2 Comm on [facility] oximetry 2023-09-10 08:20:00 98 % Commo n [facility] respiratory rate 2023-09-10 08:20:00 18 /min [facility] blood pressure systolic 2023-09-10 08:20:00 139 mm[Hg] [facility] blood pressure diastolic 2023-09-10 08:20:00 77 mm[Hg] Common [facility] height 2023-09-10 08:20:00 62.00 [in_i] Com [facility] weight 2023-09-10 08:20:00 146.6 [lb_av] Co mmon [facility] temperature 2023-09-10 08:20:00 98.1 [degF] Com [facility] bmi 2023-09-10 08:20:00 26.81 kg/m2 Comm on [facility] oximetry 2023-09-10 08:20:00 98 % Commo n [facility] respiratory rate 2023-09-10 08:20:00 18 /min [facility] blood pressure systolic 2023-09-10 08:20:00 139 mm[Hg] Common [facility] blood pressure diastolic 2023-09-10 08:20:00 77 mm[Hg] Common [facility] height 2023-09-10 08:20:00 62.00 [in_i] Com [facility] weight 2023-09-10 08:20:00 146.6 [lb_av] [facility] 2023-09-10 08:20:00 98.1 [degF] Com [facility] bmi 2023-09-10 08:20:00 26.81 kg/m2 Comm on [facility] oximetry 2023-09-10 08:20:00 98 % Commo n [facility] respiratory rate 2023-09-10 08:20:00 18 /min [facility] blood pressure systolic 2023-09-10 08:20:00 139 mm[Hg] Common [facility] blood pressure diastolic 2023-09-10 08:20:00 77 mm[Hg] Common [facility] height 2023-08-30 13:00:00 62.00 [in_i] Com [facility] weight 2023-08-30 13:00:00 146.6 [lb_av] Co [facility] temperature 2023-08-30 13:00:00 98.2 [degF] Com [facility] bmi 2023-08-30 13:00:00 26.81 kg/m2 Comm on [facility] blood pressure systolic 2023-08-30 13:00:00 136 mm[Hg] [facility] blood pressure diastolic 2023-08-30 13:00:00 84 mm[Hg] Common [facility] height 2023-08-16 11:40:00 62.00 [in_i] Com [facility] weight 2023-08-16 11:40:00 146.4 [lb_av] Co [facility] temperature 2023-08-16 11:40:00 97.4 [degF] Com mon [facility] bmi 2023-08-16 11:40:00 26.77 kg/m2 Comm on [facility] oximetry 2023-08-16 11:40:00 97 % Commo n [facility] respiratory rate 2023-08-16 11:40:00 17 /min Common [facility] blood pressure systolic 2023-08-16 11:40:00 130 mm[Hg] [facility] blood pressure diastolic 2023-08-16 11:40:00 65 mm[Hg] [facility] Systolic blood pressure 2023-07-09 17:53:00 125 mm[Hg] [facility] Diastolic blood pressure 2023-07-09 17:53:00 73 mm[Hg] [facility] Heart rate 2023-07-09 17:53:00 64 /min [facility] Body temperature 2023-07-09 17:53:00 36.78 [place] [facility] Respiratory rate 2023-07-09 17:53:00 16 /min [facility] Body height 2023-07-09 17:53:00 157.5 cm [facility] Body weight 2023-07-09 17:53:00 67.903 kg [facility] BMI 2023-07-09 17:53:00 27.38 kg/m2 [facility] Oxygen saturation in Arterial blood by Pulse oximetry 2023-07-09 17:53:00 98 /min [facility] height 2023-05-12 09:40:00 62.00 [in_i] Com mon [facility] weight 2023-05-12 09:40:00 149.4 [lb_av] Co mmon [facility] temperature 2023-05-12 09:40:00 97.8 [degF] Com mon [facility] bmi 2023-05-12 09:40:00 27.32 kg/m2 Comm on [facility] oximetry 2023-05-12 09:40:00 99 % Commo n [facility] respiratory rate 2023-05-12 09:40:00 18 /min [facility] blood pressure systolic 2023-05-12 09:40:00 137 mm[Hg] Common [facility] blood pressure diastolic 2023-05-12 09:40:00 72 mm[Hg] Common [facility] height 2023-05-12 09:40:00 62.00 [in_i] Com [facility] weight 2023-05-12 09:40:00 149.4 [lb_av] Co [facility] temperature 2023-05-12 09:40:00 97.8 [degF] Com [facility] bmi 2023-05-12 09:40:00 27.32 kg/m2 Comm on [facility] oximetry 2023-05-12 09:40:00 99 % Commo n [facility] respiratory rate 2023-05-12 09:40:00 18 /min [facility] blood pressure systolic 2023-05-12 09:40:00 137 mm[Hg] Common [facility] blood pressure diastolic 2023-05-12 09:40:00 72 mm[Hg] [facility] height 2023-02-02 08:40:00 62.00 [in_i] Com [facility] weight 2023-02-02 08:40:00 151.8 [lb_av] Co [facility] temperature 2023-02-02 08:40:00 97.2 [degF] Com [facility] bmi 2023-02-02 08:40:00 27.76 kg/m2 Comm on [facility] oximetry 2023-02-02 08:40:00 97 % Commo n [facility] respiratory rate 2023-02-02 08:40:00 17 /min Common [facility] blood pressure systolic 2023-02-02 08:40:00 130 mm[Hg] Common [facility] blood pressure diastolic 2023-02-02 08:40:00 80 mm[Hg] [facility] height 2023-01-11 13:00:00 62.00 [in_i] Com [facility] weight 2023-01-11 13:00:00 150.8 [lb_av] Co [facility] temperature 2023-01-11 13:00:00 98.2 [degF] Com [facility] bmi 2023-01-11 13:00:00 27.58 kg/m2 Comm on [facility] oximetry 2023-01-11 13:00:00 98 % Commo n [facility] respiratory rate 2023-01-11 13:00:00 18 /min [facility] blood pressure systolic 2023-01-11 13:00:00 136 mm[Hg] [facility] blood pressure diastolic 2023-01-11 13:00:00 78 mm[Hg] [facility] height 2022-09-04 14:00:00 62.00 [in_i] Com [facility] weight 2022-09-04 14:00:00 153.0 [lb_av] Co mmon [facility] temperature 2022-09-04 14:00:00 97.4 [degF] Com [facility] bmi 2022-09-04 14:00:00 27.98 kg/m2 Comm on [facility] oximetry 2022-09-04 14:00:00 99 % Commo n [facility] respiratory rate 2022-09-04 14:00:00 17 /min [facility] blood pressure systolic 2022-09-04 14:00:00 125 mm[Hg] [facility] blood pressure diastolic 2022-09-04 14:00:00 65 mm[Hg] [facility] height 2022-07-14 15:00:00 62.00 [in_i] Com [facility] weight 2022-07-14 15:00:00 153.0 [lb_av] Co mmon [facility] temperature 2022-07-14 15:00:00 97.9 [degF] Com [facility] bmi 2022-07-14 15:00:00 27.98 kg/m2 Comm on [facility] oximetry 2022-07-14 15:00:00 99 % Commo n [facility] respiratory rate 2022-07-14 15:00:00 17 /min [facility] blood pressure systolic 2022-07-14 15:00:00 139 mm[Hg] [facility] blood pressure diastolic 2022-07-14 15:00:00 63 mm[Hg] Common [facility] height 2022-05-04 09:20:00 62.00 [in_i] Com [facility] weight 2022-05-04 09:20:00 154.2 [facility]lb_av] [facility]-04 09:20:00 28.2 kg/m2 Commo n [facility] oximetry 2022-05-04 09:20:00 98 % Commo n [facility] respiratory rate 2022-05-04 09:20:00 16 /min Common [facility] blood pressure systolic 2022-05-04 09:20:00 138 mm[Hg] [facility] blood pressure diastolic 2022-05-04 09:20:00 67 mm[Hg] Common [facility] height 2022-05-04 09:40:00 62.00 [in_i] Com [facility] weight 2022-05-04 09:40:00 154.2 [lb_av] Co mmon [facility] temperature 2022-05-04 09:40:00 97.5 [degF] Com mon [facility] bmi 2022-05-04 09:40:00 28.2 kg/m2 Commo n [facility] oximetry 2022-05-04 09:40:00 98 % Commo n [facility] respiratory rate 2022-05-04 09:40:00 16 /min Common [facility] blood pressure systolic 2022-05-04 09:40:00 138 mm[Hg] [facility] blood pressure diastolic 2022-05-04 09:40:00 67 mm[Hg] [facility] Systolic blood pressure 2022-03-20 14:26:00 145 mm[Hg] [facility] Diastolic blood pressure 2022-03-20 14:26:00 72 mm[Hg] [facility] Heart rate 2022-03-20 14:25:00 64 /min [facility] Body temperature 2022-03-20 14:25:00 36.67 [place] [facility] Body height 2022-03-20 14:25:00 154.9 cm [facility] Body weight 2022-03-20 14:25:00 70.897 kg [facility] BMI 2022-03-20 14:25:00 29.53 kg/m2 [facility] height 2021-12-31 17:00:00 62.00 [in_i] Com [facility] weight 2021-12-31 17:00:00 156 [lb_av] Comm on [facility] temperature 2021-12-31 17:00:00 97.3 [degF] Com [facility] bmi 2021-12-31 17:00:00 28.53 kg/m2 Comm on [facility] oximetry 2021-12-31 17:00:00 98 % Commo n [facility] respiratory rate 2021-12-31 17:00:00 16 /min Common [facility] blood pressure systolic 2021-12-31 17:00:00 147 mm[Hg] Common [facility] blood pressure diastolic 2021-12-31 17:00:00 76 mm[Hg] Common [facility] height 2021-07-07 08:00:00 62.00 [in_i] Com [facility] weight 2021-07-07 08:00:00 155.2 [lb_av] Co [facility] temperature 2021-07-07 08:00:00 97.8 [degF] Com [facility] bmi 2021-07-07 08:00:00 28.38 kg/m2 Comm on [facility] oximetry 2021-07-07 08:00:00 96 % Commo n [facility] respiratory rate 2021-07-07 08:00:00 16 /min [facility] blood pressure systolic 2021-07-07 08:00:00 134 mm[Hg] [facility] blood pressure diastolic 2021-07-07 08:00:00 71 mm[Hg] Common [facility] height 2021-05-30 08:40:00 62.00 [in_i] Com [facility] weight 2021-05-30 08:40:00 150.6 [lb_av] Co [facility] bmi 2021-05-30 08:40:00 27.54 kg/m2 Comm on [facility] height 2021-01-06 08:00:00 62.00 [in_i] Com [facility] weight 2021-01-06 08:00:00 150.6 [lb_av] Co [facility] temperature 2021-01-06 08:00:00 96.8 [degF] Com [facility] bmi 2021-01-06 08:00:00 27.54 kg/m2 Comm on [facility] oximetry 2021-01-06 08:00:00 99 % Commo n [facility] respiratory rate 2021-01-06 08:00:00 18 /min Common [facility] blood pressure systolic 2021-01-06 08:00:00 122 mm[Hg] Common [facility] blood pressure diastolic 2021-01-06 08:00:00 82 mm[Hg] Common [facility] height 2020-12-10 08:00:00 62.00 [in_i] Com [facility] weight 2020-12-10 08:00:00 151.8 [lb_av] Co mmon [facility] temperature 2020-12-10 08:00:00 98.7 [degF] Com [facility] bmi 2020-12-10 08:00:00 27.76 kg/m2 Comm on [facility] oximetry 2020-12-10 08:00:00 97 % Commo n [facility] blood pressure systolic 2020-12-10 08:00:00 177 mm[Hg] [facility] blood pressure diastolic 2020-12-10 08:00:00 76 mm[Hg] [facility] Procedures Procedure Date / Time Performed Performing Clinician Source BI SCREENING TOMOSYNTHESIS BILATERAL 2023-07-15 17:25:00 Keit Puckett [facility] PVR 2023-04-21 00:00:00 Common [facility] CONSENT/REFUSAL FOR DIAGNOSIS AND TREATMENT 2022-04-22 16:00:04 Doctor Unassigned, Net[facility] ASSIGNMENT OF BENEFITS 2022-04-22 15:59:41 Docto r Unassigned, [facility] Encounters Start Date/Time End Date/Time Encounter Type Admission Type Attending Clinicians Care Facility Care Department Encounter ID Source 2024-01-25 14:18:00 Outpatient [facility], Avnee STLMLC ST[facility] [id number] [facility] 2024-01-21 11:51:00 Outpatient [facility], Avnee STLMLC ST[facility]C [id number] [facility] 2024-01-11 14:40:00 Outpatient [facility], Avnee STLMLC STLMLC [id number] [facility] 2023-12-13 10:51:00 Outpatient [facility], Avnee STLMLC STLMLC [id number] [facility] 2023-08-30 16:10:00 Outpatient [facility], Avnee STLMLC STLMLC [id number] [facility] 2023-08-24 10:06:00 Outpatient [facility], Avnee STLMLC STLMLC [id number] [facility] 2022-09-02 08:48:00 Outpatient [facility], Avnee STLMLC STLMLC [id number] [facility] 2022-04-22 14:05:01 Outpatient [facility], Avnee STLMLC STLMLC [id number] [facility] 2021-12-22 08:49:00 Outpatient [facility], Avnee STLMLC STLMLC [id number] [facility] 2021-12-02 14:04:01 Outpatient [facility], Avnee STLMLC STLMLC [id number] [facility] 2021-08-19 14:39:00 Outpatient Penn, Avnee STLMLC STLMLC [id number] [facility] 2021-04-09 14:12:38 Outpatient [facility], Avnee STLMLC STLMLC [id number] [facility] 2021-04-09 14:09:29 Outpatient Penn, Avnee STLMLC STLMLC [id number] [facility] 2021-04-09 14:02:41 Outpatient Penn, Avnee STLMLC STLMLC [id number] [facility] 2021-04-09 13:14:46 Outpatient Penn Avnee STLMLC STLMLC [id number] [facility] 2021-04-09 13:03:45 Outpatient Penn, Avnee STLMLC STLMLC [id number] [facility] 2021-04-09 13:02:59 Outpatient STLMLC STLMLC [id number] [facility] 2021-04-09 13:02:38 Outpatient Penn Avnee STLMLC STLMLC [id number] [facility] 2021-04-09 13:01:02 Outpatient STLMLC STLMLC [id number] [facility] 2021-04-09 12:56:56 Outpatient STLMLC STLMLC [id number] [facility] 2021-04-09 12:38:17 Outpatient Ericka, Silva STLMLC STLMLC [id number] [facility] 2021-04-09 12:37:12 Outpatient Ericka, Silva STLMLC STLMLC [id number] [facility] [facility] 2021-04-09 12:14:39 Outpatient Ericka, Silva STLMLC STLMLC [id number] [facility] 2021-04-09 12:14:07 Outpatient Troy Gloveren STLMLC STLMLC [id number] [facility] 2021-04-09 11:54:55 Outpatient Troy Gloveren STLMLC STLMLC [id number] [facility] 2021-04-09 11:53:17 Outpatient Lida Glover STLMLC STLMLC [id number] [facility] 2021-04-09 11:46:21 Outpatient Lida Glover STLMTWAN STLMLC [id number] [facility] 2021-04-09 11:40:17 Outpatient Lida Glover STLMLC STLMLC [id number] [facility] 2021-04-09 11:28:05 Outpatient Lida Glover STLMLC STLMLC [id number] [facility] 2021-04-09 11:05:19 Outpatient Lida Glover STLMLC STLMLC [id number] [facility] 2025-07-20 09:30:00 2025-07-20 09:30:00 Outpatient KIET PATEL VIEN [facility] [id number] [facility] 2024-10-12 00:00:00 2024-10-12 00:00:00 (TEL) STLMLC STLMLC [id number] [facility] 2024-10-11 00:00:00 2024-10-11 00:00:00 (TEL) STLMLC STLMLC [id number] [facility] 2024-10-09 00:00:00 2024-10-09 00:00:00 (TEL) STLMLC STLMLC [id number] [facility] 2024-08-28 00:00:00 2024-08-28 00:00:00 (TEL) STLMLC STLMLC [id number] [facility] 2024-08-23 00:00:00 2024-08-23 00:00:00 (TEL) STLMLC STLMLC [id number] [facility] 2024-08-23 00:00:00 2024-08-23 00:00:00 OFFICE VISIT ESTAB PT LEVEL 3 STLMLC STLMLC [id number] [facility] 2024-08-16 00:00:00 2024-08-16 00:00:00 (TEL) STLMLC STLMLC [id number] [facility] 2024-08-08 00:00:00 2024-08-08 15:24:58 Telephone Kiet Puckett [facility] [id number] 350.1.13.10 4.2.7.2.686 [id number] [facility] 2024-08-04 12:48:57 2024-08-04 23:59:00 Hospital Encounter R KIET PUCKETT VIEN [facility] 1.2.840.114 350.1.13.10 4.2.7.2.686 [id number] [facility] 2024-08-04 00:00:00 2024-08-04 00:00:00 Outpatient R KIET PUCKETT VIEN [facility] [id number] [facility] 2024-07-14 13:30:00 2024-07-14 13:45:00 Office Visit Kiet Puckett [facility] [id number] 350.1.13.10 4.2.7.2.686 [id number] [facility] 2024-07-14 13:30:00 2024-07-14 13:30:00 Outpatient KIET PATEL VIEN [facility] [id number] [facility] 2024-07-07 00:00:00 2024-07-07 00:00:00 OFFICE VISIT ESTAB PT LEVEL 3 STLMLC STLMLC [id number] [facility] 2024-06-12 00:00:00 2024-06-12 00:00:00 (TEL) STLMLC STLMLC [id number] [facility] 2024-06-12 00:00:00 2024-06-12 00:00:00 (TEL) STLMLC STLMLC [id number] [facility] 2024-06-09 00:00:00 2024-06-09 00:00:00 OFFICE VISIT ESTAB PT LEVEL 5 STLMLC STLMLC [id number] [facility] 2024-06-05 00:00:00 2024-06-05 00:00:00 OFFICE VISIT ESTAB PT LEVEL 4 STLMLC STLMLC [id number] [facility] 2024-05-22 00:00:00 2024-05-22 00:00:00 (TEL) STLMLC STLMLC [id number] [facility] 2024-02-24 00:00:00 2024-02-24 00:00:00 OFFICE VISIT ESTAB PT LEVEL 3 STLMLC STLMLC [id number] [facility] 2024-02-03 00:00:00 2024-02-03 00:00:00 OFFICE VISIT ESTAB PT LEVEL 4 STLMLC STLMLC [id number] [facility] 2024-01-25 00:00:00 2024-01-25 00:00:00 OFFICE VISIT ESTAB PT LEVEL 4 STLMLC STLMLC [id number] [facility] 2024-01-10 00:00:00 2024-01-10 00:00:00 (TEL) STLMLC STLMLC [id number] [facility] 2024-01-05 00:00:00 2024-01-05 00:00:00 OFFICE VISIT ESTAB PT LEVEL 4 STLMLC STLMLC [id number] [facility] 2023-12-15 00:00:00 2023-12-15 00:00:00 (TEL) STLMLC STLMLC [id number] [facility] 2023-12-13 00:00:00 2023-12-13 00:00:00 (TEL) STLMLC STLMLC [id number] [facility] 2023-12-13 00:00:00 2023-12-13 00:00:00 OFFICE VISIT ESTAB PT LEVEL 3 STLMLC STLMLC [id number] [facility] 2023-11-19 00:00:00 2023-11-19 00:00:00 (TEL) STLMLC STLMLC [id number] [facility] 2023-09-10 00:00:00 2023-09-10 00:00:00 OFFICE VISIT ESTAB PT LEVEL 4 STLMLC STLMLC [id number] [facility] 2023-09-10 00:00:00 2023-09-10 00:00:00 SUB [facility]AL [facility] STLMLC STLMLC [id number] [facility] 2023-08-30 00:00:00 2023-08-30 00:00: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 STLMLC STLMLC [id number] [facility] 2023-08-16 00:00:00 2023-08-16 00:00:00 OFFICE VISIT ESTAB PT LEVEL 3 STLMLC STLMLC [id number] [facility] 2023-08-16 00:00:00 2023-08-16 00:00:00 (TEL) STLMLC STLMLC [id number] [facility] 2023-07-15 11:52:08 2023-07-15 23:59:00 Outpatient R KIET PUCKETT [facility] [id number] [facility] 2023-07-15 11:52:08 2023-07-15 23:59:00 Hospital Encounter Kiet Puckett [facility] 1.2.840.114 350.1.13.10 4.2.7.2.686 [id number] [facility] 2023-07-09 13:00:00 2023-07-09 13:30:00 Office Visit Kiet Puckett [facility] 1.2.840.114 350.1.13.10 4.2.7.2.686 [id number] [facility] 2023-07-09 13:00:00 2023-07-09 13:16:48 Outpatient R KIET PUCKETT [facility] [id number] [facility] 2023-05-12 00:00:00 2023-05-12 00:00:00 OFFICE VISIT ESTAB PT LEVEL 4 STLMLC STLMLC [id number] [facility] 2023-04-21 00:00:00 2023-04-21 00:00:00 OFFICE VISIT ESTAB PT LEVEL 3 STLMLC STLMLC [id number] [facility] 2023-03-26 10:00:00 2023-03-26 10:00:00 Outpatient R KIET PUCKETT [facility] [id number] [facility] 2023-03-05 00:00:00 2023-03-05 00:00:00 (TEL) STLMLC STLMLC [id number] [facility] 2023-02-02 00:00:00 2023-02-02 00:00:00 OFFICE VISIT ESTAB PT LEVEL 3 STLMLC STLMLC [id number] [facility] 2023-01-11 00:00:00 2023-01-11 00:00:00 OFFICE VISIT ESTAB PT LEVEL 4 STLMLC STLMLC [id number] [facility] 2022-11-23 00:00:00 2022-11-23 00:00:00 (TEL) STLMLC STLMLC [id number] [facility] 2022-10-26 00:00:00 2022-10-26 00:00:00 (TEL) STLMLC STLMLC [id number] [facility] 2022-10-26 00:00:00 2022-10-26 00:00:00 (TEL) STLMLC STLMLC [id number] [facility] 2022-09-09 00:00:00 2022-09-09 00:00:00 (TEL) STLMLC STLMLC [id number] [facility] 2022-09-04 00:00:00 2022-09-04 00:00:00 (TEL) STLMLC STLMLC [id number] [facility] 2022-09-04 00:00:00 2022-09-04 00:00:00 OFFICE VISIT ESTAB PT LEVEL 4 STLMLC STLMLC [id number] [facility] 2022-07-16 00:00:00 2022-07-16 00:00:00 (TEL) STLMLC STLMLC [id number] [facility] 2022-07-14 00:00:00 2022-07-14 00:00:00 (TEL) STLMLC STLMLC [id number] [facility] 2022-07-14 00:00:00 2022-07-14 00:00:00 OFFICE VISIT ESTAB PT LEVEL 3 STLMLC STLMLC [id number] [facility] 2022-07-02 00:00:00 2022-07-02 00:00:00 (TEL) STLMLC STLMLC [id number] [facility] 2022-05-04 00:00:00 2022-05-04 00:00:00 OFFICE VISIT ESTAB PT LEVEL 4 STLMLC STLMLC [id number] [facility] 2022-05-04 00:00:00 2022-05-04 00:00:00 SUB ANNUAL [facility] VISIT STLMLC STLMLC [id number] [facility] 2022-04-27 00:00:00 2022-04-27 00:00:00 Telephone Kiet Puckett [facility] 1..840.114 350.1.13.10 4.2.7.2.686 [id number] [facility] 2022-04-22 09:59:18 2022-04-22 23:59:00 Outpatient R KIET PUCKETT [facility] [id number] [facility] 2022-04-22 09:59:18 2022-04-22 23:59:00 Hospital Encounter Kiet Puckett [address]840.114 350.1.13.10 4.2.7.2.686 [id number] [facility] 2022-04-22 00:00:00 2022-04-22 00:00:00 (TEL) STLMLC STLMLC [id number] [facility] 2022-03-20 08:00:00 2022-03-20 08:48:28 Outpatient R KIET PUCKETT [facility] [id number] [facility] 2022-03-20 08:00:00 2022-03-20 08:48:28 Office Visit Kiet Puckett [facility] 1.2.840.114 350.1.13.10 4.2.7.2.686 [id number] [facility] 2022-03-20 08:00:00 2022-03-20 08:00:00 Outpatient R KIET PUCKETT [facility] [id number] [facility] 2022-02-17 00:00:00 2022-02-17 00:00:00 (TEL) STLMLC STLMLC [id number] [facility] 2021-12-31 00:00:00 2021-12-31 00:00:00 OFFICE VISIT ESTAB PT LEVEL 4 STLMLC STLMLC [id number] [facility] 2021-10-20 00:00:00 2021-10-20 00:00:00 (TEL) STLMLC STLMLC [id number] [facility] 2021-09-17 00:00:00 2021-09-17 00:00:00 (TEL) STLMLC STLMLC [id number] [facility] 2021-09-01 00:00:00 2021-09-01 00:00:00 (TEL) STLMLC STLMLC [id number] [facility] 2021-08-18 00:00:00 2021-08-18 00:00:00 (TEL) STLMLC STLMLC [id number] [facility] 2021-07-29 00:00:00 2021-07-29 00:00:00 (TEL) STLMLC STLMLC [id number] [facility] 2021-07-29 00:00:00 2021-07-29 00:00:00 Telephone Kiet Puckett [facility] 1.2.840.114 350.1.13.10 4.2.7.2.686 [id number] [facility] 2021-07-23 00:00:00 2021-07-23 00:00:00 (TEL) STLMLC STLMLC [id number] [facility] 2021-07-07 00:00:00 2021-07-07 00:00:00 OFFICE VISIT ESTAB PT LEVEL 4 STLMLC STLMLC [id number] [facility] 2021-06-25 00:00:00 2021-06-25 00:00:00 (TEL) STLMLC STLMLC [id number] [facility] 2021-06-23 00:00:00 2021-06-23 00:00:00 (TEL) STLMLC STLMLC [id number] [facility] 2021-06-11 00:00:00 2021-06-11 00:00:00 (TEL) STLMLC STLMLC [id number] [facility] 2021-06-05 00:00:00 2021-06-05 00:00:00 (TEL) STLMLC STLMLC [id number] [facility] 2021-05-30 00:00:00 2021-05-30 00:00:00 OL DIG E/M SVC 11-20 MIN STLMLC STLMLC [id number] [facility] 2021-05-29 00:00:00 2021-05-29 00:00:00 (TEL) STLMLC STLMLC [id number] [facility] 2021-05-21 00:00:00 2021-05-21 00:00:00 (TEL) STLMLC STLMLC [id number] [facility] 2021-04-16 00:00:00 2021-04-16 00:00:00 [facility] 1.840.114 350.1.13.10 4.2.7.2.686 [id number] [facility] 2021-04-09 08:37:23 2021-04-09 23:59:00 Outpatient R KIET PUCKETT [facility] [id number] [facility] 2021-04-09 08:37:23 2021-04-09 23:59:00 Hospital Encounter Kiet Puckett [facility] 1.840.114 350.1.13.10 4.2.7.2.686 [id number] [facility] 2021-03-14 08:30:00 2021-03-14 09:27:56 Outpatient R KIET PUCKETT [facility] [id number] [facility] 2021-03-14 08:30:00 2021-03-14 09:27:56 Office Visit Kiet Puckett [facility] 1.840.114 350.1.13.10 4.2.7.2.686 [id number] [facility] 2021-03-14 08:30:00 2021-03-14 08:30:00 Outpatient R KIET PUCKETT [facility] [id number] [facility] 2021-03-14 00:00:00 2021-03-14 00:00:00 Orders Only Doctor Unassigned, [facility] 1.84.114 350.1.13.10 4.2.7.2.686 [id number] [facility] 2021-01-24 13:20:00 2021-01-24 12:47:14 Outpatient CECILIA PINEDO [facility] [id number] [facility] 2021-01-16 00:00:00 2021-01-16 00:00:00 (TEL) STLMLC STLMLC [id number] [facility] 2021-01-06 00:00:00 2021-01-06 00:00:00 OFFICE VISIT ESTAB PT LEVEL 4 STLMLC STLMLC [id number] [facility] 2020-12-10 00:00:00 2020-12-10 00:00:00 OFFICE VISIT EST PT LEVEL 3 STLMLC STLMLC [id number] [facility] 2020-09-24 00:00:00 2020-09-24 00:00:00 Outpatient STLMLC STLMLC [id number] [facility] 2020-08-28 00:00:00 2020-08-28 00:00:00 Outpatient STLMLC STLMLC [id number] [facility] 2020-08-05 00:00:00 2020-08-05 00:00:00 Outpatient STLMLC STLMLC [id number] [facility] 2020-07-24 00:00:00 2020-07-24 00:00:00 Outpatient STLMLC STLMLC [id number] [facility] 2020-07-22 00:00:00 2020-07-22 00:00:00 Outpatient STLMLC STLMLC [id number] [facility] 2020-05-29 00:00:00 2020-05-29 00:00:00 Outpatient STLMLC STLMLC [id number] [facility] 2020-05-22 00:00:00 2020-05-22 00:00:00 Outpatient STLMLC STLMLC [id number] [facility] 2020-03-13 00:00:00 2020-03-13 00:00:00 Outpatient STLMLC STLMLC [id number] [facility] 2020-03-04 00:00:00 2020-03-04 00:00:00 Outpatient STLMLC STLMLC [id number] [facility] 2020-03-01 00:00:00 2020-03-01 00:00:00 Outpatient STLMLC STLMLC [id number] [facility] 2019-12-27 00:00:00 2019-12-27 00:00:00 Outpatient STLMLC STLMLC [id number] [facility] 2019-11-06 13:00:00 2019-11-06 13:00:[address] [facility] [id number] [facility] 2019-11-06 11:43:00 2019-11-06 11:43:[address] [facility] [address] [facility] [id number] [facility] 2019-09-05 16:20:00 2019-09-05 16:20:[address] [facility] [address] [facility] [id number] [facility] 2019-08-25 09:23:00 2019-08-25 09:23:[address] [facility] [address] [facility] [id number] [facility] 2019-06-06 10:17:00 2019-06-06 10:17:[address] [facility] [address] [facility] [id number] [facility] 2019-06-05 09:40:00 2019-06-05 09:40:00 [facility] [facility] [address] [id number] [facility] 2019-06-05 08:20:00 2019-06-05 08:20:[address] [facility] [address] [id number] [facility] 2019-04-18 13:45:00 2019-04-18 13:45:[address] [facility] [address] [facility] [id number] [facility] 2019-03-01 20:16:00 2019-03-01 20:16:[address] [facility] [address] [facility] [id number] [facility] 2019-03-01 08:15:00 2019-03-01 08:15:[address] [facility] [address] [facility] [id number] [facility] 2019-02-23 15:54:00 2019-02-23 15:54:00 [facility] [facility] [address] [id number] [facility] 2018-09-18 17:23:00 2018-09-18 17:23:[address] [facility] [address] [address] [facility] [id number] [facility] 2018-09-13 08:20:00 2018-09-13 08:20:[address] [facility] [address] [address] [facility] [id number] [facility] 2018-05-20 10:30:00 2018-05-20 10:30:00 [facility] [facility] [id number] [facility] 2018-05-06 09:12:00 2018-05-06 09:12:[address] [facility] [address] [facility] [id number] [facility] 2017-12-22 11:06:00 2017-12-22 11:06:[address] [facility] [address] [facility] [id number] [facility] 2017-12-06 09:50:00 2017-12-06 09:50:[address] [facility] [address] [address] [facility] [id number] [facility] 2017-12-02 08:30:00 2017-12-02 08:30:[address] [facility] [address] [facility] [id number] [facility] Results Test Description Test Time Test Comments Results Result Co mments Source COMPREHENSIVE METABOLIC [id number] 00:00:00* Test Item Value Reference Range Interpretation Comme nts NUCLEATED RBCS (test code = 20372-6) 0.0 /100 WBC'S See_Comment [Automated message] The system which generated this result transmitted reference range: 0.0 /100 WBC'S. The reference range was not used to interpret this result as normal/abnormal. ABSOLUTE EOSINOPHILS (test code = 10297-6) 0.37 K/UL See_Comment [Automated message] The system which generated this result transmitted reference range: 0.00-0.50 K/UL. The reference range was not used to interpret this result as normal/abnormal. ABSOLUTE LYMPHOCYTES (test code = 67903-7) 1.58 K/UL See_Comment [Automated message] The system which generated this result transmitted reference range: 1.00-4.00 K/UL. The reference range was not used to interpret this result as normal/abnormal. ABSOLUTE MONOCYTES (test code = 07472-4) 0.73 K/UL See_Comment [Automated message] The system which generated this result transmitted reference range: 0.20-1.00 K/UL. The reference range was not used to interpret this result as normal/abnormal. ABSOLUTE NEUTROPHILS (test code = 68351-7) 5.85 K/UL See_Comment [Automated message] The system which generated this result transmitted reference range: 1.50-7.50 K/UL. The reference range was not used to interpret this result as normal/abnormal. BASOPHILS (test code = 31864-3) 0.7 % EOSINOPHILS (test code = 27547-8) 4.3 % HEMATOCRIT (test code = 98675-1) 40.3 % See_Comment [Automated messa ge] The [...] result as normal/abnormal. LYMPHOCYTES (test code = 82698-8) 18.3 % MCH (test code = 22054-2) 28.5 PG See_Comment [Automated messa ge] The system which generated this result transmitted reference range: 25.0-33.0 PG. The reference range was not used to interpret this result as normal/abnormal. MCHC (test code = 99289-6) 33.0 G/DL See_Comment [Automated messa ge] The system which generated this result transmitted reference range: 31.0-36.0 G/DL. The reference range was not used to interpret this result as normal/abnormal. MCV (test code = 33636-6) 86.5 fL See_Comment [Automated messa ge] The system which generated this result transmitted reference range: 80.0-99.0 fL. The reference range was not used to interpret this result as normal/abnormal. MONOCYTES (test code = 05776-0) 8.5 % NEUTROPHILS (test code = 81285-4) 67.7 % PLATELET COUNT (test code = 49878-5) 413 K/UL See_Comment H [Automated messa ge] The system which generated this result transmitted reference range: 130-400 K/UL. The reference range was not used to interpret this result as normal/abnormal. RBC (test code = 90816-4) 4.66 M/UL See_Comment [Automated messa ge] The system which generated this result transmitted reference range: 3.80-5.40 M/UL. The reference range was not used to interpret this result as normal/abnormal. RDW (test code = 74848-8) 12.2 % See_Comment [Automated messa ge] The system which generated this result transmitted reference range: 11.5-15.0 %. The reference range was not used to interpret this result as normal/abnormal. WBC (test code = 23812-8) 8.6 K/UL See_Comment [Automated messa ge] The system which generated this result transmitted reference range: 3.5-11.0 K/UL. The reference range was not used to interpret this result as normal/abnormal. HEMOGLOBIN A1c (test code = 4548-4) 6.2 % See_Comment H [Automated messa ge] The system which generated this result transmitted reference range: 4.2-5.6 %. The reference range was not used to interpret this result as normal/abnormal. VITAMIN D,1,25-DIHYDROXY (test code = 1649-3) 38.3 PG/ML See_Comment [Automated messa ge] The system which generated this result transmitted reference range: 20.0-82.0 PG/ML. The reference range was not used to interpret this result as normal/abnormal. CALC LDL CHOL (test code = 47977-1) 99 MG/DL See_Comment [Automated messa ge] The system which generated this result transmitted reference range: <100 MG/DL. The reference range was not used to interpret this result as normal/abnormal. CHOLESTEROL (test code = 2093-3) 161 MG/DL See_Comment [Automated messa ge] The system [...] normal/abnormal. RISK RATIO LDL/HDL (test code = 58126-9) 2.30 RATIO See_Comment [Automated message] The system [...] normal/abnormal. ALBUMIN, URINE, RANDOM (test code = 10571-2) <0.2 MG/DL NOT ESTAB MG/DL CALC ALBUMIN/CREAT, RND (test code = 70525-3) <2 MG/G See_Comment [Automated messa ge] The [...] result as normal/abnormal. CALCIUM (test code = 25446-0) 9.5 MG/DL See_Comment [Automated messa ge] The [...] as normal/abnormal. CALC GLOBULIN (test code = 87867-4) 3.1 G/DL See_Comment [Automated messa ge] The [...] normal/abnormal. eGFR (2020 CKD-EPI) (test code = 38305-8) 54 ML/MIN/1.73 See_Comment L [Automated message] The [...] code = 1920-8) 17 U/L See_Comment [Automated Ravtia ge] The system which generated this result [...] interpret this result as normal/abnormal. CBC W/AUTO [id number] 00:00:00* Test Item Value Reference Range Interpretation Comme nts NUCLEATED RBCS (test code = 94985-7) 0.0 /100 WBC'S See_Comment [Automated messa ge] The system which generated this result transmitted reference range: 0.0 /100 WBC'S. The reference range was not used to interpret this result as normal/abnormal. ABSOLUTE EOSINOPHILS (test code = 51239-3) 0.07 K/UL See_Comment [Automated messa ge] The system which generated this result transmitted reference range: 0.00-0.50 K/UL. The reference range was not used to interpret this result as normal/abnormal. ABSOLUTE LYMPHOCYTES (test code = 54335-6) 2.97 K/UL See_Comment [Automated messa ge] The system which generated this result transmitted reference range: 1.00-4.00 K/UL. The reference range was not used to interpret this result as normal/abnormal. ABSOLUTE MONOCYTES (test code = 37376-6) 1.14 K/UL See_Comment H [Automated messa ge] The system which generated this result transmitted reference range: 0.20-1.00 K/UL. The reference range was not used to interpret this result as normal/abnormal. ABSOLUTE NEUTROPHILS (test code = 47514-4) 6.93 K/UL See_Comment [Automated messa ge] The system which generated this result transmitted reference range: 1.50-7.50 K/UL. The reference range was not used to interpret this result as normal/abnormal. BASOPHILS (test code = 68833-8) 0.2 % EOSINOPHILS (test code = 13287-8) 0.6 % HEMATOCRIT (test code = 45505-0) 42.0 % See_Comment [Automated [employer] ge] The system which generated this result transmitted reference range: 34.0-45.0 %. The reference range was not used to interpret this result as normal/abnormal. HEMOGLOBIN (test code = 718-7) 14.2 G/DL See_Comment [Automated messa ge] The system which generated this result transmitted reference range: 11.5-15.5 G/DL. The reference range was not used to interpret this result as normal/abnormal. LYMPHOCYTES (test code = 08369-6) 26.6 % MCH (test code = 07476-3) 29.3 PG See_Comment [Automated [employer] ge] The system which generated this result transmitted reference range: 25.0-33.0 PG. The reference range was not used to interpret this result as normal/abnormal. MCHC (test code = 76147-0) 33.8 G/DL See_Comment [Automated messa ge] The system which generated this result transmitted reference range: 31.0-36.0 G/DL. The reference range was not used to interpret this result as normal/abnormal. MCV (test code = 87163-0) 86.8 fL See_Comment [Automated messa ge] The system which generated this result transmitted reference range: 80.0-99.0 fL. The reference range was not used to interpret this result as normal/abnormal. MONOCYTES (test code = 02682-9) 10.2 % NEUTROPHILS (test code = 96657-5) 62.0 % PLATELET COUNT (test code = 63530-1) 383 K/UL See_Comment [Automated messa ge] The system which generated this result transmitted reference range: 130-400 K/UL. The reference range was not used to interpret this result as normal/abnormal. RBC (test code = 83421-1) 4.84 M/UL See_Comment [Automated messa ge] The system which generated this result transmitted reference range: 3.80-5.40 M/UL. The reference range was not used to interpret this result as normal/abnormal. RDW (test code = 11862-3) 12.5 % See_Comment [Automated messa ge] The system which generated this result transmitted reference range: 11.5-15.0 %. The reference range was not used to interpret this result as normal/abnormal. WBC (test code = 72694-7) 11.2 K/UL See_Comment H [Automated messa ge] The system which generated this result transmitted reference range: 3.5-11.0 K/UL. The reference range was not used to interpret this result as normal/abnormal. BI SCREENING TOMOSYNTHESIS [id number] 18:14:31Examination:BI SCREENING TOMOSYNTHESIS BILATERAL History:Patient is 73 [...] follow- up [facility]: [id number] 00:00:00* Test Item Value Reference Range Interpretation Comme nts NUCLEATED RBCS (test code = 54642-6) 0.0 /100 WBC'S See_Comment [Automated messa ge] The system which generated this result transmitted reference range: 0.0 /100 WBC'S. The reference range was not used to interpret this result as normal/abnormal. ABSOLUTE EOSINOPHILS (test code = 17422-8) 0.59 K/UL See_Comment H [Automated messa ge] The system which generated this result transmitted reference range: 0.00-0.50 K/UL. The reference range was not used to interpret this result as normal/abnormal. ABSOLUTE LYMPHOCYTES (test code = 54722-9) 1.79 K/UL See_Comment [Automated messa ge] The system which generated this result transmitted reference range: 1.00-4.00 K/UL. The reference range was not used to interpret this result as normal/abnormal. ABSOLUTE MONOCYTES (test code = 04326-3) 0.61 K/UL See_Comment [Automated messa ge] The system which generated this result transmitted reference range: 0.20-1.00 K/UL. The reference range was not used to interpret this result as normal/abnormal. ABSOLUTE NEUTROPHILS (test code = 49931-3) 3.78 K/UL See_Comment [Automated messa ge] The system which generated this result transmitted reference range: 1.50-7.50 K/UL. The reference range was not used to interpret this result as normal/abnormal. BASOPHILS (test code = 14842-9) 1.3 % EOSINOPHILS (test code = 79649-2) 8.6 % HEMATOCRIT (test code = 31887-0) 43.3 % See_Comment [Automated messa ge] The system [...] result as normal/abnormal. LYMPHOCYTES (test code = 87203-1) 26.1 % MCH (test code = 68611-7) 30.3 PG See_Comment [Automated messa ge] The system which generated this result transmitted reference range: 25.0-33.0 PG. The reference range was not used to interpret this result as normal/abnormal. MCHC (test code = 19961-0) 33.5 G/DL See_Comment [Automated messa ge] The system which generated this result transmitted reference range: 31.0-36.0 G/DL. The reference range was not used to interpret this result as normal/abnormal. MCV (test code = 28477-6) 90.4 fL See_Comment [Automated messa ge] The system which generated this result transmitted reference range: 80.0-99.0 fL. The reference range was not used to interpret this result as normal/abnormal. MONOCYTES (test code = 88136-9) 8.9 % NEUTROPHILS (test code = 40327-4) 55.0 % PLATELET COUNT (test code = 96089-9) 350 K/UL See_Comment [Automated messa ge] The system which generated this result transmitted reference range: 130-400 K/UL. The reference range was not used to interpret this result as normal/abnormal. RBC (test code = 93726-5) 4.79 M/UL See_Comment [Automated messa ge] The system which generated this result transmitted reference range: 3.80-5.40 M/UL. The reference range was not used to interpret this result as normal/abnormal. RDW (test code = 46755-2) 12.5 % See_Comment [Automated messa ge] The system which generated this result transmitted reference range: 11.5-15.0 %. The reference range was not used to interpret this result as normal/abnormal. WBC (test code = 31235-0) 6.9 K/UL See_Comment [Automated messa ge] The system which generated this result transmitted reference range: 3.5-11.0 K/UL. The reference range was not used to interpret this result as normal/abnormal. [id number] 00:00:00* Test Item Value Reference Range Interpretation Comme nts FERRITIN (test code = 19586-4) 86 NG/ML See_Comment [Automated Ravtia ge] The system which generated this result transmitted reference range: 13-200 NG/ML. The reference range was not used to interpret this result as normal/abnormal. Notes Date/Time Note Provider Source 2024-08-08 15:23:29 Images from the original note were not included. Kiet Puckett MD 08/08/2024 1:06 PM CDT Impression: No mammographic evidence of malignancy. Recommendation: Annual mammographic follow-up BI-RADS Category: Both 1 - Negative Overall: Negative Kiet Puckett MD 08/08/2024 1:06 PM Pt notified of results. Denies questions or concerns at this time. Lorraine Bobby RN [facility] 2024-08-08 14:45:24 Ila Mariee is a 74 year old female Patent returning call in regards to mammogram results. Brenda Mcgill [facility]
[2024-10-28] MEDS ORDERED: NA CHLORIDE 0.9% 1,000 ML ONE (15:40)
[2024-10-28 15:57] LABS: Absolute Lymphocytes (CBC) 1.3 K/uL (0.7-4.9); Hematocrit 35.9 % (36.0-45.0); Hemoglobin 12.1 g/dL (12.0-15.0); MCH 27.9 pg (27.0-35.0); MCHC 33.7 g/dL (32.0-36.0); MCV 83.0 fL (80-100); MPV 7.2 fL (7.6-11.3); Nucleated RBC Absolute Count 0.0 (0-0); Nucleated Red Blood Cells % 0.1 % (0-0); RBC Red Blood Cell Count 4.33 M/uL (3.86-4.86); White Blood Count 11.90 thou/uL (4.3-10.9)
[2024-10-28 16:23] LABS: AST/SGOT 14 U/L (15-37); Albumin 2.6 g/dL (3.4-5.0); Albumin/Globulin Ratio 0.6 (1.1-1.8); Alkaline Phosphatase 59 U/L (45-117); Anion Gap 8.4 mEq/L (5.0-15.0); BUN Blood Urea Nitrogen 20 mg/dL (7-18); Globulin 4.5 g/dL (2.3-3.5); Glucose Level 122 mg/dL (74-106); Lipase 9 U/L (13-75); Potassium 3.4 mEq/L (3.5-5.1)
[2024-10-28 16:36] LABS: ALT/SGPT < 14 U/L (13-56)
--- NOTE | 2024-10-28 16:57 | EDPHYS ---
Physician Documentation [facility] Name: Ila Mariee Age: 74 yrs Sex: Female : 1950 Arrival Date: 10/28/2024 Time: 14:49 Bed 18 Private MD: ED Physician Tima Scott HPI: 10/28 15:34 This 74 yrs old Female presents to ER via Ambulatory with complaints of Diarrhea, dry sp3 mouth. 15:34 74-year-old female with history of anemia, hyperlipidemia, hypertension with recent sp3 pancolitis admission with multiple antibiotics discharged from here now presents again for recurrent diarrhea symptoms that started approximately 4 AM described as watery diarrhea that is not stopping. She was okay yesterday. She states no new foods or abnormal foods or known sick contacts, fever, abdominal pain, chest pain, shortness of breath, symptoms, blood in your stool, vomiting or any other signs or symptoms on ROS at this time.. Historical: - Allergies: 14:58 Bactrim; ar8 14:58 Codeine; ar8 14:58 Prednisone; ar8 14:58 Sulfa (Sulfonamide Antibiotics); ar8 14:58 tramadol; ar8 14:58 Zofran; ar8 - PMHx: 14:58 Anemia; urinary problems; High Cholesterol; Hypertension; Anxiety; GERD; Depression; ar8 - PSHx: 14:58 wrist SX; ar8 - Immunization history:: Adult Immunizations up to date. - Infectious Disease History:: Denies. - Social history:: Smoking status: Smoking status: Patient denies any tobacco usage or history of. ROS: 15:35 Constitutional: Negative for fever, chills, and weight loss, Eyes: Negative for injury, sp3 pain, redness, and discharge, ENT: Negative for injury, pain, and discharge, Neck: Negative for injury, pain, and swelling, Cardiovascular: Negative for chest pain, palpitations, and edema, Respiratory: Negative for shortness of breath, cough, wheezing, and pleuritic chest pain, Back: Negative for injury and pain, MS/Extremity: Negative for injury and deformity, Skin: Negative for injury, rash, and discoloration, Neuro: Negative for headache, weakness, numbness, tingling, and seizure, Psych: Negative for depression, anxiety, suicide ideation, homicidal ideation, and hallucinations, Allergy/Immunology: Negative for hives, rash, and allergies, Endocrine: Negative for neck swelling, polydipsia, polyuria, polyphagia, and marked weight changes, Hematologic/Lymphatic: Negative for swollen nodes, abnormal bleeding, and unusual bruising, 15:35 All other systems are negative, Exam: 15:35 Constitutional: This is a well developed, well nourished patient who is awake, alert, sp3 and in no acute distress. Head/Face: Normocephalic, atraumatic. Eyes: Pupils equal round and reactive to light, extra-ocular motions intact. Lids and lashes normal. Conjunctiva and sclera are non-icteric and not injected. Cornea within normal limits. Periorbital areas with no swelling, redness, or edema. Neck: Trachea midline, no thyromegaly or masses palpated, and no cervical lymphadenopathy. Supple, full range of motion without nuchal rigidity, or vertebral point tenderness. No Meningismus. Chest/axilla: Normal chest wall appearance and motion. Nontender with no deformity. No lesions are appreciated. Cardiovascular: Regular rate and rhythm with a normal S1 and S2. No gallops, murmurs, or rubs. Normal PMI, no JVD. No pulse deficits. Respiratory: Lungs have equal breath sounds bilaterally, clear to auscultation and percussion. No rales, rhonchi or wheezes noted. No increased work of breathing, no retractions or nasal flaring. Abdomen/GI: Soft, non-tender, with normal bowel sounds. No distension or tympany. No guarding or rebound. No evidence of tenderness throughout. Back: No spinal tenderness. No costovertebral tenderness. Full range of motion. Skin: Warm, dry with normal turgor. Normal color with no rashes, no lesions, and no evidence of cellulitis. MS/ Extremity: Pulses equal, no cyanosis. Neurovascular intact. Full, normal range of motion. Neuro: Awake and alert, GCS 15, oriented to person, place, time, and situation. Cranial nerves II-XII grossly intact. Motor strength 5/5 in all extremities. Sensory grossly intact. Cerebellar exam normal. Normal gait. Psych: Awake, alert, with orientation to person, place and time. Behavior, mood, and affect are within normal limits. Vital Signs: 14:55 BP 150 / 66; Pulse 69; Resp 20; Temp 98.4(O); Pulse Ox 100% on R/A; Weight 58.97 kg; ar8 Height 5 ft. 1 in. ; Pain 0/10; 17:29 BP 135 / 58; Pulse 70; Resp 15; Pulse Ox 100% ; jl7 14:55 Body Mass Index 24.56 (58.97 kg, 154.94 cm) ar8 14:55 Pain Scale: Adult ar8 MDM: 15:01 Medical Screening Exam initiated sp3 15:35 Data reviewed: vital signs, nurses notes, old medical records, lab test result(s). ED sp3 course: 74-year-old female with recurrent watery diarrhea. Differential diagnosis includes C. difficile, recurrent colitis, viral illness, gastroenteritis, dehydration, among others. Workup will include general labs, IV fluids and general supportive care. Also stool studies. Disposition pending workup patient course. Vital signs are normal.. 16:56 ED course: Labs within normal limits. Patient unable to provide more stool sample as sp3 diarrhea is resolved. Will safely discharge patient home with no intervention indicated further at this time.. 10/28 15:31 Order name: CBC with Diff sp3 10/28 15:31 Order name: CMP; Complete Time: 16:48 sp3 10/28 15:31 Order name: Lipase; Complete Time: 16:48 sp3 10/28 15:31 Order name: Lactate w/ 2H reflex if indic.; Complete Time: 16:48 sp3 10/28 16:00 Order name: CBC Smear Scan EDMS 10/28 15:31 Order name: IV Saline Lock; Complete Time: 15:46 sp3 10/28 15:31 Order name: Labs collected and sent; Complete Time: 15:46 sp3 Administered Medications: 17:30 Not Given (Patient Refused): ns 0.9% 1000 ml IV at 1 bolus Per protocol; to be given as jl7 a bolus over 60 minutes Disposition Summary: 10/28/24 16:56 Discharge Ordered Notes: Location: Home sp3 Condition: Stable sp3 Diagnosis - Diarrhea, resolved sp3 Followup: sp3 - With: Private Physician - When: Upon discharge from the Emergency Department - Reason: Continuance of care Discharge Instructions: - Discharge Summary Sheet sp3 - Diarrhea, Adult sp3 Forms: - Medication Reconciliation Form sp3 - Antibiotic Education sp3 - Prescription Opioid Use sp3 - Patient Portal Instructions sp3 - Leadership Thank You Letter sp3 Signatures: Dispatcher [employer] Tima Matos MD MD sp3 Juan J Laureano RN RN ar8 Iftikhar Shelley RN jl7
--- NOTE | 2024-10-28 16:57 | ER ---
Nurse's Notes [facility] Name: Ila Mariee Age: 74 yrs Sex: Female : 1950 Arrival Date: 10/28/2024 Time: 14:49 Bed 18 Private MD: Diagnosis: Diarrhea, resolved Presentation: 10/28 14:55 Chief complaint: Patient states: C/O diarrhea since 0400. denies abdominal pain, N/V. ar8 Coronavirus screen: At this time, the client does not indicate any symptoms associated with coronavirus-19. Ebola Screen: No symptoms or risks identified at this time. Initial Sepsis Screen: Does the patient meet any 2 criteria? No. Patient's initial sepsis screen is negative. Does the patient have a suspected source of infection? No. Patient's initial sepsis screen is negative. Risk Assessment: Do you want to hurt yourself or someone else? Patient reports no desire to harm self or others. Onset of symptoms was October 28, 2024 at 04:00. 14:55 Method Of Arrival: Ambulatory ar8 14:55 Acuity: IGNACIO 3 ar8 Triage Assessment: 14:58 General: Appears in no apparent distress. Behavior is calm, cooperative. Pain: Denies ar8 pain. GI: Reports diarrhea. Historical: - Allergies: 14:58 Bactrim; ar8 14:58 Codeine; ar8 14:58 Prednisone; ar8 14:58 Sulfa (Sulfonamide Antibiotics); ar8 14:58 tramadol; ar8 14:58 Zofran; ar8 - PMHx: 14:58 Anemia; urinary problems; High Cholesterol; Hypertension; Anxiety; GERD; Depression; ar8 - PSHx: 14:58 wrist SX; ar8 - Immunization history:: Adult Immunizations up to date. - Infectious Disease History:: Denies. - Social history:: Smoking status: Smoking status: Patient denies any tobacco usage or history of. Screenin:20 [facility] ED Fall Risk Assessment (Adult) History of falling in the last 3 months, jl7 including since admission No falls in past 3 months (0 pts) Confusion or Disorientation No (0 pts) Intoxicated or Sedated No (0 pts) Impaired Gait No (0 pts) Mobility Assist Device Used No (0 pt) Altered Elimination No (0 pt) Score/Fall Risk Level 0 - 2 = Low Risk Oriented to surroundings, Maintained a safe environment. Abuse screen: Denies threats or abuse. Denies injuries from another. Nutritional screening: No deficits noted. Tuberculosis screening: No symptoms or risk factors identified. Assessment: 15:20 General: Appears in no apparent distress. uncomfortable, Behavior is calm, cooperative, jl7 appropriate for age. Pain: Denies pain. Neuro: Level of Consciousness is awake, alert, obeys commands, Oriented to person, place, time, situation. Cardiovascular: Patient's skin is warm and dry. Respiratory: Airway is patent Respiratory effort is even, unlabored, Respiratory pattern is regular, symmetrical. GI: Reports diarrhea, Patient currently denies nausea, vomiting. : Denies burning with urination. Derm: Skin is pink, warm \T\ dry. 16:30 Reassessment: Patient appears in no apparent distress at this time. No changes from jl7 previously documented assessment. Patient and/or family updated on plan of care and expected duration. Pain level reassessed. Patient is alert, oriented x 3, equal unlabored respirations, skin warm/dry/pink. Vital Signs: 14:55 BP 150 / 66; Pulse 69; Resp 20; Temp 98.4(O); Pulse Ox 100% on R/A; Weight 58.97 kg; ar8 Height 5 ft. 1 in. ; Pain 0/10; 17:29 BP 135 / 58; Pulse 70; Resp 15; Pulse Ox 100% ; jl7 14:55 Body Mass Index 24.56 (58.97 kg, 154.94 cm) ar8 14:55 Pain Scale: Adult ar8 ED Course: 14:52 Patient arrived in ED. im 14:52 Tima Scott MD is Attending Physician. sp3 14:58 Triage completed. ar8 15:00 Arm band placed on right wrist. ar8 15:15 Iftikhar Shelley, BETTY is Primary Nurse. jl7 15:20 Patient has correct armband on for positive identification. Provided Education on: use jl7 of call beltran. 15:20 Initial lab(s) drawn, by me, sent to lab. IV discontinued, intact, bleeding controlled, jl7 No redness/swelling at site. Pressure dressing applied. Inserted saline lock: 22 gauge in right antecubital area, using aseptic technique. Blood collected. Flushed with 10 mL NS. 17:29 No provider procedures requiring assistance completed. jl7 Administered Medications: 17:30 Not Given (Patient Refused): ns 0.9% 1000 ml IV at 1 bolus Per protocol; to be given as jl7 a bolus over 60 minutes Medication: 15:20 VIS not applicable for this client. jl7 Outcome: 16:56 Discharge ordered by . arielle 17:31 Discharged to home ambulatory, jl7 17:31 Condition: stable 17:31 Discharge instructions given to patient, Instructed on discharge instructions, follow up and referral plans. Demonstrated understanding of instructions, follow-up care, 17:31 Patient left the ED. jl7 Signatures: Iftikhar Shelley RN RN jl7 Tima Scott MD MD sp3 Nataliya Cheek Andrea, RN RN ar8
[2024-10-28 18:46] LABS: White Blood Cell Scan OK (OK)
[2024-10-28 18:47] LABS: Blood Morphology Comment NOT SEEN (NOT SEEN)
[2024-10-29 00:29] VITALS: TEMP 98.4; O2SAT 100
[2024-10-29 00:31] VITALS: BP 135/58
== END 2024-10-28 17:31 | disposition home or self-care (01) ==
LOC: ER 14:49
DX: R19.7 Diarrhea, unspecified (principal)
CPT/HCPCS: 85025; 36415; 83605; 83690; 80053; 99283; J7030